=== PATIENT | female | born 1960 | race Caucasian/White ===

== ENCOUNTER → 2021-06-12 10:53 | Outpatient (BNVA) | payer MEDICARE, SELFPAY | PROVIDERS: PCP Family Medicine Adult Medicine; Visit Provider Family Medicine Adult Medicine | DX: R63.4 Abnormal weight loss (principal); E66.01 Morbid (severe) obesity due to excess calories; Z68.41 Body mass index [BMI] 40.0-44.9, adult; E03.9 Hypothyroidism, unspecified; N18.30 Chronic kidney disease, stage 3 unspecified; I10 Essential (primary) hypertension; I50.9 Heart failure, unspecified; J44.9 Chronic obstructive pulmonary disease, unspecified; I48.91 Unspecified atrial fibrillation; E78.5 Hyperlipidemia, unspecified; F32.9 Major depressive disorder, single episode, unspecified; M15.9 Polyosteoarthritis, unspecified; M79.7 Fibromyalgia | CPT/HCPCS: 80053; 83036; 84443; 85025 ==

== ENCOUNTER → 2022-06-24 14:24 | Outpatient (BNVA) | payer MEDICARE, MEDICAID, SELFPAY | PROVIDERS: PCP Nurse Practitioner Family; Visit Provider Internal Medicine Cardiovascular Disease | DX: I13.0 Hypertensive heart and chronic kidney disease with heart failure and stage 1 through stage 4 chronic kidney disease, or unspecified chronic kidney disease (principal); N18.30 Chronic kidney disease, stage 3 unspecified; I50.30 Unspecified diastolic (congestive) heart failure; Z87.891 Personal history of nicotine dependence; I48.91 Unspecified atrial fibrillation; Z79.01 Long term (current) use of anticoagulants; R01.1 Cardiac murmur, unspecified; E78.5 Hyperlipidemia, unspecified; J44.9 Chronic obstructive pulmonary disease, unspecified; R00.1 Bradycardia, unspecified; R94.31 Abnormal electrocardiogram [ECG] [EKG] | CPT/HCPCS: 36415; 80048; 80076; 83880; 93005; 99204 ==

== ENCOUNTER 2022-07-09 12:08 | Outpatient (CLI) | payer MEDICARE, MEDICAID, SELFPAY ==
[2022-07-09 13:59] LABS: Anion Gap 16.4 (5-19); Blood Urea Nitrogen 33 mg/dL (8-23); Calcium 8.7 mg/dL (8.5-10.5); Carbon Dioxide 29 mmol/L (22-29); Chloride 98 mmol/L (98-107); Glomerular Filtration Rate 22.5 mL/min (90-130); Glucose 74 mg/dL (65-115); NT Pro B Type Natriuretic Pept 1061 pg/mL (0-125); Osmolality Calculated 292 mOsm/kg (285-295); Potassium 5.4 mmol/L (3.5-5.1); Sodium 138 mmol/L (136-145)
== END 2022-07-09 12:09 | disposition home or self-care (01) ==
LOC: LAB 12:12
PROVIDERS: PCP Nurse Practitioner Family; Visit Provider Internal Medicine Cardiovascular Disease
DX: I48.91 Unspecified atrial fibrillation (principal); I50.30 Unspecified diastolic (congestive) heart failure; I50.9 Heart failure, unspecified; R01.1 Cardiac murmur, unspecified; N18.30 Chronic kidney disease, stage 3 unspecified
CPT/HCPCS: 80048; 83880

== ENCOUNTER 2022-07-27 10:40 | Outpatient (CLI) | payer MEDICARE, MEDICAID, SELFPAY ==
--- NOTE | 2022-07-27 10:50 | CT_ITS ---
WS: [id number] LDCT LUNG CANCER SCREENING HISTORY: HX OF TOBACCO USE TECHNIQUE: Axial imaging performed from the apices to 1 cm below the costophrenic angles. Coronal and sagittal reformats are submitted with axial MIP series. All CT scans at [facility] use at least one of these dose optimization techniques: automated exposure control; mA and/or kV adjustment per patient size (includes targeted exams where dose is matched to clinical indication); or iterativ e reconstruction. DLP: 73.31 mGy.cm DIvol: Mean CTDIvol: 1.60 (mGy) COMPARISON: None available. Diagnostic quality: Satisfactory Lung Nodules: No lesions are identified. Lungs: Linear areas of bibasilar atelectasis and RIGHT lower lobe bronchiectasis. There are small lenore ateral pleural effusions and compressive atelectasis. Heart: Heart is moderately enlarged. Atrial and ventricular enlargement. No effusion. Other findings: Mild atherosclerotic changes of aorta. No dilatation. CT/CT lung screening [id number] IMPRESSION: LUNG-RADS: 1S-Negative with Significant Findings FOLLOW UP: 12 Month: Continue annual screening with LDCT OTHER FINDINGS (S MODIFIER): Small bilateral pleural effusions and bibasilar at electasis. There is also cardiomegaly. No prior studies are available to evalua te for chronicity of these findings. Cardiology consultation may be helpful as the heart is also enlarged.
[2022-07-27 12:27] LABS: Anion Gap 16.1 (5-19); Blood Urea Nitrogen 34 mg/dL (8-23); Calcium 9.2 mg/dL (8.5-10.5); Carbon Dioxide 29 mmol/L (22-29); Chloride 102 mmol/L (98-107); Glomerular Filtration Rate 26.6 mL/min (90-130); Glucose 95 mg/dL (65-115); NT Pro B Type Natriuretic Pept 988 pg/mL (0-125); Osmolality Calculated 301 mOsm/kg (285-295); Potassium 5.1 mmol/L (3.5-5.1); Sodium 142 mmol/L (136-145)
== END 2022-07-27 10:41 | disposition home or self-care (01) ==
PROVIDERS: Internal Medicine Cardiovascular Disease; PCP Nurse Practitioner Family; Visit Provider Nurse Practitioner Family
DX: I48.91 Unspecified atrial fibrillation (principal); I50.30 Unspecified diastolic (congestive) heart failure; N18.30 Chronic kidney disease, stage 3 unspecified; Z12.2 Encounter for screening for malignant neoplasm of respiratory organs; Z87.891 Personal history of nicotine dependence
CPT/HCPCS: 36415; 71271; 80048; 83880

== ENCOUNTER 2022-09-21 06:08 | Outpatient (CLI) | payer MEDICARE, MEDICAID, SELFPAY ==
--- NOTE | 2022-09-21 06:15 | USCV_ITS ---
Lupe Monreal Age: 62 Gender: F : 1960 Exam Date: 09/21/2022 06:22 Ordering Phys: Francis Dhillon MD ([email or web address]) Technologist: [place] [facility] [place]: short of breath BP: 172 / 80 HR: 56 Rhythm: Sinus Technical Quality: Adequate MEASUREMENTS (Male / Female) Normal Values 2D ECHO LV Diastolic Diameter PLAX 4.3 cm 4.2 - 5.9 / 3.9 - 5.3 cm LV Systolic Diameter PLAX 2.8 cm IVS Diastolic Thickness 1.1 cm 0.6 - 1.0 / 0.6 - 0.9 cm IVS Systolic Thickness 1.5 cm LVPW Diastolic Thickness 1.1 cm 0.6 - 1.0 / 0.6 - 0.9 cm LVPW Systolic Thickness 1.4 cm LVOT Diameter 2.1 cm LV Ejection Fraction 2D Teich 64.3 % LV Ejection Fraction MOD 2C 68.9 % LV Ejection Fraction 2C AL 70.0 % LA Diameter 4.2 cm LA Width 5.4 cm M-MODE LV Diastolic Diameter MM 5.3 cm 4.2 - 5.9 / 3.9 - 5.3 cm LV Systolic Diameter MM 3.6 cm LV Ejection Fraction MM Teich 59.2 % IVS Diastolic Thickness MM 1.3 cm 0.6 - 1.0 / 0.6 - 0.9 cm IVS Systolic Thickness MM 1.9 cm LVPW Diastolic Thickness MM 1.4 cm 0.6 - 1.0 / 0.6 - 0.9 cm LVPW Systolic Thickness MM 1.8 cm RV Diastolic Diameter MM 2.0 cm Aortic Annulus Diameter 2.9 cm LA Ao Ratio MM 1.4 MV E Point Septal Separation 1.2 cm DOPPLER AV Peak Velocity 204.0 cm/s LVOT Peak Velocity 117.0 cm/s AV Area Cont Eq vti 2.2 cm squared AV Area Cont Eq pk 1.9 cm squared MV Area PHT 5.0 cm squared Mitral E to A Ratio 0.9 MV E' Velocity 53.5 cm/s Mitral E to MV E' Ratio 9.7 Mitral E to LV E' Lateral Ratio 9.0 Mitral E to LV E' Septal Ratio 10.6 TR Peak Velocity 287.0 cm/s TR Peak Gradient 32.9 mmHg TV Peak E Velocity 105.0 cm/s Right Atrial Pressure 3.0 mmHg Pulmonary Artery Systolic Pressu 35.9 mmHg RV Acceleration Time 0.2 s FINDINGS Left Ventricle Normal left ventricular size and systolic function, EF 71 %. Mild left ventricular hypertrophy. No regional wall motion abnormalities. Right Ventricle The right ventricle is normal in size and function. TAPSE of 2.81 Right Atrium The right atrium is normal in size. Left Atrium Mildly increased left atrial size. Mitral Valve Thickened mitral valve. Moderate mitral annular calcification. Aortic Valve Thickened aortic valve. Tricuspid Valve trace tricuspid valve regurgitation. Estimated pulmonary artery peak systolic pressure 36 mmHg Pulmonic Valve No gross abnormalities noted Pericardium Normal pericardium without effusion. Aorta Normal ascending aorta dimension. IVC Normal inferior vena cava. CONCLUSIONS Normal left ventricular size and systolic function, EF 71 %. Mild left ventricular hypertrophy. No regional wall motion abnormalities. Normal RV size ejection fraction Thickened mitral valve. Moderate mitral annular calcification. Trace tricuspid valve regurgitation. Estimated pulmonary artery peak systolic pressure 36 mmHg There is no pericardial effusion. There are no intracardiac masses. No similar previous studies are available for comparison Dr Francis Dhillon MD [facility] (Electronically Signed) Final Date: 21 September 2022 20:32 S
== END 2022-09-21 06:09 | disposition home or self-care (01) ==
LOC: RAD 06:08
PROVIDERS: PCP Nurse Practitioner Family; Visit Provider Internal Medicine Cardiovascular Disease
DX: R06.09 Other forms of dyspnea (principal); R01.1 Cardiac murmur, unspecified; I05.9 Rheumatic mitral valve disease, unspecified
CPT/HCPCS: 93306

== ENCOUNTER 2022-09-21 06:08 | Outpatient (CLI) | payer MEDICARE, MEDICAID, SELFPAY ==
--- NOTE | 2022-09-21 07:12 | ECG_ITS ---
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 Interpretive Statements NAME OF STUDY: LEXISCAN SESTAMIBI STRESS TEST INDICATION: CHF, PROCEDURE: At the baseline, the EKG revealed sinus bradycardia with a borderline first-degree AV block. Some nonspecific T wave changes. The baseline heart was 55 bpm with a blood pressue of 166/88 mm of Hg Lexiscan was infused over a period of 20 seconds. A total of 0.4 milligrams of Lexiscan was infused. The stress phase was continued for a total of 5 minutes. Heart rate at the end of the stress phase was 57 bpm with a blood pressure 135/80 mm of Hg. The EKG at the peak infusion revealed no significant changes. Sestamibi was injected 20 seconds after the Lexiscan infusion. Heart rate at the end of the recovery phase was 57 bpm with a blood pressure of 136/79 mm of Hg. CONCLUSION: 1. No significant EKG changes with the LexiScan infusion 2. No LexiScan induced chest pain or cardiac arrhythmia 3. Normal blood pressure and heart rate response 4. Sestamibi/sestamibi perfusion scan pending; see separate report. Electronically Signed On 09-24-2022 8:59:11 DIRECTOR MEDICAID by Francis Dhillon M.D. [email or web address]
--- NOTE | 2022-09-21 07:12 | NMCV_ITS ---
NM christiano perf SPECT r/s* [id number] Lupe Monreal Age: 62 Gender: F : 1960 Exam Date: 09/21/2022 08:36 Ordering Phys: Francis Dhillon MD ([email or web address]) Technologist: SELINA Lorenzo Exam Location: [facility] Indications: DIASTOLIC CONGESTIVE HEART DISEASE STRESS TEST Please see separate stress test report in [facility] for full findings IMAGE PROTOCOL Rest/Stress 1 Lexiscan Day Radiopharmaceutical Dose (mCi) Administration Site Administered by Rest: Tc-99m 10.5 IV SELINA Drake Sestamibi Stress:Tc-99m 32.6 IV SELINA Drake Sestamibi Rest: 21-Sep-2022 60 Discovery 630 Stress: 21-Sep-2022 30 Discovery 630 0.4mg Lexiscan. Supine position only as patient was unable to lay prone. SPECT RESULTS Technical Quality: Excellent Raw Data Analysis: Normal Image Corrections: No attenuation or motion correction applied Summed Stress Score: 25 Summed Rest Score: 24 Summed Difference Score: 2 PERFUSION FINDINGS Moderate area of moderate to severely decreased tracer uptake in the basal and mid anterolateral, mid and apical anterior, apical lateral, apical septal, apical inferior and LV apex. A small area of reversibility was noted in the basal anterolateral region. FUNCTIONAL RESULTS (calculated via Gated SPECT) Stress Image LV EF (%): 61 Stress EDV (mL):142 TID: 1 Stress ESV (mL):56 FUNCTIONAL FINDINGS: Segmental wall motion analysis revealed diffuse hypokinesis LV apex IMPRESSIONS 1. Myocardial perfusion imaging revealing moderate area of moderate to severely decreased persistent tracer uptake in the anterior, anterolateral and LV apical regions with a small area of reversibility at the basal anterolateral region, suggestive of myocardial scarring in the distribution of the left anterior descending artery and circumflex artery with a small area of citlalli- infarction ischemia in the circumflex territory. 2. Normal ejection fraction 61%. 3. LV wall motion analysis revealing moderate hypokinesia of the LV apex. 4. Mildly dilated LV cavity. No similar previous studies are available for comparison Dr Francis Dhillon MD FAC (Electronically Signed) Final Date: 21 September 2022 19:47 S
[2022-09-21 07:15] VITALS: BMI 42.7
[2022-09-21] MEDS: regadenoson 0.4 Mg/5 ml Syringe IVP (09:13)
[2022-09-21 09:38] VITALS: BP 137/78; PULSE 57
== END 2022-09-21 06:09 | disposition home or self-care (01) ==
LOC: CDL 06:09
PROVIDERS: PCP Nurse Practitioner Family; Visit Provider Internal Medicine Cardiovascular Disease
DX: I50.9 Heart failure, unspecified (principal)
CPT/HCPCS: 78452; 93017; A9500; J2785

== ENCOUNTER → 2023-04-01 11:26 | Outpatient (BNVA) | payer MEDICARE, MEDICAID, SELFPAY | PROVIDERS: PCP Nurse Practitioner Family; Visit Provider Nurse Practitioner Family | DX: I48.91 Unspecified atrial fibrillation (principal); Z79.01 Long term (current) use of anticoagulants; I13.0 Hypertensive heart and chronic kidney disease with heart failure and stage 1 through stage 4 chronic kidney disease, or unspecified chronic kidney disease; N18.30 Chronic kidney disease, stage 3 unspecified; Z87.891 Personal history of nicotine dependence; I50.30 Unspecified diastolic (congestive) heart failure | CPT/HCPCS: 99214 ==

== ENCOUNTER 2023-04-01 12:17 | Outpatient (CLI) | payer MEDICARE, MEDICAID, SELFPAY ==
--- NOTE | 2023-04-01 13:53 | XR_ITS ---
WS: [id number] Lumbar spine, 7 views including both obliques and flexion, extension and neutral lateral views, 2022 Clinical Data: LOW BACK PAIN WITH RADICULOPATHY Comparison: None. Findings: No compression fractures are seen. There is degenerative disc narrowing at L4-L5 with osteophytes at L4 and L5. The transverse processes and SI joints are normal. On the oblique films there is no spondy lolysis. Flexion and extension there is no limitation of motion or change in subluxation. There is facet joint arthritis from L3-L4 to L5-S1 bilaterally. There is a large amount of fecal material in the colon. T here is a gallstone in the right upper quadrant. 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 XR/XR lumbar spine 6V w f/e [id number] Impression: 1. Degenerative disc narrowing at L4-L5 with osteophytes at L4 and L5. 2. Negative for spondylolysis on oblique films. 3. Negative for limitation of motion or change in subluxation on flexion or ext ension. 4. Facet joint arthritis from L3-L4 L5-S1.
== END 2023-04-01 12:18 | disposition home or self-care (01) ==
LOC: RAD 12:21
PROVIDERS: PCP Nurse Practitioner Family; Visit Provider Nurse Practitioner Family
DX: M51.16 Intervertebral disc disorders with radiculopathy, lumbar region (principal); M48.061 Spinal stenosis, lumbar region without neurogenic claudication; M25.78 Osteophyte, vertebrae; M47.26 Other spondylosis with radiculopathy, lumbar region
CPT/HCPCS: 72114

== ENCOUNTER 2023-08-10 12:41 | Outpatient (CLI) | payer MEDICARE, MEDICAID, SELFPAY ==
[2023-08-10 13:36] LABS: Basophils % 0.5 %; Eosinophils # 0.2 10^3/uL (0.0-0.8); Eosinophils % 2.8 %; Lymphocytes # 1.3 10^3/uL (0.8-4.8); Lymphocytes % 20.2 %; Mean Corpuscular HGB Conc 30.5 g/dL (30-55); Mean Corpuscular Hemoglobin 27.1 pg (27-33); Mean Platelet Volume 9.9 fL (7.4-10.4); Monocytes # 0.6 10^3/uL (0.2-0.9); Monocytes % 8.9 %; Neutrophils # 4.15 10^3/uL (1.8-7.7); Neutrophils % 67.1 %; Nucleated Red Blood Cells % 0 %; Platelet Count 275 10^3/cmm (157-399); Red Blood Count 4.83 10^6/uL (3.85-5.65); Red Cell Distribution Width 13.6 % (12.1-15.1); White Blood Count 6.18 10^3/uL (3.29-11.43)
[2023-08-10 13:59] LABS: Calcium 9.2 mg/dL (8.5-10.5)
[2023-08-10 14:00] LABS: Alanine Aminotransferase 14 U/L (0-33); Albumin Level 4.2 g/dL (3.5-5.2); Alkaline Phosphatase 118 U/L (35-105); Anion Gap 14.4 (5-19); Aspartate Amino Transferase 24 U/L (0-32); Blood Urea Nitrogen 31 mg/dL (8-23); Calcium 8.9 mg/dL (8.5-10.5); Carbon Dioxide 29 mmol/L (22-29); Chloride 102 mmol/L (98-107); Globulin 2.9 g/dL (1.3-4.6); Glomerular Filtration Rate 28.2 mL/min (90-130); Glucose 85 mg/dL (65-115); Iron 79 ug/dL (37-145); Magnesium 2.1 mg/dL (1.7-2.3); Osmolality Calculated 298 mOsm/kg (285-295); Percent Saturation 23.3 % (20-50); Phosphorus 2.6 mg/dL (2.5-4.5); Potassium 4.4 mmol/L (3.5-5.1); Sodium 141 mmol/L (136-145); Total Bilirubin 0.5 mg/dL (0.15-1.2); Total Iron Binding Capacity 339 mcg/dl; Total Protein 7.1 g/dL (6.6-8.7); Unsaturated Iron Binding 260 ug/dL (112-347); Uric Acid 10.6 mg/dL (2.4-5.7)
[2023-08-10 14:07] LABS: Parathyroid Hormone 215.4 pg/mL (15-65)
[2023-08-10 14:16] LABS: 25 Hydroxy Vitamin D 38 ng/mL (30-100)
[2023-08-10 14:45] LABS: Add Urine Culture? No; Bacteria Urine TRACE /hpf; Bilirubin Urine Neg (Negative); Blood Urine Neg (Negative); Glucose Urine UA Norm (Normal); Ketones Urine Negative (Negative); Leukocyte Esterase Urine Negative (Negative); Nitrate Urine Negative (Negative); Protein Urine Neg (Negative); RBC Urine 0-4 /hpf (0-2); Urine Appearance Clear (CLEAR); Urine Color Yellow (Yellow); Urobilinogen Urine Norm (Negative); WBC Urine 0-4 /hpf (0-5); pH Urine 6 (5-7)
[2023-08-10 14:47] LABS: Urine Creatinine 33 mg/dL (28-217); Urine Protein Random 17 mg/dL
[2023-08-10 14:48] LABS: UPRO/UCREAT Ratio 0.52 mg/mg CR
== END 2023-08-10 12:42 | disposition home or self-care (01) ==
PROVIDERS: PCP Nurse Practitioner Family; Visit Provider Internal Medicine Nephrology
DX: N18.30 Chronic kidney disease, stage 3 unspecified (principal)
CPT/HCPCS: 36415; 80053; 81001; 82306; 82310; 82570; 83540; 83550; 83735; 83970; 84100; 84156; 84550; 85025

== ENCOUNTER 2023-08-15 10:16 | Outpatient (CLI) | payer MEDICARE, MEDICAID, SELFPAY ==
[2023-08-15 10:55] LABS: Total Volume Urine 2100 ml; Total Volume, Urine 2100 mL
[2023-08-15 11:10] LABS: Sodium, Urine Result 53 mmol/L
[2023-08-15 11:46] LABS: Phosphorus 24 HR Urine 86.5 g/24 HR (0.4-1.3); Phosphorus Urine 41.2 mg/dL
[2023-08-15 11:47] LABS: Collection Time Urine 24
[2023-08-16 16:30] LABS: CREATININE, 24 HOUR URINE 1.03 g/24 h (0.50-2.15); PROTEIN, TOTAL, 24 HR UR 336 mg/24 h (<150); Protein/Creatinine Ratio 0.327 (<0.150); Protein/Creatinine Ratio 327 mg/g creat (<150)
[2023-08-17 15:13] LABS: ALBUMIN 51 %; ALPHA-1-GLOBULINS 5 %; ALPHA-2-GLOBULINS 12 %; BETA GLOBULINS 15 %; GAMMA GLOBULINS 17 %
== END 2023-08-15 10:17 | disposition home or self-care (01) ==
PROVIDERS: PCP Nurse Practitioner Family
DX: N18.30 Chronic kidney disease, stage 3 unspecified (principal)
CPT/HCPCS: 82570; 84105; 84166; 84300; 86335

== ENCOUNTER → 2024-01-03 12:23 | Outpatient (BNVA) | payer MEDICARE, MEDICAID, SELFPAY | PROVIDERS: PCP Nurse Practitioner Family; Visit Provider Internal Medicine Cardiovascular Disease | DX: R06.02 Shortness of breath (principal); I10 Essential (primary) hypertension | CPT/HCPCS: 36415; 80048; 83880; 99214 ==

== ENCOUNTER 2024-02-01 13:18 | Outpatient (CLI) | payer MEDICARE, MEDICAID, SELFPAY ==
--- NOTE | 2024-02-01 13:27 | MM_ITS ---
WS: [id number] Bilateral screening 3D tomosynthesis digital mammogram, 02/01/2024 Clinical Data: SCREENING Comparison: None. Findings: The breast parenchymal pattern shows fibroglandular tissue. No spiculated masses or clustered calcifi cations are seen. There are no secondary signs of carcinoma. There are lymph nodes in both axilla. Impression: 1. Negative bilateral mammogram with no prior exam for review. 2. Recommend annual screening mammograms. MM/[place] [id number] BIRADS: 1-Negative FOLLOW UP: 1 Year Follow-up The CAD content checker was used.
--- NOTE | 2024-02-01 13:30 | CT_ITS ---
WS: [id number] LDCT LUNG CANCER SCREENING TECHNIQUE: Noncontrast CT of the chest with coronal and sagittal reformatted images. CLINICAL INFORMATION: HX OF TOBACCO USE COMPARISON: 07/27/2022 DLP: 173.61 mGy.cm DIvol: Mean CTDIvol: 4.70 (mGy) All CT scans at [facility] use at least one of these dose optimization techniques: automat ed exposure control; mA and/or kV adjustment per patient size (includes targeted exams where dose is matched to clinical indication); or iterative reconstruction. FINDINGS: New slightly spiculated lesions in the LEFT lung apex extending to the pleura. 2 lesions in this location the largest lesion measuring 1.5 x 1.3 cm. Recommend further evaluation with PET/CT. I rregular adjacent smaller lesion measuring 8 mm. Small bilateral pleural effusions with chronic pleural thickening similar to previous. Subsegmental a telectasis in the lower lobes. Tiny nodule in the lingula. Aortic calcification. Coronary calcification. Cardiomegaly. No mediastinal or hilar lymphadenopathy. No axillary lymphadenopathy. Adrenal glands are normal. Splenic artery calcification. Small esophageal hiatal hernia. Mild thoraci c curve. IMPRESSION suspicious slightly spiculated lesions in the LEFT lung apex the largest measuring 1.5 x 1 .3 cm suspicious for neoplasm. Recommend further evaluation with PET/CT.: CT/CT lung screening [id number] LUNG-RADS: 4B-Suspicious FOLLOW UP: PET/CT recommended
--- NOTE | 2024-02-01 14:06 | XRR_ITS ---
PROCEDURE INFORMATION: Exam: XR Left Knee Exam date and time: 02/01/2024 2:59 PM Age: 63 years old Clinical indication: Injury or trauma; Fall; Blunt trauma; Knee; Left; Injury date: 2 weeks ago; Additional info: L knee pain TECHNIQUE: Imaging protocol: Radiologic exam of the left knee. Views: 1 or 2 views. COMPARISON: No relevant prior studies available. FINDINGS: Bones/joints: No fracture or dislocation. No acute osseous, joint, or soft tissue abnormality. Soft tissues: Normal. XR/XR knee LT 1-2V [id number] IMPRESSION: No acute findings.
== END 2024-02-01 13:19 | disposition home or self-care (01) ==
LOC: RAD 13:19
PROVIDERS: PCP Nurse Practitioner Family; Visit Provider Nurse Practitioner Family
DX: Z12.31 Encounter for screening mammogram for malignant neoplasm of breast (principal); Z12.2 Encounter for screening for malignant neoplasm of respiratory organs; Z87.891 Personal history of nicotine dependence; R91.8 Other nonspecific abnormal finding of lung field; J90 Pleural effusion, not elsewhere classified; J98.11 Atelectasis; M25.562 Pain in left knee
CPT/HCPCS: 71271; 73560; 77063; 77067

== ENCOUNTER 2024-02-01 13:21 | Outpatient (CLI) | payer MEDICARE, MEDICAID, SELFPAY ==
[2024-02-01 14:28] LABS: Anion Gap 16.4 (5-19); Blood Urea Nitrogen 26 mg/dL (8-23); Calcium 8.9 mg/dL (8.5-10.5); Carbon Dioxide 29 mmol/L (22-29); Chloride 105 mmol/L (98-107); Glomerular Filtration Rate 30.2 mL/min (90-130); Glucose 111 mg/dL (65-115); NT Pro B Type Natriuretic Pept 3923 pg/mL (0-125); Osmolality Calculated 307 mOsm/kg (285-295); Potassium 4.4 mmol/L (3.5-5.1); Sodium 146 mmol/L (136-145)
== END 2024-02-01 13:22 | disposition home or self-care (01) ==
LOC: LAB 13:22
PROVIDERS: PCP Nurse Practitioner Family; Visit Provider Internal Medicine Cardiovascular Disease
DX: I50.32 Chronic diastolic (congestive) heart failure (principal)
CPT/HCPCS: 36415; 80048; 83880

== ENCOUNTER 2024-04-24 11:28 | Outpatient (CLI) | payer MEDICARE, MEDICAID, SELFPAY ==
--- NOTE | 2024-04-24 11:36 | PETR_ITS ---
PROCEDURE INFORMATION: Exam: PET/CT Skull Base to Mid-thigh Exam date and time: 04/24/2024 11:52 AM Age: 64 years old Clinical indication: Abnormal findings; Lung lesion; Additional info: Abnormal imaging LABS AND CLINICAL REPORTS: Glucose: 107 mg/dl Treatment strategy for malignancy (PET staging): Initial Staging (PI) TECHNIQUE: Imaging protocol: Following at least four-hour fasting and following the injection of radiopharmaceutical, low dose CT images were obtained. Then, PET images were obtained. Attenuation corrected images were constructed using the CT scan. Fused images of PET and CT were reviewed. The standardized uptake values (SUV) reported below are maximum values within a region of interest, expressed in gm/ml. Exam includes orbital meatal line to mid-thigh. Radiopharmaceutical: 12.9 mCi F-18 FDG (Fluorodeoxyglucose), IV. Time of imaging post radiopharmaceutical administration: 1 hour Injection site: Right hand COMPARISON: CT chest lung cancer screening 02/01/2024 and 07/27/2022 FINDINGS: Brain: Visualized brain has normal physiologic uptake. Pharynx: No abnormal uptake. Larynx: No abnormal uptake. Lungs, pleura and trachea: No abnormal uptake. Minimal right pleural effusion and possible pleural thickening. Mild partially calcified left pleural thickening. 0.9 cm left upper lobe nodule on axial image 60 is not FDG avid (1.7 SUV) decreased from 1.3 cm on 02/01/2024. Additional about 0.8 cm left upper lobe nodule noted on 02/01/2024 has resolved in the interval. Heart: Normal physiologic uptake. Cardiomegaly. Coronary artery calcification is present. There is no pericardial effusion. Mediastinal space: No abnormal uptake. There is a small hiatal hernia. Liver: No abnormal uptake. Gallbladder and bile ducts: No abnormal uptake. A couple of calcified gallstones in the gallbladder with the largest stone measuring 3 cm. No biliary dilatation. Pancreas: No abnormal uptake. Spleen: No abnormal uptake. No splenomegaly. Adrenal glands: No abnormal uptake. No nodules. Kidneys and ureters: Normal physiologic uptake. No hydronephrosis Stomach and bowel: No abnormal uptake. Vasculature: No abnormal uptake. Lymph nodes: No abnormal uptake. No lymphadenopathy in the head, neck, chest, abdomen, pelvis, and extremities. Skeleton: No abnormal uptake in the visualized axial and appendicular skeleton. Soft tissues: Diffusely increased muscular uptake in the shoulders is benign. PET/PET skulltothigh INITIAL [id number] IMPRESSION: No abnormal radiotracer uptake concerning for malignancy. Irregular shaped branching nodular opacity in the apex of the left upper lobe present on 02/01/2024 has decreased in size/partially resolved with no abnormal uptake compatible with benign inflammatory focus.
== END 2024-04-24 11:29 | disposition home or self-care (01) ==
LOC: RAD 11:28
PROVIDERS: PCP Nurse Practitioner Family; Visit Provider Nurse Practitioner Family
DX: J98.4 Other disorders of lung (principal); I51.7 Cardiomegaly; I25.84 Coronary atherosclerosis due to calcified coronary lesion; K80.20 Calculus of gallbladder without cholecystitis without obstruction
CPT/HCPCS: 78815; A9552

== ENCOUNTER 2024-05-14 12:14 | Oncology outpatient (recurring) (ONCR) | payer MEDICARE, MEDICAID, SELFPAY | END 2024-06-13 23:59 | disposition home or self-care (01) | PROVIDERS: PCP Nurse Practitioner Family; Visit Provider Internal Medicine Medical Oncology | DX: Z53.9 Procedure and treatment not carried out, unspecified reason (principal); R91.1 Solitary pulmonary nodule | CPT/HCPCS: 99204 ==

== ENCOUNTER 2025-10-29 23:25 | Inpatient (IN) | payer MEDICARE, MEDICAID, SELFPAY ==
[2025-10-29 23:10] VITALS: BP 202/93; PULSE 97; RESP 22; TEMP 36.9; O2SAT 84; BMI 48.0
[2025-10-29 23:18] VITALS: BP 168/91; PULSE 93; O2SAT 93
--- OUTSIDE RECORDS SUMMARY | 2025-10-29 23:33 | XMS_ITS | Encounter Summary ---
Author Organization [facility] Address [address] [place] [address] Care Team Providers Care Crew Caller Name Role Phone Ina Altamirano MD Primary Care Provider Reason for Visit * Reason Comments Provider Call Encounter Details Date Type Department Care Team (Late st Contact Info) Description 04/02/2025 Telephone [facility] [place] [address] [place] [address] Nichol Waller, [address] [place] [address] Provider Call Social History Tobacco Use Types Packs/Day Years Used Date Smoking Tobacco: Former Cigarettes 0 Q uit: 06/2020 Comments No Sex and Gender Information Value Date Recorded Sex Assigned at Not on file Legal Sex Female 9:50 AM CDT Gender Identity Not on file Sexual Orientation Not on file documented as of this encounter Miscellaneous Notes * Telephone Encounter - Roberto Randolph - 04/02/2025 2:23 PM CDT Copied from [facility] #[id number]. Topic: Yhclrahk-Yj-[id number] Call >> April 02, 2025 2:20 PM Roberto Mejia wrote: Caller is requesting to speak with Clinical Care Team. Caller Name: Patti Lara Callback Number: [phone] Clinician Type: Other healthcare professional not listed above Call Notes: Patti is trying to reach the patient and would like to see if the office can contact the patient and have them call her back please. Is this addressing an immediate patient care need? No documented in this encounter Plan of Treatment Not on file documented as of this encounter Visit Diagnoses Not on filedocumented in this encounter Care Teams Crew Caller Relationship Specialty Start Date End Date Ina Altamirano [place] [id number] [address] [address] PCP - General Family Practice 04/27/17 documented as of this encounter
--- OUTSIDE RECORDS SUMMARY | 2025-10-29 23:33 | XMS_ITS | Clinical Summary ---
Author Organization [facility] Address [address] [place] [address] Care Team Providers Care Buckle Frame Shaper Name Role Phone Ina Altamirano MD Primary Care Provider Medications acetaminophen (TYLENOL) 500 mg tablet Take 500 mg by mouth. Active atorvastatin (LIPITOR) 80 mg tablet Take 80 mg by mouth daily. 3 Active Cholecalciferol , Vitamin D3, 50 mcg (2,000 unit) Capsule Take 2,000 Units by mouth daily. Active fluticasone-ume clidinium-vilan terol (TRELEGY ELLIPTA) 200-62.5-25 mcg Disk with Device .COMPLEX 2 Active hydroCHLOROthia zide 12.5 mg tablet Take 25 mg by mouth daily. Active levothyroxine 200 mcg tablet Take 200 mcg by mouth. Active metoprolol tartrate (LOPRESSOR) 50 mg tablet Take 50 mg by mouth daily. Active omeprazole magnesium (PriLOSEC) 20 mg Tablet, Delayed Release (E.C.) Take 1 Tablet by mouth daily. Active rivaroxaban (XARELTO) 20 mg Tablet Take 20 mg by mouth daily. Active torsemide 40 mg Tablet Take 20 mg by mouth. 2 Active albuterol sulfate HFA 90 mcg/actuation aerosol inhaler Take 2 Puffs by inhalation every 6 hours as needed for Shortness of Breath. Active Active Problems No known active problems Encounters Date Type Department Care Team Description 10/01/2025 External Device Data [facility] ABSTRACTION Provider, Abstract 09/04/2025 External Device Data [facility] ABSTRACTION Provider, Abstract 09/03/2025 External Device Data [facility] ABSTRACTION Provider, Abstract 07/30/2025 External Device Data [facility] ABSTRACTION Provider, Abstract from Last 3 Months Social History Tobacco Use Types Packs/Day Years Used Date Smoking Tobacco: Former Cigarettes 0 Q uit: 06/2020 Tobacco Cessation:Counseling Given: Not Answered Comments No Sex and Gender Information Value Date Recorded Sex Assigned at Not on file Legal Sex Female 9:50 AM CDT Gender Identity Not on file Sexual Orientation Not on file Last Filed Vital Signs Vital Sign Reading Time Taken Comments Blood Pressure 120/80 07/18/2024 11:17 AM CDT Pulse 65 07/18/2024 11:17 AM CDT Temperature - - Respiratory Rate - - Oxygen Saturation 92% 07/18/2024 11: 17 AM CDT Inhaled Oxygen Concentration - - Weight 132.2 kg (291 lb 6.4 oz) 024 11:17 AM CDT Height 162.6 cm (5' 4 ) 07/18/2024 11:1 7 AM CDT Body Mass Index 50.02 07/18/2024 11:17 AM CDT Plan of Treatment Health Maintenance Due Date Last Done Comments DTAP/TDAP/TD VACCINES (1 - Tdap) 1977 BREAST CANCER SCREENING 1998 COLORECTAL SCREENING 2003 Colorectal Cancer Screening 2003 FIT-DNA Q 3 years 2003 FIT/FOBT Q 1 year 2003 Flex Sig/CT Colonography Q 5 years 2003 RSV VACCINE (60+ or ) (1 - Risk 50-74 years 1-dose series) 2008 ZOSTER VACCINE (1 of 2) 2008 OSTEOPOROSIS SCREENING 2023 05/11/2017 INFLUENZA VACCINE (#1) 2025 0, 08/02/2019, 10/15/2017, Additional history exists PNEUMOCOCCAL VACCINE 50+ YEA RS (3 of 3 - PCV20 or PCV21) 02/09/2026 02/09/2021, 04/19/2018 Insurance MEDICAID [place] Care Teams Buckle Frame Shaper Relationship Specialty Start Date End Date Ina Altamirano [place] [id number] [address] [address] PCP - General Family Practice 04/27/17
--- NOTE | 2025-10-29 23:39 | XRR_ITS ---
PROCEDURE INFORMATION: Exam: XR Chest Exam date and time: 10/29/2025 11:54 PM Age: 65 years old Clinical indication: Shortness of breath; Additional info: SOB, HX chf TECHNIQUE: Imaging protocol: Radiologic exam of the chest. Views: 1 view. COMPARISON: CT lung screening [id number] 02/01/2024 1:57 PM FINDINGS: Lungs: Consolidation in the left upper lung, concerning for pneumonia. Pleural spaces: Small bilateral pleural effusions. Mild pulmonary vascular congestion. Correlate for CHF. Heart/Mediastinum: Cardiomegaly. Bones/joints: Unremarkable. XR/XR chest 1V portable [id number] IMPRESSION: Consolidation in the left upper lung, concerning for pneumonia. Small bilateral pleural effusions. Mild pulmonary vascular congestion. Correlate for CHF.
--- NOTE | 2025-10-29 23:40 | ECG_ITS ---
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 Measurements Intervals [place] Rate: 84 P: 0 AK: 0 QRS: 3 QRSD: 106 T: 150 QT: 339 QTc: 402 Interpretive Statements ATRIAL FIBRILLATION NONSPECIFIC T-WAVE ABNORMALITY No previous ECG available for comparison Electronically Signed On 10-30-2025 21:39:47 CAR REPOSSESSOR by Francis Dhillon M.D. [email or web address]
[2025-10-29 23:48] LABS: Hematocrit 37.0 % (36-47); Hemoglobin 10.60 g/dL (11.27-16.99); Mean Corpuscular HGB Conc 28.6 g/dL (30-55); Mean Corpuscular Hemoglobin 23.5 pg (27-33); Mean Corpuscular Volume 82.0 fl (85-98); Nucleated Red Blood Cells % 0 %; Platelet Count 383 10^3/cmm (157-399); Red Blood Count 4.51 10^6/uL (3.85-5.65); White Blood Count 9.61 10^3/uL (3.29-11.43)
[2025-10-29] MEDS: bumetanide 0.25 mg/mL SDV 4 mL 1 MG IVP (23:51)
[2025-10-29 23:53] VITALS: BP 162/83; PULSE 93; O2SAT 93
[2025-10-30] VITALS (13 sets, daily range): BP systolic 115–153; BP diastolic 65–94; PULSE 64–95; RESP 15–20; TEMP 36.5–36.9; O2SAT 93–97; BMI 48.6
[2025-10-30 00:04] LABS: Troponin(5th) Baseline 57 ng/L (0-10)
[2025-10-30 00:05] LABS: Lactic Sepsis W/Reflex 1.7 mmol/L (0.5-2.2)
--- NOTE | 2025-10-30 00:07 | ED_ITS ---
HPI - SOB/Dyspnea 2 General: Chief Complaint: Fall Stated Complaint: fall, toe lac History of Present Illness: HPI Narrative: Patient is a 65-year-old female with a past medical history of CHF, COPD, A-fib, hypothyroidism, hypertension, HLD who presents to the ED initially for a cut to her right toe, she states she was bending down to get something off the floor when she hit her right toe on the edge of a table and had a mild amount of bleeding, was easily controlled but called EMS for further evaluation. On their arrival, she was saturating in the mid 80s on room air with heart rates in the high 100s. She denies any recent fevers, has recently been on 5 days of antibiotics for cellulitis to her left hand and states it is improving. She states she has been compliant on her torsemide, has been drinking a lot of water though admittedly. she states she has probably gained about 20 pounds in the last week. She denies any chest pain, syncopal episodes. Related Data Home Medications ?Medication ?Instructions ?Recorded ?Confirmed acetaminophen 500 mg capsule 500 mg PO Q6H PRN 1 05/14/24 biotin 10,000 mcg chewable tablet mcg PO DAILY 4 05/14/24 (Hair, Skin and Nails (biotin)) famotidine 10 mg tablet 10 mg PO .nighttime PRN 12/0705/14/24 Previous Rx's ?Medication ?Instructions ?Recorded albuterol sulfate 90 mcg/actuation 2 puff inhalation Q 6H PRN 06/12/21 aerosol inhaler shortness of breath or wheez ing #8.5 grams atorvastatin 80 mg tablet 80 mg PO .qhs #30 tabs 06/12 cholecalciferol (vitamin D3) 25 25 mcg PO DAILY #100 c aps 06/12/21 mcg (1,000 unit) capsule levothyroxine 175 mcg tablet 175 mcg PO DAILY 30 days #30 tabs 02/04/22 bupropion HCl 150 mg tablet,12 hr See Rx Instructions .Route 05/25/22 sustained-release .COMPLEX #30 tabs gabapentin 300 mg capsule See Rx Instructions .Route 0 06/08/22 .COMPLEX #60 caps amiodarone 200 mg tablet See Rx Instructions .Route 1 .COMPLEX #30 tabs metoprolol succinate 50 mg See Rx Instructions .Route 08/15/23 tablet,extended release 24 hr .COMPLEX #30 tabs rivaroxaban 20 mg tablet (Xarelto) 20 mg PO DAILY #90 tabs 08/15/23 mycophenolate mofetil 500 mg tablet See Rx Instruction s .Route 08/22/23 .COMPLEX #60 tabs potassium chloride 10 mEq 10 meq PO DAILY #30 caps capsule,extended release fluticasone fur. 200 mcg-umeclid See Rx Instructions . Route 02/16/24 62.5 mcg-vilant 25 mcg .COMPLEX #60 ea inhalat.powder (Trelegy Ellipta) torsemide 20 mg tablet See Rx Instructions .Route 0 02/27/24 .COMPLEX #135 tabs Allergies Allergy/AdvReac Type Severity Reaction Status Date / Time No Known Allergies Allergy Verified 05/14/24 12:39 Review of Systems 2 General: Reports: 10 or more systems reviewed and unremarkable except in HPI and below Resp: Reports: dyspnea and non-productive cough PFSH ED 2 PFSH: Medical History (Updated 10/30/25 @ 02:44 by Rajeev Perry MD) Depression She is taking Celexa 40 mg daily and will continue that for mental health. She'll follow up with us every 3 months and sooner if needed. We will call her the lab results when they're available. Hyperlipidemia Atrial fibrillation with controlled ventricular response Weight loss of more than 10% body weight Osteoarthritis, multiple sites Fibromyalgia affecting multiple sites Morbid obesity with BMI of 40.0-44.9, adult Hypothyroidism CKD (chronic kidney disease) stage 3, GFR 30-59 ml/min COPD (chronic obstructive pulmonary disease) CHF (congestive heart failure) HTN (hypertension) Surgical History (Updated 05/14/24 @ 13:39 by Fabian Mojica MD) History of carpal tunnel surgery History of tonsillectomy and adenoidectomy Hx of section Hx of ultrasound guided needle biopsy of lung Family History Family/Other Stroke Father Stroke Brother Graves disease Stroke Denies family history of Diabetes CAD (coronary artery disease) Clotting disorder Dementia Chronic kidney disease (CKD) Suicide Anesthesia complication Bleeding disorder Lung disease Cancer Social History (Updated 10/30/25 @ 02:41 by Rajeev Perry MD) Smoking and tobacco/nicotine status: former use of tobacco/nicotine (quit 2021) Quit status (tobacco/nicotine): has quit using Year quit tobacco: 2021 Former quit date comment: Smoked from age [age] Alcohol intake: never Substance/Drug Use: never Additional social history: She wants full code but no prolong life support as discussed with Rajeev Perry MD on 10/30/2025 patient indicates her next of kin is Malathi Aldridge Number of children: 3 Current occupational status: disabled 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 Saturations in the low 90s on 2 L nasal cannula, audible mild wheezing, crackles heard in bilateral bases, mildly increased work of breathing, but able to speak in full sentences without getting short of breath. Abdomen protuberant but soft, nontender, bowel sounds intact, no CVA tenderness. 3+ pitting edema to bilateral lower extremities, pale, no erythema, bruising, full range of motion and no tenderness. GCS 15, alert and oriented x 4, spontaneously and symmetrically moving all 4 extremities. Right great hallux with superficial laceration with good hemostasis but 2 cm to the lateral side of her first toe. Course 2 Vital Signs: Vital signs: Vital Signs Temperature 98.4 F 10/29/25 23:10 Pulse Rate 95 10/30/25 01:36 Respiratory Rate 20 H 10/30/25 00:17 Blood Pressure 131/94 10/30/25 01:36 Pulse Oximetry 97 10/30/25 01:36 Oxygen Delivery Me thod Nasal Cannula 10/30/25 00:47 Oxygen Flow Rate 2 10/30/25 00:47 MDM - SOB/Dyspnea Medical Decision Making -ddx: CHF for COPD exacerbation, pneumonia, respiratory failure, ACS, dysrhythmia, soft tissue injury - Patient with 20 pound weight gain, audibly wheezing, desaturating on room air, stabilized on nasal cannula, will treat with DuoNeb, aggressive diuresis and evaluate with cardiac and infectious labs and reassess, anticipate admission. - Patient with stabilization of her respiratory status, started to urinate after diuresis, chest x-ray Salz small bilateral effusions and some pulmonary vascular congestion. It also called for left upper lobe infiltrate, she has not had fevers, congestion or seemingly infectious causes of her shortness of breath so we will not treat this as a pneumonia at this time. Remainder of laboratory studies without acute concern and so she was admitted to the hospital for continued management of her CHF exacerbation and continued diuresis for ultimate stabilization. Lab Data 10/29/25 23:35 10/29/25 23:35 Labs/Radiology: Radiology Impressions Chest X-Ray 10/29/25 23:39 IMPRESSION: Consolidation in the left upper lung, concerning for pneumonia. Small bilateral pleural effusions. Mild pulmonary vascular congestion. Correlate for CHF. Laboratory Results WBC 9.61 10^3/uL (3.29-11.43) 10/29/25 23:35 RBC 4.51 10^6/uL (3.85-5.65) 10/29/25 23:35 Hgb 10.60 g/dL (11.27-16.99) L 10/29/25 23:35 Hct 37.0 % (36-47) 10/29/25 23:35 MCV 82.0 fl (85-98) L 10/29/25 23:35 MCH 23.5 pg (27-33) L 10/29/25 23:35 MCHC 28.6 g/dL (30-55) L 10/29/25 23:35 RDW 17.9 % (12.1-15.1) H 10/29/25 23:35 Plt Count 383 10^3/cmm (157-399) 10/29/25 23:35 MPV 10.3 fL (7.4-10.4) 10/29/25 23:35 Neut % (Auto) 79.9 % 10/29/25 23:35 Lymph % (Auto) 8.2 % 10/29/25 23:35 [place] % (Auto) 10.8 % 10/29/25 23:35 Eos % (Auto) 0.3 % 10/29/25 23:35 Baso % (Auto) 0.4 % 10/29/25 23:35 Neut # (Auto) 7.67 10^3/uL (1.8-7.7) 10/29/25 23:35 Lymph # (Auto) 0.8 10^3/uL (0.8-4.8) 10/29/25 23:35 [place] # (Auto) 1.0 10^3/uL (0.2-0.9) H 10/29/25 23:35 Eos # (Auto) 0.0 10^3/uL (0.0-0.8) 10/29/25 23:35 Baso # (Auto) 0.0 10^3/uL (0.0-0.1) 10/29/25 23:35 Nucleated RBC % (auto) 0 % 10/29/25 23:35 Nucleated RBCs # 0.0 /100WBC 10/29/25 23:35 Specimen Type Venous 10/29/25 00:03 Reynaldo Test N/a 10/29/25 00:03 VBG pH 7.42 (7.32-7.42) 10/29/25 00:03 VBG pCO2 37.6 mmHg (41-51) L 10/29/25 00:03 VBG pO2 48.5 mmHg (25-40) H 10/29/25 00:03 VBG HCO3 24.5 mmol/L (24-28) 10/29/25 00:03 VBG Base Excess 0.2 mmol/L (-3.0-3.0) 10/29/25 00:03 VBG Hematocrit 34.0 % (37-47) L 10/29/25 00:03 Rubber Goods Inspector Tester ID [email or web address] 10/29/25 00:03 Sodium 139 mmol/L (136-145) 10/29/25 23:35 Potassium 3.6 mmol/L (3.5-5.1) 10/29/25 23:35 Chloride 99 mmol/L (98-107) 10/29/25 23:35 Carbon Dioxide 22 mmol/L (22-29) 10/29/25 23:35 Anion Gap 21.6 (5-19) H 10/29/25 23:35 BUN 29 mg/dL (8-23) H 10/29/25 23:35 Creatinine 1.5 mg/dL (0.5-0.9) H 10/29/25 23:35 GFR Calculation 34.6 mL/min (90-130) L 10/29/25 23:35 Glucose 112 mg/dL (65-115) 10/29/25 23:35 Calculated Osmolality 295 mOsm/kg (285-295) 10/29/25 23:35 Lactic Acid 1.7 mmol/L (0.5-2.2) 10/29/25 23:35 Calcium 8.8 mg/dL (8.5-10.5) 10/29/25 23:35 Phosphorus 2.9 mg/dL (2.5-4.5) 10/29/25 23:35 Magnesium 1.9 mg/dL (1.7-2.3) 10/29/25 23:35 Total Bilirubin 0.7 mg/dL (0.15-1.2) 10/29/25 23:35 AST 26 U/L (0-32) 10/29/25 23:35 ALT 11 U/L (0-33) 10/29/25 23:35 Alkaline Phosphatase 162 U/L (35-105) H 10/29/25 23:35 Troponin T Baseline 57 ng/L (0-10) H 10/29/25 23:35 Troponin T 60 Minute 57.70 ng/L (0-10) H 10/30/25 00:35 Delta Troponin T 0.70 ABS# (0-10) 10/30/25 00:35 C-React Prot High Sens 23.860 mg/dL (0.0-0.3) H 10/29/25 23:35 NT-Pro-B Natriuret Pep 5323 pg/mL (0-125) H 10/29/25 23:35 Total Protein 6.6 g/dL (6.6-8.7) 10/29/25 23:35 Albumin 3.7 g/dL (3.5-5.2) 10/29/25 23:35 Globulin 2.9 g/dL (1.3-4.6) 10/29/25 23:35 Procalcitonin 0.24 ng/mL (0-0.5) 10/29/25 23:35 TSH 0.60 uIU/mL (0.27-4.20) 10/29/25 23:35 Urine Color Yellow (Yellow) 10/30/25 02:02 Urine Appearance Cloudy (CLEAR) A 10/30/25 02:02 Urine pH 5.0 (5-7) 10/30/25 02:02 Ur Specific Chana 1.010 (1.005-1.030) 10/30/25 02:02 Urine Protein 1+ (Negative) A 10/30/25 02:02 Urine Glucose (UA) Negative (Normal) 10/30/25 02:02 Urine Ketones Negative (Negative) 10/30/25 02:02 Urine Blood Trace (Negative) A 10/30/25 02:02 Urine Nitrate Negative (Negative) 10/30/25 02:02 Urine Bilirubin Negative (Negative) 10/30/25 02:02 Urine Urobilinogen 1.0 mg/dL (Negative) 10/30/25 02:02 Ur Leukocyte Esterase 2+ (Negative) A 10/30/25 02:02 Urine RBC 0-2 /hpf (0-2) 10/30/25 02:02 Urine WBC 21-50 /hpf (0-5) H 10/30/25 02:02 Ur Squamous Epith Cells 0-5 /hpf (0-5) 10/30/25 02:02 Amorphous Sediment Not Reportable 10/30/25 02:02 Urine Bacteria 4+ /hpf (NONE) H 10/30/25 02:02 Hyaline Casts 4.52 /lpf 10/30/25 02:02 Influenza A (PCR) Negative (Negative) 10/30/25 00:03 Influenza Type B (PCR) Negative (Negative) 10/30/25 00:03 RSV (PCR) Negative (Negative) 10/30/25 00:03 SARS-CoV-2 (PCR) Negative (Negative) 10/30/25 00:03 All radiology interpretation(s) finalized by discharge Discharge Plan Discharge Admit Provider: Rajeev Perry Condition: Stable Coding Level of Care Code ED Slitting And Shipping Supervisor for Mohit Chapman
[2025-10-30 00:08] LABS: Base Excess VBG 0.2 mmol/L (-3.0-3.0); Blood Gas Sample Type Venous; HCO3 VBG 24.5 mmol/L (24-28); PCO2 VBG 37.6 mmHg (41-51); PO2 VBG 48.5 mmHg (25-40); Venous Blood Gas Hematocrit 34.0 % (37-47); pH VBG 7.42 (7.32-7.42)
[2025-10-30 00:26] LABS: NT Pro B Type Natriuretic Pept 5323 pg/mL (0-125); Procalcitonin 0.24 ng/mL (0-0.5); Thyroid Stimulating Hormone 0.60 uIU/mL (0.27-4.20)
[2025-10-30 00:37] LABS: Alanine Aminotransferase 11 U/L (0-33); Albumin Level 3.7 g/dL (3.5-5.2); Alkaline Phosphatase 162 U/L (35-105); Aspartate Amino Transferase 26 U/L (0-32); Blood Urea Nitrogen 29 mg/dL (8-23); Calcium 8.8 mg/dL (8.5-10.5); Carbon Dioxide 22 mmol/L (22-29); Chloride 99 mmol/L (98-107); Creatinine Clr Calc Pharmacy 48.0442; Globulin 2.9 g/dL (1.3-4.6); Glucose 112 mg/dL (65-115); Magnesium 1.9 mg/dL (1.7-2.3); Osmolality Calculated 295 mOsm/kg (285-295); Sodium 139 mmol/L (136-145); Total Protein 6.6 g/dL (6.6-8.7)
[2025-10-30 00:40] LABS: Anion Gap 21.6 (5-19); Potassium 3.6 mmol/L (3.5-5.1)
[2025-10-30 00:44] LABS: Respiratory Syncytial Virus Ce NEGATIVE (Negative); SARS-CoV-2 PCR NEGATIVE (Negative)
[2025-10-30 02:17] LABS: Glucose Urine UA Negative (Normal); Nitrate Urine Negative (Negative); Specific Gravity, Urine 1.010 (1.005-1.030)
[2025-10-30 02:22] LABS: Add Urine Microscopic? YES
--- NOTE | 2025-10-30 02:32 | PM.HP ---
Providers/Chief Complaint Admitting Physician: Rajeev Perry MD Primary Care Provider: SETH Leon Chief Complaint: fall, toe lac History of Present Illness Lupe Monreal is a 65 year old female lives alone in [place] senior housing. She has 3 daughters 1 of whom Malathi Aldridge is her next of kin also lives in [place]. Patient tells me that she has had 40 pound weight gain in the last 2 to 3 years but perhaps 20 pounds this week. She has been increasingly short of breath with orthopnea cough wheezing. She was on her walker chair in the kitchen tried to get up without a Keen grabbing onto something and fell down. She called 911 because she cannot get up on her own and decided to come to the hospital due to leg swelling shortness of breath and bilateral toe injuries. She was seen by ER physician Dr. Fuller and found to have oxygen saturation 84% with chest x-ray showing cardiomegaly and pulmonary vascular congestion. Radiologist read possible left upper lung infiltrate but patient denies fevers chills night sweats. Patient admits to hospitalization for a week in [place] around 2023 congestive heart failure. She states that she was treated medically and did not undergo stenting because they were concerned about her weight making it unsafe to proceed with the procedure. Review of Systems Narrative: General No fevers chills night sweats Cardiovascular positive for CHF she has had history of A-fib or VT fib at that time shocked and irregular rhythm no stent in 2019. She denies chest pain with this episode. She has had orthopnea and dyspnea on exertion Respiratory positive for cough wheezing GI no nausea vomiting Extremities she has had bilateral lower extremity swelling. Medications/Allergies Home Medications ?Medication ?Instructions ?Recorded ?Confirmed ?Last Taken ?Type acetaminophen 500 mg capsule 500 mg PO Q6H PRN 06/12/21 05/14/24 Unknown History albuterol sulfate 90 mcg/actuation 2 puff inhalation Q6H PRN 06/12/21 05/14/24 Unknown Rx aerosol inhaler shortness of breath or wheezing #8.5 grams atorvastatin 80 mg tablet 80 mg PO .qhs #30 tabs 06/12/21 05/14/24 Unknown Rx cholecalciferol (vitamin D3) 25 25 mcg PO DAILY #100 caps 06/12/21 05/14/24 Unknown Rx mcg (1,000 unit) capsule levothyroxine 175 mcg tablet 175 mcg PO DAILY 30 days #30 tabs 02/04/22 05/14/24 Unknown Rx bupropion HCl 150 mg tablet,12 hr See Rx Instructions .Route 05/25/22 05/14/24 Unknown Rx sustained-release .COMPLEX #30 tabs gabapentin 300 mg capsule See Rx Instructions .Route 06/08/22 05/14/24 Unknown Rx .COMPLEX #60 caps amiodarone 200 mg tablet See Rx Instructions .Route 08/15/23 05/14/24 Unknown Rx .COMPLEX #30 tabs metoprolol succinate 50 mg See Rx Instructions .Route 08/15/23 05/14/24 Unknown Rx tablet,extended release 24 hr .COMPLEX #30 tabs rivaroxaban 20 mg tablet (Xarelto) 20 mg PO DAILY #90 tabs 08/15/23 05/14/24 Unknown Rx mycophenolate mofetil 500 mg tablet See Rx Instructions .Route 08/22/23 05/14/24 Unknown Rx .COMPLEX #60 tabs potassium chloride 10 mEq 10 meq PO DAILY #30 caps 02/03/24 05/14/24 Unknown Rx capsule,extended release fluticasone fur. 200 mcg-umeclid See Rx Instructions .Route 02/16/24 05/14/24 Unknown Rx 62.5 mcg-vilant 25 mcg .COMPLEX #60 ea inhalat.powder (Trelegy Ellipta) torsemide 20 mg tablet See Rx Instructions .Route 02/27/24 05/14/24 Unknown Rx .COMPLEX #135 tabs biotin 10,000 mcg chewable tablet mcg PO DAILY 05/14/24 05/14/24 Unknown History (Hair, Skin and Nails (biotin)) famotidine 10 mg tablet 10 mg PO .nighttime PRN 05/14/24 05/14/24 Unknown History Allergies Allergy/AdvReac Type Severity Reaction Status Date / Time No Known Allergies Allergy Verified 05/14/24 12:39 PFSH Acute PFSH: Medical History (Updated 10/30/25 @ 02:44 by Rajeev Perry MD) Depression She is taking Celexa 40 mg daily and will continue that for mental health. She'll follow up with us every 3 months and sooner if needed. We will call her the lab results when they're available. Hyperlipidemia Atrial fibrillation with controlled ventricular response Weight loss of more than 10% body weight Osteoarthritis, multiple sites Fibromyalgia affecting multiple sites Morbid obesity with BMI of 40.0-44.9, adult Hypothyroidism CKD (chronic kidney disease) stage 3, GFR 30-59 ml/min COPD (chronic obstructive pulmonary disease) CHF (congestive heart failure) HTN (hypertension) Surgical History (Updated 05/14/24 @ 13:39 by Fabian Mojica MD) History of carpal tunnel surgery History of tonsillectomy and adenoidectomy Hx of section Hx of ultrasound guided needle biopsy of lung Family History Family/Other Stroke Father Stroke Brother Graves disease Stroke Denies family history of Diabetes CAD (coronary artery disease) Clotting disorder Dementia Chronic kidney disease (CKD) Suicide Anesthesia complication Bleeding disorder Lung disease Cancer Social History (Updated 10/30/25 @ 02:41 by Rajeev Perry MD) Smoking and tobacco/nicotine status: former use of tobacco/nicotine (quit 2021) Quit status (tobacco/nicotine): has quit using Year quit tobacco: 2021 Former quit date comment: Smoked from age [age] Alcohol intake: never Substance/Drug Use: never Additional social history: She wants full code but no prolong life support as discussed with Rajeev Perry MD on 10/30/2025 patient indicates her next of kin is Malathi Aldridge Number of children: 3 Current occupational status: disabled 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, 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 Vitals/I&O/Wt Last Vital Signs Temp 98.4 F 10/29/25 23:10 Pulse 95 10/30/25 01:36 Resp 20 H 10/30/25 00:17 BP 131/94 10/30/25 01:36 Pulse Ox 97 10/30/25 01:36 O2 Del Method Nasal Cannula 10/30/25 00:47 O2 Flow Rate 2 10/30/25 00:47 Weight last 48 hrs Weight 127.006 kg Physical Exam Narrative: General Well-developed well-nourished morbidly obese female in no acute cardiopulmonary distress Neck no JVD Oropharynx Mallampati 1-2 CV regular rate and rhythm with a 3/6 systolic ejection murmur best heard at the right upper sternal border this radiates to the right neck Lungs crackles heard in the lower lung hogan bilaterally air movement is good no wheezes Abdomen positive bowel tones soft obese nontender Calves 3+ bilateral pretibial edema dorsal pedal pulses 2+ Data 10/29/25 23:35 10/29/25 23:35 A&P Assessment and plan 1. Acute on chronic congestive heart failure: Patient admitted to hospital with acute on chronic diastolic congestive heart failure with A-fib cannot exclude systolic heart failure she has not had recent echo since 2021 and her EF was 71%. EKG today shows A-fib 2. Atrial fibrillation with controlled ventricular response: A-fib with rate controlled. Initial troponin 57 was flat at 60 minutes 3. CKD (chronic kidney disease) stage 3, GFR 30-59 ml/min: Creatinine running 1.5 GFR 30 follow-up with diuresis will hold off on spironolactone for now 4. Morbid obesity with BMI of 40.0-44.9, adult: Patient's BMI at 48 with volume overload currently. TSH 0.6. Will check A1c. I discussed with patient diabetic weight loss diet and she is agreeable to that. She understands it with her morbid obesity she will be unable to live independently if she does not recover strength and independence. Will also start PT and OT PDMP PDMP Reviewed: Not Reviewed Attestations Medical Necessity Statement*: Patient is admitted to hospital for acute heart failure diuresis and will require greater than 2 midnights Coding Level of Care Code 30452 Diagnoses Acute on chronic congestive heart failure I50.9 Atrial fibrillation with controlled ventricular response I48.91 CKD (chronic kidney disease) stage 3, GFR 30-59 ml/min N18.30 Morbid obesity with BMI of 40.0-44.9, adult E66.01; Z68.41 Time Spent (min) 60
[2025-10-30 04:20] LABS: Estmated Average Glucose 117; Hemoglobin A1C 5.7 % (4.0-6.0)
[2025-10-30] MEDS: metoprolol succinate ER (24 HR) 50 mg Tablet PO (04:49)
[2025-10-30] MEDS: bumetanide 0.25 mg/mL SDV 4 mL 1 MG IVP ×2 (07:39→16:16)
--- NOTE | 2025-10-30 14:07 | USCV_ITS ---
Lupe Monreal Age: 65 Gender: F : 1960 Exam Date: 10/30/2025 15:21 Ordering Phys: Bacilio Wei MD Technologist: Exam Location: [facility] – [place] Indication: chf BP: 134 / 74 HR: 82 Rhythm: Sinus Technical Quality: Adequate MEASUREMENTS (Male / Female) Normal Values 2D ECHO LV Diastolic Diameter PLAX 5.1 cm 4.2 - 5.9 / 3.9 - 5.3 cm IVS Diastolic Thickness 1.5 cm 0.6 - 1.0 / 0.6 - 0.9 cm IVS Systolic Thickness 1.8 cm LVPW Diastolic Thickness 1.3 cm 0.6 - 1.0 / 0.6 - 0.9 cm LVPW Systolic Thickness 1.9 cm LVOT Diameter 2.0 cm LV Ejection Fraction 2D Teich 62.7 % LV Ejection Fraction MOD 4C 68.3 % LV Ejection Fraction MOD 2C 67.6 % LV Ejection Fraction 2C AL 67.9 % LA Diameter 5.9 cm RA Systolic Volume 4C AL 101.5 ml RA Systolic Volume 4C MOD 97.3 ml Aorta at Sinotubular Diameter 2.7 cm M-MODE LA Ao Ratio MM 1.7 AV Cusp Separation MM 0.8 cm DOPPLER AV Peak Velocity 213.0 cm/s LVOT Peak Velocity 91.0 cm/s AV Area Cont Eq vti 1.5 cm squared AV Area Cont Eq pk 1.3 cm squared MV Area PHT 3.7 cm squared Mitral E to A Ratio 3.1 TR Peak Velocity 164.0 cm/s TR Peak Gradient 10.8 mmHg TV Peak E Velocity 76.0 cm/s PV Peak Velocity 107.0 cm/s FINDINGS Left Ventricle Normal left ventricular size, systolic function and wall thickness, with no regional wall motion abnormalities. Left ventricular ejection fraction is estimated at 60 %. Grade II/IV diastolic dysfunction, moderately elevated filling pressures. Right Ventricle Normal right ventricular size and systolic function. Right Atrium Normal right atrial size. Left Atrium Moderately increased left atrial size. IA Septum Normal appearance of the interatrial septum. Mitral Valve Mildly thickened mitral valve. No mitral valve stenosis. Moderate mitral valve regurgitation. Aortic Valve Moderate aortic valve calcification. Mild aortic valve stenosis, mean gradient 8.3 mmHg, LALI 1.5 cm squared. Trace aortic valve regurgitation. Tricuspid Valve Normal tricuspid valve structure. No tricuspid valve stenosis or regurgitation. Normal pulmonary pressure. Pulmonic Valve Mild pulmonary valve regurgitation. Pericardium No pericardial effusion. Aorta Normal diameter of the aortic root and ascending thoracic aorta. IVC Normal IVC diameter. CONCLUSIONS Normal left ventricular size, systolic function and wall thickness, with no regional wall motion abnormalities. Left ventricular ejection fraction is estimated at 60 %. Grade II/IV diastolic dysfunction, moderately elevated filling pressures. Moderately increased left atrial size. Moderate aortic valve calcification. Mild aortic valve stenosis, mean gradient 8.3 mmHg, LALI 1.5 cm squared. Trace aortic valve regurgitation. Mildly thickened mitral valve. No mitral valve stenosis. Moderate mitral valve regurgitation. There is no pericardial effusion. Right atrial pressure is around 5 mm of mercury. Cristo Rose MD (Electronically Signed) Final Date: 30 October 2025 19:19 S
--- NOTE | 2025-10-30 21:37 | P.MISC_ITS ---
Miscellaneous Note Purpose of Documentation: Postadmission patient follow-up and plan of care Assessment: Acute hypoxemic respiratory failure possible acute congestive heart failure? Left hand cellulitis Note: - Patient having left hand cellulitis fr om the last 3 to 4 days and was on antibiotics however did not improvement still having some redness To start the patient on doxycycline twice daily already - Continue management for fluid overload leading to respiratory distress underlying heart failure, echo has been done and showed normal ejection fraction - D dimers, if positive then consider CT angio chest the patient is having shortness of breath?
[2025-10-31] VITALS (8 sets, daily range): BP systolic 111–134; BP diastolic 66–84; PULSE 68–79; RESP 16–18; TEMP 36.6–37; O2SAT 90–97; BMI 50.5
[2025-10-31] MEDS: metoprolol succinate ER (24 HR) 50 mg Tablet PO (04:15)
[2025-10-31] MEDS: bumetanide 0.25 mg/mL SDV 4 mL 1 MG IVP (04:16)
[2025-10-31 05:23] LABS: Anion Gap 21.4 (5-19); Blood Urea Nitrogen 38 mg/dL (8-23); Calcium 8.8 mg/dL (8.5-10.5); Carbon Dioxide 22 mmol/L (22-29); Chloride 103 mmol/L (98-107); Glucose 112 mg/dL (65-115); Osmolality Calculated 304 mOsm/kg (285-295); Potassium 4.4 mmol/L (3.5-5.1); Sodium 142 mmol/L (136-145)
--- NOTE | 2025-10-31 09:35 | PC.CHAP ---
Pastoral Care Encounter/Spiritual Assessment Type of Contact [] Declined stitcher hand visit [] Patient/Family/Request visit [] Outpatient visit [] Follow-up visit [] Physician referral [] Code/Alert [x] Routine visit [] Staff referral [] Actively dying [] Patient sleeping [] Family support [] [] Out of room [] Palliative care [] [] Receiving care in room [] Pre-surgical visit [] Trauma [] Long length of stay [] ICU visit [] Other: Relational/Emotional Strength [x] Patient feels connected with others/family/visitors/staff [] Distress [] Loneliness/isolation [] Abandonment Spirituality of Patient [x] Person of Sujatha [] Attends Alevism of their Sujatha [x] Believes in Prayer [] Reads Bible or Uatsdin materials [] There are Spiritual issues to be addressed Grocery Manager Interventions [x] Prayer [x] Active listening [] Non-anxious presence [x] Spiritual/emotional support [] Crisis/trauma care [] Spiritual counseling [] Bereavement support [] Provided bereavement packet [] Provided Bible/devotional materials [] Provided toy/stuffed animal, coloring book to patient or family member [] Provided Communion [] Anointing/Cabot [] Salvation [x] Completed spiritual assessment [] Other: Impact on Illness or Injury [] Angry [] Fearful [] Anxious [] Often cries [] Exhaustion [] Unable to work [] Unable to attend rastafarian [] Unable to walk/stand [] Unable to read [] Unable to drive [] Unable to eat/drink [] Unable to sleep [] Unable to be with family [] Patient intubated [] Other: Summary Time spent with patient 5 min
--- NOTE | 2025-10-31 11:57 | CTR_ITS ---
PROCEDURE INFORMATION: Exam: CTA Chest With Contrast Exam date and time: 10/31/2025 2:23 PM Age: 65 years old Clinical indication: History--shortness of breath high d dimer, R/O pe, high risk consent take n from the patient since her renal function is compromised; Additional info: Shortness of breath high d dimers, to rule out pe, high risk consent taken from the patient since her renal TECHNIQUE: Imaging protocol: Computed tomographic angiography of the chest with contrast. Exam focused on the arteries. 3D rendering (Not supervised by radiologist): MIP and/or 3D reconstructed images were created by the technologist. Radiation optimization: All CT scans at this facility use at least one of these dose optimization techniques: automated exposure control; mA and/or kV adjustment per patient size (includes targeted exams where dose is matched to clinical indication); or iterative reconstruction. Contrast material: OMNI 350; Contrast volume: 100 ml; Contrast route: INTRAVENOUS (IV); COMPARISON: PT PET skull to thigh INIT [id number] 04/24/2024 11:52 AM RADIATION DOSE METRICS: Total DLP (mGy-cm): 583.97 FINDINGS: Pulmonary arteries: No PE. No evidence of cardiac strain. Aorta: Unremarkable. No aortic aneurysm. No aortic dissection. Thyroid: Thyroid gland is absent versus severely atrophic. Lungs: Low lung volumes with bronchovascular crowding. Scattered patchy isolated, confluences, as well as geographic ground-glass opacities in the bilateral lungs, most prominently in the left mid lung/lingula and right lower lobe. Mild diffuse interlobular and intra lobular septal thickening. Pleural spaces: Small right and trace left pleural effusions with mild overlying passive atelectasis. Heart: Cardiomegaly. No pericardial fluid. Moderate coronary vessel atherosclerosis. Mild mitral annular calcification. Lymph nodes: Unremarkable. No enlarged lymph nodes. Liver: Liver has a subtle lobular contour suggestive of underlying cirrhosis or clinically significant fibrosis. No focal lesion as partially imaged. According to clinical discretion, outpatient MRI can be considered to screen for occult lesions. Gallbladder and biliary ducts: Cholelithiasis. Bones/joints: Unremarkable. No acute fracture. Soft tissues: Unremarkable. CT/CT angio chest PE protcl [id number] IMPRESSION: 1. No PE. No evidence of cardiac strain. 2. Lung findings suggestive of pulmonary edema. Possible CHF. Infectious (including atypical) versus inflammatory etiologies not excluded. 3. Cardiomegaly. 4. Small right and trace left pleural effusions. 5. Liver has a subtle lobular contour suggestive of underlying cirrhosis or clinically significant fibrosis. No focal lesion as partially imaged. According to clinical discretion, outpatient MRI can be considered to screen for occult lesions.
[2025-10-31] MEDS: iohexol 350 mg/mL 500 mL Btl (per mL) IV (14:27)
--- NOTE | 2025-10-31 14:41 | PM.CONSULT ---
Providers/Reason For Consult Consulting Physician/Specialty*: [facility]/Nephrology Reason for Consult*: ROSANNE Attending Physician: Bacilio Wei MD Primary Care Provider: SETH Leon History of Present Illness History of Present Illness Lupe Monreal is a 65 year old female Is a 65-year-old female with past medical history significant for CHF, diastolic, COPD, CKD stage III, ICD hypothyroidism who was admitted on progressively worsening shortness breath along orthopnea and weight gain of 40 lbs n 2 weeks . Chest ray showed cardiomegaly pulm edema Left upper lung filtrate. Patient reported she has prior CKD w. hen she was in [place] and underwent kidney biopsy( results not known). 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 Creatinine on presentation was 1.5 that has worsened to 2.1 today. Patient is being diuresed with IV Bumex. Has Graves with reasonable urine. Due to shortness of air and hypoxia CT chest with IV contrast was done and result pending. Review of Systems Narrative: negative Medications/Allergies Home Medications ?Medication ?Instructions ?Recorded ?Confirmed ?Last Taken ?Type acetaminophen 500 mg capsule 500 mg PO Q6H PRN Pain 06/12/21 10/30/25 Unknown History albuterol sulfate 90 mcg/actuation 2 puff inhalation Q6H PRN 06/12/21 10/30/25 Unknown Rx aerosol inhaler shortness of breath or wheezing #8.5 grams atorvastatin 80 mg tablet 80 mg PO .qhs #30 tabs 06/12/21 10/30/25 10/29/25 Rx cholecalciferol (vitamin D3) 25 25 mcg PO DAILY #100 caps 06/12/21 10/30/25 10/29/25 Rx mcg (1,000 unit) capsule levothyroxine 175 mcg tablet 175 mcg PO DAILY 30 days #30 tabs 02/04/22 10/30/25 10/29/25 Rx gabapentin 300 mg capsule See Rx Instructions .Route 06/08/22 10/30/25 10/29/25 Rx .COMPLEX #60 caps amiodarone 200 mg tablet See Rx Instructions .Route 08/15/23 10/30/25 10/29/25 Rx .COMPLEX #30 tabs metoprolol succinate 50 mg See Rx Instructions .Route 08/15/23 10/30/25 Unknown Rx tablet,extended release 24 hr .COMPLEX #30 tabs rivaroxaban 20 mg tablet (Xarelto) 20 mg PO DAILY #90 tabs 08/15/23 10/30/25 10/29/25 Rx mycophenolate mofetil 500 mg tablet See Rx Instructions .Route 08/22/23 10/30/25 10/29/25 Rx .COMPLEX #60 tabs potassium chloride 10 mEq 10 meq PO DAILY #30 caps 02/03/24 10/30/25 Unknown Rx capsule,extended release torsemide 20 mg tablet See Rx Instructions .Route 02/27/24 10/30/25 10/29/25 Rx .COMPLEX #135 tabs budesonide 160 mcg-glycopyr 9 2 inh inhalation BID 10/30/25 10/30/25 10/29/25 History mcg-formot 4.8 mcg/actuation HFA inhaler (Breztri Aerosphere) bupropion HCl 300 mg 24 hr tablet, 300 mg PO DAILY 10/30/25 10/30/25 10/29/25 History extended release Allergies Allergy/AdvReac Type Severity Reaction Status Date / Time No Known Allergies Allergy Verified 05/14/24 12:39 Current Medications Generic Name Dose Route Start Last Admin Trade Name Freq PRN Reason Stop Dose Admin Acetaminophen 650 mg 10/30/25 02:48 10/31/25 04:16 Acetaminophen 325 Mg Tablet PO 650 mg Q6H PRN Administration Mild/Mod Pain Or Temp >/= 101 Amiodarone HCl 200 mg 10/30/25 05:00 10/31/25 04:15 Amiodarone 200 Mg Tablet PO 200 mg DAILY LUIS Administration Atorvastatin Calcium 80 mg 10/30/25 21:00 10/30/25 21:00 Atorvastatin 40 Mg Tablet PO 80 mg BEDTIME LUIS Administration Bumetanide 1 mg 10/30/25 08:00 10/31/25 04:16 Bumetanide 0.25 Mg/Ml Sdv 4 Ml IVP 1 mg BID LUIS Administration Bupropion HCl 150 mg 10/30/25 05:00 10/31/25 04:16 Bupropion Sr (12 Hr) 150 Mg Tablet PO 150 mg BID LUIS Administration Docusate Sodium 100 mg 10/30/25 05:00 10/31/25 04:15 Docusate Sodium 100 Mg Capsule PO 100 mg BID LUIS Administration Doxycycline Monohydrate 100 mg 10/30/25 21:40 10/31/25 07:45 Doxycycline 100 Mg Tablet PO 100 mg BIDWM LUIS Administration Protocol Famotidine 20 mg 10/30/25 21:00 10/30/25 21:00 Famotidine 20 Mg Tablet PO 20 mg BEDTIME LUIS Administration Gabapentin 300 mg 10/30/25 05:00 10/31/25 04:15 Gabapentin 300 Mg Capsule PO 300 mg BID LUIS Administration Levothyroxine Sodium 175 mcg 10/30/25 05:00 10/31/25 04:15 Levothyroxine 175 Mcg Tablet PO 175 mcg DAILY LUIS Administration Metolazone 5 mg 10/31/25 05:00 10/31/25 04:16 Metolazone 5 Mg Tablet PO 5 mg On Hold: 10/31/25 11:57 DAILY LUIS Administration Metoprolol Succinate 50 mg 10/30/25 05:00 10/31/25 04:15 Metoprolol Succinate Er (24 Hr) 50 Mg Tablet PO 50 mg DAILY LUIS Administration Potassium Chloride 20 meq 10/30/25 03:00 10/31/25 04:16 Potassium Chloride Er 20 Meq Tablet PO 20 meq BID LUIS Administration Rivaroxaban 20 mg 10/30/25 05:00 10/31/25 04:15 Rivaroxaban 10 Mg Tablet PO 20 mg DAILY LUIS Administration Vitamin D 1,000 unit 10/30/25 05:00 10/31/25 04:15 Cholecalciferol (Vitamin D3) 1,000 Unit Tablet PO 1,000 unit DAILY LUIS Administration PFSH Acute PFSH: Medical History (Updated 10/31/25 @ 16:21 by Margarita Wooten NP) Depression She is taking Celexa 40 mg daily and will continue that for mental health. She'll follow up with us every 3 months and sooner if needed. We will call her the lab results when they're available. Hyperlipidemia Atrial fibrillation with controlled ventricular response Weight loss of more than 10% body weight Osteoarthritis, multiple sites Fibromyalgia affecting multiple sites Morbid obesity with BMI of 40.0-44.9, adult Hypothyroidism CKD (chronic kidney disease) stage 3, GFR 30-59 ml/min COPD (chronic obstructive pulmonary disease) CHF (congestive heart failure) HTN (hypertension) Surgical History (Updated 05/14/24 @ 13:39 by Fabian Mojica MD) History of carpal tunnel surgery History of tonsillectomy and adenoidectomy Hx of section Hx of ultrasound guided needle biopsy of lung Family History Family/Other Stroke Father Stroke Brother Graves disease Stroke Denies family history of Diabetes CAD (coronary artery disease) Clotting disorder Dementia Chronic kidney disease (CKD) Suicide Anesthesia complication Bleeding disorder Lung disease Cancer Social History (Updated 10/30/25 @ 02:41 by Rajeev Perry MD) Smoking and tobacco/nicotine status: former use of tobacco/nicotine (quit 2021) Quit status (tobacco/nicotine): has quit using Year quit tobacco: 2021 Former quit date comment: Smoked from age [age] Alcohol intake: never Substance/Drug Use: never Additional social history: She wants full code but no prolong life support as discussed with Rajeev Perry MD on 10/30/2025 patient indicates her next of kin is Malathi Aldridge Number of children: 3 Current occupational status: disabled 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, 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 Vitals/I&O/Wt Last Vital Signs Temp 98.0 F 10/31/25 10:51 Pulse 68 10/31/25 10:51 Resp 18 10/31/25 10:51 BP 129/80 10/31/25 10:51 Pulse Ox 90 10/31/25 10:51 O2 Del Method Nasal Cannula 10/31/25 10:51 O2 Flow Rate 2 10/31/25 10:51 10/30/25 10/31/25 10/31/25 22:59 06:59 14:59 Intake Total 480 / 960 1460 / 1460 Output Total 825 / 825 1025 / 1850 Balance -345 / 135 -1025 / -890 1460 / 1460 Weight last 48 hrs Weight 133.492 kg Weight 128.82 kg Weight 128.82 kg Weight 128.684 kg Weight 127.006 kg Physical Exam Narrative: Patient is alert, awake , on 1 L O2 by nasal cannula.No distress PEERLA No JVD S1-2 regular rate and rhythm Lungs with decreased BS lenore abdomen soft non tender extremities 2+ LE edema No skin rash Urinary Catheter Management: Graves: Cath Placed During This Visit: yes Reason for Continuing Indwelling Catheter: Accurate Measurement of Urinary Output in Critically Ill Patients Urinary Catheter Date of Insertion: 10/30/25 Urinary Catheter Time of Insertion: 02:49 Data 12/16/25 23:35 10/31/25 04:17 Micro: Microbiology 10/30/25 02:02 Urine Culture - Preliminary Urine,Clean Catch Gram Negative Rods A&P Assessment and plan 1. Acute kidney injury superimposed on CKD: 1. Acute on CKD 3 : Baseline Cr mid 1 range and now has ROSANNE with Cr on 2.1 likely multifactorial - ATN from acute infection , and cardiorenal on presentation , worsened after aggressive diuresis. Pt volume overloaded but holding diuretics temporarily . - check renal US , Urine electrolytes , UA with 1+ protein and no microscopic hematuria - unlikely GN Gentle IVF - 100 cc /hr for 6 hrs as pt recieved IV contrast -will resume scheduled diuretics in 1-2 days , can give PRN IV lasix as nee - No acute indication for HD 2. Acute on chronic resp failure , elevated D dimer , CTA done - pending results 3. Diastolic CHF --> diuretics on hold , continue Na and fluid restriction 4.Anemia pt evaluated using audiovisual cart. Time spent 45 min PDMP PDMP Reviewed: Not Reviewed Consult Attestations Medical Necessity Statement: per estefanía Coding Level of Care Code Acute Code for Chg Fwd Diagnoses Acute kidney injury superimposed on CKD N17.9; N18.9
--- NOTE | 2025-10-31 14:58 | PM.PN ---
Subjective Subjective: Patient was seen in the morning, still requiring oxygen supplementation through nasal cannulaOn 2 L. Not on home oxygen Still having features of mild fluid overload with pitting edema of both legs bilaterally up to mid shins D-dimer is high CTA requested Considering patient situation of cute on chronic diastolic congestive heart failure and also ROSANNE patient need optimization of diuresis and very sensitive to overdiuresis versus under diuresis therefore consulted cardiology and nephrology for further optimization of care Vitals/I&O/Wt Last Vital Signs Temp 98.0 F 10/31/25 10:51 Pulse 68 10/31/25 10:51 Resp 18 10/31/25 10:51 BP 129/80 10/31/25 10:51 Pulse Ox 90 10/31/25 10:51 O2 Del Method Nasal Cannula 10/31/25 10:51 O2 Flow Rate 2 10/31/25 10:51 10/30/25 10/31/25 10/31/25 22:59 06:59 14:59 Intake Total 480 / 960 1460 / 1460 Output Total 825 / 825 1025 / 1850 Balance -345 / 135 -1025 / -890 1460 / 1460 Weight last 48 hrs Weight 133.492 kg Weight 128.82 kg Weight 128.82 kg Weight 128.684 kg Weight 127.006 kg Physical Exam Narrative: General: Alert and oriented, lying comfortably without any distress, on 2 L oxygen through nasal cannula unable to complete full sentences HEENT: Normocephalic, atraumatic, grossly unremarkable exam Cardio: normal rate rhythm, normal S1-S2 without any murmurs, rubs, or gallops and JVD normal Respiratory: Bilateral equal air entry with bibasilar crepitus without any wheezes GI: Abdomen soft, nontender, nondistended, normoactive bowel sounds present all 4 quadrants, Neuro: intact cranial nerves motor and sensory and cerebellar/coordination function without any focal neurological deficit Behavior: Appropriate and cooperative Extremities: Adequate palpable pulses, bilateral lower leg extremity pitting edema Urinary Catheter Management: Graves: Cath Placed During This Visit: yes Reason for Continuing Indwelling Catheter: Accurate Measurement of Urinary Output in Critically Ill Patients Urinary Catheter Date of Insertion: 10/30/25 Urinary Catheter Time of Insertion: 02:49 Data 10/29/25 23:35 10/31/25 04:17 Micro: Microbiology 10/30/25 02:02 Urine Culture - Preliminary Urine,Clean Catch Gram Negative Rods A&P Assessment and plan 1. Acute on chronic congestive heart failure: Patient admitted with shortness of breath, features of fluid overload secondary to high likelihood of congestive heart failure considering she has high proBNP D-dimer were high therefore did CTA and to follow the report to rule out any PE as a cause of her shortness of breath. Echo report showed ejection fraction of around 60% with grade 2/4 diastolic dysfunction. The patient has been diuresed with metolazone and bumetanide 1 mg IV twice daily however she is in negative balance and mild ROSANNE Hold diuresis at the moment Cardiology consult Monitor hemodynamics Maintain MAP above 65 Intake and output monitoring Telemetry 2. Atrial fibrillation with controlled ventricular response: A-fib with rate controlled. Initial troponin 57 was flat at 60 minutes Continue amiodarone 200 mg twice daily Cardiology consulted to follow further recommendation 3. Acute kidney injury superimposed on CKD: Patient having baseline CKD around stage III Creatinine mildly increased to 2.1 Likely prerenal since the patient was on diuresis and in negative balance Fluid bolus of 500 mg since the patient also received contrast to rule out any pulmonary embolism as a cause of her shortness of breath Nephrology on board 100 mL of normal saline for 6 hours As needed diuretic as needed for shortness of breath Intake and output monitoring Daily renal parameters monitoring and electrolyte monitoring with correction accordingly 4. Morbid obesity with BMI of 40.0-44.9, adult: Patient's BMI at 48 with volume overload currently. TSH 0.6. HbA1c 5.7%. OT PT therapy To follow-up with the primary care physician for further options of weight loss 5. Cellulitis of left hand: Patient showed left hand cellulitis and she was prescribed antibiotics 3 to 4 days open Still having redness and tenderness, Having adequate pulses and movement is preserved Doxycycline twice daily Continue to monitor 6. Hyperlipidemia: Continue home dose atorvastatin 7. Pulmonary nodule: To follow-up with the primary care/premium service representative as outpatient 8. COPD (chronic obstructive pulmonary disease): Schedule ipratropium and lev albuterol nebulization with budesonide 9. Hypothyroidism: Continue home dose levothyroxine PDMP PDMP Reviewed: Not Reviewed Attestations Medical Necessity Statement*: Patient will stay more than 2 midnights in the hospital for further management of her acute on chronic diastolic heart dysfunction, ROSANNE on CKD and left hand cellulitis and further mobility optimization requiring OT PT Time Spent in Patient Care: Greater than 35 minutes (>than 50% of time spent in counselling and/or direct pt care on unit). Other Attestations: Patient condition has been discussed at length with the patient/family, I have independently reviewed the chart labs imaging/diagnostics/EKG. the goals of care and code status with the patient/family/NOK/legal livestock sales representative, and documented accordingly. I have reconciled the medications after confirmation/comorbidities/current clinical condition. The management has been done according to the current clinical condition with respect to patient goals of care and based on recommendations/guidelines. The patient/family has been informed about the current condition and further plan of care. Agreed with the plan of care and understood without any language barrier. Every effort was made to ensure accuracy of manager study. Any obvious errors or omissions should be clarified with the author of the document. Coding Level of Care Code 48670 Diagnoses Acute on chronic congestive heart failure I50.9 Atrial fibrillation with controlled ventricular response I48.91 Acute kidney injury superimposed on CKD N17.9; N18.9 Morbid obesity with BMI of 40.0-44.9, adult E66.01; Z68.41 Cellulitis of left hand L03.114 Hyperlipidemia E78.5 Pulmonary nodule R91.1 COPD (chronic obstructive pulmonary disease) J44.9 Hypothyroidism E03.9
--- NOTE | 2025-10-31 16:08 | PM.CONSULT ---
Providers/Reason For Consult Consulting Physician/Specialty*: Dr. Chu Reason for Consult*: diastolic heart failure Requesting Physician: Dr. Wei Attending Physician: Bacilio Wei MD Primary Care Provider: SETH Leon History of Present Illness History of Present Illness Lupe Monreal is a 65 year old female hx of diastolic CHF, COPD, afib, hypertension, hyperlipidemia, who presented to the ED for what she states was increased leg swelling. She called EMS and was found to be saturating in the mid 80s room aire with heart rates in the high 100s and had reported 20 lb weight gain in 1 week with severe lower extremity swelling. She was placed on oxygen, treated with duoneb, admitted and started on diuretics. patient has CKD. Creatinine has increased from 1.5 to 2.1. Chest x-ray showed consolidation in left upper lung with small bilateral pleural effusions. Chest CTA showed no evidence of PE, possible pulmonary edema and CHF, cardiomegaly small right and trace left pleural effusions. Patient was getting metolazone 5 mg daily which is on hold at this time. She is getting metoprolol succinate 50 mg daily, anticoagulated with Xarelto 20, currently on Doxy for possible pneumonia, amiodarone 200 daily, Bumex was given this morning but currently on hold due to ROSANNE. Patient denies any severe shortness of breath at this time. Still has lower extremity edema. Denies any chest pain. Previous stress test in 2021 showed moderate areas of moderate to severely decreased persistent tracer uptake in anterior anterior lateral and left ventricular apical regions with small areas of reversibility suggesting myocardial scarring in the distribution of the LAD and circumflex with small areas of citlalli-infarct ischemia, echo performed yesterday showed EF of 60% grade 2 out of 4 diastolic dysfunction with moderately elevated filling pressures moderately increased left atrial size, moderate aortic calcification with mild aortic valve stenosis, moderate mitral valve regurg. Review of Systems Narrative: Consitutional: denies fever, chills, body aches Eyes: Denies changes in vision Card: Denies chest pain, palpitations, irregular heart rhythm, reports edema, denies syncope, shortness of breath, orthopnea Resp: reports shortness of breath on exertion GI: denies abdominal pain : denies blood in urine, denies dysuria Musc: Denies extremity pain, denies limited range of motion or recent injury Skin: Denies rash, lesions, or wounds, denies changes to skin color Neuro: Denies nubmness in extremities, h/a, s/s of stroke Medications/Allergies Home Medications ?Medication ?Instructions ?Recorded ?Confirmed ?Last Taken ?Type acetaminophen 500 mg capsule 500 mg PO Q6H PRN Pain 06/12/21 10/30/25 Unknown History albuterol sulfate 90 mcg/actuation 2 puff inhalation Q6H PRN 06/12/21 10/30/25 Unknown Rx aerosol inhaler shortness of breath or wheezing #8.5 grams atorvastatin 80 mg tablet 80 mg PO .qhs #30 tabs 06/12/21 10/30/25 10/29/25 Rx cholecalciferol (vitamin D3) 25 25 mcg PO DAILY #100 caps 06/12/21 10/30/25 10/29/25 Rx mcg (1,000 unit) capsule levothyroxine 175 mcg tablet 175 mcg PO DAILY 30 days #30 tabs 02/04/22 10/30/25 10/29/25 Rx gabapentin 300 mg capsule See Rx Instructions .Route 06/08/22 10/30/25 10/29/25 Rx .COMPLEX #60 caps amiodarone 200 mg tablet See Rx Instructions .Route 08/15/23 10/30/25 10/29/25 Rx .COMPLEX #30 tabs metoprolol succinate 50 mg See Rx Instructions .Route 08/15/23 10/30/25 Unknown Rx tablet,extended release 24 hr .COMPLEX #30 tabs rivaroxaban 20 mg tablet (Xarelto) 20 mg PO DAILY #90 tabs 08/15/23 10/30/25 10/29/25 Rx mycophenolate mofetil 500 mg tablet See Rx Instructions .Route 08/22/23 10/30/25 10/29/25 Rx .COMPLEX #60 tabs potassium chloride 10 mEq 10 meq PO DAILY #30 caps 02/03/24 10/30/25 Unknown Rx capsule,extended release torsemide 20 mg tablet See Rx Instructions .Route 02/27/24 10/30/25 10/29/25 Rx .COMPLEX #135 tabs budesonide 160 mcg-glycopyr 9 2 inh inhalation BID 10/30/25 10/30/25 10/29/25 History mcg-formot 4.8 mcg/actuation HFA inhaler (Breztri Aerosphere) bupropion HCl 300 mg 24 hr tablet, 300 mg PO DAILY 10/30/25 10/30/25 10/29/25 History extended release Allergies Allergy/AdvReac Type Severity Reaction Status Date / Time No Known Allergies Allergy Verified 05/14/24 12:39 Current Medications Generic Name Dose Route Start Last Admin Trade Name Freq PRN Reason Stop Dose Admin Acetaminophen 650 mg 10/30/25 02:48 10/31/25 04:16 Acetaminophen 325 Mg Tablet PO 650 mg Q6H PRN Administration Mild/Mod Pain Or Temp >/= 101 Amiodarone HCl 200 mg 10/30/25 05:00 10/31/25 04:15 Amiodarone 200 Mg Tablet PO 200 mg DAILY LUIS Administration Atorvastatin Calcium 80 mg 10/30/25 21:00 10/30/25 21:00 Atorvastatin 40 Mg Tablet PO 80 mg BEDTIME LUIS Administration Bumetanide 1 mg 10/30/25 08:00 10/31/25 04:16 Bumetanide 0.25 Mg/Ml Sdv 4 Ml IVP 1 mg On Hold: 10/31/25 15:57 BID LUIS Administration Bupropion HCl 150 mg 10/30/25 05:00 10/31/25 04:16 Bupropion Sr (12 Hr) 150 Mg Tablet PO 150 mg BID LUIS Administration Docusate Sodium 100 mg 10/30/25 05:00 10/31/25 04:15 Docusate Sodium 100 Mg Capsule PO 100 mg BID LUIS Administration Doxycycline Monohydrate 100 mg 10/30/25 21:40 10/31/25 07:45 Doxycycline 100 Mg Tablet PO 100 mg BIDWM LUIS Administration Protocol Famotidine 20 mg 10/30/25 21:00 10/30/25 21:00 Famotidine 20 Mg Tablet PO 20 mg BEDTIME LUIS Administration Gabapentin 300 mg 10/30/25 05:00 10/31/25 04:15 Gabapentin 300 Mg Capsule PO 300 mg BID LUIS Administration Sodium Chloride 1,000 mls @ 100 mls/hr 10/31/25 15:00 10/31/25 15:27 Sodium Chloride 0.9% IV 10/31/25 20:59 100 mls/hr .Q10H LUIS Administration Levothyroxine Sodium 175 mcg 10/30/25 05:00 10/31/25 04:15 Levothyroxine 175 Mcg Tablet PO 175 mcg DAILY LUIS Administration Metolazone 5 mg 10/31/25 05:00 10/31/25 04:16 Metolazone 5 Mg Tablet PO 5 mg On Hold: 10/31/25 11:57 DAILY LUIS Administration Metoprolol Succinate 50 mg 10/30/25 05:00 10/31/25 04:15 Metoprolol Succinate Er (24 Hr) 50 Mg Tablet PO 50 mg DAILY LUIS Administration Potassium Chloride 20 meq 10/30/25 03:00 10/31/25 04:16 Potassium Chloride Er 20 Meq Tablet PO 20 meq BID LUIS Administration Rivaroxaban 20 mg 10/30/25 05:00 10/31/25 04:15 Rivaroxaban 10 Mg Tablet PO 20 mg DAILY LUIS Administration Vitamin D 1,000 unit 10/30/25 05:00 10/31/25 04:15 Cholecalciferol (Vitamin D3) 1,000 Unit Tablet PO 1,000 unit DAILY LUIS Administration PFSH Acute PFSH: Medical History (Updated 10/31/25 @ 16:21 by Margarita Wooten NP) Depression She is taking Celexa 40 mg daily and will continue that for mental health. She'll follow up with us every 3 months and sooner if needed. We will call her the lab results when they're available. Hyperlipidemia Atrial fibrillation with controlled ventricular response Weight loss of more than 10% body weight Osteoarthritis, multiple sites Fibromyalgia affecting multiple sites Morbid obesity with BMI of 40.0-44.9, adult Hypothyroidism CKD (chronic kidney disease) stage 3, GFR 30-59 ml/min COPD (chronic obstructive pulmonary disease) CHF (congestive heart failure) HTN (hypertension) Surgical History (Updated 05/14/24 @ 13:39 by Fabian Mojica MD) History of carpal tunnel surgery History of tonsillectomy and adenoidectomy Hx of section Hx of ultrasound guided needle biopsy of lung Family History Family/Other Stroke Father Stroke Brother Graves disease Stroke Denies family history of Diabetes CAD (coronary artery disease) Clotting disorder Dementia Chronic kidney disease (CKD) Suicide Anesthesia complication Bleeding disorder Lung disease Cancer Social History (Updated 10/30/25 @ 02:41 by Rajeev Perry MD) Smoking and tobacco/nicotine status: former use of tobacco/nicotine (quit 2021) Quit status (tobacco/nicotine): has quit using Year quit tobacco: 2021 Former quit date comment: Smoked from age [age] Alcohol intake: never Substance/Drug Use: never Additional social history: She wants full code but no prolong life support as discussed with Rajeev Perry MD on 10/30/2025 patient indicates her next of kin is Malathi Aldridge Number of children: 3 Current occupational status: disabled 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, 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 Vitals/I&O/Wt Last Vital Signs Temp 98.3 F 10/31/25 15:30 Pulse 72 10/31/25 15:30 Resp 18 10/31/25 15:30 BP 128/84 10/31/25 15:30 Pulse Ox 90 10/31/25 15:30 O2 Del Method Nasal Cannula 10/31/25 15:30 O2 Flow Rate 1 10/31/25 15:30 10/31/25 10/31/25 10/31/25 06:59 14:59 22:59 Intake Total 1460 / 1460 Output Total 1025 / 1850 Balance -1025 / -890 1460 / 1460 Weight last 48 hrs Weight 294 lb 4.8 oz Weight 284 lb Weight 284 lb Weight 283 lb 11.2 oz Weight 280 lb Physical Exam Narrative: General: No apparent distress, healthy appearing, well nourished Muskuloskeletal: Full ROM Respiratory: Normal respiratory effort, clear to auscultation bilaterally throughout all lung hogan, no use of accessory muscles Cardio: No JVD, irregularly irregular rate and rhythm, S1 S2 normal, no murmurs, peripheral pulses 2+ radial palpated bilaterally GI: Normal to inspection, nondistended Extremities: Full ROM, normal, normal capillary refill, no cyanosis, 2+ pitting edema bilateral lower extremities Neuro: Alert and oriented x4 Psych: Affect normal Skin: No rashes or lesions noted, no wounds Urinary Catheter Management: Graves: Cath Placed During This Visit: yes Reason for Continuing Indwelling Catheter: Accurate Measurement of Urinary Output in Critically Ill Patients Urinary Catheter Date of Insertion: 10/30/25 Urinary Catheter Time of Insertion: 02:49 Data 10/29/25 23:35 10/31/25 04:17 Micro: Microbiology 10/30/25 02:02 Urine Culture - Preliminary Urine,Clean Catch Gram Negative Rods A&P Assessment and plan 1. CHF (congestive heart failure): 2. Atrial fibrillation with controlled ventricular response: 3. Acute on chronic diastolic congestive heart failure: 4. Primary hypertension: Plan: Patient has evidence of diastolic heart failure. She has diuresed some -230 and -890 over 24 hours, but still edemetous. Bumex and Metalazone on hold due to increased BUN and creatinine to 2.1 from 1.5. Would agree with holding diuretics for now. Repeat probnp. Patient got one dose of Metolazone and bumex 1 mg today. Will reassess in the AM with labs. Lungs are clear, but still has edema. Requiring 1 L O2 nasal cannula. No acute distress. Strict fluid restriction 1.5 L/day, low sodium diet, daily weights. Continue amio 200 daily. Continue Xarelto for stroke prophylaxis. Continue home dose metoprolol. Thank you, Dr. Wei, for allowing us to care for this very pleasant 65 year old female. PDMP PDMP Reviewed: Not Reviewed Consult Attestations Medical Necessity Statement: Deferred to primary Coding Level of Care Code Acute Code for [facility] Fwd Diagnoses CHF (congestive heart failure) I50.9 Atrial fibrillation with controlled ventricular response I48.91 Acute on chronic diastolic congestive heart failure I50.33 Heart failure type: diastolic Primary hypertension I10 Hypertension type: primary hypertension
[2025-10-31 18:05] LABS: NT Pro B Type Natriuretic Pept 7065 pg/mL (0-125)
[2025-10-31] MEDS: ondansetron 2 mg/ML SDV 2 mL 4 MG IVP (19:01)
--- NOTE | 2025-10-31 23:05 | PC.NURSE ---
Addendum entered by Dahiana Sebastian LPN 10/31/25 23:16: note reference below occurred at 2130 Original Note: pt ambulated to and from bathroom. once near bed pt sat on walker waiting for bed to be straightened, had difficulty standing back up from sitting position, nurse with patient called for assist, this nurse came into room and assisted pt with help of the other nurse to standing position, pt unable to take a step and started leaning on this nurse, the other nurse positioned self behind patient and pt lowered to floor. pt stated I was trying no move but my body just wouldn't . pt assisted off the floor using dana lift and 2 other staff assisted. no injuru sustained and pt denied pain at the time.
[2025-11-01] VITALS (14 sets, daily range): BP systolic 108–165; BP diastolic 61–94; PULSE 68–88; RESP 14–22; TEMP 36.4–37.6; O2SAT 86–97; BMI 51.3
[2025-11-01] MEDS: metoprolol succinate ER (24 HR) 50 mg Tablet PO (04:32)
[2025-11-01 04:53] LABS: Hematocrit 31.5 % (36-47); Hemoglobin 8.90 g/dL (11.27-16.99); Mean Corpuscular HGB Conc 28.3 g/dL (30-55); Mean Corpuscular Hemoglobin 23.6 pg (27-33); Mean Corpuscular Volume 83.6 fl (85-98); Nucleated Red Blood Cells % 0 %; Platelet Count 247 10^3/cmm (157-399); Red Blood Count 3.77 10^6/uL (3.85-5.65); White Blood Count 8.37 10^3/uL (3.29-11.43)
[2025-11-01 05:17] LABS: Alanine Aminotransferase 14 U/L (0-33); Albumin Level 2.8 g/dL (3.5-5.2); Alkaline Phosphatase 135 U/L (35-105); Aspartate Amino Transferase 29 U/L (0-32); Blood Urea Nitrogen 41 mg/dL (8-23); Calcium 8.6 mg/dL (8.5-10.5); Carbon Dioxide 21 mmol/L (22-29); Chloride 101 mmol/L (98-107); Globulin 3.3 g/dL (1.3-4.6); Glucose 106 mg/dL (65-115); Osmolality Calculated 295 mOsm/kg (285-295); Sodium 137 mmol/L (136-145); Total Protein 6.1 g/dL (6.6-8.7)
[2025-11-01 05:21] LABS: Anion Gap 19.0 (5-19); Potassium 4.0 mmol/L (3.5-5.1)
--- NOTE | 2025-11-01 10:17 | P.PN_ITS ---
Subjective 2 Subjective: no new c/o Medications: Reviewed: Yes Vitals/I&O/Wt Last Vital Signs Temp 97.6 F 11/01/25 07:53 Pulse 74 11/01/25 08:43 Resp 16 11/01/25 08:00 BP 134/74 11/01/25 07:53 Pulse Ox 94 11/01/25 08:00 O2 Del Method Nasal Cannula 11/01/25 08:00 O2 Flow Rate 2 11/01/25 08:00 10/31/25 11/01/25 11/01/25 22:59 06:59 14:59 Intake Total 480 / 1940 1360 / 3300 120 / 120 Output Total 750 / 750 150 / 900 Balance -270 / 1190 1210 / 2400 120 / 120 Weight last 48 hrs Weight 135.76 kg Weight 133.492 kg Physical Exam 2 Narrative: Patient is alert, awake , on 1 L O2 by nasal cannula.No distress PEERLA No JVD S1-2 regular rate and rhythm Lungs with decreased BS lenore abdomen soft non tender extremities 2+ LE edema No skin rash Urinary Catheter Management: Graves: Cath Placed During This Visit: yes Reason for Continuing Indwelling Catheter: Accurate Measurement of Urinary Output in Critically Ill Patients Urinary Catheter Date of Insertion: 10/30/25 Urinary Catheter Time of Insertion: 02:49 Data 11/01/25 04:22 11/01/25 04:22 Micro: Microbiology 10/30/25 02:02 Urine Culture - Preliminary Urine,Clean Catch Gram Negative Rods A&P Assessment and plan 1. Acute kidney injury superimposed on CKD: 1. Acute on CKD 3 : Baseline Cr mid 1 range and now has ROSANNE with Cr on 2.1 likely multifactorial - ATN from acute infection , and cardiorenal on presentation , worsened after aggressive diuresis. Pt volume overloaded but holding diuretics temporarily . - check renal US , Urine electrolytes , UA with 1+ protein and no microscopic hematuria - unlikely GN -s/p Gentle IVF - 100 cc /hr for 6 hrs as pt recieved IV contrast - CTA - no PE , pulm edema noted -start IV lasix and IV albumin - No acute indication for HD , Cr stable 2. Acute on chronic resp failure , elevated D dimer , CTA done - pending results 3. Diastolic CHF --> diuretics on hold , continue Na and fluid restriction 4.Anemia pt evaluated using audiovisual cart. Time spent 45 min PDMP PDMP Reviewed: Not Reviewed Attestations 2 Medical Necessity Statement*: per estefanía Coding Level of Care Code Acute Code for [facility] Fwd Diagnoses Acute kidney injury superimposed on CKD N17.9; N18.9
--- NOTE | 2025-11-01 12:22 | US_ITS ---
WS: [id number] Bilateral renal ultrasound, 11/01/2025 Clinical Data: jose Comparison: None. Findings: The right kidney measures 8.6 cm x 4.7 cm x 4.6 cm and the left kidney is 9.1 cm x 4.5 cm x 4.9 cm. There is a 2.8 x 3.2 x 3.6 cm left renal cyst. No masses or hydronephrosis is seen. The renal cortical margins are normal. No renal calculi are seen. US/US renal BI* [id number] Impression: Negative bilateral renal ultrasound.
--- NOTE | 2025-11-01 13:15 | P.PN_ITS ---
<Statement entered by Kwabena Chu M.D - 11/07/25 10:56> Patient was cared for in conjunction with an advanced practice practitioner.? I reviewed the chart and all pertinent data including imaging, telemetry, and laboratory results.? I discussed the patient in detail with the advanced practice practitioner.? Please see? their documentation for progress note, testing results and agreed upon plan of care for the patient. Subjective 2 Subjective: Patient was seen today with Dr. Chu. Still requiring low O2 but no acute distress. Creatinine remained the same at 2.1. Nephrology is seeing patient. Still edemetous. CTA chest was done yesterday that showed pulmonary edema with possible CHF and cardiomegaly. H&H dropped to 8.9. No known source of bleeding. Vitals/I&O/Wt Last Vital Signs Temp 98.6 F 11/01/25 11:20 Pulse 88 11/01/25 11:21 Resp 16 11/01/25 11:21 BP 123/61 11/01/25 11:20 Pulse Ox 86 L 11/01/25 12:03 O2 Del Method Nasal Cannula 11/01/25 11:21 O2 Flow Rate 2 11/01/25 11:21 10/31/25 11/01/25 11/01/25 22:59 06:59 14:59 Intake Total 480 / 1940 1360 / 3300 120 / 120 Output Total 750 / 750 150 / 900 Balance -270 / 1190 1210 / 2400 120 / 120 Weight last 48 hrs Weight 299 lb 4.8 oz Weight 294 lb 4.8 oz Physical Exam 2 Narrative: General: No apparent distress, healthy appearing, well nourished Muskuloskeletal: Full ROM Respiratory: Normal respiratory effort, clear to auscultation bilaterally throughout all lung hogan, no use of accessory muscles Cardio: No JVD, irregularly irregular rate and rhythm, S1 S2 normal, no murmurs, peripheral pulses 2+ radial palpated bilaterally GI: Normal to inspection, nondistended Extremities: Full ROM, normal, normal capillary refill, no cyanosis, 2+ pitting edema bilateral lower extremities Neuro: Alert and oriented x4 Psych: Affect normal Skin: No rashes or lesions noted, no wounds Urinary Catheter Management: Graves: Cath Placed During This Visit: yes Reason for Continuing Indwelling Catheter: Accurate Measurement of Urinary Output in Critically Ill Patients Urinary Catheter Date of Insertion: 10/30/25 Urinary Catheter Time of Insertion: 02:49 Data 11/01/25 04:22 11/01/25 04:22 Micro: Microbiology 10/30/25 02:02 Urine Culture - Preliminary Urine,Clean Catch Gram Negative Rods A&P Assessment and plan 1. CHF (congestive heart failure): 2. Atrial fibrillation with controlled ventricular response: 3. Acute on chronic diastolic congestive heart failure: 4. Primary hypertension: Plan: Patient has evidence of diastolic heart failure. Needs diuresis. Agree with nephrology on lasix 40 q8 IV. Continue Xarelto for stroke prophylaxix. Repeat labs in the AM. May be from hemodilution from fluids. No obvious bleeding at this time. Continue amio 200 mg daily. Continue metoprolol 50 daily. Continue to monitor I&O. Fluid restriction. Sodium restriction. PDMP PDMP Reviewed: Not Reviewed Attestations 2 Medical Necessity Statement*: Deferred to primary Coding Level of Care Code Acute Code for [facility] Diagnoses CHF (congestive heart failure) I50.9 Atrial fibrillation with controlled ventricular response I48.91 Acute on chronic diastolic congestive heart failure I50.33 Heart failure type: diastolic Primary hypertension I10 Hypertension type: primary hypertension
[2025-11-01] MEDS: albumin 25 G/100 ML BAG 60 G IV ×2 (13:38→19:44)
[2025-11-01 14:40] LABS: Urine Random Sodium 11 mmol/L
[2025-11-01] MEDS: FUROsemide 10 mg/mL SDV 4mL 40 MG IVP ×2 (15:51→21:25)
--- NOTE | 2025-11-01 17:24 | P.PN_ITS ---
Subjective 2 Subjective: Patient seen in the morning, still requiring oxygen of 1 to 2 L through nasal cannula Mild wheezing however able to speak in full sentences CT with contrast did not show any pulmonary embolism however showed features of pulmonary edema Creatinine around 2.1, cardiology and nephrology on board Patient is overall improving however the recovery is a little bit slow Vitals/I&O/Wt Last Vital Signs Temp 98.5 F 11/01/25 16:00 Pulse 71 11/01/25 16:00 Resp 18 11/01/25 16:00 BP 165/67 11/01/25 16:00 Pulse Ox 93 11/01/25 16:00 O2 Del Method Nasal Cannula 11/01/25 16:00 O2 Flow Rate 2 11/01/25 15:34 11/01/25 11/01/25 11/01/25 06:59 14:59 22:59 Intake Total 1360 / 3300 360 / 360 100 / 460 Output Total 150 / 900 Balance 1210 / 2400 360 / 360 100 / 460 Weight last 48 hrs Weight 135.76 kg Weight 133.492 kg Physical Exam 2 Narrative: General: Alert and oriented, lying comfortably without any distress, on 2 L oxygen through nasal cannula unable to complete full sentences HEENT: Normocephalic, atraumatic, grossly unremarkable exam Cardio: normal rate rhythm, normal S1-S2 without any murmurs, rubs, or gallops and JVD normal Respiratory: Bilateral equal air entry with mild diffuse wheezes but no crackles or crepitations heard, exam limited due to morbid obesity GI: Abdomen soft, nontender, nondistended, normoactive bowel sounds present all 4 quadrants, Neuro: intact cranial nerves motor and sensory and cerebellar/coordination function without any focal neurological deficit Behavior: Appropriate and cooperative Extremities: Adequate palpable pulses, bilateral lower leg extremity pitting edema Urinary Catheter Management: Graves: Cath Placed During This Visit: yes Reason for Continuing Indwelling Catheter: Accurate Measurement of Urinary Output in Critically Ill Patients Urinary Catheter Date of Insertion: 10/30/25 Urinary Catheter Time of Insertion: 02:49 Data 11/01/25 04:22 11/01/25 04:22 Micro: Microbiology 10/30/25 02:02 Urine Culture - Final Urine,Clean Catch Klebsiella pneumoniae A&P Assessment and plan 1. Acute on chronic diastolic congestive heart failure: Patient admitted with shortness of breath, features of fluid overload secondary to high likelihood of congestive heart failure considering she has high proBNP D-dimer high and CTA negative for PE, showed signs of pulmonary edema Echo report showed ejection fraction of around 60% with grade 2/4 diastolic dysfunction. Patient was kept on diuresis with metolazone and bumetanide however had ROSANNE, nephrology consulted, give fluid bolus but creatinine remained stable around 2.1 Started on albumin and Lasix as per nephro recommendation and to follow-up Cardiology consulted and to follow the plan of care Monitor hemodynamics Maintain MAP above 65 Intake and output monitoring Telemetry 2. Atrial fibrillation with controlled ventricular response: A-fib with rate controlled. Initial troponin 57 was flat at 60 minutes Continue amiodarone 200 mg twice daily Cardiology on board and follow the recommendation Telemetry monitoring 3. Acute kidney injury superimposed on CKD: Patient having baseline CKD around stage III Creatinine mildly increased to 2.1 and remained stable around 2.1 after fluid bolus Started on albumin and Lasix as per nephro plan of care. Intake and output monitoring Daily renal parameters monitoring and electrolyte monitoring with correction accordingly 4. Morbid obesity with BMI of 40.0-44.9, adult: Patient's BMI at 48 with volume overload currently. TSH 0.6. HbA1c 5.7%. OT PT therapy To follow-up with the primary care physician for further options of weight loss 5. Cellulitis of left hand: Patient showed left hand cellulitis, and is much better today. she was prescribed antibiotics 3 to 4 days open Still having redness and tenderness, Having adequate pulses and movement is preserved Doxycycline twice daily Continue to monitor 6. Mixed hyperlipidemia: Continue home dose atorvastatin 7. Pulmonary nodule: To follow-up with the primary care/relief charge nurse as outpatient 8. Chronic obstructive pulmonary disease, unspecified COPD type: Schedule ipratropium and lev albuterol nebulization with budesonide 9. Hypothyroidism, unspecified type: Continue home dose levothyroxine 10. Anemia, unspecified type: Sent for anemia workup Possible dilution since there is no obvious source of bleeding Monitor CBC Monitor hemodynamics Active type and screen to maintain PDMP PDMP Reviewed: Not Reviewed Attestations 2 Medical Necessity Statement*: Patient is a stay over the weekend for the management of her acute on chronic diastolic heart dysfunction ROSANNE on CKD and further GDMT Time Spent in Patient Care: 16 - 35 minutes (>than 50% of time sp ent in counselling and/or direct pt care on unit) . Other Attestations: Patient condition has been discussed at length with the patient/family, I have independently reviewed the chart labs imaging/diagnostics/EKG. the goals of care and code status with the patient/family/NOK/legal billing representative, and documented accordingly. I have reconciled the medications after confirmation/comorbidities/current clinical condition. The management has been done according to the current clinical condition with respect to patient goals of care and based on recommendations/guidelines. The patient/family has been informed about the current condition and further plan of care. Agreed with the plan of care and understood without any language barrier. Every effort was made to ensure accuracy of hatch supervisor. Any obvious errors or omissions should be clarified with the author of the document. Coding Level of Care Code 68642 Diagnoses Acute on chronic diastolic congestive heart failure I50.33 Heart failure type: diastolic Atrial fibrillation with controlled ventricular response I48.91 Acute kidney injury superimposed on CKD N17.9; N18.9 Morbid obesity with BMI of 40.0-44.9, adult E66.01; Z68.41 Cellulitis of left hand L03.114 Mixed hyperlipidemia E78.2 Hyperlipidemia type: mixed hyperlipidemia Pulmonary nodule R91.1 Chronic obstructive pulmonary disease, unspecified COPD type J44.9 COPD type: unspecified COPD Hypothyroidism, unspecified type E03.9 Hypothyroidism type: unspecified Anemia, unspecified type D64.9 Anemia type: unspecified type
[2025-11-01 21:15] LABS: Ferritin 132 ng/mL (15-150); Iron 22 ug/dL (37-145); Total Iron Binding Capacity 313 mcg/dl; Unsaturated Iron Binding 291 ug/dL (112-347)
[2025-11-01 21:31] LABS: Vitamin B12 413 pg/mL (232-1245)
[2025-11-02] VITALS (19 sets, daily range): BP systolic 99–152; BP diastolic 56–101; PULSE 63–78; RESP 14–24; TEMP 36.3–36.8; O2SAT 88–98
[2025-11-02] MEDS: albumin 25 G/100 ML BAG 60 G IV ×3 (03:51→20:24)
[2025-11-02 05:01] LABS: Hematocrit 33.1 % (36-47); Hemoglobin 9.30 g/dL (11.27-16.99); Mean Corpuscular HGB Conc 28.1 g/dL (30-55); Mean Corpuscular Hemoglobin 23.7 pg (27-33); Mean Corpuscular Volume 84.2 fl (85-98); Nucleated Red Blood Cells % 0 %; Platelet Count 341 10^3/cmm (157-399); Red Blood Count 3.93 10^6/uL (3.85-5.65); White Blood Count 9.07 10^3/uL (3.29-11.43)
[2025-11-02 05:29] LABS: Alanine Aminotransferase 207 U/L (0-33); Albumin Level 3.7 g/dL (3.5-5.2); Alkaline Phosphatase 181 U/L (35-105); Anion Gap 21.6 (5-19); Aspartate Amino Transferase 467 U/L (0-32); Blood Urea Nitrogen 50 mg/dL (8-23); Calcium 9.0 mg/dL (8.5-10.5); Carbon Dioxide 20 mmol/L (22-29); Chloride 97 mmol/L (98-107); Globulin 3.1 g/dL (1.3-4.6); Glucose 109 mg/dL (65-115); Osmolality Calculated 292 mOsm/kg (285-295); Potassium 4.6 mmol/L (3.5-5.1); Sodium 134 mmol/L (136-145); Total Protein 6.8 g/dL (6.6-8.7)
[2025-11-02] MEDS: FUROsemide 10 mg/mL SDV 4mL 40 MG IVP ×2 (05:33→13:17)
[2025-11-02] MEDS: metoprolol succinate ER (24 HR) 50 mg Tablet PO (05:33)
--- NOTE | 2025-11-02 13:02 | P.PN_ITS ---
Subjective 2 Subjective: events noted Medications: Reviewed: Yes Vitals/I&O/Wt Last Vital Signs Temp 98.2 F 11/04/25 08:00 Pulse 72 11/04/25 10:30 Resp 27 H 11/04/25 10:30 BP 125/65 11/04/25 11:00 Pulse Ox 97 11/04/25 10:30 O2 Del Method BiPAP 11/04/25 10:30 O2 Flow Rate 3 11/04/25 09:05 FiO2 36 11/04/25 10:30 Weight last 48 hrs Weight 132.449 kg Weight 139.3 kg Physical Exam 2 Narrative: Patient is alert, awake , on 4 L O2 by nasal cannula.No distress PEERLA No JVD S1-2 regular rate and rhythm Lungs with decreased BS lenore abdomen soft non tender extremities 2+ LE edema No skin rash Urinary Catheter Management: Graves: Cath Placed During This Visit: yes Reason for Continuing Indwelling Catheter: Accurate Measurement of Urinary Output in Critically Ill Patients Urinary Catheter Date of Insertion: 10/30/25 Urinary Catheter Time of Insertion: 02:49 Data 11/04/25 03:34 11/04/25 03:34 Micro: Microbiology 11/03/25 19:23 Blood Culture - Preliminary Blood NEGATIVE TO DATE 11/03/25 19:21 Blood Culture - Preliminary Blood NEGATIVE TO DATE A&P Assessment and plan 1. Acute kidney injury superimposed on CKD: 1. Acute on CKD 3 : Baseline Cr mid 1 range and now has ROSANNE with Cr upto 4.1 --> likely multifactorial - ATN from acute infection , and cardiorenal on presentation , worsened after aggressive diuresis. Pt volume overloaded but holding diuretics temporarily . , UA with 1+ protein and no microscopic hematuria - unlikely GN -s/p Gentle IVF - 100 cc /hr for 6 hrs post IV contrast - CTA - no PE , pulm edema noted -lasix on hold - Cr worsening now due to recent IV contrast , oliguric 2. Acute on chronic resp failure , elevated D dimer , CTA done 3. Diastolic CHF --> continue Na and fluid restriction 4.Anemia 5. Hyperkalemia , med mx and plan for HD pt evaluated using audiovisual cart. Time spent 45 min PDMP PDMP Reviewed: Not Reviewed Attestations 2 Medical Necessity Statement*: per [facility] Coding Level of Care Code Acute Code for Chg Fwd Diagnoses Acute kidney injury superimposed on CKD N17.9; N18.9
--- NOTE | 2025-11-02 17:25 | P.PN_ITS ---
Subjective 2 Subjective: Patient was seen in the morning, alert and oriented however having mild wheeze and shortness of breath Patient on 2 to 3 L nasal cannula and saturating above 92 to 94% Patient never been diagnosed as a case of sleep apnea or have been on BiPAP Considering patient obesity and wheezing on and off to start on BiPAP Patient renal functions are worsening, multifactorial, underlying acute on chronic diastolic congestive heart failure on the top of possible contrast exposure which was done to rule out PE due to worsening of shortness of breath with high risk consent from the patient. Nephrology and cardiology consulted Medications: Reviewed: Yes Vitals/I&O/Wt Last Vital Signs Temp 97.6 F 11/02/25 16:00 Pulse 65 11/02/25 16:00 Resp 19 H 11/02/25 16:00 BP 112/63 11/02/25 16:00 Pulse Ox 94 11/02/25 16:00 O2 Del Method Nasal Cannula 11/02/25 16:00 O2 Flow Rate 2 11/02/25 15:07 FiO2 36 11/02/25 10:51 11/02/25 11/02/25 11/02/25 06:59 14:59 22:59 Intake Total 100 / 1140 240 / 240 100 / 340 Output Total 300 / 300 Balance -200 / 840 240 / 240 100 / 340 Weight last 48 hrs Weight 136.616 kg Weight 135.76 kg Physical Exam 2 Narrative: General: Alert and oriented, lying comfortably without any distress, on 2 L oxygen through nasal cannula unable to complete full sentences having mild wheezing HEENT: Normocephalic, atraumatic, grossly unremarkable exam Cardio: normal rate rhythm, normal S1-S2 without any murmurs, rubs, or gallops and JVD normal Respiratory: Bilateral equal air entry with mild diffuse wheezes but no crackles or crepitations heard, exam limited due to morbid obesity GI: Abdomen soft, nontender, nondistended, normoactive bowel sounds present all 4 quadrants, Neuro: intact cranial nerves motor and sensory and cerebellar/coordination function without any focal neurological deficit Behavior: Appropriate and cooperative Extremities: Adequate palpable pulses, bilateral lower leg extremity pitting edema Urinary Catheter Management: Graves: Cath Placed During This Visit: yes Reason for Continuing Indwelling Catheter: Other Urinary Catheter Date of Insertion: 10/30/25 Urinary Catheter Time of Insertion: 02:49 Data 11/02/25 04:05 11/02/25 04:05 Micro: Microbiology 10/30/25 02:02 Urine Culture - Final Urine,Clean Catch Klebsiella pneumoniae A&P Assessment and plan 1. Acute on chronic diastolic congestive heart failure: - Patient admitted with shortness of breath, features of fluid overload secondary to high likelihood of congestive heart failure considering she has high proBNP -D-dimer high and CTA negative for PE, showed signs of pulmonary edema -Echo report showed ejection fraction of around 60% with grade 2/4 diastolic dysfunction. -Considering patient requiring diuresis but also having worsening ROSANNE, consulted cardiology for further plan of care and optimize her condition for congestive heart failure. Maintain MAP above 65 Intake and output monitoring Telemetry 2. Acute kidney injury superimposed on CKD: - Patient having baseline CKD around stage III with creatinine around1.5-1.7 -Having ROSANNE on CKD with creatinine currently around 3. Multifactorial reason including congestive nephropathy, contrast exposure secondary to CTA to rule out PE under high risk consult, decreased perfusion due to acute on chronic congestive heart? -Patient received Lasix and albumin yesterday and currently was on Lasix 40 mg IV every 8 hourly, hold Lasix at the moment. -As per nephro just to observe her renal functions without Lasix or fluid bolus at the moment. -Nephrology on board and to follow the recommendation -Intake and output monitoring - Daily renal parameters monitoring and electrolyte monitoring with correction accordingly 3. Transaminitis: Patient having worsening of liver enzymes possible high likelihood of congestive liver Ultrasound liver Hold atorvastatin and doxycycline Reduce frequency of Tylenol Avoid any hepatotoxic medications Continue to monitor liver enzymes 4. Atrial fibrillation with controlled ventricular response: A-fib with rate controlled. Initial troponin 57 was flat at 60 minutes Continue amiodarone 200 mg twice daily Cardiology on board and follow the recommendation Telemetry monitoring 5. Morbid obesity with BMI of 40.0-44.9, adult: Patient's BMI at 48 with volume overload currently. TSH 0.6. HbA1c 5.7%. OT PT therapy To follow-up with the primary care physician for further options of weight loss 6. Cellulitis of left hand: Patient showed left hand cellulitis, and is much better today. Hello hello sorry to bother you you know the lady that we discussed. Hold antibiotics at the moment since the patient cellulitis is resolved Continue to monitor 7. Mixed hyperlipidemia: Continue home dose atorvastatin 8. Pulmonary nodule: To follow-up with the primary care/associate justice as outpatient 9. Chronic obstructive pulmonary disease, unspecified COPD type: Schedule ipratropium and lev albuterol nebulization with budesonide Overnight pulse ox and to see if the patient qualify for home BiPAP Patient qualify for home oxygen of around 2 L. 10. Hypothyroidism, unspecified type: Continue home dose levothyroxine 11. Anemia, unspecified type: Anemia workup showed mixed picture anemia going more towards iron deficiency with anemia of chronic disease, normal folate and vitamin B12 level Later to start iron tablets once the patient is more stable Monitor CBC Monitor hemodynamics Active type and screen to maintain PDMP PDMP Reviewed: Not Reviewed Attestations 2 Medical Necessity Statement*: Patient will stay over 2 midnights for management of her acute on chronic congestive heart failure and worsening kidney parameters requiring further monitoring, worsening liver functions requiring further management and intervention according Time Spent in Patient Care: Greater than 35 minutes (>than 50% of time spent in counselling and/or direct pt care on unit) . Critical Care Time: The high probability of a clinically significant, sudden or life threatening deterioration, as referenced in this documentation, required my full and direct attention, intervention and personal management. The critical care time shown is in addition to time spent performing any reported separately billable procedures and includes the following: [x] Data and vital sign review and interpretation [x ] Patient assessment, examination and intervention [x] Medication orders and management [x] Patient/Family updates as able [x] Care Coordination and Documentation. Critical Care Time (min): 35 Other Attestations: Patient condition has been discussed at length with the patient/family, I have independently reviewed the chart labs imaging/diagnostics/EKG. the goals of care and code status with the patient/family/NOK/legal retail wireless sales representative, and documented accordingly. I have reconciled the medications after confirmation/comorbidities/current clinical condition. The management has been done according to the current clinical condition with respect to patient goals of care and based on recommendations/guidelines. The patient/family has been informed about the current condition and further plan of care. Agreed with the plan of care and understood without any language barrier. Every effort was made to ensure accuracy of hand driller. Any obvious errors or omissions should be clarified with the author of the document. Coding Level of Care Code Critical Care >/= 30 minutes Diagnoses Acute on chronic diastolic congestive heart failure I50.33 Heart failure type: diastolic Acute kidney injury superimposed on CKD N17.9; N18.9 Transaminitis R74.01 Atrial fibrillation with controlled ventricular response I48.91 Morbid obesity with BMI of 40.0-44.9, adult E66.01; Z68.41 Cellulitis of left hand L03.114 Mixed hyperlipidemia E78.2 Hyperlipidemia type: mixed hyperlipidemia Pulmonary nodule R91.1 Chronic obstructive pulmonary disease, unspecified COPD type J44.9 COPD type: unspecified COPD Hypothyroidism, unspecified type E03.9 Hypothyroidism type: unspecified Anemia, unspecified type D64.9 Anemia type: unspecified type
--- NOTE | 2025-11-02 17:31 | USR_ITS ---
PROCEDURE INFORMATION: Exam: US Abdomen, Limited; Right Upper Quadrant Exam date and time: 11/02/2025 6:10 PM Age: 65 years old Clinical indication: Abnormal findings; Abnormal lab test; Abnormal function test of other organs/systems; Additional info: Worsening liver function TECHNIQUE: Imaging protocol: Real time ultrasound of the abdomen with image documentation. Limited exam focused on the right upper quadrant. COMPARISON: US renal BI* [id number] 11/01/2025 3:02 PM FINDINGS: Liver: Liver demonstrate normal echogenicity and is enlarged measuring 20 cm longitudinally. Gallbladder: The gallbladder is contracted and contains gallstones no tenderness localized to the gallbladder. Gallbladder wall thickness difficult to evaluate due to extensive gas. Biliary ducts: Common bile duct measured at 7 mm borderline for patient age correlation with alkaline phosphatase level bodies recommended Pancreas: Pancreas obscured by bowel gas. Right kidney: The right kidney measures 9.6 x 5.4 x 5.3 cm for total volume of 143 cc, renal cortex thickness measure up to 1 cm. Portal venous: There is normal hepatopedal flow in the main portal vein US/US liver [id number] IMPRESSION: Findings are cholelithiasis and borderline measurements of the common bile duct correlate with alkaline phosphatase levels values as above. Hepatomegaly with longitudinal diameter of the liver estimated at 20 cm.
--- NOTE | 2025-11-02 18:30 | PC.NURSE ---
Report called to NADEGE LAWRENCE, patient transferred to ICU via bed by NADEGE Preciado Charge and SHASHA Sanders.
--- NOTE | 2025-11-02 18:47 | PC.NURSE ---
recieved from 2nd floor alert , o2 in use at this time placed on monitor shows afib rate 60 edema 2 to 3 pulse also left hadn edema cellulitis , davies csd
[2025-11-03] VITALS (46 sets, daily range): BP systolic 100–136; BP diastolic 55–85; PULSE 63–82; RESP 14–28; TEMP 36.6–36.7; O2SAT 76–100
[2025-11-03 04:27] LABS: Hematocrit 31.0 % (36-47); Hemoglobin 8.90 g/dL (11.27-16.99); Mean Corpuscular HGB Conc 28.7 g/dL (30-55); Mean Corpuscular Hemoglobin 23.9 pg (27-33); Mean Corpuscular Volume 83.1 fl (85-98); Nucleated Red Blood Cells % 0 %; Platelet Count 274 10^3/cmm (157-399); Red Blood Count 3.73 10^6/uL (3.85-5.65); White Blood Count 10.97 10^3/uL (3.29-11.43)
[2025-11-03] MEDS: albumin 25 G/100 ML BAG 60 G IV ×3 (04:28→21:18)
[2025-11-03] MEDS: metoprolol succinate ER (24 HR) 50 mg Tablet PO (04:29)
[2025-11-03 05:42] LABS: Alanine Aminotransferase 344 U/L (0-33); Albumin Level 4.0 g/dL (3.5-5.2); Alkaline Phosphatase 281 U/L (35-105); Anion Gap 25.5 (5-19); Aspartate Amino Transferase 666 U/L (0-32); Blood Urea Nitrogen 63 mg/dL (8-23); Calcium 9.2 mg/dL (8.5-10.5); Carbon Dioxide 19 mmol/L (22-29); Chloride 97 mmol/L (98-107); Globulin 2.8 g/dL (1.3-4.6); Glucose 87 mg/dL (65-115); Osmolality Calculated 299 mOsm/kg (285-295); Potassium 5.5 mmol/L (3.5-5.1); Sodium 136 mmol/L (136-145); Total Protein 6.8 g/dL (6.6-8.7)
[2025-11-03] MEDS: citric acid-sodium citrate 30 mL UDC 60 ML PO (08:40)
[2025-11-03] MEDS: guaiFENesin-dextromethorphan UDC 10 mL 5 ML PO (10:24)
--- NOTE | 2025-11-03 10:47 | PC.NURSE ---
up in bed for am breakfast , monitor vital signs at this time . davies intact remains on fluid restriction
[2025-11-03 15:03] LABS: Alanine Aminotransferase 367 U/L (0-33); Albumin Level 4.0 g/dL (3.5-5.2); Alkaline Phosphatase 319 U/L (35-105); Anion Gap 23.5 (5-19); Aspartate Amino Transferase 696 U/L (0-32); Blood Urea Nitrogen 69 mg/dL (8-23); Calcium 9.1 mg/dL (8.5-10.5); Carbon Dioxide 19 mmol/L (22-29); Chloride 97 mmol/L (98-107); Globulin 2.6 g/dL (1.3-4.6); Glucose 97 mg/dL (65-115); Osmolality Calculated 298 mOsm/kg (285-295); Potassium 5.5 mmol/L (3.5-5.1); Sodium 134 mmol/L (136-145); Total Protein 6.6 g/dL (6.6-8.7)
--- NOTE | 2025-11-03 15:18 | PC.NURSE ---
daughter called , jl to inform pt preparing to transfer to the [facility] . she related she will notify rest of family
--- NOTE | 2025-11-03 17:18 | P.PN_ITS ---
Subjective 2 Subjective: on 4 L NC UOP dropped Medications: Reviewed: Yes Vitals/I&O/Wt Last Vital Signs Temp 98.1 F 11/03/25 04:00 Pulse 68 11/03/25 17:01 Resp 20 H 11/03/25 17:01 BP 106/64 11/03/25 13:00 Pulse Ox 95 11/03/25 17:01 O2 Del Method Nasal Cannula 11/03/25 17:01 O2 Flow Rate 3 11/03/25 17:01 FiO2 36 11/02/25 10:51 11/03/25 11/03/25 11/03/25 06:59 14:59 22:59 Intake Total 100 / 780 300 / 300 250 / 550 Output Total 200 / 200 50 / 50 Balance -100 / 580 300 / 300 200 / 500 Weight last 48 hrs Weight 135.942 kg Weight 136.616 kg Physical Exam 2 Narrative: Patient is alert, awake , on 4 L O2 by nasal cannula.No distress PEERLA No JVD S1-2 regular rate and rhythm Lungs with decreased BS lenore abdomen soft non tender extremities 2+ LE edema No skin rash Urinary Catheter Management: Graves: Cath Placed During This Visit: yes Reason for Continuing Indwelling Catheter: Other Urinary Catheter Date of Insertion: 10/30/25 Urinary Catheter Time of Insertion: 02:49 Data 11/03/25 03:40 11/03/25 14:30 A&P Assessment and plan 1. Acute kidney injury superimposed on CKD: 1. Acute on CKD 3 : Baseline Cr mid 1 range and now has ROSANNE with Cr upto 4.1 --> likely multifactorial - ATN from acute infection , and cardiorenal on presentation , worsened after aggressive diuresis. Pt volume overloaded but holding diuretics temporarily . , UA with 1+ protein and no microscopic hematuria - unlikely GN -s/p Gentle IVF - 100 cc /hr for 6 hrs post IV contrast - CTA - no PE , pulm edema noted -lasix on hold - Cr worsening now due to recent IV contrast , oliguric and also developed shock liver and has pulm edema , requested temporary HD catheter placement due to persistent hyperkalemia , plan for HD tonight once line placed 2. Acute on chronic resp failure , elevated D dimer , CTA done 3. Diastolic CHF --> continue Na and fluid restriction 4.Anemia 5. Hyperkalemia , med mx and plan for HD pt evaluated using audiovisual cart. Time spent 45 min PDMP PDMP Reviewed: Not Reviewed Attestations 2 Medical Necessity Statement*: per [facility] Coding Level of Care Code Acute Code for Chg Fwd Diagnoses Acute kidney injury superimposed on CKD N17.9; N18.9
--- NOTE | 2025-11-03 17:49 | PC.NURSE ---
preparing for dialysis cath placement pt informed frequent loose bms noted on bedpan and noted red irritated skin groin area cleansed several times this shift , foul order in area, nystatin powder used
[2025-11-03 18:37] LABS: Hepatitis B Surface Antigen Non-Reactive (Nonreactive)
--- NOTE | 2025-11-03 19:03 | PM.TDS ---
Transfer Summary Providers Date of Admission: 10/30/25 02:16 Date of Discharge/Transfer: 11/03/25 Attending Provider at Admission: Rajeev Perry MD Attending Provider at Transfer: Bacilio Wei MD Primary Care Provider: SETH Leon Transfer Plans: Anticipated date of transfer: 11/03/25. Diagnoses at Discharge Discharge Diagnosis 1. Acute kidney injury superimposed on CKD: Reason for Visit Reason for Visit fall, toe lac Brief History: As per the admitting physician and retrospective notes reviewed: Lupe Monreal is a 65 year old female lives alone in [facility]. She has 3 daughters 1 of whom Malathi Aldridge is her next of kin also lives in [place]. Patient tells me that she has had 40 pound weight gain in the last 2 to 3 years but perhaps 20 pounds this week. She has been increasingly short of breath with orthopnea cough wheezing. She was on her walker chair in the kitchen tried to get up without a Keen grabbing onto something and fell down. She called 911 because she cannot get up on her own and decided to come to the hospital due to leg swelling shortness of breath and bilateral toe injuries. She was seen by ER physician Dr. Fuller and found to have oxygen saturation 84% with chest x-ray showing cardiomegaly and pulmonary vascular congestion. Radiologist read possible left upper lung infiltrate but patient denies fevers chills night sweats. Patient admits to hospitalization for a week in [place] around 2023 congestive heart failure. She states that she was treated medically and did not undergo stenting because they were concerned about her weight making it unsafe to proceed with the procedure. Hospital Course Hospital Course During patient hospital stay, she was admitted as a case of acute on chronic diastolic heart failure with congestive features. Atrial fibrillation with RVR and her rate was controlled with continuation of her home medications. Troponins were not significantly or concerningly raised. EKG was reviewed. And cardiology was consulted as well. Repeat echo was done which showed ejection fraction of around 60% with grade 2/4 diastolic dysfunction. The patient was kept on diuresis. She also had ROSANNE on top of CKD. During her hospital stay her shortness of breath was not improving with diuresis, nebulizations as well. And she was also found to have left hand cellulitis. And started on doxycycline for the cellulitis. Since the patient did not improve in terms of her oxygenation and getting short of breath. High risk concern for CTPA was taken from the patient considering patient had ROSANNE and can worsen with the contrast leading to contrast nephropathy acute kidney injury and renal failure as well. All the risk and benefits were informed in order to rule out PE to the patient. And the patient agreed to proceed since she is she was getting short of breath and would like to know what is going on with her lungs. CTPA ruled out PE however she was having congestive features. The patient later on during her hospital stay did not improve with all the medical manage and standard/guideline based management. Her kidney function has deteriorated which was multifactorial in the light of congestive nephropathy and also secondary to contrast exposure. Nephrology was also consulted and she received Lasix with albumin which did not improve her condition. Even holding Lasix for some time did not improve her ROSANNE. Fluid bolus also did not improve her ROSANNE. She kept on having increased oxygen demand and was shifted to ICU. She was also started on BiPAP. There was no previous history of diagnosed sleep apnea however her overnight pulse ox examination shows she is eligible for BiPAP and also home O2 eval shows she requires 2 to 3 L nasal cannula oxygen. Her labs further worsened showing severe class III ROSANNE, oliguria, hepatomegaly which is likely congestive hepatomegaly. Urgent blood culture and urine culture also sent for any possibility of infectious cause for further deterioration however there was no febrile episodes or increased leukocytosis. Based on the patient complex multiorgan failure and nonresponsive to standard medical therapy higher level of intensive care along with need of subspecialty psych inpatient nephrology cardiology and possible GI considering she has acutely increased liver function was required therefore transfer to [facility] was initiated after discussing with the patient. She was accepted by Dr. Mcintosh.. The patient agreed with the plan of care. She appreciate the medical team management. Meanwhile upon waiting on the bed assignment, it was decided to insert hemodialysis catheter and surgery consulted as in case if the patient required hemodialysis due to delay of bed assignment, it can be initiated to optimize her care. All the management with risk and benefits has been counseled to the patient without any language barrier. Medications were reconciled after confirmation and according to patient comorbidities and appropriate follow-ups and referrals were provided at the time of discharge. Patient condition has been discussed at length with the patient/family, I have independently reviewed the chart labs imaging/diagnostics/EKG. the goals of care and code status with the patient/family/NOK/legal promotional representative, and documented accordingly. The management has been done according to the current clinical condition with respect to patient goals of care and based on recommendations/guidelines. The patient/family has been informed about the current condition and further plan of care. Agreed with the plan of care and understood without any language barrier. Every effort was made to ensure accuracy of flat sheet maker. Any obvious errors or omissions should be clarified with the author of the document. Physical Exam Narrative: General: Alert and oriented, lying with mild discomfort due to respiratory distress requiring 4 to 5 L oxygen through nasal cannula last saturating 88 to 90%, able to speak in full sentences HEENT: Normocephalic, atraumatic, grossly unremarkable exam Cardio: Sinus tachycardia, normal S1-S2 without any murmurs, rubs, or gallops and JVD normal Respiratory: Bilateral mild diffuse wheeze and crackles heard from mid zone to lower zone however due to morbid obesity the exam is limited GI: Abdomen soft, nontender, nondistended, normoactive bowel sounds present all 4 quadrants, Neuro: intact cranial nerves motor and sensory and cerebellar/coordination function without any focal neurological deficit Behavior: Appropriate and cooperative Extremities: Adequate palpable pulses, bilateral lower leg extremity pitting edema worse than yesterday, left hand cellulitis massively improved and range of motion is intact Urinary Catheter Management: Graves: Cath Placed During This Visit: yes Reason for Continuing Indwelling Catheter: Other Urinary Catheter Date of Insertion: 10/30/25 Urinary Catheter Time of Insertion: 02:49 TS Data Studies Completed and Pending Pending at discharge Category Date Time Status CBC Auto Diff [Complete Blood Count w/Auto] AM LABS Lab 11/04/25 04:00 Ordered CMP [Comprehensive Metabolic Panel] AM LABS Lab 11/04/25 04:00 Ordered VBG [Venous Blood Gas] Stat Lab 10/29/25 00:03 Results Completed Studies During Hospitalization Category Date Time Status CTA chest [CT angio chest PE protcl [id number]] Stat Cat Scan 10/31/25 11:57 Completed CXRP [XR chest 1V portable [id number]] Stat Exams 10/29/25 23:39 Completed CV. echo complete* [id number] Urgent Ultrasound 10/30/25 14:07 Completed US liver [id number] Stat Ultrasound 11/02/25 17:31 Completed US renal BI* [id number] Routine Ultrasound 11/01/25 12:22 Completed Laboratory Last Values WBC 10.97 10^3/uL (3.29-11.43) 11/03/25 03:40 RBC 3.73 10^6/uL (3.85-5.65) L 11/03/25 03:40 Hgb 8.90 g/dL (11.27-16.99) L 11/03/25 03:40 Hct 31.0 % (36-47) L 11/03/25 03:40 MCV 83.1 fl (85-98) L 11/03/25 03:40 MCH 23.9 pg (27-33) L 11/03/25 03:40 MCHC 28.7 g/dL (30-55) L 11/03/25 03:40 RDW 17.6 % (12.1-15.1) H 11/03/25 03:40 Plt Count 274 10^3/cmm (157-399) 11/03/25 03:40 MPV 11.7 fL (7.4-10.4) H 11/03/25 03:40 Neut % (Auto) 80.8 % 11/03/25 03:40 Lymph % (Auto) 8.7 % 11/03/25 03:40 Davie % (Auto) 8.7 % 11/03/25 03:40 Eos % (Auto) 0.7 % 11/03/25 03:40 Baso % (Auto) 0.3 % 11/03/25 03:40 Neut # (Auto) 8.87 10^3/uL (1.8-7.7) H 11/03/25 03:40 Lymph # (Auto) 1.0 10^3/uL (0.8-4.8) 11/03/25 03:40 Davie # (Auto) 1.0 10^3/uL (0.2-0.9) H 11/03/25 03:40 Eos # (Auto) 0.1 10^3/uL (0.0-0.8) 11/03/25 03:40 Baso # (Auto) 0.0 10^3/uL (0.0-0.1) 11/03/25 03:40 Nucleated RBC % (auto) 0 % 11/03/25 03:40 Nucleated RBCs # 0.0 /100WBC 11/03/25 03:40 D-Dimer 0.82 ug/mLFEU (0-0.59) H 10/30/25 21:57 Specimen Type Venous 10/29/25 00:03 Reynaldo Test N/a 10/29/25 00:03 VBG pH 7.42 (7.32-7.42) 10/29/25 00:03 VBG pCO2 37.6 mmHg (41-51) L 10/29/25 00:03 VBG pO2 48.5 mmHg (25-40) H 10/29/25 00:03 VBG HCO3 24.5 mmol/L (24-28) 10/29/25 00:03 VBG Base Excess 0.2 mmol/L (-3.0-3.0) 10/29/25 00:03 VBG Hematocrit 34.0 % (37-47) L 10/29/25 00:03 O2 Delivery Device Not Reportable 10/29/25 00:03 Mission Assessment Specialist ID [email or web address] 10/29/25 00:03 Sodium 134 mmol/L (136-145) L 11/03/25 14:30 Potassium 5.5 mmol/L (3.5-5.1) H 11/03/25 14:30 Chloride 97 mmol/L (98-107) L 11/03/25 14:30 Carbon Dioxide 19 mmol/L (22-29) L 11/03/25 14:30 Anion Gap 23.5 (5-19) H 11/03/25 14:30 BUN 69 mg/dL (8-23) H 11/03/25 14:30 Creatinine 4.4 mg/dL (0.5-0.9) H 11/03/25 14:30 GFR Calculation 10.0 mL/min (90-130) L 11/03/25 14:30 Glucose 97 mg/dL (65-115) 11/03/25 14:30 Estimat Average Glucose 117 10/29/25 23:35 Hemoglobin A1c 5.7 % (4.0-6.0) 10/29/25 23:35 Calculated Osmolality 298 mOsm/kg (285-295) H 11/03/25 14:30 Lactic Acid 1.7 mmol/L (0.5-2.2) 10/29/25 23:35 Calcium 9.1 mg/dL (8.5-10.5) 11/03/25 14:30 Phosphorus 2.9 mg/dL (2.5-4.5) 10/29/25 23:35 Magnesium 1.9 mg/dL (1.7-2.3) 10/29/25 23:35 Iron 22 ug/dL (37-145) L 11/01/25 18:34 TIBC 313 mcg/dl 11/01/25 18:34 % Saturation 7.0 % (20-50) L 11/01/25 18:34 Unsat Iron Binding 291 ug/dL (112-347) 11/01/25 18:34 Ferritin 132 ng/mL (15-150) 11/01/25 18:34 Total Bilirubin 1.3 mg/dL (0.15-1.2) H 11/03/25 14:30 AST 696 U/L (0-32) H 11/03/25 14:30 ALT 367 U/L (0-33) H 11/03/25 14:30 Alkaline Phosphatase 319 U/L (35-105) H 11/03/25 14:30 Troponin T Baseline 57 ng/L (0-10) H 10/29/25 23:35 Troponin T 60 Minute 57.70 ng/L (0-10) H 10/30/25 00:35 Delta Troponin T 0.70 ABS# (0-10) 10/30/25 00:35 C-React Prot High Sens 23.860 mg/dL (0.0-0.3) H 10/29/25 23:35 NT-Pro-B Natriuret Pep 7065 pg/mL (0-125) H 10/31/25 04:17 Total Protein 6.6 g/dL (6.6-8.7) 11/03/25 14:30 Albumin 4.0 g/dL (3.5-5.2) 11/03/25 14:30 Globulin 2.6 g/dL (1.3-4.6) 11/03/25 14:30 Vitamin B12 413 pg/mL (232-1245) 11/01/25 18:34 Folate 6.8 ng/mL (4.8-37.3) 11/01/25 18:34 Procalcitonin 0.24 ng/mL (0-0.5) 10/29/25 23:35 TSH 0.60 uIU/mL (0.27-4.20) 10/29/25 23:35 Urine Color Yellow (Yellow) 10/30/25 02:02 Urine Appearance Cloudy (CLEAR) A 10/30/25 02:02 Urine pH 5.0 (5-7) 10/30/25 02:02 Ur Specific Bethany 1.010 (1.005-1.030) 10/30/25 02:02 Urine Protein 1+ (Negative) A 10/30/25 02:02 Urine Glucose (UA) Negative (Normal) 10/30/25 02:02 Urine Ketones Negative (Negative) 10/30/25 02:02 Urine Blood Trace (Negative) A 10/30/25 02:02 Urine Nitrate Negative (Negative) 10/30/25 02:02 Urine Bilirubin Negative (Negative) 10/30/25 02:02 Urine Urobilinogen 1.0 mg/dL (Negative) 10/30/25 02:02 Ur Leukocyte Esterase 2+ (Negative) A 10/30/25 02:02 Urine RBC 0-2 /hpf (0-2) 10/30/25 02:02 Urine WBC 21-50 /hpf (0-5) H 10/30/25 02:02 Ur Squamous Epith Cells 0-5 /hpf (0-5) 10/30/25 02:02 Amorphous Sediment Not Reportable 10/30/25 02:02 Urine Bacteria 4+ /hpf (NONE) H 10/30/25 02:02 Hyaline Casts 4.52 /lpf 10/30/25 02:02 Ur Random Sodium 11 mmol/L 11/01/25 13:50 Hep Bs Antigen Non-reactive (Nonreactive) 11/03/25 03:40 Hep Bs Antibody < 3.5 (11.5-1000) L 11/03/25 03:40 Hep B Core Total Ab Non-reactive (Nonreactive) 11/03/25 03:40 Influenza A (PCR) Negative (Negative) 10/30/25 00:03 Influenza Type B (PCR) Negative (Negative) 10/30/25 00:03 RSV (PCR) Negative (Negative) 10/30/25 00:03 SARS-CoV-2 (PCR) Negative (Negative) 10/30/25 00:03 Radiology Impressions Chest X-Ray 10/29/25 23:39 IMPRESSION: Consolidation in the left upper lung, concerning for pneumonia. Small bilateral pleural effusions. Mild pulmonary vascular congestion. Correlate for CHF. Chest CTA 10/31/25 11:57 IMPRESSION: 1. No PE. No evidence of cardiac strain. 2. Lung findings suggestive of pulmonary edema. Possible CHF. Infectious (including atypical) versus inflammatory etiologies not excluded. 3. Cardiomegaly. 4. Small right and trace left pleural effusions. 5. Liver has a subtle lobular contour suggestive of underlying cirrhosis or clinically significant fibrosis. No focal lesion as partially imaged. According to clinical discretion, outpatient MRI can be considered to screen for occult lesions. Renal Ultrasound 11/01/25 12:22 Impression: Negative bilateral renal ultrasound. Liver Ultrasound 11/02/25 17:31 IMPRESSION: Findings are cholelithiasis and borderline measurements of the common bile duct correlate with alkaline phosphatase levels values as above. Hepatomegaly with longitudinal diameter of the liver estimated at 20 cm. Recent Clincial Data Last Vital Signs Temp 98 F 11/03/25 18:00 Pulse 70 11/03/25 18:00 Resp 22 H 11/03/25 18:00 BP 121/61 11/03/25 18:00 Pulse Ox 86 L 11/03/25 18:00 O2 Del Method Nasal Cannula 11/03/25 17:21 O2 Flow Rate 3 11/03/25 17:21 FiO2 36 11/02/25 10:51 Vital Signs Temp Pulse Resp BP Pulse Ox O2 Del Method O2 Flow Rate 11/03/25 18:00 98 F 70 22 H 121/61 86 L 11/03/25 17:21 69 20 H 96 Nasal Cannula 3 11/03/25 17:01 68 20 H 95 Nasal Cannula 3 11/03/25 17:00 63 94 11/03/25 16:46 73 18 93 Nasal Cannula 3 11/03/25 16:00 63 89 L 11/03/25 15:05 71 18 95 Nasal Cannula 3 11/03/25 15:00 80 93 11/03/25 14:00 64 86 L 11/03/25 14:00 80 11/03/25 13:00 70 17 106/64 94 11/03/25 12:00 72 19 H 106/64 86 L 11/03/25 11:07 70 16 94 Nasal Cannula 3 11/03/25 11:00 67 21 H 122/79 93 12/21/25 10:21 71 20 H 92 Nasal Cannula 2 11/03/25 10:00 82 25 H 110/58 89 L 11/03/25 09:58 69 20 H 91 Nasal Cannula 2 11/03/25 09:24 67 20 H 90 Nasal Cannula 2 11/03/25 09:00 65 23 H 91 11/03/25 08:46 71 22 H 92 Nasal Cannula 11/03/25 08:00 65 14 113/62 85 L Intake & Output/Weight 11/01/25 11/02/25 11/03/25 11/04/25 06:59 06:59 06:59 06:59 Intake Total 3300 / 3300 1140 / 1140 780 / 780 550 / 550 Output Total 900 / 900 300 / 300 200 / 200 50 / 50 Balance 2400 / 2400 840 / 840 580 / 580 500 / 500 Weight 135.76 kg 136.616 kg 135.942 kg Vitals Last Vital Signs Temp 98 F 11/03/25 18:00 Pulse 70 11/03/25 18:00 Resp 22 H 11/03/25 18:00 BP 121/61 11/03/25 18:00 Pulse Ox 86 L 11/03/25 18:00 O2 Del Method Nasal Cannula 11/03/25 17:21 O2 Flow Rate 3 11/03/25 17:21 FiO2 36 11/02/25 10:51 TS Medications Medications Acetaminophen (Acetaminophen 325 Mg Tablet) 650 mg PO Q8H PRN PRN Reason: Mild/Mod Pain Or Temp >/= 101 Last Admin: 11/03/25 10:24 Dose: 650 mg Amiodarone HCl (Amiodarone 200 Mg Tablet) 200 mg PO DAILY LUIS Last Admin: 11/03/25 04:29 Dose: 200 mg Budesonide (Budesonide 0.5 Mg/2 Ml Neb) 0.5 mg INHALATION BID.RESPIRATORY LUIS Last Admin: 11/03/25 08:44 Dose: 0.5 mg Bupropion HCl (Bupropion Sr (12 Hr) 150 Mg Tablet) 150 mg PO BID LUIS Last Admin: 11/03/25 17:02 Dose: 150 mg Docusate Sodium (Docusate Sodium 100 Mg Capsule) 100 mg PO BID LUIS Last Admin: 11/03/25 17:02 Dose: Not Given Famotidine (Famotidine 20 Mg Tablet) 20 mg PO BEDTIME LUIS Last Admin: 11/02/25 20:23 Dose: 20 mg Gabapentin (Gabapentin 300 Mg Capsule) 300 mg PO BID LUIS Last Admin: 11/03/25 17:02 Dose: 300 mg Guaifenesin/Dextromethorphan (Guaifenesin-Dextromethorphan Udc 10 Ml) 5 ml PO Q4H PRN PRN Reason: COUGH Last Admin: 11/03/25 10:24 Dose: 5 ml Albumin Human (Albumin) 25 g in 100 mls @ 60 mls/hr IV Q8H LUIS Last Infusion: 11/03/25 15:20 Dose: Infused Sodium Chloride (Sodium Chloride 0.9%) 1,000 mls @ 0 mls/hr IV .Q0M PRN PRN Reason: hypotension or symptomatic Albumin Human (Albumin) 12.5 gm in 50 mls @ 60 mls/hr IV PRN PRN PRN Reason: Hypotension and/or symptomatic Ipratropium Brooks (Ipratropium 0.5 Mg/2.5 Ml Neb) 0.5 mg INHALATION Q4H.RESPIRATORY LUIS Last Admin: 11/03/25 15:05 Dose: 0.5 mg Levalbuterol HCl (Levalbuterol 1.25 Mg/3 Ml Neb) 1.25 mg INHALATION Q4H.RESPIRATORY LUIS Last Admin: 11/03/25 15:05 Dose: 1.25 mg Levothyroxine Sodium (Levothyroxine 175 Mcg Tablet) 175 mcg PO DAILY LUIS Last Admin: 11/03/25 04:29 Dose: 175 mcg Magnesium Hydroxide (Magnesium Hydroxide 30 Ml Udc) 30 ml PO DAILY PRN; Protocol PRN Reason: Constipation (see protocol) Last Admin: 11/02/25 08:53 Dose: 30 ml Metoprolol Succinate (Metoprolol Succinate Er (24 Hr) 50 Mg Tablet) 50 mg PO DAILY LUIS Last Admin: 11/03/25 04:29 Dose: 50 mg Nystatin (Nystatin Powder 15 Gm Btl) 1 applic TOPICAL BID LUIS Last Admin: 11/03/25 17:03 Dose: 1 applic Ondansetron HCl (Ondansetron 2 Mg/Ml Sdv 2 Ml) 4 mg IVP Q4H PRN PRN Reason: vomiting, or N/V if npo Oxycodone HCl (Oxycodone 5 Mg Ir Tab/Cap) 5 mg PO Q6H PRN PRN Reason: MODERATE PAIN Potassium Chloride (Potassium Chloride Er 20 Meq Tablet) 20 meq PO BID [facility] Last Admin: 11/03/25 17:03 Dose: Not Given Rivaroxaban (Rivaroxaban 10 Mg Tablet) 20 mg PO DAILY [facility] Last Admin: 11/03/25 04:28 Dose: 20 mg Vitamin D (Cholecalciferol (Vitamin D3) 1,000 Unit Tablet) 1,000 unit PO DAILY [facility] Last Admin: 11/03/25 04:28 Dose: 1,000 unit Discontinued Medications Acetaminophen (Acetaminophen 325 Mg Tablet) 650 mg PO Q6H PRN PRN Reason: Mild/Mod Pain Or Temp >/= 101 Last Admin: 10/31/25 20:34 Dose: 650 mg Albuterol Sulfate (Albuterol 2.5 Mg/3 Ml Neb) 5 mg INHALATION Q20M [facility] Stop: 11/03/25 09:41 Last Admin: 11/03/25 10:20 Dose: 5 mg Albuterol Sulfate (Albuterol 2.5 Mg/0.5 Ml Neb) 5 mg INHALATION Q20M [facility] Stop: 11/03/25 17:26 Last Admin: 11/03/25 17:20 Dose: 5 mg Albuterol/Ipratropium (Ipratropium-Albuterol 3 Ml Neb) 3 ml INHALATION ONCE ONE Stop: 10/29/25 23:40 Last Admin: 10/30/25 00:17 Dose: 3 ml Albuterol/Ipratropium (Ipratropium-Albuterol 3 Ml Neb) 3 ml INHALATION Q6H PRN PRN Reason: SHORTNESS OF BREATH Apixaban (Apixaban 5 Mg Tablet) 5 mg PO BID@0900,2100 [facility] Atorvastatin Calcium (Atorvastatin 40 Mg Tablet) 80 mg PO BEDTIME [facility] Last Admin: 11/01/25 21:28 Dose: 80 mg Bumetanide (Bumetanide 0.25 Mg/Ml Sdv 4 Ml) 1 mg IVP ONCE ONE Stop: 10/29/25 23:40 Last Admin: 10/29/25 23:51 Dose: 1 mg Bumetanide (Bumetanide 0.25 Mg/Ml Sdv 4 Ml) 1 mg IVP BID [facility] Last Admin: 10/31/25 04:16 Dose: 1 mg Citric Acid/Sodium Citrate (Citric Acid-Sodium Citrate 30 Ml Udc) 60 ml PO ONCE ONE Stop: 11/03/25 08:25 Last Admin: 11/03/25 08:40 Dose: 60 ml Doxycycline Monohydrate (Doxycycline 100 Mg Tablet) 100 mg PO BIDWM LUIS; Protocol Last Admin: 11/02/25 08:50 Dose: 100 mg Furosemide (Furosemide 10 Mg/Ml Sdv 4ml) 40 mg IVP Q12H PRN PRN Reason: shortness of breath Furosemide (Furosemide 10 Mg/Ml Sdv 4ml) 40 mg IVP Q8H LUIS Last Admin: 11/02/25 13:17 Dose: 40 mg Heparin Sodium (Porcine) (Heparin, Porcine 1,000 Unit/Ml Inj 10 Ml) 10,000 unit INTRACATH ONCE ONE Stop: 11/03/25 17:29 Lactated Ringer's (Lactated Ringers) 500 mls @ 999 mls/hr IV .Q31M ONE Stop: 10/31/25 12:27 Last Infusion: 10/31/25 13:18 Dose: Infused Sodium Chloride (Sodium Chloride 0.9%) 1,000 mls @ 100 mls/hr IV .Q10H LUIS Stop: 10/31/25 20:59 Last Infusion: 11/01/25 01:37 Dose: Infused Iohexol (Iohexol 350 Mg/Ml 500 Ml Btl (Per Ml)) 0 ml IV ONCE ONE Stop: 10/31/25 14:27 Last Admin: 10/31/25 14:27 Dose: 100 ml Ipratropium Brooks (Ipratropium 0.5 Mg/2.5 Ml Neb) 0.5 mg INHALATION Q4H.RESPIRATORY LUIS Last Admin: 10/31/25 17:53 Dose: Not Given Ipratropium Brooks (Ipratropium 0.5 Mg/2.5 Ml Neb) 0.5 mg INHALATION Q4H.RESPIRATORY LUIS Last Admin: 11/01/25 00:48 Dose: Not Given Levalbuterol HCl (Levalbuterol 1.25 Mg/3 Ml Neb) 1.25 mg INHALATION Q6H.RESP LUIS Last Admin: 11/01/25 08:40 Dose: 1.25 mg Metolazone (Metolazone 5 Mg Tablet) 10 mg PO ONCE ONE Stop: 10/29/25 23:40 Last Admin: 10/29/25 23:49 Dose: 10 mg Metolazone (Metolazone 5 Mg Tablet) 5 mg PO DAILY LUIS Last Admin: 10/31/25 04:16 Dose: 5 mg Ondansetron HCl (Ondansetron 2 Mg/Ml Sdv 2 Ml) 4 mg IVP Q8H PRN PRN Reason: vomiting, or N/V if npo Last Admin: 10/31/25 19:01 Dose: 4 mg Sodium Polystyrene Sulfonate (Sodium Polystyrene Sulfonate 15 Gm/60 Ml Btl) 30 gm PO ONCE ONE Stop: 11/03/25 09:00 Last Admin: 11/03/25 10:16 Dose: 30 gm Sodium Polystyrene Sulfonate (Sodium Polystyrene Sulfonate 15 Gm/60 Ml Btl) 15 gm PO ONCE ONE Stop: 11/03/25 16:32 Last Admin: 11/03/25 17:02 Dose: 15 gm Allergies No Known Allergies Allergy (Verified 05/14/24 12:39) Home Medications acetaminophen 500 mg capsule 500 mg PO Q6H PRN Pain 06/12/21 [History Confirmed 10/30/25] albuterol sulfate 90 mcg/actuation aerosol inhaler 2 puff inhalation Q6H PRN shortness of breath or wheezing #8.5 grams 06/12/21 [Rx Confirmed 10/30/25] atorvastatin 80 mg tablet 80 mg PO .qhs #30 tabs 06/12/21 [Rx Confirmed 10/30/25] cholecalciferol (vitamin D3) 25 mcg (1,000 unit) capsule 25 mcg PO DAILY #100 caps 06/12/21 [Rx Confirmed 10/30/25] levothyroxine 175 mcg tablet 175 mcg PO DAILY 30 days #30 tabs 02/04/22 [Rx Confirmed 10/30/25] gabapentin 300 mg capsule See Rx Instructions .Route .COMPLEX #60 caps 06/08/22 [Rx Confirmed 10/30/25] amiodarone 200 mg tablet See Rx Instructions .Route .COMPLEX #30 tabs 08/15/23 [Rx Confirmed 10/30/25] metoprolol succinate 50 mg tablet,extended release 24 hr See Rx Instructions .Route .COMPLEX #30 tabs 08/15/23 [Rx Confirmed 10/30/25] rivaroxaban 20 mg tablet (Xarelto) 20 mg PO DAILY #90 tabs 08/15/23 [Rx Confirmed 10/30/25] mycophenolate mofetil 500 mg tablet See Rx Instructions .Route .COMPLEX #60 tabs 08/22/23 [Rx Confirmed 10/30/25] potassium chloride 10 mEq capsule,extended release 10 meq PO DAILY #30 caps 02/03/24 [Rx Confirmed 10/30/25] torsemide 20 mg tablet See Rx Instructions .Route .COMPLEX #135 tabs 02/27/24 [Rx Confirmed 10/30/25] budesonide 160 mcg-glycopyr 9 mcg-formot 4.8 mcg/actuation HFA inhaler (Breztri Aerosphere) 2 inh inhalation BID 10/30/25 [History Confirmed 10/30/25] bupropion HCl 300 mg 24 hr tablet, extended release 300 mg PO DAILY 10/30/25 [History Confirmed 10/30/25] Discharge Plan Discharge Patient Disposition: Xfer Other Condition: Stable Prescriptions: No Action acetaminophen 500 mg capsule 500 mg PO Q6H PRN (Reason: Pain) atorvastatin 80 mg tablet 80 mg PO .qhs Qty: 30 5RF cholecalciferol (vitamin D3) 25 mcg (1,000 unit) capsule 25 mcg PO DAILY Qty: 100 3RF albuterol sulfate 90 mcg/actuation HFA aerosol inhaler 2 puff inhalation Q6H PRN (Reason: shortness of breath or wheezing) Qty: 8.5 5RF levothyroxine 175 mcg tablet 175 mcg PO DAILY 30 Days Qty: 30 0RF gabapentin 300 mg capsule See Rx Instructions .ROUTE .COMPLEX Qty: 60 2RF Dose Instruction: TAKE ONE CAPSULE BY MOUTH TWICE DAILY FOR CHRONIC PAIN Rx Instructions: TAKE ONE CAPSULE BY MOUTH TWICE DAILY FOR CHRONIC PAIN Xarelto 20 mg tablet 20 mg PO DAILY Qty: 90 2RF metoprolol succinate 50 mg tablet extended release 24 hr See Rx Instructions .ROUTE .COMPLEX Qty: 30 5RF Dose Instruction: TAKE ONE TABLET BY MOUTH DAILY FOR BLOOD PRESSURE Rx Instructions: TAKE ONE TABLET BY MOUTH DAILY FOR BLOOD PRESSURE amiodarone 200 mg tablet See Rx Instructions .ROUTE .COMPLEX Qty: 30 5RF Dose Instruction: TAKE ONE TABLET BY MOUTH DAILY FOR HEART FAILURE Rx Instructions: TAKE ONE TABLET BY MOUTH DAILY FOR HEART FAILURE mycophenolate mofetil 500 mg tablet See Rx Instructions .ROUTE .COMPLEX Qty: 60 5RF Dose Instruction: TAKE ONE TABLET BY MOUTH TWICE DAILY Rx Instructions: TAKE ONE TABLET BY MOUTH TWICE DAILY potassium chloride 10 mEq capsule, extended release 10 meq PO DAILY Qty: 30 6RF torsemide 20 mg tablet See Rx Instructions .ROUTE .COMPLEX Qty: 135 1RF Dose Instruction: TAKE ONE TABLET BY MOUTH MON, WED, FRI & TAKE 2 TABLETS BY MOUTH ON TUES, THURS, SAT, AND SUN. Patient Comments: patient states 2 pills daily Rx Instructions: Take 2 tablets by mouth once daily. bupropion HCl 300 mg tablet extended release 24 hr 300 mg PO DAILY Breztri Aerosphere 160-9-4.8 mcg/actuation HFA aerosol inhaler 2 inh INHALATION BID Other Ambulatory Orders: DME: Oxygen (Order) Location: None Selected Ordered By: Bacilio Wei Referrals: Leena Chen FNP [Primary Care Provider, Nurse Practitioner] Patient Instructions: Opioid Safety, Patient Portal & Vidal Instructions Transfer Attestations Time Spent in Transfer Care: critical care time Critical Care Time (min): 45 Specific Discharge Activities: educating patient, educating and/or supporting family/caregiver, discussing with pcp/other providers, discussing with rn field case manager/social workers/dc planners, documenting/other paperwork and evaluating patient/reviewing data Status at Transfer: Cognitive status at transfer: cognitively intact; Behavioral status at transfer: cooperative; Functional status at transfer: other assisted ambulation; Overall status at transfer: patient is not back to baseline Quality Metrics Clinical Quality Measures [ No reported AMI, CVA or VTE this stay] Coding Level of Care Code Critical Care >/= 30 minutes Diagnoses Acute kidney injury superimposed on CKD N17.9; N18.9
--- NOTE | 2025-11-03 19:15 | PM.CONSULT ---
Providers/Reason For Consult Consulting Physician/Specialty*: Dr. Negrete general surgery Reason for Consult*: Temporary dialysis catheter insertion Attending Physician: Bacilio Wei MD Primary Care Provider: SETH Leon History of Present Illness History of Present Illness Lupe Monreal is a 65 year old female who is in multiorgan failure and surgery was consulted for placement of temporary dialysis catheter. Patient's POA is her daughter. Short neck. She is in respiratory distress. Obese. Short neck. Macerated skin on bilateral groins. Medications/Allergies Home Medications ?Medication ?Instructions ?Recorded ?Confirmed ?Last Taken ?Type acetaminophen 500 mg capsule 500 mg PO Q6H PRN Pain 06/12/21 10/30/25 Unknown History albuterol sulfate 90 mcg/actuation 2 puff inhalation Q6H PRN 06/12/21 10/30/25 Unknown Rx aerosol inhaler shortness of breath or wheezing #8.5 grams atorvastatin 80 mg tablet 80 mg PO .qhs #30 tabs 06/12/21 10/30/25 10/29/25 Rx cholecalciferol (vitamin D3) 25 25 mcg PO DAILY #100 caps 06/12/21 10/30/25 10/29/25 Rx mcg (1,000 unit) capsule levothyroxine 175 mcg tablet 175 mcg PO DAILY 30 days #30 tabs 02/04/22 10/30/25 10/29/25 Rx gabapentin 300 mg capsule See Rx Instructions .Route 06/08/22 10/30/25 10/29/25 Rx .COMPLEX #60 caps amiodarone 200 mg tablet See Rx Instructions .Route 08/15/23 10/30/25 10/29/25 Rx .COMPLEX #30 tabs metoprolol succinate 50 mg See Rx Instructions .Route 08/15/23 10/30/25 Unknown Rx tablet,extended release 24 hr .COMPLEX #30 tabs rivaroxaban 20 mg tablet (Xarelto) 20 mg PO DAILY #90 tabs 08/15/23 10/30/25 10/29/25 Rx mycophenolate mofetil 500 mg tablet See Rx Instructions .Route 08/22/23 10/30/25 10/29/25 Rx .COMPLEX #60 tabs potassium chloride 10 mEq 10 meq PO DAILY #30 caps 02/03/24 10/30/25 Unknown Rx capsule,extended release torsemide 20 mg tablet See Rx Instructions .Route 02/27/24 10/30/25 10/29/25 Rx .COMPLEX #135 tabs budesonide 160 mcg-glycopyr 9 2 inh inhalation BID 10/30/25 10/30/25 10/29/25 History mcg-formot 4.8 mcg/actuation HFA inhaler (Breztri Aerosphere) bupropion HCl 300 mg 24 hr tablet, 300 mg PO DAILY 10/30/25 10/30/25 10/29/25 History extended release Allergies Allergy/AdvReac Type Severity Reaction Status Date / Time No Known Allergies Allergy Verified 05/14/24 12:39 Current Medications Generic Name Dose Route Start Last Admin Trade Name Freq PRN Reason Stop Dose Admin Acetaminophen 650 mg 11/02/25 17:32 11/03/25 10:24 Acetaminophen 325 Mg Tablet PO 650 mg Q8H PRN Administration Mild/Mod Pain Or Temp >/= 101 Amiodarone HCl 200 mg 10/30/25 05:00 11/03/25 04:29 Amiodarone 200 Mg Tablet PO 200 mg DAILY LUIS Administration Budesonide 0.5 mg 10/31/25 20:00 11/03/25 08:44 Budesonide 0.5 Mg/2 Ml Neb INHALATION 0.5 mg BID.RESPIRATORY LUIS Administration Bupropion HCl 150 mg 10/30/25 05:00 11/03/25 17:02 Bupropion Sr (12 Hr) 150 Mg Tablet PO 150 mg BID LUIS Administration Docusate Sodium 100 mg 10/30/25 05:00 11/03/25 17:02 Docusate Sodium 100 Mg Capsule PO Not Given BID LUIS Famotidine 20 mg 10/30/25 21:00 11/02/25 20:23 Famotidine 20 Mg Tablet PO 20 mg BEDTIME LUIS Administration Gabapentin 300 mg 10/30/25 05:00 11/03/25 17:02 Gabapentin 300 Mg Capsule PO 300 mg BID LUIS Administration Guaifenesin/Dextromethorphan 5 ml 11/03/25 10:17 11/03/25 10:24 Guaifenesin-Dextromethorphan Udc 10 Ml PO 5 ml Q4H PRN Administration COUGH Albumin Human 25 g in 100 mls @ 60 mls/hr 11/01/25 12:15 11/03/25 15:20 Albumin IV Infused Q8H LUIS Infusion Ipratropium [place] 0.5 mg 11/01/25 04:00 11/03/25 15:05 Ipratropium 0.5 Mg/2.5 Ml Neb INHALATION 0.5 mg Q4H.RESPIRATORY LUIS Administration Levalbuterol HCl 1.25 mg 11/01/25 12:00 11/03/25 15:05 Levalbuterol 1.25 Mg/3 Ml Neb INHALATION 1.25 mg Q4H.RESPIRATORY LUIS Administration Levothyroxine Sodium 175 mcg 10/30/25 05:00 11/03/25 04:29 Levothyroxine 175 Mcg Tablet PO 175 mcg DAILY LUIS Administration Magnesium Hydroxide 30 ml 10/30/25 02:48 11/02/25 08:53 Magnesium Hydroxide 30 Ml Udc PO 30 ml DAILY PRN Administration Constipation (see protocol) Protocol Metoprolol Succinate 50 mg 10/30/25 05:00 11/03/25 04:29 Metoprolol Succinate Er (24 Hr) 50 Mg Tablet PO 50 mg DAILY LUIS Administration Nystatin 1 applic 11/01/25 17:00 11/03/25 17:03 Nystatin Powder 15 Gm Btl TOPICAL 1 applic BID LUIS Administration Potassium Chloride 20 meq 10/30/25 03:00 11/03/25 17:03 Potassium Chloride Er 20 Meq Tablet PO Not Given BID LUIS Rivaroxaban 20 mg 10/30/25 05:00 11/03/25 04:28 Rivaroxaban 10 Mg Tablet PO 20 mg DAILY LUIS Administration Vitamin D 1,000 unit 10/30/25 05:00 11/03/25 04:28 Cholecalciferol (Vitamin D3) 1,000 Unit Tablet PO 1,000 unit DAILY LUIS Administration PFSH Acute PFSH: Medical History (Updated 11/03/25 @ 19:17 by Lazaro Negrete MD) Depression She is taking Celexa 40 mg daily and will continue that for mental health. She'll follow up with us every 3 months and sooner if needed. We will call her the lab results when they're available. Hyperlipidemia Atrial fibrillation with controlled ventricular response Weight loss of more than 10% body weight Osteoarthritis, multiple sites Fibromyalgia affecting multiple sites Morbid obesity with BMI of 40.0-44.9, adult Hypothyroidism, unspecified type CKD (chronic kidney disease) stage 3, GFR 30-59 ml/min Chronic obstructive pulmonary disease, unspecified COPD type CHF (congestive heart failure) HTN (hypertension) Surgical History (Updated 05/14/24 @ 13:39 by Fabian Mojica MD) History of carpal tunnel surgery History of tonsillectomy and adenoidectomy Hx of section Hx of ultrasound guided needle biopsy of lung Family History Family/Other Stroke Father Stroke Brother Graves disease Stroke Denies family history of Diabetes CAD (coronary artery disease) Clotting disorder Dementia Chronic kidney disease (CKD) Suicide Anesthesia complication Bleeding disorder Lung disease Cancer Social History (Updated 10/30/25 @ 02:41 by Rajeev Perry MD) Smoking and tobacco/nicotine status: former use of tobacco/nicotine (quit 2021) Quit status (tobacco/nicotine): has quit using Year quit tobacco: 2021 Former quit date comment: Smoked from age [age] Alcohol intake: never Substance/Drug Use: never Additional social history: She wants full code but no prolong life support as discussed with Rajeev Perry MD on 10/30/2025 patient indicates her next of kin is Malathi Aldridge Number of children: 3 Current occupational status: disabled 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, 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 Abdomen: Abdomen soft nontender nondistended Bilateral groins with skin macerated. Urinary Catheter Management: Graves: Cath Placed During This Visit: yes Reason for Continuing Indwelling Catheter: Other Urinary Catheter Date of Insertion: 10/30/25 Urinary Catheter Time of Insertion: 02:49 Data 11/03/25 03:40 11/03/25 14:30 A&P Assessment and plan 1. Renal failure: Plan: 65-year-old female with multiple comorbidities and multiorgan failure whom surgery was consulted for temporary dialysis catheter placement. Obtain consent for patient's POA who is the daughter. I had an extensive discussion with the patient's POA and answered all questions. I have discussed non operative/non procedural options and the patient's POA still decides to proceed. Discussed risks and benefits of temporary dialysis catheter insertion and patients POA decides to proceed. Patient understands the risks include bleeding, infection, massive bleeding and , arterial injury and stroke, catheter malfunction and the patient's POA still decides to proceed. PDMP PDMP Reviewed: Not Reviewed Coding Level of Care Code 05419 Diagnoses Renal failure N19
--- NOTE | 2025-11-03 19:17 | XRR_ITS ---
PROCEDURE INFORMATION: Exam: XR Chest Exam date and time: 11/03/2025 7:23 PM Age: 65 years old Clinical indication: Other vascular access device placement or adjustment; Central line, non-tunnelled; Additional info: RT trialysis cath placement TECHNIQUE: Imaging protocol: Radiologic exam of the chest. 1 image(s) are submitted. Views: 1 view. COMPARISON: CT angio chest PE protcl [id number] 10/31/2025 2:23 PM FINDINGS: Lungs: See Pleural spaces finding. Pleural spaces: Right internal jugular central venous catheter with tip in the cavoatrial junction without pneumothorax. Cardiomegaly with pulmonary venous congestion, probably similar or slightly progressed since prior study. Moderate bilateral pleural effusion, unchanged. Heart/Mediastinum: See Pleural spaces finding. Bones/joints: Unremarkable. XR/XR chest 1V portable [id number] IMPRESSION: Right internal jugular central venous catheter with tip in the cavoatrial junction without pneumothorax. Cardiomegaly with pulmonary venous congestion, probably similar or slightly progressed since prior study. Moderate bilateral pleural effusion, unchanged.
--- NOTE | 2025-11-03 19:19 | PM.ACPR ---
Procedure/Consent Time out: Time Out Performed: Yes Consent: Consent for Procedure: Consent obtained from other (indicate), Risks & Benefits reviewed and Agrees to proceed with procedure Additional Consent Information: Consent obtained from patient's daughter. Nurse witnessed consent. Procedure Narrative: Discussed risks and benefits and consent was obtained to performed a temporary dialysis catheter. The right neck was prepped and draped in the usual sterile fashion. Ultrasound was used to identify the right internal jugular vein (able to compress vein, carotid artery identified next to it). Local infiltration done using 5 cc of 1% lidocaine. A finder needle was used to access the right internal jugular vein under ultrasound guidance. Able to draw venous blood. I then threaded a wire through the finder needle. I removed the needle and confirmed adequate placement of the wire in the right jugular vein using ultrasound. Using an 11 blade a stab incision was done next to the wire to accommodate for the dilators. I serially dilated the tract using 2 dilators. I was then able to place the 16 cm dual-lumen temporary dialysis catheter using the Seldinger technique. I was able to draw blood and flushed easily through both lumens. Catheter was secured in place with sutures. A sterile dressing was applied. Catheter is ready for immediate use once adequate positioning confirmed with x-ray. Acute Procedures Epistaxis Control: Time out performed: Yes
--- NOTE | 2025-11-03 19:25 | PC.NURSE ---
doctor here dialysis cath placed right IJ
[2025-11-03] MEDS: oxyCODONE 5 mg IR Tab/Cap PO (22:50)
[2025-11-04] VITALS (27 sets, daily range): BP systolic 103–137; BP diastolic 62–93; PULSE 66–87; RESP 16–31; TEMP 36.8–37.3; O2SAT 90–100
[2025-11-04] MEDS: LORazepam 2 mg/mL INJ 1 mL 1 MG IVP (02:24)
[2025-11-04] MEDS: albumin 25 G/100 ML BAG 60 G IV (03:39)
[2025-11-04 04:00] LABS: Hematocrit 31.8 % (36-47); Hemoglobin 8.60 g/dL (11.27-16.99); Mean Corpuscular HGB Conc 27.0 g/dL (30-55); Mean Corpuscular Hemoglobin 23.7 pg (27-33); Mean Corpuscular Volume 87.6 fl (85-98); Nucleated Red Blood Cells % 0.2 %; Platelet Count 236 10^3/cmm (157-399); Red Blood Count 3.63 10^6/uL (3.85-5.65); White Blood Count 11.18 10^3/uL (3.29-11.43)
[2025-11-04 04:22] LABS: Alanine Aminotransferase 335 U/L (0-33); Albumin Level 4.0 g/dL (3.5-5.2); Alkaline Phosphatase 322 U/L (35-105); Anion Gap 20.3 (5-19); Aspartate Amino Transferase 507 U/L (0-32); Blood Urea Nitrogen 38 mg/dL (8-23); Calcium 9.2 mg/dL (8.5-10.5); Carbon Dioxide 23 mmol/L (22-29); Chloride 99 mmol/L (98-107); Globulin 2.7 g/dL (1.3-4.6); Glucose 108 mg/dL (65-115); Osmolality Calculated 296 mOsm/kg (285-295); Potassium 4.3 mmol/L (3.5-5.1); Sodium 138 mmol/L (136-145); Total Protein 6.7 g/dL (6.6-8.7)
[2025-11-04 05:54] LABS: ABG PCO2 43.7 mmHg (35-45); ABG PH Result 7.37 (7.35-7.45); Alveolar-Arterial Oxygen Gradi 12.4 mmHg (5-10); Arterial Blood Gas Hematocrit 26.4 % (37-47); Blood Gas Allen Test Pos; Blood Gas Sample Site Radial, right; Blood Gas Sample Type Arterial; Carboxyhemoglobin 0.9 %THgb (0.4-20.1); Glucose Level-ABG 125.0 mg/dL (70-115); HCO3 ABG 25.0 mmol/L (22-26); Ionized Calcium Level - ABG 1.2 mmol/L (1.1-1.4); Methemoglobin 1.3 % (0.4-1.5); Oxygen Saturation ABG 97.7; PO2 ABG 108.0 mmHg (80.0-100.0); PO2 FiO2 Ratio Arterial Blood 300; Potassium Level - ABG 4.2 mmol/L (3.5-5.0); Sodium Level - ABG 141.0 mmol/L (131-143)
[2025-11-04] MEDS: metoprolol succinate ER (24 HR) 50 mg Tablet PO (06:03)
--- NOTE | 2025-11-04 08:46 | P.PN_ITS ---
Vitals/I&O/Wt Last Vital Signs Temp 98.2 F 11/04/25 08:00 Pulse 81 11/04/25 08:00 Resp 22 H 11/04/25 08:00 BP 120/70 11/04/25 08:00 Pulse Ox 95 11/04/25 08:00 O2 Del Method Nasal Cannula 11/04/25 08:00 O2 Flow Rate 3 11/04/25 08:00 FiO2 36 11/04/25 04:07 11/03/25 11/04/25 11/04/25 22:59 06:59 14:59 Intake Total 490 / 790 940 / 1730 0 / 0 Output Total 50 / 50 2577 / 2627 5 / 5 Balance 440 / 740 -1637 / -897 -5 / -5 Weight last 48 hrs Weight 292 lb Weight 307 lb 1.663 oz Weight 299 lb 11.2 oz Physical Exam 2 Urinary Catheter Management: Graves: Cath Placed During This Visit: yes Reason for Continuing Indwelling Catheter: Accurate Measurement of Urinary Output in Critically Ill Patients Urinary Catheter Date of Insertion: 10/30/25 Urinary Catheter Time of Insertion: 02:49 Data 11/04/25 03:34 11/04/25 03:34 Micro: Microbiology 11/03/25 19:23 Blood Culture - Preliminary Blood SPECIMEN COLLECTED 11/03/25 19:21 Blood Culture - Preliminary Blood SPECIMEN COLLECTED A&P PDMP PDMP Reviewed: Not Reviewed Coding Level of Care Code Acute Code for Chg Fwd
--- NOTE | 2025-11-04 10:07 | PC.SOCIAL ---
IMM Update pg 2 of IMM not updated as patient is transfering. Copy left @ bedside and copy dated, initialed and placed in chart.
--- NOTE | 2025-11-04 11:10 | PC.NURSE ---
Patient transferred via ground ambulance to [facility] icu [id number]. alert to self and only. On bipap 36 % peep 8 rate 16. staturation 98 % vitals stable. iv access in right wrist patent, and dialysis catheter right neck. Graves to gravity drainage. A fib on monitor rate 77. report given to Karan LIGHT at [facility], Daughter Sandie updated on transfer as patient left er.
--- NOTE | 2025-11-07 12:22 | PM.PN ---
Subjective Subjective: Transfer/progress note Patient transfer initiated yesterday and discussed with Dr. Onesimo Valdes for transfer to ICU level of care since the patient had hemodialysis and also further worsening and multiorgan failure. Patient and the family discussed the plan of care and agree with that Medications: Reviewed: Yes Vitals/I&O/Wt Last Vital Signs Temp 98.2 F 11/04/25 08:00 Pulse 72 11/04/25 10:30 Resp 27 H 11/04/25 10:30 BP 125/65 11/04/25 11:00 Pulse Ox 97 11/04/25 10:30 O2 Del Method BiPAP 11/04/25 10:30 O2 Flow Rate 3 11/04/25 09:05 FiO2 36 11/04/25 10:30 Physical Exam Narrative: General: Alert and oriented, lying with mild discomfort due to respiratory distress requiring 4 to 5 L oxygen through nasal cannula last saturating 88 to 90%, able to speak in full sentences HEENT: Normocephalic, atraumatic, grossly unremarkable exam Cardio: Sinus tachycardia, normal S1-S2 without any murmurs, rubs, or gallops and JVD normal Respiratory: Bilateral mild diffuse wheeze and crackles heard from mid zone to lower zone however due to morbid obesity the exam is limited GI: Abdomen soft, nontender, nondistended, normoactive bowel sounds present all 4 quadrants, Neuro: intact cranial nerves motor and sensory and cerebellar/coordination function without any focal neurological deficit Behavior: Appropriate and cooperative Extremities: Adequate palpable pulses, bilateral lower leg extremity pitting edema worse than yesterday, left hand cellulitis massively improved and range of motion is intact Urinary Catheter Management: Graves: Cath Placed During This Visit: yes Reason for Continuing Indwelling Catheter: Accurate Measurement of Urinary Output in Critically Ill Patients Urinary Catheter Date of Insertion: 10/30/25 Urinary Catheter Time of Insertion: 02:49 Data 11/04/25 03:34 11/04/25 03:34 Micro: Microbiology 11/03/25 21:08 Urine Culture - Final Urine Catheterized Klebsiella pneumoniae A&P Assessment and plan 1. Acute kidney injury superimposed on CKD: 2. Renal failure: 3. Transaminitis: 4. Acute on chronic diastolic congestive heart failure: 5. Leg edema: 6. Hyperlipidemia: 7. Atrial fibrillation with controlled ventricular response: 8. Hypothyroidism, unspecified type: 9. Chronic obstructive pulmonary disease, unspecified COPD type: 10. HTN (hypertension): Plan: Patient managed as a case of acute on chronic diastolic congestive heart failure with cautious diuresis considering patient has superimposed acute kidney injury on the top of CKD which was multifactorial. There was an element of congestive nephropathy, congestive heart failure and also contrast exposure to rule out PE since the patient was hypoxemic and not improving. High risk consent was taken for the contrast studies to rule out PE. PE was ruled out. Based on multifactorial injuries to kidney, patient required hemodialysis after inserting hemodialysis catheter. Cardiology and nephrology was taken on board Patient has transaminitis in the light of likely congestive hepatomegaly Patient atrial fibrillation was controlled and continued on amiodarone She received antibiotics for possible cellulitis of left hand and it improved. Based on patient multiorgan failure and requiring intensive monitoring, transfer center called at [facility] and the patient was accepted for transfer under intensive care unit with other subspecialties such as inpatient nephrology, cardiology, ignition mechanic to further manage accordingly Patient was transferred today PDMP PDMP Reviewed: Not Reviewed Attestations Medical Necessity Statement*: Patient transferred to higher level of care to [facility] under intensive care unit requiring as mentioned above inpatient subspecialties management and care Time Spent in Patient Care: 16 - 35 minutes (>than 50% of time spent in counselling and/or direct pt care on unit). Critical Care Time: The high probability of a clinically significant, sudden or life threatening deterioration, as referenced in this documentation, required my full and direct attention, intervention and personal management. The critical care time shown is in addition to time spent performing any reported separately billable procedures and includes the following: [x] Data and vital sign review and interpretation [x] Patient assessment, examination and intervention [x] Medication orders and management [x] Patient/Family updates as able [x] Care Coordination and Documentation. Critical Care Time (min): 35 Other Attestations: Patient was provided with medications that were were reconciled after confirmation and according to patient comorbidities and appropriate follow-ups and referrals were provided at the time of discharge/transfer patient understanding/establishing the stability of the current condition was considered during discharge/transfer with all the risk and benefits thoroughly explained. Patient condition has been discussed at length with the patient/family, I have independently reviewed the chart labs imaging/diagnostics/EKG. the goals of care and code status with the patient/family/NOK/legal uniforms sales representative, and documented accordingly. The management has been done according to the current clinical condition with respect to patient goals of care and based on recommendations/guidelines. The patient/family has been informed about the current condition and further plan of care. Agreed with the plan of care and understood without any language barrier. Every effort was made to ensure accuracy of library circulation assistant. Any obvious errors or omissions should be clarified with the author of the document. Coding Level of Care Code Critical Care >/= 30 minutes Diagnoses Acute kidney injury superimposed on CKD N17.9; N18.9 Renal failure N19 Transaminitis R74.01 Acute on chronic diastolic congestive heart failure I50.33 Heart failure type: diastolic Leg edema R60.0 Hyperlipidemia E78.5 Atrial fibrillation with controlled ventricular response I48.91 Hypothyroidism, unspecified type E03.9 Hypothyroidism type: unspecified Chronic obstructive pulmonary disease, unspecified COPD type J44.9 COPD type: unspecified COPD HTN (hypertension) I10
== END 2025-11-04 11:00 | disposition short-term general hospital (02) | DRG 291 ==
LOC: ER 10-30 01:55 → MEDSURG 10-30 02:17 → ICU 11-02 18:43
PROVIDERS: Hospitalist; Nurse Practitioner Family; Admitting Provider Internal Medicine; Emergency Provider Student in an Organized Health Care Education/Training Program; PCP Nurse Practitioner Family; Visit Provider Student in an Organized Health Care Education/Training Program
DX: I13.0 Hypertensive heart and chronic kidney disease with heart failure and stage 1 through stage 4 chronic kidney disease, or unspecified chronic kidney disease (principal); I50.33 Acute on chronic diastolic (congestive) heart failure; N17.0 Acute kidney failure with tubular necrosis; J96.21 Acute and chronic respiratory failure with hypoxia; K72.00 Acute and subacute hepatic failure without coma; Z68.41 Body mass index [BMI] 40.0-44.9, adult; L03.114 Cellulitis of left upper limb; J81.1 Chronic pulmonary edema; R91.1 Solitary pulmonary nodule; E78.2 Mixed hyperlipidemia; D63.1 Anemia in chronic kidney disease; J44.9 Chronic obstructive pulmonary disease, unspecified; N18.30 Chronic kidney disease, stage 3 unspecified; I48.91 Unspecified atrial fibrillation; F32.A Depression, unspecified; E03.9 Hypothyroidism, unspecified; M79.7 Fibromyalgia; E66.01 Morbid (severe) obesity due to excess calories; E87.5 Hyperkalemia; R74.01 Elevation of levels of liver transaminase levels; S91.111A Laceration without foreign body of right great toe without damage to nail, initial encounter; Z79.899 Other long term (current) drug therapy; Z79.890 Hormone replacement therapy; Z79.01 Long term (current) use of anticoagulants; W45.8XXA Other foreign body or object entering through skin, initial encounter; Z87.891 Personal history of nicotine dependence
CPT/HCPCS: 36415; 36600; 51702; 71045; 71275; 76705; 76770; 80048; 80051; 80053; 81001; 82330; 82607; 82728; 82746; 82803; 82805; 83036; 83540; 83550; 83605; 83735; 83880; 84100; 84145; 84300; 84443; 84484; 85025; 85378; 86141; 86705; 86706; 87040; 87077; 87086; 87186; 87340; 87637; 90935; 93005; 93306; 94640; 94660; 94664; 94760; 94762; 96374; 97110; 97116; 97162; 97165; 99285; J1938; J2060; J2405; J3490; J7030; J7120; J7611; J7613; J7614; J7626; J7644; J9999; P9046; Q3014

== ENCOUNTER 2025-11-13 13:14 | Emergency (ER) | payer MEDICARE, MEDICAID, SELFPAY ==
--- OUTSIDE RECORDS SUMMARY | 2025-11-04 13:01 | XMS_ITS | Encounter Summary ---
Author Organization [facility] Address [address] [place] [address] Care Team Providers Care Brush Filler Hand Name Role Phone Ina Altamirano MD Primary Care Provider Reason for Visit * Auth/Cert (Routine) Specialty Diagnoses / Procedures Referred By Contac t Referred To Contact Critical Care Medicine Diagnoses ROSANNE Diastolic HF Transaminitis Leon Echols MD [address] [place] [phone] Phone: tel: fax: [facility] 6A Medical Intensive Care [address] [place] [phone] Phone: tel: fax: Referral ID Status Reason Start Date Expiration Date Visits Re quested Visits Authorized [id number] 1 1 Encounter Details Date Type Department Care Team (Latest Contact Info) Description 11/04/2025 1:01 PM TESTER OPERATOR - 11/13/2025 11:11 AM TESTER OPERATOR Hospital Encounter [facility] 4C Medical [address] [place] [phone] Leon Echols MD [address] [place] [phone] Magdi Carroll MD [address] [place] [phone] John Carmen MD [address] [place] [address] Gregg Silva MD [address] [place] [phone] Acute kidney injury superimposed on stage 4 chronic kidney disease (CMS/HCC) Discharge Disposition: Halfway Fac(SNF) with Medicare Certification in Anticipation of Skilled Care Social History Tobacco Use Types Packs/Day Years Used Date Smoking Tobacco: Former Cigarettes 0 Q uit: 06/2020 Food Insecurity Answer Date Recorded Do you find you are eating l ess than you should because you can t pay for food? No 11/06/2025 Transportation Needs Answer Date Record ed Have you gone without health care because you didn t have a way to get there? Or worry about transportation for future doctor visits, fish bait picker medication, etc.? No 2024 Housing Stability Answer Date Recorded Do you worry you won t have a steady place to sleep or struggle to pay rent or mortgage? No 11/06/2025 Utility Needs Answer Date Recorded Do you have difficulty payin g for utility costs (electric, water or gas bills)? No 11/06/2025 Medication Needs Answer Date Recorded Have you skipped taking medi cation due to cost or worry you can t afford new medications? No 11/06/2025 Feeling Safe Answer Date Recorded Are you in a relationship wi th someone who hurts you emotionally and/or physically? No 11/06/2025 Food Insecurity Answer Date Recorded Patient needs follow up regardin 11/06/2025 Transportation Needs Answer Date Record ed Patient needs follow up regardin 11/06/2025 Utility Needs Answer Date Recorded Patient needs follow up regardin 11/06/2025 Comments No Sex and Gender Information Value Date Recorded Sex Assigned at Not on file Legal Sex Female 9:50 AM CDT Gender Identity Not on file Sexual Orientation Not on file documented as of this encounter Last Filed Vital Signs Vital Sign Reading Time Taken Comments Blood Pressure 140/93 11/13/2025 7:20 AM TESTER OPERATOR Pulse 78 11/13/2025 7:20 AM TESTER OPERATOR Temperature 36.4 C (97.6 F) 11/13/2025 7:20 AM TESTER OPERATOR Respiratory Rate 16 11/13/2025 7:20 AM TESTER OPERATOR Oxygen Saturation 95% 11/13/2025 7:20 AM TESTER OPERATOR Inhaled Oxygen Concentration - - Weight 124.6 kg (274 lb 9.6 oz) 025 10:43 AM TESTER OPERATOR Height 162.6 cm (5' 4 ) 11/06/2025 10:5 0 PM TESTER OPERATOR Body Mass Index 47.13 11/06/2025 10:50 PM TESTER OPERATOR documented in this encounter Functional Status * Sedation Vitals Question Answer Date of Assessment Author RASS -3 11/08/2025 4:05 PM TESTER OPERATOR Paty Dixon RN * C-SSRS Daily Assessment (Since Last Asked) Question Answer Date of Assessment Author 1. Have you wished you were or wished you could go to sleep and not wake up? No 11/09/2025 9:05 AM Anais Rivera RN 2. Have you actually had any thoughts of killing yourself? No 11/09/2025 9:05 AM Anais Rivera RN 6. Have you ever done anythi ng, started to do anything, or prepared to do anything to end your life? No 11/09/2025 9:05 AM Anais Rivera RN * Post Sedation Outcome Question Answer Date of Assessment Author Sedation Outcome No untoward effects noted 11/08/2025 4:02 PM Paty Mcmanus RN Post Assessment Completed? Yes 11/08/2025 4:02 PM Paty Mcmanus RN * Stanford-Suicide Severity Rating Scale (Past Month) Question Answer Date of Assessment Author Is this encounter related to suicidal behavior/attempt? No 11/06/2025 10:00 PM TESTER OPERATOR Se Pelaez RN * Sedation Assessment Question Answer Date of Assessment Author Sedation Vacation Contraindication present 11/05/2025 7:00 AM TESTER OPERATOR Clarissa Trevino, NADEGE * Level of Consciousness Answer Date of Assessment Author alert 11/12/2025 8:01 AM TESTER OPERATOR Dorothy Hernandez RN * Saucier Coma Scale Question Answer Date of Assessment Author GCS (Total) 15 11/13/2025 7:50 AM Fabian Penn RN Best Eye Response 4 11/13/2025 7:50 AM Fabian Parada RN Best Verbal Response 5 11/13/2025 7:50 AM Fabian Randall RN Best Motor Response 6 11/13/2025 7:50 AM Fabian Howe RN * Pupils Question Answer Date of Assessment Author Shape: Right round 11/05/2025 7:00 AM Clarissa Meza RN Shape: Left round 11/05/2025 7:00 AM Clarissa Meza RN Reaction: Right equal 11/05/2025 7:00 AM TESTER OPERATOR Clarissa Valencia RN Reaction: Left equal 11/05/2025 7:00 AM TESTER OPERATOR Clarissa Pérez RN Size: Left 3 mm 11/13/2025 7:50 AM Fabian Penn RN Size: Right 3 mm 11/13/2025 7:50 AM Fabian Penn RN Pupil: PERRLA yes 11/13/2025 7:50 AM TESTER OPERATOR Fabian Grant RN Accommodation: Left normal response 11/09/2025 4:50 PM Anais Rivera RN Accommodation: Right normal response 11/09/2025 4:50 P M Anais Rivera RN * Chest Pain Assessment Question Answer Date of Assessment Author Location generalized 11/12/2025 7:42 AM Monique Elise RN Pain Rating: Number 0-10 (rest) 10 11/12/2025 7:42 AM Monique Chiang RN * Oxygen Question Answer Date of Assessment Author Oxygen Flow Rate (L/min) 3 11/12/2025 8:01 AM TESTER OPERATOR Radha Hernandez RN * John Risk Assessment Question Answer Date of Assessment Author Sensory Perception (response to environment) 4 11/13/2025 7:50 AM Fabian Parada RN Moisture (degree skin expose d to moisture) 4 11/13/2025 7:50 AM Fabian Parada RN Activity (ability to walk) 2 11/13/2025 7:5 0 AM Fabian Parada RN Mobility (amount/control of body movement) 3 11/13/2025 7:50 AM Fabian Parada RN Nutrition (quality of food intake) 3 11/13/2025 7:50 AM Fabian Parada RN Friction and Shear 3 11/13/2025 7:50 AM Fabian Parada RN John Score 19 11/13/2025 7:50 AM TESTER OPERATOR Fabian Blanco RN * Respiratory - Peds Question Answer Date of Assessment Author Excursion/Accessory Muscles/Retractions symmetric expansion;no use of accessory muscles;no retractions 11/05/2025 8:38 PM TESTER OPERATOR Castro Carey RCP * Swallowing Answer Date of Assessment Author swallows foods and liquids w /o difficulty 11/06/2025 10:51 PM TESTER OPERATOR Se Pelaez RN * Modified Rodo Score Question Answer Date of Assessment Author Activity 2 11/08/2025 3:59 PM Paty Perera RN Respiration 2 11/08/2025 3:59 PM Paty Perera RN Circulation 2 11/08/2025 3:59 PM Paty Perera RN Consciousness 1 11/08/2025 3:59 PM Paty Cantu RN O2 Saturation 2 11/08/2025 3:59 PM Paty Cantu RN Dressing 2 11/08/2025 3:59 PM Paty Perera RN Pain 2 11/08/2025 3:59 PM Paty Perera RN Ambulation 2 11/08/2025 3:59 PM Paty Perera RN Fasting/Feeding 2 11/08/2025 3:59 PM Paty French RN Urine Output 2 11/08/2025 3:59 PM Paty Perera RN Score 19 11/08/2025 3:59 PM Paty Perera RN * HEENT Assessments Question Answer Date of Assessment Author Ear (WDL) WDL 11/13/2025 7:50 AM Fabian Penn RN Eye (WDL) WDL 11/13/2025 7:50 AM Fabian Penn RN Head/Face (WDL) WDL 11/10/2025 5:23 AM TESTER OPERATOR Brittany Titus LPN Mouth (WDL) WDL 11/13/2025 7:50 AM Fabian Penn RN Oral Mucosa Symptoms dry 11/09/2025 4:51 AM C Brittany Chaney LPN Neck (WDL) WDL 11/10/2025 5:23 AM TESTER OPERATOR Brittany Bella LPN Nose (WDL) WDL 11/10/2025 5:23 AM TESTER OPERATOR Brittany Bella LPN Teeth (WDL) WDL except 11/10/2025 5:23 AM TESTER OPERATOR Brittany Bella LPN Symptoms tooth/teeth missing 11/09/2025 4:50 PM Anais Burroughs RN * Dorsalis Pedis Pulse Question Answer Date of Assessment Author Dorsalis Pedis Pulse Left 1+ (weak) 11/13/2025 7:50 AM Fabian Parada RN Dorsalis Pedis Pulse Right 1+ (weak) 11/13/2025 7:5 0 AM Fabian Parada, RN * Radial Pulse Question Answer Date of Assessment Author Radial Pulse Left palpation 11/06/2025 2:41 AM Se Rivas RN Radial Pulse Right palpation 11/06/2025 2:41 AM Se Rivas, RN * Adult Pediatric Diet/Tolerance Question Answer Date of Assessment Author Intake (%) 100% 11/13/2025 7:30 AM Trupti Maher Food/Meal Breakfast 11/13/2025 7:30 AM Turpti Maher * Pain Assessment Question Answer Date of Assessment Author Pain Management Interventions positioning 11/12/2025 7:42 AM TESTER OPERATOR Monique Franklin, NADEGE Response to Interventions verbalized relief 10/15 12:13 AM TESTER OPERATOR Brittany Fields LPN Pain Assessment No/denies pain 11/13/2025 7:50 AM Fabian Parada RN * Pain Assessment/FLACC Question Answer Date of Assessment Author Pain Rating: FLACC (rest) - Face 0 11/08/2025 4:05 PM Paty Mcmanus RN Pain Rating: FLACC (rest) - Legs 0 11/08/2025 4:05 PM Paty Mcmanus RN Pain Rating: FLACC (rest) - Activity 0 11/08/2025 4:05 PM Paty Mcmanus RN Pain Rating: FLACC (rest) - Cry 0 4:05 PM Paty Mcmanus RN Pain Rating: FLACC (rest) - Consolability 0 11/08/2025 4:05 PM Paty Mcmanus RN Score: FLACC (rest) 0 11/08/2025 4:05 PM Paty Austin RN * Safety Interventions Question Answer Date of Assessment Author Aspiration Precautions awake/alert befor e oral intake 11/13/2025 7:50 AM Fabian Parada RN Safety Precautions Aspiration Precautions 2024 7:50 AM Fabian Parada RN * General Information Question Answer Date of Assessment Author PT Recommended DME No new DME recommended 11/10/2025 9:04 AM TESTER OPERATOR Farida Ron Physical Therapist OT Recommended DME To be determined 11/11/2025 1 2:04 PM TESTER OPERATOR Wesly Porter Occupational Therapist Additional Recommended Adaptive Equipment No new additional adaptive equipment necessary 11/11/2025 12:04 PM Wesly Mccormack Occupational Therapist * Diabetes Risk Score (Usual Care) Answer Date of Assessment Author 26.47 11/13/2025 12:01 AM TESTER OPERATOR QBatch, User * Diabetes Risk Score (DPP Lifestyle Modification) Answer Date of Assessment Author 11.12 11/13/2025 12:01 AM TESTER OPERATOR QBatch, User * Diabetes Risk Score (Metformin) Answer Date of Assessment Author 19.8 11/13/2025 12:01 AM TESTER OPERATOR QBatch User * SIRS Score Answer Date of Assessment Author 0 11/13/2025 11:01 AM TESTER OPERATOR QBatch, User * Mobility Assessment Question Answer Date of Assessment Author Weight-Bearing Status no weight-bearing restrictions 11/13/2025 7:50 AM TESTER OPERATOR Fabian Catalan RN Motivation/Cooperation Assessment Moderate 11/13/2025 7:50 AM TESTER OPERATOR Fabian Catalan, RN * Stool Output Question Answer Date of Assessment Author Last Bowel Movement (mm/dd/yyyy) 75249 11/09/2025 9:42 AM TESTER OPERATOR Jose, Adrianne Lynne, ELECTRICAL MAINTENANCE MAN Stool Color brown 11/09/2025 9:42 AM TESTER OPERATOR Treec e, Adrianne Lynne, ELECTRICAL MAINTENANCE MAN Stool Consistency - Reference [place] Stool Chart liquid - (type 7) 11/09/2025 9:42 AM TESTER OPERATOR Jose, Adrianne Lynne, ELECTRICAL MAINTENANCE MAN Stool Amount Small amount stool 11/09/2025 9:42 AM TESTER OPERATOR Jose, Adrianne Lynne, ELECTRICAL MAINTENANCE MAN * Void Output Question Answer Date of Assessment Author Urine Color dark teo 11/12/2025 1:25 PM TESTER OPERATOR Trupti Olsen Urine Characteristics clear 11/11/2025 9:00 PM TESTER OPERATOR Rafaela Wilkerson, Nurse Vp & General Counsel Incontinence Containment Product Urine collection device 11/11/2025 9:00 PM TESTER OPERATOR Rafaela Wilkerson, Nurse Vp & General Counsel Unmeasured Void Large amount urine 11/12/2025 1: 25 PM TESTER OPERATOR Trupti Olsen * Respiratory Assessment Question Answer Date of Assessment Author Respiratory Effort Mild 11/05/2025 8:38 PM TESTER OPERATOR Castro Carey RCP * Breath Sounds Question Answer Date of Assessment Author Throughout All [place] diminished 11/13/2025 7:50 AM TESTER OPERATOR Fabian Catalan RN R General clear;diminished 11/11/2025 10:43 AM TESTER OPERATOR Sarah Owusu RN L General clear;diminished 11/11/2025 10:43 AM TESTER OPERATOR Sarah Owusu RN * Respiratory Question Answer Date of Assessment Author Respiratory (WDL) WDL 11/12/2025 8:01 AM TESTER OPERATOR Radha Hernandez RN * Activity & Exercise Question Answer Date of Assessment Author Assistive Devices Used Gait belt 12:04 PM TESTER OPERATOR Wesly Porter, Occupational Therapist Positioning turned;right side 11/13/2025 8:0 0 AM TESTER OPERATOR Olga Ferguson RN Present Activity dangled at bedside;up to chair 11/13/2025 10:55 AM TESTER OPERATOR Fabian Catalan, RN Physical Assist/Nonphysical Assist assistance;supervi donald;w/ 1 person assist 11/12/2025 8:01 AM TESTER OPERATOR Radha Hernandez, RN * Hygiene & Comfort Question Answer Date of Assessment Author Specialty Bed/Overlay Other (comments) 11/07/2025 9:00 PM TESTER OPERATOR Brittany Fields LPN Comfort BP;DS;L 11/12/2025 12:00 PM TESTER OPERATOR Trupti Olsen Skin Interventions Promote mobility/activity;Turni ng/repositioning encouraged in bed/chair 11/12/2025 9:00 PM TESTER OPERATOR Jose Antonio Boston RN * Antiembolism Devices Question Answer Date of Assessment Author Sequential Compression Devic e (SCDs) Refused 11/12/2025 7:00 PM Jose Antonio Coppola RN Foot Compression Device Refused 11/09/2025 7:00 A M Anias Rivera RN * Transportation Report Question Answer Date of Assessment Author Transportation Mode Stretcher 11/12/2025 1:16 PM CS Monique Jang, NADEGE Equipment Accompanying Patient O2 11/12/2025 1:16 PM Monique Chiang RN * Ecchymosis Question Answer Date of Assessment Author Location scattered 11/12/2025 7:42 AM Monique Elise RN Color Purple;Red 11/06/2025 4:32 PM TESTER OPERATOR Laxmi Rosas RN Size varies 11/11/2025 3:09 PM TESTER OPERATOR Afshan Farah LPN * Safety Checks Question Answer Date of Assessment Author Armband, In Place/Activated Identification;Allergy 11/13/2025 7:50 AM Fabian Parada, NADEGE Safety Checks Safety check completed 7:50 AM Fabian Parada, NADEGE Fall Risk Score on Admission (read only) 5 11/06/2025 10:51 PM TESTER OPERATOR Se Pelaez, RN Nurse's Review of Fall Risk qShift Agree w/fall risk 11/13/2025 7:50 AM Fabian Parada RN High Fall Risk Interventions High Fall Risk interventions completed 11/11/2025 3:09 PM Afshan Traore LPN Add'l Individualized High Fall Risk Interventions Use of gait belt during mobilzation 11/11/2025 3:09 PM Afshan Traore LPN * Safety Interventions Question Answer Date of Assessment Author Activity Assist Needed Screening Assistance;Supervision ;1 person + 1 person to manage equipment 11/13/2025 7:50 AM Fabian Parada RN Assistive Devices Screening Walker;Gait belt 11/13/2025 7:50 AM Fabian Parada RN * Cardiovascular Question Answer Date of Assessment Author Rhythm apical pulse irregular 11/06/2025 2:41 AM Se Rivas RN Heart Sounds distant 11/05/2025 3:40 PM Laxmi Sams RN Cardiac (WDL) WDL 11/13/2025 7:50 AM Fabian Ty RN * Peripheral Neurovascular Question Answer Date of Assessment Author Peripheral Neurovascular (WDL) WDL except 11/13/2025 7:50 AM Fabian Parada RN Additional Assessments No 11/09/2025 4:50 PM Anais Rivera RN * Respiratory Question Answer Date of Assessment Author Rhythm/Pattern dyspnea on exertion 11/13/2025 7:50 AM Fabian Parada RN Respiratory (WD) WDL except 11/13/2025 7:50 AM Fabian Parada RN * Adult Nutrition/Endocrine Question Answer Date of Assessment Author Diet/Feeding Tolerance good;eating normally 11/13/2025 7:50 AM Fabian Parada RN * Gastrointestinal Question Answer Date of Assessment Author Abdominal Appearance obese 11/12/2025 7:47 PM Jose Antonio Coppola RN Bowel Sounds: All Quadrants hyperactive 10/15 4:50 PM Anais Rivera RN Signs/Symptoms fecal incontinence 11/12/2025 7: 47 PM Jose Antonio Coppola RN Gastrointestinal (WDL) WDL 7:50 AM Fabian Parada RN * Genitourinary Question Answer Date of Assessment Author Voiding Characteristics patient on dialysis 11/13/2025 7:50 AM Fabian Parada RN Genitourinary (WDL) WDL except 11/13/2025 7:50 AM Fabian Howe RN Additional Assessments No 11/09/2025 4:50 PM Anais Rivera RN * Musculoskeletal Question Answer Date of Assessment Author Musculoskeletal (WDL) WDL except 11/13/2025 7:50 AM Fabian Parada RN Generalized Muscle Weakness Mild 11/13/2025 7: 50 AM Fabian Parada RN * Skin Question Answer Date of Assessment Author Color/Characteristics erythema 11/13/2025 7:50 AM Fabian Parada RN Temperature warm 11/13/2025 7:50 AM Fabian Penn RN Hygiene Care other (see comments) 11/12/2025 7:47 PM Jose Antonio Bedolla RN Integrity ecchymosis 11/13/2025 7:50 AM Fabian Penn RN Skin (WD) WDL except 11/13/2025 7:50 AM Fabian Penn RN * Coping/Spiritual/Cultural Question Answer Date of Assessment Author Assessments Performed No 11/09/2025 4:50 PM Anais Rivera RN * Cognitive/Perceptual/Neuro Question Answer Date of Assessment Author Motor Response: Left purposeful/movement localizing 11/13/2025 7:50 AM Fabian Parada RN Motor Response: Right purposeful/movemen t localizing 11/13/2025 7:50 AM Fabian Parada RN Vision Impairment: Left Eye blinks to visual threat 11/13/2025 7:50 AM Fabian Parada RN Vision Impairment: Right Eye blinks to visual threat 11/08/2025 10:00 AM Fabian Parada RN Orientation oriented to;person;place;time; situation 11/13/2025 7:50 AM Fabian Parada RN Cognitive/Perceptual/Neur o ([facility]) WDL 11/13/2025 7:50 AM Fabian Parada, NADEGE Additional Assessments No 7:50 AM Fabian Parada, NADEGE Speech Clear 11/13/2025 7:50 AM Fabian Parada, NADEGE Level of Consciousness Alert, keenly responsive 11/13/2025 7:50 AM Fabian Parada, NADEGE * Cardiovascular Question Answer Date of Assessment Author Additional Assessments No 11/05/2025 11:00 A M Clarissa Tong RN * Respiratory Question Answer Date of Assessment Author Additional Assessments No 11/05/2025 11:00 A M Clarissa Tong RN * Gastrointestinal Question Answer Date of Assessment Author Additional Assessments No 11/05/2025 11:00 A M Clarissa Tong RN * Musculoskeletal Question Answer Date of Assessment Author Additional Assessments No 11/05/2025 11:00 A M Clarissa Tong RN * Skin Question Answer Date of Assessment Author Additional Assessments No 11/05/2025 11:00 A M Clarissa Tong RN * Adult Nutrition/Endocrine Question Answer Date of Assessment Author Additional Assessments Performed No 11/05/2025 7:00 AM Clarissa Tong, NADEGE * PT Plan of Care Question Answer Date of Assessment Author Therapy Eval Date [address] 11/10/2025 9:04 AM TESTER OPERATOR Farida Ron, Physical Therapist Therapy Plan of Care 5 11/12/2025 9:00 AM Ángel Dotson, Electrical Integrator Ran Rodriguez 11/12/2025 9:00 AM TESTER OPERATOR Ángel Arevalo, Electrical Integrator Grace Conner 11/10/2025 9:04 AM TESTER OPERATOR Farida Strickland, Physical Therapist * BEAN PICKER MACHINE OPERATOR Plan of Care Question Answer Date of Assessment Author Therapy Comments Greg; baseline 11/07/2025 9 :13 AM TESTER OPERATOR Rory Medrano, CYNTHIA * Blood Specimen Collection Method Question Answer Date of Assessment Author *POC Capillary Blood Collection(s) 1 11/05/2025 3:00 AM TESTER OPERATOR Stefani Venegas, NADEGE * Suicide Risk and Interventions Answer Date of Assessment Author No Risk 11/09/2025 9:05 AM Lisa Rivera RN * Mobility and Safe Patient Handling Question Answer Date of Assessment Author Mobility Level Level 4 - Standing Mobility 11/13/2025 7:50 AM Fabian Parada RN * Suspected Infection Answer Date of Assessment Author 0 11/13/2025 11:01 AM TESTER OPERATOR QBatch, User * Organ Dysfunction Score Answer Date of Assessment Author 0 11/13/2025 11:01 AM TESTER OPERATOR QBatch, User * Sepsis Score Answer Date of Assessment Author 0 11/13/2025 11:01 AM TESTER OPERATOR QBatch, User * Severe Sepsis Score Answer Date of Assessment Author 0 11/13/2025 11:01 AM TESTER OPERATOR QBatch, User * Septic Shock Score Answer Date of Assessment Author 0 11/13/2025 11:01 AM TESTER OPERATOR QBatch, User * Sepsis Review Score Answer Date of Assessment Author 0 11/13/2025 11:01 AM TESTER OPERATOR QBatch, User * Septic Shock Criteria Answer Date of Assessment Author 0 11/13/2025 11:01 AM TESTER OPERATOR QBatch, User * Severe Pneumonia Score Answer Date of Assessment Author 1 11/13/2025 11:00 AM TESTER OPERATOR QBatch, User * Malnutrition Screening Tool (MST) Question Answer Date of Assessment Author Have you recently lost weigh t without trying? 0 11/06/2025 10:00 PM Arnoldo Rivas RN Have you been eating poorly because of a decreased appetite? 0 11/06/2025 10:00 PM Arnoldo Rivas RN * Weight Loss Score Answer Date of Assessment Author 0 11/06/2025 10:00 PM Se Mathew RN * Malnutrition Score Answer Date of Assessment Author 0 11/06/2025 10:00 PM Se Mathew RN * Functional Screen: SHELL TRIM TOOL SETTER Question Answer Date of Assessment Author Ambulation independent 11/06/2025 10:51 PM eS Rivas RN Transferring independent 11/06/2025 10:51 PM Se Rivas RN Toileting independent 11/06/2025 10:51 PM Se Rivas, NADEGE Bathing independent 11/06/2025 10:51 PM Se Rivas RN Dressing independent 11/06/2025 10:51 PM TESTER OPERATOR Se Pelaez RN Eating independent 11/06/2025 10:51 PM TESTER OPERATOR Se Pelaez, NADEGE Communication understands/communic ates w/o difficulty 11/06/2025 10:51 PM TESTER OPERATOR Se Pelaez, RN * Risk Management / Prevention - Hypoglycemia Question Answer Date of Assessment Author MCM Glucose Score (auto calculated) 0 11/13 11:01 AM TESTER OPERATOR QBatch, User * PT Clinical Impression Question Answer Date of Assessment Author Deficits Present That Require PT Evaluation Yes 11/10/2025 9:04 AM TESTER OPERATOR Farida Ron Physical Therapist * OT Clinical Impression Question Answer Date of Assessment Author Deficits Present That Require OT Evalution Yes 11/11/2025 12:04 PM TESTER OPERATOR Beckie Porter, Occupational Therapist * BEAN PICKER MACHINE OPERATOR Clinical Impression Question Answer Date of Assessment Author Deficits Present That Requir e BEAN PICKER MACHINE OPERATOR Evaluation Yes 11/07/2025 9:13 AM TESTER OPERATOR Rory Medrano, BEAN PICKER MACHINE OPERATOR * Nursing Mobility Assessment (RN/NDT INSPECTOR Only) Question Answer Date of Assessment Author Is patient ambulating independently (Level 6)? No 11/13/2025 7:50 AM TESTER OPERATOR Jan Catalan RN * AUDIT-C Score Answer Date of Assessment Author 0 11/06/2025 10:49 PM TESTER OPERATOR Se Fish, NADEGE * Patient Rounding Question Answer Date of Assessment Author Rounding Tasks Caregivers introduce d self;Caregiver names placed on white board;Plan of care discussed with patient;Plan of care discussed with parent/caregiver;Plan of care discussed with patient/parent/caregiver; Bedside report completed 11/13/2025 7:50 AM TESTER OPERATOR Fabian Catalan RN * Two Person Skin Check Question Answer Date of Assessment Author Is Redness Present? Yes, non-blanchable or open wound: consult wound care 11/04/2025 1:15 PM TESTER OPERATOR Wilian Short RN Redness Location gluteal;left;right;h i p 11/04/2025 1:15 PM Wilian Gay, RN Finishing Inspector 1 NADEGE Cedeno 11/04/2025 1:15 PM Wilian Tirado, RN Finishing Inspector 2 PREMA Ojeda 11/04/2025 1:15 PM TESTER OPERATOR Wilian Leon, RN * Anastasiia Ma Fall Risk on Admission Question Answer Date of Assessment Author Last Known Fall 0 11/06/2025 10:51 PM TESTER OPERATOR Se Figueroa, NADEGE Mobility 1 11/06/2025 10:51 PM TESTER OPERATOR Se Pelaez RN Medications 0 11/06/2025 10:51 PM TESTER OPERATOR Se Pelaez RN Mental Status/LOC/Awareness 0 11/06/2025 10 :51 PM TESTER OPERATOR Se Pelaez RN Toileting Needs 1 11/06/2025 10:51 PM TESTER OPERATOR Se Figueroa RN Volume/Electrolyte Status 0 11/06/2025 10:5 1 PM TESTER OPERATOR Se Pelaez RN Communication/Sensory 0 11/06/2025 10:51 PM TESTER OPERATOR Se Pelaez RN Behavior 0 11/06/2025 10:51 PM TESTER OPERATOR Se Pelaez RN * Patient's Fall Risk on Admission (read only) Answer Date of Assessment Author Low 11/06/2025 10:51 PM TESTER OPERATOR Se Fish RN * Current Predicted Fall Risk Designation (read only) Answer Date of Assessment Author High 11/13/2025 7:50 AM TESTER OPERATOR Backmemo falcon, Cognitive Computing * Nursing Delirium Screening Checklist (NuDESC) Question Answer Date of Assessment Author Disorientation 0 11/13/2025 7:50 AM TESTER OPERATOR Fabian Chaney, NADEGE Inappropriate Behavior 0 11/13/2025 7:50 AM TESTER OPERATOR Fabian Catalan RN Inappropriate Communication 0 11/13/2025 7: 50 AM TESTER OPERATOR Fabian Catalan RN Illusions/Hallucinations 0 11/13/2025 7:50 AM TESTER OPERATOR Fabian Catalan, RN Psychomotor Retardation 0 11/13/2025 7:50 A M TESTER OPERATOR Fabian Catalan, NADEGE Nursing Delirium Symptom Checklist Total Score 0 11/13/2025 7:50 AM TESTER OPERATOR Carter Catalan RN Delirium Present No 11/13/2025 7:50 AM TESTER OPERATOR Fabian Crystal, NADEGE * Adult Acuity Scoring Question Answer Date of Assessment Author mSOFA Score (auto calculated) 4 11/13/2025 11:01 AM TESTER OPERATOR QBatch, User Current Predicted Fall Risk (auto calculated) 91.1 11/13/2025 7:50 AM TESTER OPERATOR Background, Cogni tive Computing Sofa Score(auto calculated) 4 11/13/2025 11 :01 AM TESTER OPERATOR QBatch, User CDPA score (Auto calculated) 9 11/13/2025 1 2:01 AM TESTER OPERATOR QBatch, User Readmission Risk Score 5 11/13/2025 11:11 A M TESTER OPERATOR Olga Ferguson RN [id number] Score (Used for patients with atrial fibrillation) 4 11/13/2025 11:11 AM TESTER OPERATOR Olga Ferguson RN HAS-BLED Score (Used for patients with atrial fibrillation) 3 11/13/2025 11:11 AM TESTER OPERATOR Olga Ferguson RN Modified Charlson Age Comorbidity Index 6 11/11/2025 6:01 AM TESTER OPERATOR QBatch, User * Score Answer Date of Assessment Author 9 11/08/2025 3:59 PM TESTER OPERATOR Paty Monroe RN * Level of Consciousness Answer Date of Assessment Author alert 11/12/2025 8:01 AM TESTER OPERATOR Dorothy Hernandez RN * Mellissa Coma Scale Question Answer Date of Assessment Author GCS (Total) 15 11/13/2025 7:50 AM Fabian Penn RN Best Eye Response 4 11/13/2025 7:50 AM Fabian Parada RN Best Verbal Response 5 11/13/2025 7:50 AM Fabian Randall RN Best Motor Response 6 11/13/2025 7:50 AM Fabian Howe RN * John Risk Assessment Question Answer Date of Assessment Author Activity (ability to walk) 2 11/13/2025 7:5 0 AM Fabian Parada RN Mobility (amount/control of body movement) 3 11/13/2025 7:50 AM Fabian Parada RN * Swallowing Answer Date of Assessment Author swallows foods and liquids w /o difficulty 11/06/2025 10:51 PM Se Rivas RN * Modified Rodo Score Question Answer Date of Assessment Author Activity 2 11/08/2025 3:59 PM TESTER OPERATOR Paty Dixon RN Respiration 2 11/08/2025 3:59 PM Paty Perera, RN Circulation 2 11/08/2025 3:59 PM Paty Perera RN Consciousness 1 11/08/2025 3:59 PM Paty Cantu RN O2 Saturation 2 11/08/2025 3:59 PM Paty Cantu, NADEGE Dressing 2 11/08/2025 3:59 PM Paty Perera RN Pain 2 11/08/2025 3:59 PM Paty Perera RN Ambulation 2 11/08/2025 3:59 PM Paty Perera RN Fasting/Feeding 2 11/08/2025 3:59 PM Paty French RN Urine Output 2 11/08/2025 3:59 PM Paty Peerra RN Score 19 11/08/2025 3:59 PM Paty Perera RN * Adult Pediatric Diet/Tolerance Question Answer Date of Assessment Author Intake (%) 100% 11/13/2025 7:30 AM Trupti Maher Food/Meal Breakfast 11/13/2025 7:30 AM Trupti Maher * Pain Assessment/FLACC Question Answer Date of Assessment Author Pain Rating: FLACC (rest) - Face 0 11/08/2025 4:05 PM Paty Mcmanus RN Pain Rating: FLACC (rest) - Legs 0 11/08/2025 4:05 PM Paty Mcmanus RN Pain Rating: FLACC (rest) - Activity 0 11/08/2025 4:05 PM Paty Mcmanus RN Pain Rating: FLACC (rest) - Cry 0 4:05 PM Paty Mcmanus RN Pain Rating: FLACC (rest) - Consolability 0 11/08/2025 4:05 PM Paty Mcmanus RN * Safety Interventions Question Answer Date of Assessment Author Aspiration Precautions awake/alert befor e oral intake 11/13/2025 7:50 AM Fabian Parada RN Safety Precautions Aspiration Precautions 2024 7:50 AM Fabian Parada, NADEGE * General Information Question Answer Date of Assessment Author PT Recommended DME No new DME recommended 11/10/2025 9:04 AM Farida Bkaer, Physical Therapist OT Recommended DME To be determined 11/11/2025 1 2:04 PM Wesly Mccormack Occupational Loretta Additional Recommended Adaptive Equipment No new additional adaptive equipment necessary 11/11/2025 12:04 PM Wesly Mccormack Occupational Therapist * Mobility Assessment Question Answer Date of Assessment Author Weight-Bearing Status no weight-bearing restrictions 11/13/2025 7:50 AM Fabian Parada RN Motivation/Cooperation Assessment Moderate 11/13/2025 7:50 AM Fabian Parada RN * Activity & Exercise Question Answer Date of Assessment Author Assistive Devices Used Gait belt 12:04 PM Wesly Mccormack Occupational Therapist Positioning turned;right side 11/13/2025 8:0 0 AM Olga Simms RN Present Activity dangled at bedside;up to chair 11/13/2025 10:55 AM Fabian Parada RN Physical Assist/Nonphysical Assist assistance;supervi donald;w/ 1 person assist 11/12/2025 8:01 AM TESTER OPERATOR Radha Hernandez RN * Hygiene & Comfort Question Answer Date of Assessment Author Specialty Bed/Overlay Other (comments) 11/07/2025 9:00 PM TESTER OPERATOR Brittany Fields LPN Comfort BP;DS;L 11/12/2025 12:00 PM TESTER OPERATOR Trupti Olsen Skin Interventions Promote mobility/activity;Turni ng/repositioning encouraged in bed/chair 11/12/2025 9:00 PM TESTER OPERATOR Jose Antonio Boston, NADEGE * Antiembolism Devices Question Answer Date of Assessment Author Sequential Compression Devic e (SCDs) Refused 11/12/2025 7:00 PM TESTER OPERATOR Jose Antonio Boston RN Foot Compression Device Refused 11/09/2025 7:00 A Anais Mcdonald CST, NADEGE * Transportation Report Question Answer Date of Assessment Author Transportation Mode Stretcher 11/12/2025 1:16 PM Monique Cornelius, RN Equipment Accompanying Patient O2 11/12/2025 1:16 PM Monique Chiang, NADEGE * Safety Checks Question Answer Date of Assessment Author Armband, In Place/Activated Identification;Allergy 11/13/2025 7:50 AM Fabian Parada RN Safety Checks Safety check completed 7:50 AM Fabian Parada RN Fall Risk Score on Admission (read only) 5 11/06/2025 10:51 PM Se Rivas RN Nurse's Review of Fall Risk qShift Agree w/fall risk 11/13/2025 7:50 AM Fabian Parada RN High Fall Risk Interventions High Fall Risk interventions completed 11/11/2025 3:09 PM Afshan Traore LPN Add'l Individualized High Fall Risk Interventions Use of gait belt during mobilzation 11/11/2025 3:09 PM Afshan Traore LPN * Safety Interventions Question Answer Date of Assessment Author Activity Assist Needed Screening Assistance;Supervision ;1 person + 1 person to manage equipment 11/13/2025 7:50 AM Fabian Parada RN Assistive Devices Screening Walker;Gait belt 11/13/2025 7:50 AM Fabian Parada RN * Adult Nutrition/Endocrine Question Answer Date of Assessment Author Diet/Feeding Tolerance good;eating normally 11/13/2025 7:50 AM Fabian Parada RN * Musculoskeletal Question Answer Date of Assessment Author Musculoskeletal (WDL) WDL except 11/13/2025 7:50 AM Fabian Parada RN Generalized Muscle Weakness Mild 11/13/2025 7: 50 AM Fabian Parada RN * Skin Question Answer Date of Assessment Author Hygiene Care other (see comments) 11/12/2025 7:47 PM Jose Antonio Bedolla, NADEGE * Cognitive/Perceptual/Neuro Question Answer Date of Assessment Author Motor Response: Left purposeful/movement localizing 11/13/2025 7:50 AM Fabian Parada RN Motor Response: Right purposeful/movemen t localizing 11/13/2025 7:50 AM Fabian Parada RN Vision Impairment: Left Eye blinks to visual threat 11/13/2025 7:50 AM Fabian Parada RN Vision Impairment: Right Eye blinks to visual threat 11/08/2025 10:00 AM Fabian Parada RN Orientation oriented to;person;place;time; situation 11/13/2025 7:50 AM Fabian Parada RN Cognitive/Perceptual/Neur o (WDL) WDL 11/13/2025 7:50 AM Fabian Parada RN Additional Assessments No 7:50 AM Fabian Parada RN Speech Clear 11/13/2025 7:50 AM Fabian Parada RN Level of Consciousness Alert, keenly responsive 11/13/2025 7:50 AM Fabian Parada RN * Musculoskeletal Question Answer Date of Assessment Author Additional Assessments No 11/05/2025 11:00 A M TESTER OPERATOR Clarissa Trevino, NADEGE * PT Plan of Care Question Answer Date of Assessment Author [place] [id number] 11/10/2025 9:04 AM TESTER OPERATOR Farida Ron, Physical Therapist Therapy Plan of Care 5 11/12/2025 9:00 AM Ángel Dotson, Electrical Integrator Ran Rodriguez 11/12/2025 9:00 AM Ángel Ramirez, Electrical Integrator Sun X 11/10/2025 9:04 AM TESTER OPERATOR Farida Strickland, Physical Therapist * Blood Specimen Collection Method Question Answer Date of Assessment Author *POC Capillary Blood Collection(s) 1 11/05/2025 3:00 AM TESTER OPERATOR Stefani Venegas RN * Mobility and Safe Patient Handling Question Answer Date of Assessment Author Mobility Level Level 4 - Standing Mobility 11/13/2025 7:50 AM Fabian Parada RN * Functional Screen: SHELL TRIM TOOL SETTER Question Answer Date of Assessment Author Ambulation independent 11/06/2025 10:51 PM Se Rivas RN Transferring independent 11/06/2025 10:51 PM Se Rivas RN Toileting independent 11/06/2025 10:51 PM Se Rivas RN Bathing independent 11/06/2025 10:51 PM Se Rivas RN Dressing independent 11/06/2025 10:51 PM Se Rivas RN Eating independent 11/06/2025 10:51 PM Se Rivas RN Communication understands/communic ates w/o difficulty 11/06/2025 10:51 PM TESTER OPERATOR Se Pelaez, RN * PT Clinical Impression Question Answer Date of Assessment Author Deficits Present That Require PT Evaluation Yes 11/10/2025 9:04 AM TESTER OPERATOR Farida Ron Physical Therapist * OT Clinical Impression Question Answer Date of Assessment Author Deficits Present That Require OT Evalution Yes 11/11/2025 12:04 PM TESTER OPERATOR Beckie Porter Occupational Therapist * Nursing Mobility Assessment (RN/NDT INSPECTOR Only) Question Answer Date of Assessment Author Is patient ambulating independently (Level 6)? No 11/13/2025 7:50 AM Blessing Parada RN * Patient Rounding Question Answer Date of Assessment Author Rounding Tasks Caregivers introduce d self;Caregiver names placed on white board;Plan of care discussed with patient;Plan of care discussed with parent/caregiver;Plan of care discussed with patient/parent/caregiver; Bedside report completed 11/13/2025 7:50 AM Fabian Parada RN * Anastasiia Ma Fall Risk on Admission Question Answer Date of Assessment Author Last Known Fall 0 11/06/2025 10:51 PM TESTER OPERATOR Se Figueroa RN Mobility 1 11/06/2025 10:51 PM Se Rivas RN Medications 0 11/06/2025 10:51 PM Se Rivas RN Mental Status/LOC/Awareness 0 11/06/2025 10 :51 PM Se Rivas RN Toileting Needs 1 11/06/2025 10:51 PM Se Oakes RN Volume/Electrolyte Status 0 11/06/2025 10:5 1 PM Se Rivas RN Communication/Sensory 0 11/06/2025 10:51 PM Se Rivas RN Behavior 0 11/06/2025 10:51 PM Se Rivas, NADEGE * Patient's Fall Risk on Admission (read only) Answer Date of Assessment Author Low 11/06/2025 10:51 PM Se Mathew RN * Current Predicted Fall Risk Designation (read only) Answer Date of Assessment Author High 11/13/2025 7:50 AM TESTER OPERATOR Backgrestela d, Cognitive Computing * Adult Acuity Scoring Question Answer Date of Assessment Author Current Predicted Fall Risk (auto calculated) 91.1 11/13/2025 7:50 AM TESTER OPERATOR Background, Cogni tive Computing documented as of this encounter Mental Status * Sedation Vitals Question Answer Entry Date Author RASS -3 11/08/2025 4:05 PM TESTER OPERATOR Paty Dixon RN * C-SSRS Daily Assessment (Since Last Asked) Question Answer Entry Date Author 1. Have you wished you were or wished you could go to sleep and not wake up? No 11/09/2025 9:05 AM Anais Rivera RN 2. Have you actually had any thoughts of killing yourself? No 11/09/2025 9:05 AM Anais Rivera RN 6. Have you ever done anythi ng, started to do anything, or prepared to do anything to end your life? No 11/09/2025 9:05 AM Anais Rivera RN * Stanford-Suicide Severity Rating Scale (Past Month) Question Answer Entry Date Author Is this encounter related to suicidal behavior/attempt? No 11/06/2025 10:00 PM Se Rivas RN * Level of Consciousness Answer Entry Date Author alert 11/12/2025 8:01 AM TESTER OPERATOR Dorothy Hernandez RN * Mellissa Coma Scale Question Answer Entry Date Author GCS (Total) 15 11/13/2025 7:50 AM Fabian Penn RN Best Eye Response 4 11/13/2025 7:50 AM Fabian Parada RN Best Verbal Response 5 11/13/2025 7:50 AM Fabian Randall RN Best Motor Response 6 11/13/2025 7:50 AM Fabian Motley RN * Pupils Question Answer Entry Date Author Shape: Right round 11/05/2025 7:00 AM Clarissa Meza RN Shape: Left round 11/05/2025 7:00 AM Clarissa Meza RN Reaction: Right equal 11/05/2025 7:00 AM TESTER OPERATOR Clarissa Valencia RN Reaction: Left equal 11/05/2025 7:00 AM TESTER OPERATOR Clarissa Pérez RN Size: Left 3 mm 11/13/2025 7:50 AM Fabian Penn RN Size: Right 3 mm 11/13/2025 7:50 AM Fabian Penn RN Pupil: PERRLA yes 11/13/2025 7:50 AM Fabian Ty RN Accommodation: Left normal response 11/09/2025 4:50 PM Anais Rivera RN Accommodation: Right normal response 11/09/2025 4:50 P M Anais Rivera RN * Pain Assessment/FLACC Question Answer Entry Date Author Pain Rating: FLACC (rest) - Face 0 11/08/2025 4:05 PM Paty Mcmanus RN Pain Rating: FLACC (rest) - Legs 0 11/08/2025 4:05 PM Paty Mcmanus RN Pain Rating: FLACC (rest) - Activity 0 11/08/2025 4:05 PM Paty Mcmanus RN Pain Rating: FLACC (rest) - Cry 0 4:05 PM Paty Mcmanus RN Pain Rating: FLACC (rest) - Consolability 0 11/08/2025 4:05 PM Paty Mcmanus RN * Mobility Assessment Question Answer Entry Date Author Weight-Bearing Status no weight-bearing restrictions 11/13/2025 7:50 AM Fabian Parada RN Motivation/Cooperation Assessment Moderate 11/13/2025 7:50 AM Fabian Parada RN * Safety Checks Question Answer Entry Date Author Armband, In Place/Activated Identification;Allerg y 11/13/2025 7:50 AM Fabian Parada RN * Cognitive/Perceptual/Neuro Question Answer Entry Date Author Motor Response: Left purposeful/movement localizing 11/13/2025 7:50 AM Fabian Parada RN Motor Response: Right purposeful/movemen t localizing 11/13/2025 7:50 AM Fabian Parada RN Vision Impairment: Left Eye blinks to visual threat 11/13/2025 7:50 AM Fabian Parada RN Vision Impairment: Right Eye blinks to visual threat 11/08/2025 10:00 AM Fabian Parada RN Orientation oriented to;person;place;time;si tuation 11/13/2025 7:50 AM Fabian Parada RN Cognitive/Perceptual/Neuro (WDL) WDL 11/13/2025 7:50 AM Fabian Parada RN Additional Assessments No 7:50 AM Fabian Parada RN Speech Clear 11/13/2025 7:50 AM Fabian Parada RN Level of Consciousness Alert, keenly responsive 11/13/2025 7:50 AM Fabian Parada RN * Cognitive/Perceptual/Neuro Care Plan Question Answer Entry Date Author Cognitive/Perceptual/Neuro Care Plan Problems Sleep pattern disturbance/Fatigue 11/13/2025 7:50 AM Fabian Parada RN Cognitive/Perceptual/Neuro Interventions Care clustered 11/13/2025 7:50 AM Fabian Parada RN * bCAM: Altered Level of Consciousness? Answer Entry Date Author Positive 11/08/2025 4:05 PM Paty Mcmanus RN * Total Answer Entry Date Author 0 11/09/2025 9:05 AM Lisa Rivera RN * Suicide Risk and Interventions Answer Entry Date Author No Risk 11/09/2025 9:05 AM Lisa Rivera, NADEGE * Confusion Assessment Method-ICU (CAM-ICU) Question Answer Entry Date Author Feature 1: Acute Onset or Fluctuating Course Negative 11/05/2025 7:00 AM TESTER OPERATOR Clarissa Trevino, NADEGE * Feature 3: Altered Level of Consciousness Answer Entry Date Author Positive 11/08/2025 4:05 PM TESTER OPERATOR Paty Monroe RN * Overall CAM-ICU Answer Entry Date Author Negative 11/05/2025 7:00 AM TESTER OPERATOR Clarissa Trevino, NADEGE * BRIDGETT Response Question Answer Entry Date Author BRIDGETT Response Activated No 11/11/2025 11:15 AM TESTER OPERATOR Afshan Montenegro LPN * Nursing Delirium Screening Checklist (NuDESC) Question Answer Entry Date Author Disorientation 0 11/13/2025 7:50 AM Fabian Ty RN Inappropriate Behavior 0 11/13/2025 7:50 AM Fabian Parada RN Inappropriate Communication 0 11/13/2025 7: 50 AM Fabian Parada RN Illusions/Hallucinations 0 11/13/2025 7:50 AM Fabian Parada RN Psychomotor Retardation 0 11/13/2025 7:50 A M Fabian Parada RN Nursing Delirium Symptom Checklist Total Score 0 11/13/2025 7:50 AM Fabian Parada RN Delirium Present No 11/13/2025 7:50 AM Fabian Gonzales RN * C-SSRS Daily Assessment (Since Last Asked) Question Answer Entry Date Author 2. Have you actually had thoughts about killing yourself? No 11/13/2025 7:50 AM Fabian Parada RN 6. Have you done anything, started to do anything, or prepared to do anything to end your life? No 11/13/2025 7:50 AM Fabian Parada RN * Suicide Risk and Interventions Answer Entry Date Author No Risk 11/13/2025 7:50 AM Fabian Parada RN * Violence Assessment Tool Risk Indicators Question Answer Entry Date Author Violence Assessment Tool Total Score 0 11/13/2025 7:50 AM Fabian Parada RN Assessment Type Reassessment 11/13/2025 7:50 AM Fabian Cox RN History of Violence 0 11/13/2025 7:50 AM Fabian Howe RN Confused 0 11/13/2025 7:50 AM TESTER OPERATOR Fabian Blanco RN Irritable 0 11/13/2025 7:50 AM TESTER OPERATOR Fabian Blanco, RN Boisterous 0 11/13/2025 7:50 AM TESTER OPERATOR Fabian Blanco RN Verbal Threats 0 11/13/2025 7:50 AM TESTER OPERATOR Fabian Chaney RN Physical Threats 0 11/13/2025 7:50 AM TESTER OPERATOR Fabian Crystal RN Attacking Objects 0 11/13/2025 7:50 AM TESTER OPERATOR Fabian Catalan, RN Agitated/Impulsive 0 11/13/2025 7:50 AM TESTER OPERATOR Fabian Catalan, RN Paranoid/Suspicious 0 11/13/2025 7:50 AM CS Fabian Motley RN Substance Intoxication/Withdrawal 0 11/13/2025 7:50 AM TESTER OPERATOR Nichole Catalan RN Socially Inappropriate/Disruptive Behavior 0 11/13/2025 7:50 AM TESTER OPERATOR Fabian Catalan RN Body Language 0 11/13/2025 7:50 AM TESTER OPERATOR Fabian Grant, NADEGE * Violence Risk Question Answer Entry Date Author Are you concerned about the patient's violence risk? No 11/11/2025 11:15 AM TESTER OPERATOR Danica Montenegro LPN * Nursing Report Question Answer Entry Date Author Mental Status Altered 11/08/2025 4:17 PM TESTER OPERATOR Paty Carmona, RN * Violence Assessment Tool Total Score Answer Entry Date Author 0 11/13/2025 7:50 AM TESTER OPERATOR Fabian Catalan, RN documented in this encounter Discharge Summaries * John Carmen MD - 11/08/2025 2:57 PM CST Images from the original note were not included. [facility]- Discharge Summary uLpe Galo 65 y.o. female 1960 CSN: [id number] Date of Admission: 11/04/2025 Date of Discharge: 11/12/2025 LOS: 8 days Discharging Physician: John Carmen MD PCP: Ina Altamirano MD Code Status at Discharge: NO CPR (In Event of Cardiopulmonary Arrest) Dispo: Home Labs and studies from this hospitalization needing follow up: Pending Labs Order Current Status PROTEIN ELECTROPHORESIS W/REFLEX,SERUM Preliminary result Above blood cultures in 11/05/2025 are final no growth on 11/10 Abnormal Imaging: Exam: CT HEAD WO CONTRAST Date/Time of Exam: 11/06/2025 4:28 PM Reason For Exam: Neuro deficit, acute, stroke suspected, Slurred speech, elevated INR. Technique: Contiguous axial images were obtained through the head without IV contrast. Findings: Mild generalized atrophy is present. Diffuse hypodensity is seen in the periventricular white matter, consistent with changes of chronic small vessel disease. There is no evidence of any intracranial hemorrhage or abnormal extra axial fluid collections. There is no midline shift or mass effect and the basilar cisterns are patent. No fractures are seen at the levels that were scanned. IMPRESSION: Mild generalized parenchymal atrophy and chronic small vessel disease are present. Exam Ended: 11/06/25 16:28 TESTER OPERATOR Last Resulted: 11/06/25 16:47 TESTER OPERATOR Venous ultrasound Noninvasive venous study performed on: [] Right [x] Left A. [] There are no echo images consistent with acute venous obstruction throughout the venous system scanned. B. [x] Imaging is consistent with an obstruction in the [x] Superfical venous [] Deep venous sytem [] Right [x] Left [] Jugular [] Jugular [] Subclavian [] Subclavian [] Upper Arm [] Upper Arm [] Forearm [x] Forearm (cephalic v) arterial ultrasound NONINVASIVE ARTERIAL STUDY OF THE: [] Legs [x] Arm (L) A.[]Pressure index [x]Duplex measurements are consistent with no arterial obstruction on the [] Right [x] Left Follow up with PCP: Follow-up: You must follow up with Ina Altamirano MD in 3-5 days Follow up with Consultants: With nephrology and wound care as per their directives Plan hemodialysis as per neph TIW Discharge Condition: stable Primary Discharge Diagnosis: Acute kidney injury superimposed on stage 4 chronic kidney disease (CMS/HCC) Other Active medical issues also addressed during this admission: Active Hospital Problems Diagnosis Slurred speech Longstanding persistent atrial fibrillation (CMS/HCC) Acute respiratory failure with hypoxia (CMS/HCC) Transaminitis Volume overload Supratherapeutic INR Acute on chronic diastolic (congestive) heart failure (CMS/HCC) Acute kidney injury superimposed on stage 4 chronic kidney disease (CMS/HCC) Paroxysmal atrial fibrillation (CMS/HCC) Chronic anticoagulation Hypothyroidism Resolved Hospital Problems No resolved problems to display. HOSPITAL COURSE: Lupe Galo is a 65-year-old female with a history of chronic kidney disease, congestive heart failure, atrial fibrillation, and hypothyroidism who was admitted on 11/04/2025 for acute hypoxic respiratory failure, renal failure, and heart failure exacerbation following transfer from an outside hospital. She initially presented with significant weight gain, dyspnea, orthopnea, and hypoxia unresponsive to diuresis, prompting initiation of hemodialysis for volume overload. The principal problemduring this admission was acute kidney injury superimposed on stage 4 chronic kidney disease, confirmed by elevated creatinine, reduced GFR, and persistent volume overload despite diuretic therapy. Nephrology was consulted and serial laboratory assessments demonstrated worsening renal function, with creatinine peaking at 4.4 mg/dL and GFR as low as 13 mL/min/1.73m??. She underwent intermittent hemodialysis and sustained low- efficiency dialysis (SLED), with net fluid removal of up to 4L, resulting in gradual improvement in respiratory status and volume overload. A tunneled dialysis catheter was planned once her supratherapeutic INR improved, as she was initially managed with a temporary dialysis line placed at the outside facility. Her acute on chronic diastolic heart failure was managed with volume removal via dialysis, and guideline-directed medical therapy was held to avoid hypotension during ultrafiltration. Echocardiography revealed preserved ejection fraction (LVEF 60%), grade 2 diastolic dysfunction, moderate left atrial enlargement, and valvular abnormalities including moderate mitral regurgitation and mild aortic stenosis. 11/06 Patient is currently hemodynamically stable. Is on 5LNC. Underwent HD this morning. For dialysis access she has right IJ catheter. She reports a persistent slurring of speech that has been there for several days, MRI of brain was requested by critical care service, this is pending at this time. Will request CT brain and request BEAN PICKER MACHINE OPERATOR evaluation INR at 2.5, continue holding AC. Plan for tunneled catheter once INR is acceptable 11/07 Assigned/assumed care of this 65-year-old female with known CKD 4 A-fib hypertension CAR-T-PE hypothyroid bilateral pleural effusions admitted 11/04 with acute hypoxic respiratory failure and secondary to volume overload secondary to diastolic CHF exacerbation. -Patient initially required ICU BiPAP and is now down to 5 L -She has undergone hemodialysis with ultrafiltration on 11/06 with plan on placement of hemodialysis catheter tomorrow if her INR is sufficiently decreased is down to 1.9 and dropping daily. - Plan is for more ultrafiltration tomorrow. -Per nephrology hold on GDMT as I do not want to drop the blood pressure if she needs further ultrafiltration tomorrow await echocardiogram thought to have diastolic heart failure -regarding her anemia SPEP iron levels are pending will plan to dose iron tomorrow per nephrology 11/08 arterial studies are negative and venous studies are positive for left upper extremity cephalic vein superficial vein thrombosis will elevate and may use warm compresses. Plan was to proceed with tunneled dialysis catheter per IR today with Dr. Carmichael then to proceed to dialysis this afternoon blood cultures are negative at 48 hours INR is 1.7 CT of the head without changes compared with recent CT head. Patient complains of burning pain in the right posterior calf and lateral calf but arterial and venous studies are negative. Initiated on Lyrica 25 mg p.o. twice daily and will escalate until symptoms resolved/improved Addendum patient has been unable to tolerate MRI of the brain she is given Ativan 1 mg but may yet be unable to undertake MRI. 11/09 pt received her RIJ tunnelled HD cath courtesy Dr Carmichael IR on 11/08 and successfully utilized for UF of 2.3L. She is medically stable for discharge with planned HD on Saturday 11/10. Janet with [facility] reported [place] with no openings, family remarked they have second facility in mind, urged tonotify case management [facility] 11/10 patient is clinically ready for discharge and on 11/09 DA 124 is completed ,placement at SNF and insurance authorization are both pending. Resumed anticoagulation Eliquis for A-fib last eveningand hemoglobin actually increasing with no evidence of bleeding, continue same. Currently saturating 95-98% on 3 L O2 per nasal cannula. Net -6 L 11/11 pt seen in HD, up in chair, tolerating well, Plan d/c today PCP COMMUNICATION : Ina Altamirano MD via [employer] communication MEDICATION CHANGES (significant): Initiated Eliquis 5 mg p.o. twice daily, lidocaine patch, Protonix 40 mg a day Changed Lopressor to 12.5 mg twice a day and decrease levothyroxine to 175 mcg daily Hold HCTZ= hydrochlorothiazide and torsemide Stop omeprazole MEDICATION RECONCILIATION: Current and discharge medications reviewed and reconciled: Yes Consultants: IP CONSULT TO WOUND/SKIN CARE TEAM IP CONSULT TO NEPHROLOGY IP CONSULT TO CARDIAC REHAB IP CONSULT TO INTERVENTIONAL RADIOLOGY IP CONSULT TO IV TEAM Procedures performed: 11/12 1150 Note By: Radha Hernandez RN 11/11 1308 Note By: Vahid Pelletier PCT 11/11 1059 Note By: Sarah Owusu RN DISCHARGE MEDICATIONS: Medication List PAUSE taking these medications hydroCHLOROthiazide 12.5 mg tablet Wait to take this until your doctor or other care provider tells you to start again. Take 25 mg by mouth daily. Refills: 0 torsemide 40 mg Tablet Wait to take this until your doctor or other care provider tells you to start again. Take 20 mg by mouth. Refills: 0 START taking these medications apixaban 5 mg tablet Commonly known as: ELIQUIS Take 1 Tablet (5 mg) by mouth 2 times daily. Signed by: Dr. Roberto Carmen Refills: 0 Lidocaine 4 % Adhesive Patch, Medicated Apply to site of pain in the a.m. and remove nightly or after 12 hours Signed by: Dr. Roberto Carmen Refills: 0 * miconazole 2 % Cream Commonly known as: JYOTI,MICOTIN,REMEDY AF Apply to affected area 2 times daily. Signed by: Dr. Roberto Carmen Refills: 0 * miconazole nitrate 2 % Powder Commonly known as: REMEDY-AF,ZEASORB-AF Apply to affected area 2 times daily. Signed by: Dr. Roberto Carmen Refills: 0 pantoprazole 40 mg Tablet, Delayed Release (E.C.) Commonly known as: PROTONIX Take 1 Tablet (40 mg) by mouth daily before breakfast. Signed by: Dr. Roberto Carmen Refills: 0 Replaces: omeprazole magnesium 20 mg Tablet, Delayed Release (E.C.) * !!Potential duplicate medications found. Review medication list carefully. CHANGE how you take these medications gabapentin 100 mg capsule Commonly known as: NEURONTIN What changed: medication strength how much to take Take 1 Capsule (100 mg) by mouth 3 times daily. Signed by: Dr. Roberto Carmen Refills: 0 levothyroxine 175 mcg tablet Commonly known as: SYNTHROID What changed: medication strength how much to take when to take this Take 1 Tablet (175 mcg) by mouth daily in the morning. Signed by: Dr. Roberto Carmen Refills: 0 metoprolol tartrate 25 mg tablet Commonly known as: LOPRESSOR What changed: medication strength how much to take when to take this Take 0.5 Tablets (12.5 mg) by mouth 2 times daily. Signed by: Dr. Roberto Carmen Refills: 0 CONTINUE taking these medications acetaminophen 500 mg tablet Commonly known as: TYLENOL Take 500 mg by mouth. Refills: 0 albuterol sulfate 90 mcg/Actuation inhaler Take 2 Puffs by inhalation every 6 hours as needed for Shortness of Breath. Refills: 0 atorvastatin 80 mg tablet Commonly known as: LIPITOR Take 80 mg by mouth daily. Refills: 0 Cholecalciferol (Vitamin D3) 50 mcg (2,000 unit) Capsule Take 2,000 Units by mouth daily. Refills: 0 eixjzgnnipy-bwvuzyxrimpv-fazdabpudr 200-62.5-25 mcg Disk with Device Commonly known as: TRELEGY ELLIPTA .COMPLEX Refills: 0 STOP taking these medications omeprazole magnesium 20 mg Tablet, Delayed Release (E.C.) Commonly known as: PriLOSEC Replaced by: pantoprazole 40 mg Tablet, Delayed Release (E.C.) Where to Get Your Medications Information about where to get these medications is not yet available Ask your nurse or doctor about these medications apixaban 5 mg tablet gabapentin 100 mg capsule levothyroxine 175 mcg tablet Lidocaine 4 % Adhesive Patch, Medicated metoprolol tartrate 25 mg tablet miconazole 2 % Cream miconazole nitrate 2 % Powder pantoprazole 40 mg Tablet, Delayed Release (E.C.) No future appointments. Activity level: up as tolerated Diet: DIET RENAL Wound Care: Current Wound Orders (720h ago, onward) Start Ordered 11/05/25 1800 WOUND CARE TWO TIMES DAILY Comments: Abdomen- clean area, apply antifungal powder BID and PRN Coccyx- clean area, apply JYOTI BID and PRN Question: Body Area? Answer: Other (Comment) 11/05/25 1236 DISCHARGE EXAM: BP (!) 135/92 (BP Location: Left arm, Patient Position (BP): Sitting) Comment (BP Location): lower area Pulse 72 Temp 97.7 ??F (36.5 ??C) (Oral) Resp 20 Ht 5' 4 (1.626 m) Wt 124.6 kg (274 lb 9.6 oz) SpO2 99% BMI 47.13 kg/m?? Last documented weight: Weight: 124.6 kg (274 lb 9.6 oz) (11/11/25 1043) Reexamined at bedside 11/12 unchanged GENERAL APPEARANCE: alert, oriented, affect appropriate,following commands HEENT: PERRL, conjunctiva/ lids clear, neck supple, right tunnelled cath RIJ with overlying ecchymosis and ext down below insertion site and will travel distally over the ensuing days. No hematoma NEURO:CN2-12 wnl, PERRL moving all extremities spontaneously and symmetrically, CARDIOVASCULAR: regular rate and rhythm, S1, S2 normal, no murmur, click, rub or gallop, LUNGS: Minimally diminished bibasilarly but clear to auscultation bilaterally anteriorly and posteriorly.No wheezing noted. No increased work of breathing noted at rest CHEST WALL EXAM: no crepitance,nontender BACK: symmetric excursion, ABDOMEN: benign, normoactive bowel sounds, no organomegaly or masses, no rebound , no guarding, Non distended, soft, nontender to mod diffuse palpation EXTREMITIES: extremities without edema, no cyanosis, warm and well perfused,No calf or thigh erythema,tenderness or edema, SKIN: intact, no jaundice, IV sites clean, dry Home Healthcare Is this patient being discharged with Home Health? No Total time spent on discharge services today including examining and educating the patient and available family members, writing prescriptions and reviewing the discharge medication list, documentingthis discharge summary and coordinating outpatient care and follow up required >30 minutes. ER OPERATOR documented in this encounter Discharge Instructions * Discharge Instructions* Ai Haas, [facility] - 11/06/2025 10:44 AM TESTER OPERATOR Thank you for participating in your heart failure education. It's really important to know how to take care of your heart! If you have any questions or need help, please ask us anytime. Heart Failure means that your heart does not pump enough blood to meet your body???s needs. Sometimes fluid can back up into your lungs causing shortness of breath. Or fluid can back up into other parts of your body--you may notice swelling in your legs, feet or in your stomach area. As you retain fluid, your weight will go up. You may feel tired and not feel like eating. Most people tend to havethe same symptoms each time their heart failure worsens. Important steps you can take to be healthy Follow a low salt diet by using a salt substitute to season your food, choosing low or no salt foods and not adding additional salt to your meals. Monitor fluid intake. Restrict fluids if ordered by your provider. Take your medications as instructed Try to stay active. Rest when tired. If you are a SMOKER or use TOBACCO products, you are advised to QUIT! Heart failure zones give you an easy way to see changes in your heart failure symptoms. They also tell you when you need to get help. Check every day to see which zone you are in: HEART FAILURE ZONE MANAGEMENT EVERYDAY: Weigh yourself in the morning after going to the bathroom but before eating or drinking. Record your weight on your CHF Daily Record Sheet (in your Living With Heart Failure booklet) and compare it to the prior day???s weight. Take your medicine as prescribed. Check your feet, ankles, legs, and abdomen for swelling. Assess your breathing (was it difficult to lay flat or are you more short of breath). Eat low salt food. Balance activity and rest periods. What Heart Failure Zone are you today? GREEN, YELLOW, or RED? GREEN ZONE: All CLEAR when: Your weight is stable. You have no trouble breathing. You can do your normal activity. You have no changes in your symptoms. YELLOW ZONE: CAUTION! Call your health care provider today: Your Primary Care Team is available 06/06. Please Contact: Ina Altamirano MD {No department listed for PCP} Your weight goes up 2 pounds in one day or 4-ht-3-pound gradual weight gain over a week. You have more swelling in your feet, ankles, legs, or abdomen. Increased shortness of breath. You have a dry cough that does not go away. You use 2 or more pillows or a recliner to breathe better at night and this is new for you. You feel more tired or have less energy than usual. You have SIDE EFFECTS from your medicines. RED ZONE: MEDICAL ALERT EMERGENCY! CALL RIGHT AWAY when: You have unrelieved shortness of breath at rest or struggling to breathe. You have unrelieved chest pain. You have unrelieved wheezing or chest tightness at rest. You are having confusion or cannot think clearly. CALL 911 for severe shortness of breath or chest pain that will not go away. ER OPERATOR * Attachments The following attachments cannot be sent through Care Everywhere. * Apixaban (Mauritanian) * Pantoprazole (Mauritanian) documented in this encounter Medications at Time of Discharge apixaban (ELIQUIS) 5 mg tablet Take 1 Tablet (5 mg) by mouth 2 times daily. 11/12/2025 gabapentin (NEURONTIN) 100 mg capsule Take 1 Capsule (100 mg) by mouth 3 times daily. 11/12/2025 levothyroxine 175 mcg tablet Take 1 Tablet (175 mcg) by mouth daily in the morning. 11/12/2025 Lidocaine 4 % Adhesive Patch, Medicated Apply to site of pain in the a.m. and remove nightly or after 12 hours 11/12/2025 metoprolol tartrate (LOPRESSOR) 25 mg tablet Take 0.5 Tablets (12.5 mg) by mouth 2 times daily. 11/12/2025 miconazole (JYOTI,MICOTIN,RE MEDY AF) 2 % Cream Apply to affected area 2 times daily. 11/12/2025 miconazole nitrate (REMEDY-AF,ZEASO RB-AF) 2 % Powder Apply to affected area 2 times daily. 11/12/2025 pantoprazole (PROTONIX) 40 mg Tablet, Delayed Release (E.C.) Take 1 Tablet (40 mg) by mouth daily before breakfast. 11/12/2025 acetaminophen (TYLENOL) 500 mg tablet Take 500 mg by mouth. atorvastatin (LIPITOR) 80 mg tablet Take 80 mg by mouth daily. 08/15/2023 Cholecalciferol, Vitamin D3, 50 mcg (2,000 unit) Capsule Take 2,000 Units by mouth daily. fluticasone-umec lidinium-vilante rol (TRELEGY ELLIPTA) 200-62.5-25 mcg Disk with Device .COMPLEX 06/08/2022 hydroCHLOROthiaz caty 12.5 mg tablet Take 25 mg by mouth daily. torsemide 40 mg Tablet Take 20 mg by mouth. 06/25/2022 albuterol sulfate HFA 90 mcg/actuation aerosol inhaler Take 2 Puffs by inhalation every 6 hours as needed for Shortness of Breath. documented as of this encounter Progress Notes * Lewis Rdz MD - 11/13/2025 10:57 AM CST Nephrology Progress Note Attending Physician: Gregg Silva MD Reason for consultation: Chronic kidney disease stage 4, volume overload. Patient is a 65 y.o. female with a past medical history significant for advancing CKD 4, CHF, HTN, and afib Patient presented to OSH with increased shortness of breath. + wt. Gain. CHF exacerbation. Creatinine of 4 on arrival there. She had HD x 1 for acute hypoxia and fluid overload. She is now inICU here. + dyspnea, + edema, + hypoxia. Per OSH did not respond well to diuretics. Subjective- tolerating HD in bed. No increase in dyspnea. No past medical history on file. No past surgical history on file. Medications Prior to Admission Medication Sig Dispense Refill Last Dose/Taking gabapentin (NEURONTIN) 300 mg capsule Take 1 Capsule by mouth 3 times daily. Taking acetaminophen (TYLENOL) 500 mg tablet Take 500 mg by mouth. atorvastatin (LIPITOR) 80 mg tablet Take 80 mg by mouth daily. Cholecalciferol, Vitamin D3, 50 mcg (2,000 unit) Capsule Take 2,000 Units by mouth daily. qqhnmvmnabb-bdexudnhowtr-uxqbcdzgmv (TRELEGY ELLIPTA) 200-62.5-25 mcg Disk with Device .COMPLEX [Paused] hydroCHLOROthiazide 12.5 mg tablet Take 25 mg by mouth daily. levothyroxine 200 mcg tablet Take 200 mcg by mouth. metoprolol tartrate (LOPRESSOR) 50 mg tablet Take 50 mg by mouth daily. omeprazole magnesium (PriLOSEC) 20 mg Tablet, Delayed Release (E.C.) Take 1 Tablet by mouth daily. [Paused] torsemide 40 mg Tablet Take 20 mg by mouth. albuterol sulfate HFA 90 mcg/actuation aerosol inhaler Take 2 Puffs by inhalation every 6 hours as needed for Shortness of Breath. [DISCONTINUED] rivaroxaban (XARELTO) 20 mg Tablet Take 20 mg by mouth daily. No Known Allergies Social History Tobacco Use Smoking status: Former Current packs/day: 0.00 Types: Cigarettes Quit date: 06/2020 Years since quittin.4 Smokeless tobacco: Not on file Substance Use Topics Alcohol use: Not on file No family history on file. Review of Systems History obtained from the patient tired post Line placement General ROS: no fever Respiratory ROS: + dyspnea Cardiovascular ROS: + orthopnea, + edema Gastrointestinal ROS: no nausea or vomiting Objective: BP (!) 140/93 (BP Location: Left arm, Patient Position (BP): Supine) Pulse 78 Temp 97.6 ??F (36.4 ??C) (Temporal) Resp 16 Ht 5' 4 (1.626 m) Wt 124.6 kg (274 lb 9.6 oz) SpO2 95% BMI 47.13 kg/m?? General appearance: alert, + respiratory distress, obese Head: purple lips Lungs: coarse bilateral Heart: normal rate, regular rhythm, normal S1, S2, no murmurs, rubs, clicks or gallops Abdomen:obese Extremities:2+ edema Skin: + pallor Neurologic: Grossly normal Data Review: Results for orders placed or performed during the hospital encounter of 11/04/25 (from the past 24 hours) COMPREHENSIVE METABOLIC PANEL Result Value Ref Range SODIUM 136 136 - 145 mmol/L POTASSIUM 3.6 3.5 - 5.1 mmol/L CHLORIDE 98 98 - 107 mmol/L CO2 29 22 - 29 mmol/L CALCIUM 8.6 (L) 8.8 - 10.2 mg/dL BUN 22 8 - 23 mg/dL CREATININE 1.59 (H) 0.51 - 0.95 mg/dL GLUCOSE 100 (H) 74 - 99 mg/dL TOTAL PROTEIN 6.1 (L) 6.4 - 8.3 g/dL ALBUMIN 3.1 (L) 3.5 - 5.2 g/dL BILIRUBIN TOTAL 0.9 0.0 - 1.0 mg/dL ALKALINE PHOSPHATASE 170 (H) 35 - 104 U/L AST 31 10 - 35 U/L ALT 22 <=35 U/L GFR 35 (L) >=60 mL/min/1.73 sq meter ANION GAP 9 9 - 20 mmol/L CBC WITH DIFFERENTIAL Result Value Ref Range WBC 8.5 4.8 - 10.8 K/uL RBC 3.46 (L) 4.20 - 5.40 M/uL HEMOGLOBIN 8.4 (L) 12.0 - 16.0 g/dL HEMATOCRIT 29.7 (L) 36.0 - 46.0 % MCV 85.8 84.0 - 103.0 fL MCH 24.3 (L) 27.0 - 34.0 pg MCHC 28.3 (L) 30.0 - 35.0 g/dL PLATELETS 247 140 - 440 K/uL MPV 10.6 8.9 - 12.8 fL RDW 19.1 (H) 11.0 - 14.5 % RDW-STDEV 58.7 (H) 37.0 - 54.0 fL NEUTROPHILS 70 42 - 75 % LYMPHOCYTES 11 (L) 24 - 44 % MONOCYTES 15 (H) 2 - 10 % EOSINOPHILS 3 0 - 7 % BASOPHILS 0 0 - 1 % IMMATURE GRANULOCYTES 2 0 - 2 % NEUTROPHIL ABSOLUTE 5.91 2.00 - 8.00 K/uL LYMPHOCYTE ABSOLUTE 0.92 (L) 1.20 - 4.00 K/uL MONOCYTE ABSOLUTE 1.23 (H) 0.10 - 0.60 K/uL EOSINOPHIL ABSOLUTE 0.21 0.00 - 0.70 K/uL BASOPHILS ABSOLUTE 0.03 0.00 - 0.20 K/uL IMMATURE GRANULOCYTES ABSOLUTE 0.16 (H) 0.00 - 0.10 K/uL SMEAR REVIEWED: NN - No Action Needed PHOSPHORUS Result Value Ref Range PHOSPHORUS 2.8 2.5 - 4.5 mg/dL Assessment/Plan ROSANNE on CKD 4- with high likelihood to be ESRD. Creatinine did hold around 1.59 without HD. Planned to do HD TTS in [place]. Can monitor fluid and recovery there. HD started 11/04 and getting HD today UF 2-3L. Tunneled HD cath 11/08. Hypoxia- better with UF. Came in with significant volume overloaded. Wean o2 needs. 3. CHF- UF as noted above. Symptoms and fluid status improved. 4. HTN- BP came down with UF. Diastolic HF. 5. Anemia- iron def. Dosed IV iron. Dosed CHARISSA . SPEP pending. ER OPERATOR * Austyn Mantilla RN - 11/12/2025 12:48 PM CST Discharge paperwork faxed to [facility] ER OPERATOR * Shannon Dumont - 11/12/2025 9:48 AM CST 11/12/25 0900 Discharge Plan Plan [facility]charge To [facility] Care Facility Name Critical access hospital Post-Acute Ins Auth Information Level of Care SNF Submission Type Availity Insurance Type Medicare A[employer] Date Auth Requested 11/12/25 Time Auth Requested 0939 Date of Initiation 11/12/25 Time of Initiation 0947 Escalation N Date of Initial Detemination 11/12/25 Time of Initial Detemination 0947 Initial determination Approved Pending Insurance Auth#/Ref# [id number] Ins Auth Approval # [id number] Avoidable Days N Comments/Barriers Approved, 11/12/25-11/18/25 ER OPERATOR * John Carmen MD - 11/11/2025 7:37 PM CST Images from the original note were not included. Your life is our life's work [facility] Hospitalist/[facility] Medicine Progress Note LOS: 7 days [facility] Patient name: Lupe Galo Date of : 1960 HOSPITAL COURSE SUMMARY: Lupe Galo is a 65-year-old female with a history of chronic kidney disease, congestive heart failure, atrial fibrillation, and hypothyroidism who was admitted on 11/04/2025 for acute hypoxic respiratory failure, renal failure, and heart failure exacerbation following transfer from an outside hospital. She initially presented with significant weight gain, dyspnea, orthopnea, and hypoxia unresponsive to diuresis, prompting initiation of hemodialysis for volume overload. The principal problemduring this admission was acute kidney injury superimposed on stage 4 chronic kidney disease, confirmed by elevated creatinine, reduced GFR, and persistent volume overload despite diuretic therapy. Nephrology was consulted and serial laboratory assessments demonstrated worsening renal function, with creatinine peaking at 4.4 mg/dL and GFR as low as 13 mL/min/1.73m??. She underwent intermittent hemodialysis and sustained low- efficiency dialysis (SLED), with net fluid removal of up to 4L, resulting in gradual improvement in respiratory status and volume overload. A tunneled dialysis catheter was planned once her supratherapeutic INR improved, as she was initially managed with a temporary dialysis line placed at the outside facility. Her acute on chronic diastolic heart failure was managed with volume removal via dialysis, and guideline-directed medical therapy was held to avoid hypotension during ultrafiltration. Echocardiography revealed preserved ejection fraction (LVEF 60%), grade 2 diastolic dysfunction, moderate left atrial enlargement, and valvular abnormalities including moderate mitral regurgitation and mild aortic stenosis. 11/06 Patient is currently hemodynamically stable. Is on 5LNC. Underwent HD this morning. For dialysis access she has right IJ catheter. She reports a persistent slurring of speech that has been there for several days, MRI of brain was requested by critical care service, this is pending at this time. Will request CT brain and request BEAN PICKER MACHINE OPERATOR evaluation INR at 2.5, continue holding AC. Plan for tunneled catheter once INR is acceptable 11/07 Assigned/assumed care of this 65-year-old female with known CKD 4 A-fib hypertension CAR-T-PE hypothyroid bilateral pleural effusions admitted 11/04 with acute hypoxic respiratory failure and secondary to volume overload secondary to diastolic CHF exacerbation. -Patient initially required ICU BiPAP and is now down to 5 L -She has undergone hemodialysis with ultrafiltration on 11/06 with plan on placement of hemodialysis catheter tomorrow if her INR is sufficiently decreased is down to 1.9 and dropping daily. - Plan is for more ultrafiltration tomorrow. -Per nephrology hold on GDMT as I do not want to drop the blood pressure if she needs further ultrafiltration tomorrow await echocardiogram thought to have diastolic heart failure -regarding her anemia SPEP iron levels are pending will plan to dose iron tomorrow per nephrology 11/08 arterial studies are negative and venous studies are positive for left upper extremity cephalic vein superficial vein thrombosis will elevate and may use warm compresses. Plan was to proceed with tunneled dialysis catheter per IR today with Dr. Carmichael then to proceed to dialysis this afternoon blood cultures are negative at 48 hours INR is 1.7 CT of the head without changes compared with recent CT head. Patient complains of burning pain in the right posterior calf and lateral calf but arterial and venous studies are negative. Initiated on Lyrica 25 mg p.o. twice daily and will escalate until symptoms resolved/improved 11/09 pt received her RIJ tunnelled HD cath courtesy Dr Jany MAYO on 11/08 and successfully utilized for UF of 2.3L. She is medically stable for discharge with planned HD on Saturday 11/10. Janet with [facility] with no openings, family remarked they have second facility in mind, urged tonotify case management [facility] 11/10 patient is clinically ready for discharge and on 11/09 DA 124 is completed ,placement at [facility] and insurance authorization are both pending. Resumed anticoagulation Eliquis for A-fib last eveningand hemoglobin actually increasing with no evidence of bleeding, continue same. Currently saturating 95-98% on 3 L O2 per nasal cannula. Net -6 L 11/11 Today now instructed pt must have had HD sitting up in chair--after she was in dialysis. She could easily have done so today had we known that was requirement. Now ill have to undertake with next HD unknown when that will occur, likely MWF schedule so not until 11/13 pending placement [facility] or [place], pt seen in HD with daughter at bedside,reportedly schedule TTS while at facility [facility] SNF at [place] accepted there [facility] (?dialysis?) waiting on HD run sheets and chair HD completing. PT OT today for insur auth Pt must have 3 HD runs and dialyze sitting up in chair before acceptance and d/c to [facility] Pt feels well, tolerating HD well.. Consultants: IP CONSULT TO WOUND/SKIN CARE TEAM IP CONSULT TO NEPHROLOGY IP CONSULT TO CARDIAC REHAB IP CONSULT TO INTERVENTIONAL RADIOLOGY IP CONSULT TO IV TEAM SUBJECTIVE: denied new concerns ROS remains negative except as above 11/11 OBJECTIVE: Temp (24hrs), Av.1 ??F (36.7 ??C), Min:97.6 ??F (36.4 ??C), Max:98.9 ??F (37.2 ??C) BP 114/58 (BP Location: Left arm, Patient Position (BP): Supine) Pulse 76 Temp 98.9 ??F (37.2 ??C) (Temporal) Resp 20 Ht 5' 4 (1.626 m) Wt 124.6 kg (274 lb 9.6 oz) SpO2 98% BMI 47.13 kg/m?? Intake/Output Summary (Last 24 hours) at 11/11/20251936 Last data filed at 11/11/2025 1754 Gross per 24 hour Intake 500 ml Output 3502 ml Net -3002 ml Last documented weight: Weight: 124.6 kg (274 lb 9.6 oz) (11/11/25 1043) EXAM: re Examined at bedside in HD 11/11 unchanged GENERAL APPEARANCE: alert, oriented, affect appropriate,following commands HEENT: PERRL, conjunctiva/ lids clear, neck supple, right tunnelled cath RIJ with overlying ecchymosis and ext down below insertion site and will travel distally over the ensuing days. No hematoma NEURO:CN2-12 wnl, PERRL moving all extremities spontaneously and symmetrically, CARDIOVASCULAR: regular rate and rhythm, S1, S2 normal, no murmur, click, rub or gallop, LUNGS: Minimally diminished bibasilarly but clear to auscultation bilaterally anteriorly and posteriorly.No wheezing noted. No increased work of breathing noted at rest CHEST WALL EXAM: no crepitance,nontender BACK: symmetric excursion, ABDOMEN: benign, normoactive bowel sounds, no organomegaly or masses, no rebound , no guarding, Non distended, soft, nontender to mod diffuse palpation EXTREMITIES: extremities without edema, no cyanosis, warm and well perfused,No calf or thigh erythema,tenderness or edema, SKIN: intact, no jaundice, IV sites clean, dry LABORATORY: Recent Labs 11/09/25 0523 11/10/25 0605 11/11/25 0437 WBC 10.0 9.6 8.0 HGB 8.1* 8.7* 8.3* HCT 28.3* 30.7* 29.4* PLT 180 228 222 Recent Labs 11/09/25 0523 11/10/25 0605 11/11/25 0437 NA 136 138 137 K 3.5 3.9 3.7 CL 98 98 97* CO2 27 27 26 CA 8.6* 8.8 8.7* BUN 26* 38* 43* CREAT 2.21* 2.79* 2.55* GLUCOSE 93 100* 123* Recent Labs 11/09/25 0523 11/10/25 0605 11/11/25 0437 TOTALPROTEIN 5.9* 6.6 6.2* ALBUMIN 3.2* 3.5 3.2* BILITOTAL 1.0 0.9 0.8 ALKPHOS 207* 217* 206* AST 41* 48* 40* ALT 66* 47* 29 No results for input(s): INR , PT in the last 72 hours. Invalid input(s): PTT No results for input(s): BASETROP , 2HRTROP , DELTA , 6HRTROP in the last 72 hours. Diagnostic testing reviewed. Medications were reviewed by me. Current Facility-Administered Medications: [COMPLETED] iron sucrose (VENOFER) 100 mg iron/5 mL injection 200 mg, 200 mg, IV, ONE time only, Lewis Rdz MD, 200 mg at 11/11/25 1532 gabapentin (NEURONTIN) capsule 100 mg, 100 mg, Oral, TID, John Carmen MD, 100 mg at 11/11/25 1819 apixaban (ELIQUIS) tablet 5 mg, 5 mg, Oral, BID, John Carmen MD, 5 mg at 11/11/25 1159 albuterol sulfate 90 mcg/Actuation inhaler 2 Puff, 2 Puff, Inhalation, resp, every 6 hours PRN, John Carmen MD atorvastatin (LIPITOR) tablet 80 mg, 80 mg, Oral, daily, John Carmen MD, 80 mg at 11/11/25 1532 cholecalciferol (VITAMIN D3) tablet 2,000 Units, 2,000 Units, Oral, daily, John Carmen MD, 2,000 Units at 11/11/25 1159 Lidocaine 4 % topical patch 1 Patch, 1 Patch, Topical, daily, John Carmen MD, 1 Patch at 11/11/25 1159 dextrose 5% - sodium chloride 0.45% infusion, , IV, intra-proc continuous, Remy Carmichael MD, Stopped at 11/08/25 1602 sodium chloride 0.9 % bolus solution 1,000 mL, 1,000 mL, See Admin Instructions, see admin instructions, Ruby Suero FNP, Stopped at 11/11/25 0851 acetaminophen (TYLENOL) tablet 500 mg, 500 mg, Oral, every 6 hours PRN, Leon Echols MD, 500 mg at 11/11/25 1159 levothyroxine (SYNTHROID) tablet 175 mcg, 175 mcg, Oral, daily EARLY, Leon Echols MD, 175 mcg at 11/11/25 0613 pantoprazole (PROTONIX) tablet 40 mg, 40 mg, Oral, daily BEFORE breakfast, Leon Echols MD, 40 mg at 11/11/25 1159 ondansetron (ZOFRAN) 4 mg/2 mL injection 4 mg, 4 mg, IV, every 6 hours PRN, Leon Echols MD, 4 mg at 11/11/25 1417 fluticasone furoate-vilanteroL (BREO ELLIPTA) 100-25 mcg/dose inhaler 1 Puff, 1 Puff, Inhalation, resp, daily, 1 Puff at 11/11/25 1200 AND umeclidinium (INCRUSE ELLIPTA) 62.5 mcg/actuation inhaler 1 Puff, 1 Puff, Inhalation, resp, daily, Leon Echols MD, 1 Puff at 11/11/25 1200 miconazole (JYOTI,MICOTIN,REMEDY AF) 2 % topical cream, , Topical, BID, Leon Echols MD, Given at 11/11/25 1210 miconazole nitrate (REMEDY-AF,ZEASORB-AF) 2 % topical powder, , Topical, BID, Leon Echols MD, Given at 11/11/25 1210 metoprolol tartrate (LOPRESSOR) tablet 12.5 mg, 12.5 mg, Oral, BID, Leon Echols MD, 12.5 mg at 11/11/25 1159 naloxone (NARCAN) 0.4 mg/mL injection 0.1-0.4 mg, 0.1-0.4 mg, IV, see admin instructions, Adeola Kaur, [facility] Primary discharge diagnosis: Acute kidney injury superimposed on stage 4 chronic kidney disease (CMS/HCC) Other active medical issues also addressed during this admission: Active Hospital Problems Diagnosis Slurred speech Longstanding persistent atrial fibrillation (CMS/HCC) Acute respiratory failure with hypoxia (CMS/HCC) Transaminitis Volume overload Supratherapeutic INR Acute on chronic diastolic (congestive) heart failure (CMS/HCC) Acute kidney injury superimposed on stage 4 chronic kidney disease (CMS/HCC) Paroxysmal atrial fibrillation (CMS/HCC) Chronic anticoagulation Hypothyroidism Resolved Hospital Problems No resolved problems to display. ASSESSMENT AND PLAN: Acute on Chronic Diastolic (Congestive) Heart Failure related to volume overload related to renal dysfunction TTE 10/30/2025: Echo at outside hospital with LVEF 60% with G2DD with moderately elevated filling pressures with moderately increased left atrial size, moderate aortic calcification with mild aortic valve stenosis, moderate mitral valve regurg. S/P SLED. On HD now for volume management Nephrology following for HD and volume management 11/07 2 L UF, plan further UF 11/08 11/08 plan tunneled hemodialysis catheter per IR GDMT: Not currently a candidate for ACEI/ARNi, SGTL-2 inhibitor, MRA. Continue metoprolol tartaratewith a plan to switch to XL 11/08 tunnelled RIJ HD cath placed per IR, further UF, 11/09 medically stable for discharge to snf with HD transportation 11/11 NOW informed pt must have 3 HD runs and dialyze while sitting up in chair which could have been done today had we been informed, Pt medically stable siince 11/09 and now await 2-3 days further thus now will extend stay 5 extra days Acute Hypoxic Respiratory Failure : secondary to CHF and fluid overload. -Currently on 3L NC. Saturating 98 % wean as tolerated -Plan as above Acute Kidney Injury on Chronic Kidney Disease Stage 4 Dialysis dependent currently As per nephrology , high likelihood to be ESRD Nephrology following, appreciate recommendations Access site- right IJ catheter. Tunneled dialysis catheter line placed with IR 11/08 - blood cultures are negative at 4 days fiinalled. Slurred Speech, now subtle, appears resolved 11/10 Reports this is a new finding however this has been there for several days. MRI brain is pending BEAN PICKER MACHINE OPERATOR evaluation requested - 11/07 patient thinks her speech has gotten back to normal and her daughter at bedside does not feel this is correct that pt still does have slightly slurred speech - Per BEAN PICKER MACHINE OPERATOR 11/07:Pt with a 24/30 on the MoCA cognitive-linguistic/memory screening tool indicating mild cognitive-linguistic/memory impairment. Pt stated results reflected baseline level. Encouraged to discuss with PCP should deficits remain and impact daily function. Pt educated regarding the results and recommendations of MoCA. Patient would benefit from further speech therapy to address the above deficits in order to improvefunctional independence and quality of life. Atrial Fibrillation and Chronic Anticoagulation Holding xarelto due to supratherapeutic INR. Now down to 1.9,-> 1.7 - 11/09, initiated anticoagulation changed from xarelto to eliquis 5 mg po bid as tunneled hemodialysis catheter [id number] Carmichael, Metoprolol for rate control running 60s-70s Supratherapeutic INR INR was markedly elevated at 5.6 on arrival and is showing improvement-> 1.9-> 1.7 currently Hold AC in this setting Monitor with daily INR, consider resuming heparin trying to get dialysis catheter placed today 11/08 11/09 started eliquis for afib anticoag, d/c xarelto as less tolerated with HD Transaminitis , improving daily She had significant transaminitis on admission (AST 696, ALT 367, ALP 319), likely secondary to congestive hepatopathy in the setting of volume overload. Hepatitis panel neg. US abdomen at OSH with cholelithiasis and no acute findings. Clinically with no RUQ pain or tenderness Improving, monitor with CMP CHRONIC ACTIVE PROBLEMS Anemia She was noted to have anemia of chronic disease, with hemoglobin ranging from 8.9 to 7.8 g/dL. W Monitor with CBC Hypothyroidism Levothyroxine GLYCEMIC CONTROL reviewed Lab Results Component Value Date/Time GLUCOSE 123 (H) 11/11/2025 04:37 AM DVT prophylaxis: SCDs; not on chemoppx due to supratherapeutic INR Diet: DIET RENAL Code status: NO CPR (In Event of Cardiopulmonary Arrest) Anticipated Disposition Location: [facility] Timeframe: [facility] 11/09 Criteria:pt is currently medically stable for discharge 11/09 Outpatient follow up: nephrolgoy Patient's understanding of illness: fair MDM complexity: [] Mild [x] Moderate [] High coordination of care and procedure with IR Care included, Preparing to see the patient, Obtaining and/or reviewing separately obtained history, Performing a medically appropriate examination and/or evaluation, Counseling and educating the patient/family/caregiver, Ordering medications, tests or procedures, Documenting clinical information in the medical record, Referring and communication with other health transitions rn care coordinator (not separately reported), and Independently interpreting results and communicating results to the patient/family/caregiver (not separately reported). POCV John Carmen MD 11/11/2025, 7:37 PM ER OPERATOR * Wesly Porter, Occupational Therapist - 11/11/2025 12:04 PM TESTER OPERATOR [facility] Acute Occupational Therapy Evaluation 11/11/2025 Room: [address] [place] [address] Name: Lupe Galo Age: 65 y.o. Patient Class: Inpatient Date of : 1960 Insurance: Payor: [employer] MEDICARE ADVANTAGE / Plan: [employer] DSNP MCR / Product Type: HMO / Prior to OT session thorough chart review completed, including prior OT notes as applicable. Consent to evaluate provided by patient and nurse Date of admission: 11/04/2025 0800- patient gone for dialysis 11:20- patient just got back from dialysis and requested therapist to come back in 30 minutes. SUBJECTIVE Occupational Profile Information provided by: patient Prior Level of Function ADLs: independent IADLs: independent Patient does not drive, patient's neighbor will drive her to appointments Functional mobility: Pt states she was modified independent with mobility SHELL TRIM TOOL SETTER using a 4WW or QC at all times. Pt notes it just depended on how my balance was for which AD she chose to use. Falls: 4 in the last 6 months Home Information Employment/daily routine: Patient enjoys watching tv and doing sherin art Self-care assist available at home: Patient lives alone but states one of her daughters might be able to stay with her for a couple of days if needed. She also has a HH aide that comes 2x per week tohelp with come cleaning Home environment: Apartment; ground-floor unit No steps to enter Tub/shower Durable medical equipment already in home: Walkers: 4WW Canes: quad cane Shower chair Grab bars Additional Information Patient/family statement/goal(s): To get back home Comments: Patient is agreeable to therapy. Pain: Refer to flowsheet for documentation of pain and interventions. OBJECTIVE Cognition Level of alertness: alert Orientation: x4 WNL Command following: good Safety awareness: good Memory: WFL conversationally Vision: wears glasses at baseline Additional testing/comments: patient anxious with any mobility and being rushed, does well with positive encouragement UE Function Right-hand dominant UE Assessment Right Left ROM Active: WFL Active: WFL Strength WFL; 4/5 WFL; 4/5 Muscle Tone Normal Normal Coordination Decreased serial opposition Decreased serial opposition Sensation Normal Normal Edema None noted None noted Additional testing/comments: patient has pain in bilateral hands when touched from all of the IVs Occupational Performance Activities of Daily Living Feeding: supervision for ADL task set up for setup Grooming: NT; anticipate minimal assistance seated in chair Upper extremity dressing: NT; anticipate minimal assistance Lower extremity dressing: maximal assistance to don socks while in bed Toileting: NT; anticipate maximal assistance on BSC Toilet transfer: NT; anticipate moderate assistance x2 providers stand pivot from EOB to BSC All tasks not tested with anticipated assist levels are based on observed tasks and movement patterns. Functional Mobility All mobility completed with gait belt and non-skid socks Bed mobility: moderate assistance supine > sit EOB for leg and trunk management with HOB raised Sit to stand: moderate assistance x2 providers from EOB with bed height slightly raised Functional ambulation: NT; anticipate moderate assistance Chair transfer: moderate assistance x2 providers this is likely due to patient being anxious with mobility and will likely increase skill level quickly as she gets used to mobility again Sitting balance: supervision requiring watchful oversight for safety for static tasks Standing balance: moderate assistance for static tasks Patient required verbal, visual, and tactile cues for initiation of task, command following, properbreathing techniques, and problem solving. [facility] Daily Activity How much help from another person does the patient currently need? Score 1. Putting on and taking off regular lower body clothing? 2 - A lot (max to mod assist) 2. Bathing (including washing, rinsing, drying)? 2 - A lot (max to mod assist) 3. Toileting, which includes using toilet, bedpan or urinal? 2 - A lot (max to mod assist) 4. Putting on and taking off regular upper body clothing? 3 - A little (supervision to min assist) 5. Taking care of personal grooming such as brushing teeth? 3 - A little (supervision to min assist) 6. Eating meals? 3 - A little (supervision to min assist) Total score 15/24 0-19 indicates likely facility discharge 19-24 indicates likely community discharge *Scores determined based on patient report, observation or professional expertise* Vitals Current O2 requirement: 3 L/min via nasal cannula Vital signs stable throughout. Precautions Patient precautions: fall and oxygen Patient bracing: none Weight bearing: no restrictions ASSESSMENT & PLAN Evaluation Details Lupe Galo is a 65 y.o. female referred for OT following admission for acute on chronic respiratory failure with hypoxia. Additional pertinent diagnoses and past medical history related to this hospital stay are present in physician H&P and physician daily notes. OT evaluation: Low complexity Assessment Patient is currently functioning below her prior level of function. Patient presents with acute functional deficits including: Functional balance Decreased functional strength Decreased endurance Anxiety to move These deficits impact patient ability to complete: Functional mobility Bathing Toileting Dressing Personal hygiene/grooming Patient would benefit from continued skilled OT services in order to increase occupational performance through modification and remediation approaches such as ADL training, balance training, endurance training, strength training, functional transfer training, home safety education, patient education, energy conservation training, and equipment training Plan During acute hospitalization, recommend medium frequency treatment (3-5 times/week). Current plan of care to continue until goals met or patient discharges from facility Anticipate ongoing OT treatment sessions with specific focus on ADLs, functional mobility, equipment training Recommendations Based on OT assessment of patient's ability to complete self care tasks, AM-PAC Daily Activity Score, and available home support, anticipated discharge disposition, once medically ready: intermediate facility (11/11/25 120). Rationale: Patient needs daily (weekday) skilled OT services. Anticipate tolerance is limited for intensive or adapted intensive rehab program. * The final discharge location is determined through physician, case management, and patient/caregiver input along with insurance authorization of skilled services when appropriate. Plan of care and discharge recommendations shared with patient, daycare manager, and PT OT recommended DME and AE upon discharge: To be determined (11/11/251203) No new additional adaptive equipment necessary (11/11/25 120) Education provided to patient and family regarding OT recommendations and plan of care Education response: verbalized understanding Nursing Staff Mobility Recommendations Recommended daily activity during admission: toileting on BSC, up to chair for meals, and assist x 2 Disposition At start of session, patient found lying in bed At end of session, patient left seated in chair, call light in reach, patient instructed not to getup without staff assistance, and staff notified of patient location/events of session Further treatment notes and therapeutic goals can be found in Care Plan Notes. If the patient discharges from facility before another therapy visit, this shall serve as therapy discharge summary. Thank you for this referral, Wesly Porter Occupational Therapist ER OPERATOR * Lewis Rdz MD - 11/11/2025 8:16 AM CST Nephrology Progress Note Attending Physician: John Carmen MD Reason for consultation: Chronic kidney disease stage 4, volume overload. Patient is a 65 y.o. female with a past medical history significant for advancing CKD 4, CHF, HTN, and afib Patient presented to OSH with increased shortness of breath. + wt. Gain. CHF exacerbation. Creatinine of 4 on arrival there. She had HD x 1 for acute hypoxia and fluid overload. She is now inICU here. + dyspnea, + edema, + hypoxia. Per OSH did not respond well to diuretics. Subjective- tolerating HD in bed. No increase in dyspnea. No past medical history on file. No past surgical history on file. Medications Prior to Admission Medication Sig Dispense Refill Last Dose/Taking acetaminophen (TYLENOL) 500 mg tablet Take 500 mg by mouth. atorvastatin (LIPITOR) 80 mg tablet Take 80 mg by mouth daily. Cholecalciferol, Vitamin D3, 50 mcg (2,000 unit) Capsule Take 2,000 Units by mouth daily. cjthyegyepf-lbnrmqgthrgd-sernbzknwo (TRELEGY ELLIPTA) 200-62.5-25 mcg Disk with Device .COMPLEX [Paused] hydroCHLOROthiazide 12.5 mg tablet Take 25 mg by mouth daily. levothyroxine 200 mcg tablet Take 200 mcg by mouth. metoprolol tartrate (LOPRESSOR) 50 mg tablet Take 50 mg by mouth daily. omeprazole magnesium (PriLOSEC) 20 mg Tablet, Delayed Release (E.C.) Take 1 Tablet by mouth daily. [Paused] torsemide 40 mg Tablet Take 20 mg by mouth. albuterol sulfate HFA 90 mcg/actuation aerosol inhaler Take 2 Puffs by inhalation every 6 hours as needed for Shortness of Breath. [DISCONTINUED] rivaroxaban (XARELTO) 20 mg Tablet Take 20 mg by mouth daily. No Known Allergies Social History Tobacco Use Smoking status: Former Current packs/day: 0.00 Types: Cigarettes Quit date: 06/2020 Years since quittin.4 Smokeless tobacco: Not on file Substance Use Topics Alcohol use: Not on file No family history on file. Review of Systems History obtained from the patient tired post Line placement General ROS: no fever Respiratory ROS: + dyspnea Cardiovascular ROS: + orthopnea, + edema Gastrointestinal ROS: no nausea or vomiting Objective: BP (!) 140/76 Pulse 64 Temp 97.8 ??F (36.6 ??C) Resp 22 Ht 5' 4 (1.626 m) Wt 124.6 kg (274 lb 9.6 oz) SpO2 96% BMI 47.13 kg/m?? General appearance: alert, + respiratory distress, obese Head: purple lips Lungs: coarse bilateral Heart: normal rate, regular rhythm, normal S1, S2, no murmurs, rubs, clicks or gallops Abdomen:obese Extremities:2+ edema Skin: + pallor Neurologic: Grossly normal Data Review: Results for orders placed or performed during the hospital encounter of 11/04/25 (from the past 24 hours) COMPREHENSIVE METABOLIC PANEL Result Value Ref Range SODIUM 137 136 - 145 mmol/L POTASSIUM 3.7 3.5 - 5.1 mmol/L CHLORIDE 97 (L) 98 - 107 mmol/L CO2 26 22 - 29 mmol/L CALCIUM 8.7 (L) 8.8 - 10.2 mg/dL BUN 43 (H) 8 - 23 mg/dL CREATININE 2.55 (H) 0.51 - 0.95 mg/dL GLUCOSE 123 (H) 74 - 99 mg/dL TOTAL PROTEIN 6.2 (L) 6.4 - 8.3 g/dL ALBUMIN 3.2 (L) 3.5 - 5.2 g/dL BILIRUBIN TOTAL 0.8 0.0 - 1.0 mg/dL ALKALINE PHOSPHATASE 206 (H) 35 - 104 U/L AST 40 (H) 10 - 35 U/L ALT 29 <=35 U/L GFR 20 (L) >=60 mL/min/1.73 sq meter ANION GAP 14 9 - 20 mmol/L CBC WITH DIFFERENTIAL Result Value Ref Range WBC 8.0 4.8 - 10.8 K/uL RBC 3.50 (L) 4.20 - 5.40 M/uL HEMOGLOBIN 8.3 (L) 12.0 - 16.0 g/dL HEMATOCRIT 29.4 (L) 36.0 - 46.0 % MCV 84.0 84.0 - 103.0 fL MCH 23.7 (L) 27.0 - 34.0 pg MCHC 28.2 (L) 30.0 - 35.0 g/dL PLATELETS 222 140 - 440 K/uL MPV 10.8 8.9 - 12.8 fL RDW 19.0 (H) 11.0 - 14.5 % RDW-STDEV 55.2 (H) 37.0 - 54.0 fL NEUTROPHILS 71 42 - 75 % LYMPHOCYTES 11 (L) 24 - 44 % MONOCYTES 13 (H) 2 - 10 % EOSINOPHILS 3 0 - 7 % BASOPHILS 0 0 - 1 % IMMATURE GRANULOCYTES 2 0 - 2 % NEUTROPHIL ABSOLUTE 5.67 2.00 - 8.00 K/uL LYMPHOCYTE ABSOLUTE 0.91 (L) 1.20 - 4.00 K/uL MONOCYTE ABSOLUTE 1.02 (H) 0.10 - 0.60 K/uL EOSINOPHIL ABSOLUTE 0.21 0.00 - 0.70 K/uL BASOPHILS ABSOLUTE 0.02 0.00 - 0.20 K/uL IMMATURE GRANULOCYTES ABSOLUTE 0.13 (H) 0.00 - 0.10 K/uL SMEAR REVIEWED: NA - Not Applicable PHOSPHORUS Result Value Ref Range PHOSPHORUS 3.4 2.5 - 4.5 mg/dL Assessment/Plan ROSANNE on CKD 4- with high likelihood to be ESRD. HD started 11/04 and getting HD today UF 2-3L. Tunneled HD cath 11/08. MWF. Will need to work on placement either at [facility] or [place]. 2. Hypoxia- better with UF. Came in with significant volume overloaded. Wean o2 needs. 3. CHF- UF as noted above. Symptoms and fluid status improved. 4. HTN- BP came down with UF. Diastolic HF. 5. Anemia will get SPEP, iron def. Will dose IV Iron again. , Dosed CHARISSA ER OPERATOR * John Carmen MD - 11/10/2025 12:26 PM CST Images from the original note were not included. Your life is our life's work [facility] Hospitalist/[facility] Medicine Progress Note LOS: 6 days Room/Bed: 4206/01 Patient name: Lupe Galo Date of : 1960 HOSPITAL COURSE SUMMARY: Lupe Galo is a 65-year-old female with a history of chronic kidney disease, congestive heart failure, atrial fibrillation, and hypothyroidism who was admitted on 11/04/2025 for acute hypoxic respiratory failure, renal failure, and heart failure exacerbation following transfer from an outside hospital. She initially presented with significant weight gain, dyspnea, orthopnea, and hypoxia unresponsive to diuresis, prompting initiation of hemodialysis for volume overload. The principal problemduring this admission was acute kidney injury superimposed on stage 4 chronic kidney disease, confirmed by elevated creatinine, reduced GFR, and persistent volume overload despite diuretic therapy. Nephrology was consulted and serial laboratory assessments demonstrated worsening renal function, with creatinine peaking at 4.4 mg/dL and GFR as low as 13 mL/min/1.73m??. She underwent intermittent hemodialysis and sustained low- efficiency dialysis (SLED), with net fluid removal of up to 4L, resulting in gradual improvement in respiratory status and volume overload. A tunneled dialysis catheter was planned once her supratherapeutic INR improved, as she was initially managed with a temporary dialysis line placed at the outside facility. Her acute on chronic diastolic heart failure was managed with volume removal via dialysis, and guideline-directed medical therapy was held to avoid hypotension during ultrafiltration. Echocardiography revealed preserved ejection fraction (LVEF 60%), grade 2 diastolic dysfunction, moderate left atrial enlargement, and valvular abnormalities including moderate mitral regurgitation and mild aortic stenosis. 11/06 Patient is currently hemodynamically stable. Is on 5LNC. Underwent HD this morning. For dialysis access she has right IJ catheter. She reports a persistent slurring of speech that has been there for several days, MRI of brain was requested by critical care service, this is pending at this time. Will request CT brain and request BEAN PICKER MACHINE OPERATOR evaluation INR at 2.5, continue holding AC. Plan for tunneled catheter once INR is acceptable 11/07 Assigned/assumed care of this 65-year-old female with known CKD 4 A-fib hypertension CAR-T-PE hypothyroid bilateral pleural effusions admitted 11/04 with acute hypoxic respiratory failure and secondary to volume overload secondary to diastolic CHF exacerbation. -Patient initially required ICU BiPAP and is now down to 5 L -She has undergone hemodialysis with ultrafiltration on 11/06 with plan on placement of hemodialysis catheter tomorrow if her INR is sufficiently decreased is down to 1.9 and dropping daily. - Plan is for more ultrafiltration tomorrow. -Per nephrology hold on GDMT as I do not want to drop the blood pressure if she needs further ultrafiltration tomorrow await echocardiogram thought to have diastolic heart failure -regarding her anemia SPEP iron levels are pending will plan to dose iron tomorrow per nephrology 11/08 arterial studies are negative and venous studies are positive for left upper extremity cephalic vein superficial vein thrombosis will elevate and may use warm compresses. Plan was to proceed with tunneled dialysis catheter per IR today with Dr. Carmichael then to proceed to dialysis this afternoon blood cultures are negative at 48 hours INR is 1.7 CT of the head without changes compared with recent CT head. Patient complains of burning pain in the right posterior calf and lateral calf but arterial and venous studies are negative. Initiated on Lyrica 25 mg p.o. twice daily and will escalate until symptoms resolved/improved 11/09 pt received her RIJ tunnelled HD cath courtesy Dr Carmichael IR on 11/08 and successfully utilized for UF of 2.3L. She is medically stable for discharge with planned HD on Saturday 11/10. Janet with [facility] reported [place] with no openings, family remarked they have second facility in mind, urged tonotify case management [facility] 11/10 patient is clinically ready for discharge and on 11/09 DA 124 is completed ,placement at SNF and insurance authorization are both pending. Resumed anticoagulation Eliquis for A-fib last eveningand hemoglobin actually increasing with no evidence of bleeding, continue same. Currently saturating 95-98% on 3 L O2 per nasal cannula. Net -6 L Consultants: IP CONSULT TO WOUND/SKIN CARE TEAM IP CONSULT TO NEPHROLOGY IP CONSULT TO CARDIAC REHAB IP CONSULT TO INTERVENTIONAL RADIOLOGY SUBJECTIVE: Again denied new concerns ROS remains negative except as above 11/09 OBJECTIVE: Temp (24hrs), Av.4 ??F (36.9 ??C), Min:97.6 ??F (36.4 ??C), Max:99.3 ??F (37.4 ??C) BP 118/65 (BP Location: Left arm, Patient Position (BP): Supine) Pulse 85 Temp 97.6 ??F (36.4 ??C) (Temporal) Resp 14 Ht 5' 4 (1.626 m) Wt 130.8 kg (288 lb 6.4 oz) SpO2 95% BMI 49.50 kg/m?? Intake/Output Summary (Last 24 hours) at 11/10/2025 1226 Last data filed at 11/10/2025 1157 Gross per 24 hour Intake 400 ml Output 2 ml Net 398 ml Last documented weight: Weight: 130.8 kg (288 lb 6.4 oz) (11/09/25 0500) EXAM: re Examined at bedside 11/10, unchanged GENERAL APPEARANCE: alert, oriented, affect appropriate,following commands HEENT: PERRL, conjunctiva/ lids clear, neck supple, right tunnelled cath RIJ with overlying ecchymosis and ext down below insertion site and will travel distally over the ensuing days. No hematoma NEURO:CN2-12 wnl, PERRL moving all extremities spontaneously and symmetrically, CARDIOVASCULAR: regular rate and rhythm, S1, S2 normal, no murmur, click, rub or gallop, LUNGS: Minimally diminished bibasilarly but clear to auscultation bilaterally anteriorly and posteriorly.No wheezing noted. No increased work of breathing noted at rest CHEST WALL EXAM: no crepitance,nontender BACK: symmetric excursion, ABDOMEN: benign, normoactive bowel sounds, no organomegaly or masses, no rebound , no guarding, Non distended, soft, nontender to mod diffuse palpation EXTREMITIES: extremities without edema, no cyanosis, warm and well perfused,No calf or thigh erythema,tenderness or edema, SKIN: intact, no jaundice, IV sites clean, dry LABORATORY: Recent Labs 11/08/25 0517 11/09/25 0523 11/10/25 0605 WBC 9.9 10.0 9.6 HGB 8.3* 8.1* 8.7* HCT 29.3* 28.3* 30.7* PLT 200 180 228 Recent Labs 11/08/25 0517 11/09/25 0523 11/10/25 0605 NA 135* 136 138 K 4.1 3.5 3.9 CL 97* 98 98 CO2 22 27 27 CA 9.1 8.6* 8.8 BUN 49* 26* 38* CREAT 4.19* 2.21* 2.79* GLUCOSE 111* 93 100* Recent Labs 11/08/25 0517 11/09/25 0523 11/10/25 0605 TOTALPROTEIN 6.4 5.9* 6.6 ALBUMIN 3.5 3.2* 3.5 BILITOTAL 1.0 1.0 0.9 ALKPHOS 267* 207* 217* AST 79* 41* 48* ALT 110* 66* 47* Recent Labs 11/08/25 05 INR 1.7* PT 21.1* No results for input(s): BASETROP , 2HRTROP , DELTA , 6HRTROP in the last 72 hours. Diagnostic testing reviewed. Medications were reviewed by me. Current Facility-Administered Medications: apixaban (ELIQUIS) tablet 5 mg, 5 mg, Oral, BID, John Carmen MD, 5 mg at 11/10/25 0851 albuterol sulfate 90 mcg/Actuation inhaler 2 Puff, 2 Puff, Inhalation, resp, every 6 hours PRN, John Carmen MD atorvastatin (LIPITOR) tablet 80 mg, 80 mg, Oral, daily, John Carmen MD, 80 mg at 11/10/25 0851 cholecalciferol (VITAMIN D3) tablet 2,000 Units, 2,000 Units, Oral, daily, John Carmen MD, 2,000 Units at 11/10/25 0851 Lidocaine 4 % topical patch 1 Patch, 1 Patch, Topical, daily, John Carmen MD, 1 Patch at 11/10/25 0851 dextrose 5% - sodium chloride 0.45% infusion, , IV, intra-proc continuous, Remy Carmichael MD, Stopped at 11/08/25 1602 sodium chloride 0.9 % bolus solution 1,000 mL, 1,000 mL, See Admin Instructions, see admin instructions, Ruby Suero FNP, Stopped at 11/08/25 1710 acetaminophen (TYLENOL) tablet 500 mg, 500 mg, Oral, every 6 hours PRN, Leon Echols MD, 500 mg at 11/10/25 0117 levothyroxine (SYNTHROID) tablet 175 mcg, 175 mcg, Oral, daily EARLY, Leon Echols MD, 175 mcg at 11/10/25 0554 pantoprazole (PROTONIX) tablet 40 mg, 40 mg, Oral, daily BEFORE breakfast, Leon Echols MD, 40 mg at 11/10/25 0852 ondansetron (ZOFRAN) 4 mg/2 mL injection 4 mg, 4 mg, IV, every 6 hours PRN, Leon Echols MD, 4 mg at 11/09/25 1027 fluticasone furoate-vilanteroL (BREO ELLIPTA) 100-25 mcg/dose inhaler 1 Puff, 1 Puff, Inhalation, resp, daily, 1 Puff at 11/10/25 0853 AND umeclidinium (INCRUSE ELLIPTA) 62.5 mcg/actuation inhaler 1 Puff, 1 Puff, Inhalation, resp, daily, Leon Echols MD, 1 Puff at 11/10/25 0852 miconazole (JYOTI,MICOTIN,REMEDY AF) 2 % topical cream, , Topical, BID, Leon Echols MD, Given at 11/10/25 0855 miconazole nitrate (REMEDY-AF,ZEASORB-AF) 2 % topical powder, , Topical, BID, Leon Echols MD, Given at 11/10/25 0855 metoprolol tartrate (LOPRESSOR) tablet 12.5 mg, 12.5 mg, Oral, BID, Leon Echols MD, 12.5 mg at 11/10/25 0852 naloxone (NARCAN) 0.4 mg/mL injection 0.1-0.4 mg, 0.1-0.4 mg, IV, see admin instructions, Adeola Kaur APRN- Primary discharge diagnosis: Acute kidney injury superimposed on stage 4 chronic kidney disease (CMS/HCC) Other active medical issues also addressed during this admission: Active Hospital Problems Diagnosis Slurred speech Longstanding persistent atrial fibrillation (CMS/HCC) Acute respiratory failure with hypoxia (CMS/HCC) Transaminitis Volume overload Supratherapeutic INR Acute on chronic diastolic (congestive) heart failure (CMS/HCC) Acute kidney injury superimposed on stage 4 chronic kidney disease (CMS/HCC) Paroxysmal atrial fibrillation (CMS/HCC) Chronic anticoagulation Hypothyroidism Resolved Hospital Problems No resolved problems to display. ASSESSMENT AND PLAN: Acute on Chronic Diastolic (Congestive) Heart Failure related to volume overload related to renal dysfunction TTE 10/30/2025: Echo at outside hospital with LVEF 60% with G2DD with moderately elevated filling pressures with moderately increased left atrial size, moderate aortic calcification with mild aortic valve stenosis, moderate mitral valve regurg. S/P SLED. On HD now for volume management Nephrology following for HD and volume management 11/07 2 L UF, plan further UF 11/08 11/08 plan tunneled hemodialysis catheter per IR GDMT: Not currently a candidate for ACEI/ARNi, SGTL-2 inhibitor, MRA. Continue metoprolol tartaratewith a plan to switch to XL 11/08 tunnelled RIJ HD cath placed per IR, further UF, 11/09 medically stable for discharge to snf with HD transportation Acute Hypoxic Respiratory Failure : secondary to CHF and fluid overload. -Currently on 3L NC. Saturating 95-98 % wean as tolerated -Plan as above Acute Kidney Injury on Chronic Kidney Disease Stage 4 Dialysis dependent currently As per nephrology , high likelihood to be ESRD Nephrology following, appreciate recommendations Access site- right IJ catheter. Tunneled dialysis catheter line placed with IR 11/08 as patient blood cultures are negative at 4 days fiinalled. Slurred Speech, now subtle, appears resolved 20 Reports this is a new finding however this has been there for several days. MRI brain is pending BEAN PICKER MACHINE OPERATOR evaluation requested - 11/07 patient thinks her speech has gotten back to normal and her daughter at bedside does not feel this is correct that pt still does have slightly slurred speech - Per BEAN PICKER MACHINE OPERATOR 11/07:Pt with a 24/30 on the MoCA cognitive-linguistic/memory screening tool indicating mild cognitive-linguistic/memory impairment. Pt stated results reflected baseline level. Encouraged to discuss with PCP should deficits remain and impact daily function. Pt educated regarding the results and recommendations of MoCA. Patient would benefit from further speech therapy to address the above deficits in order to improvefunctional independence and quality of life. Atrial Fibrillation and Chronic Anticoagulation Holding xarelto due to supratherapeutic INR. Now down to 1.9,-> 1.7 - 11/09, initiated anticoagulation changed from xarelto to eliquis 5 mg po bid as tunneled hemodialysis catheter [id number] Carmichael, Metoprolol for rate control Supratherapeutic INR INR was markedly elevated at 5.6 on arrival and is showing improvement-> 1.9-> 1.7 currently Hold AC in this setting Monitor with daily INR, consider resuming heparin trying to get dialysis catheter placed today 11/08 11/09 started eliquis for afib anticoag, d/c xarelto as less tolerated with HD Transaminitis , improving daily She had significant transaminitis on admission (AST 696, ALT 367, ALP 319), likely secondary to congestive hepatopathy in the setting of volume overload. Hepatitis panel neg. US abdomen at OSH with cholelithiasis and no acute findings. Clinically with no RUQ pain or tenderness Improving, monitor with CMP CHRONIC ACTIVE PROBLEMS Anemia She was noted to have anemia of chronic disease, with hemoglobin ranging from 8.9 to 7.8 g/dL. W Monitor with CBC Hypothyroidism Levothyroxine GLYCEMIC CONTROL reviewed Lab Results Component Value Date/Time GLUCOSE 100 (H) 11/10/2025 06:05 AM DVT prophylaxis: SCDs; not on chemoppx due to supratherapeutic INR Diet: DIET RENAL Code status: NO CPR (In Event of Cardiopulmonary Arrest) Anticipated Disposition Location: [facility] Timeframe: [facility] 11/09 Criteria:pt is currently medically stable for discharge 11/09 Outpatient follow up: nephrolgoy Patient's understanding of illness: fair MDM complexity: [] Mild [x] Moderate [] High coordination of care and procedure with IR Care included, Preparing to see the patient, Obtaining and/or reviewing separately obtained history, Performing a medically appropriate examination and/or evaluation, Counseling and educating the patient/family/caregiver, Ordering medications, tests or procedures, Documenting clinical information in the medical record, Referring and communication with other health transitions rn care coordinator (not separately reported), and Independently interpreting results and communicating results to the patient/family/caregiver (not separately reported). POCV John Carmen MD 11/10/2025, 12:26 PM ER OPERATOR * Farida Ron, Physical Therapist - 11/10/2025 9:[address] [facility]. Acute Physical Therapy Evaluation 11/10/2025 Room: [address] [place] [address] Name: Lupe Galo Age: 65 y.o. Date of : 1960 Insurance: Payor: [facility] MEDICARE ADVANTAGE / Plan: AET HMO DSNP MCR / Product Type: HMO / Patient Class: Inpatient Onset of illness/injury or date of surgery: 11/04/2025 Subjective Information/History Subjective Information Provided By: Patient Prior level of Function: Pt states she was modified independent with mobility SHELL TRIM TOOL SETTER using a 4WW or QCat all times. Pt notes it just depended on how my balance was for which AD she chose to use. Pt lives alone and enjoys doing sherin art. Patient reports a history of falls: reason for current admission in addition to 4 other falls within the last year due to various reasons. No injuries from her falls. Home Environment: Apartment Number of Outside Stairs: none, ground floor Available Adaptive Equipment: Cane: quad cane Walkers: 4 wheeled Shower Chair Grab Bars Assistance available: Lives alone but has family nearby (daughter, granddaughters and grandson) whocan assist intermittently. Pt notes she also has a HH aide who comes 2x/week for 7 hours to assist with cooking, cleaning, etc. Patient/Family Goals Statement: to get stronger Pain: Refer to Doc Flowsheet for documented pain levels. Consent To Treatment Given By: Patient and Nurse Safety Awareness Orientation: Person, Place, Date, and Situation Command Following: good Safety Awareness: Good Precautions Patient Precautions: Fall Risk and Oxygen Bracing/Orthotics: none Weight Bearing: No Restrictions Objective Information/Examination Muscle Tone: Normal Coordination: Normal Sensation: Abnormal: baseline peripheral neuropathy in B feet ROM: Right UE: defer to OT Left UE: defer to OT Right LE: Active: WFL Left LE: Active: WFL Strength: Right UE: defer to OT Left UE: defer to OT Right LE: Abnormal: 4-/5 grossly Left LE: Abnormal: 4-/5 grossly Functional Mobility: Scooting: maximal assistance to initiate scooting hips to EOB, progressing to minimal assistance. Maximal assistance x2 to reposition to HOB. Supine to sit: moderate assistance to bring trunk upright with HOB elevated. Sit to supine: moderate assistance to manage BLE up to bed. Sit to stand: not assessed due to pt declining with complaints of pain in B feet. Can suspect minimal to moderate assistance to stand from EOB up to 2WW considering BLE weakness and assistance required with bed mobility. Mobility cues provided: proper posture Balance: Sitting: Normal Standing: Not Tested Vitals Patient on 3 liters/min via nasal cannula Vital signs stable throughout session [facility]-P[facility] Basic Mobility How much help from another person does the patient currently need? Score 1. Turning from your back to your side while in a flat bed without using bedrails? 3 - A little (supervision to min assist) 2. Moving from lying on your back to sitting on the side of a flat bed without using bedrails? 2 - A lot (max to mod assist) 3. Moving to and from a bed to a chair (including a wheelchair)? 2 - A lot (max to mod assist) 4. Standing up from a chair using your arms (e.g., wheelchair, or bedside chair)? 2 - A lot (max tomod assist) 5. Walking in hospital room? 2 - A lot (max to mod assist) 6. Climbing 3-5 steps with a railing? 1 - Total assist or cannot do at all Total score 1224 0-16 - indicates likely facility discharge 17-24 indicates likely community discharge * scores determined based on patient report, observation or professional expertise Assessment/Plan Lupe Galo is a 65 y.o. female referred for physical therapy. Based on objective findingsabove, the patient presents with the following impairments: balance deficits, decreased activity tolerance, decreased range of motion, decreased strength, gait disturbance, medical complexity, pain, and risk for falls which impacts the patient's ability to mobilize safely. Patient is currently functioning below her prior level of function. Plan will include but is not limited to: Gait Training, Transfer Training, Patient/Family Education, Home & Safety Instruction, Balance Training, ROM, ADL Training, Functional Cognition Training,Neuromuscular Re-education, Car Transfers, Equipment Training, Orthotic Management , and Functional Strengthening. Specific focus for next treatment session: LE strengthening, progress to standing and transfers as tolerated. PT Evaluation: low complexity Recommendations During acute hospitalization, recommend medium frequency treatment (3-5 times per week). Current plan of care to continue until goals met or patient discharges from facility. Functional Prognosis: Based on prior level of function and deficits, anticipate good progress towards PT goals. Based on PT assessment of and/or progress with physical function, AM-PAC Basic Mobility score, potential for improvement, participation in therapeutic intervention, tolerance for activity, and safety, anticipated discharge disposition once medically ready: intermediate facility (11/10/25903). Pt needs daily (weekday) skilled PT services. Anticipate tolerance for an intensive program may be limited and extended recovery time needed. * The final discharge location is determined through physician, case management, and patient/caregiver input along with insurance authorization of skilled services when appropriate Plan of care and/or discharge recommendations shared with: Patient, Dispensing Optician Apprentice, and Nurse PT Recommended DME: No new DME recommended (11/10/25903). Daily activity recommendations: Up with 1 assist, Use BSC, and Up in chair for meals Recommendations for referral to another service: Care Management and Occupational Therapy Education/Training Provided Education provided: daily activity with nursing staff, discharge planning, functional mobility, plan of care, proper body mechanics, rehabilitation principles, and safety Learner, method of education, and response to learning listed in Education tab in Epic. Disposition At start of session, patient found lying in bed At end of session, patient left lying in bed, call light in reach, phone in reach, bed alarm in place, patient instructed to not get up without assistance from staff, and staff notified of patient's location Current Diagnoses/Past Medical History Pertinent diagnoses and past medical history related to this hospital stay are present in physicianH&P and physician daily notes. Prior to PT session a thorough chart review was completed including prior PT notes as applicable. Further treatment notes and therapeutic goals can be found in Care Plan Notes. If the patient discharges from the facility before another therapy visit, this shall serve as the therapy discharge summary. Thank you for this referral, Farida Ron, Physical Therapist ER OPERATOR * John Carmen MD - 11/09/2025 5:18 PM CST Images from the original note were not included. Your life is our life's work [facility] Hospitalist/[facility] Medicine Progress Note LOS: 5 days Room/Bed: 4206/01 Patient name: Lupe Galo Date of : 1960 HOSPITAL COURSE SUMMARY: Lupe Galo is a 65-year-old female with a history of chronic kidney disease, congestive heart failure, atrial fibrillation, and hypothyroidism who was admitted on 11/04/2025 for acute hypoxic respiratory failure, renal failure, and heart failure exacerbation following transfer from an outside hospital. She initially presented with significant weight gain, dyspnea, orthopnea, and hypoxia unresponsive to diuresis, prompting initiation of hemodialysis for volume overload. The principal problemduring this admission was acute kidney injury superimposed on stage 4 chronic kidney disease, confirmed by elevated creatinine, reduced GFR, and persistent volume overload despite diuretic therapy. Nephrology was consulted and serial laboratory assessments demonstrated worsening renal function, with creatinine peaking at 4.4 mg/dL and GFR as low as 13 mL/min/1.73m??. She underwent intermittent hemodialysis and sustained low- efficiency dialysis (SLED), with net fluid removal of up to 4L, resulting in gradual improvement in respiratory status and volume overload. A tunneled dialysis catheter was planned once her supratherapeutic INR improved, as she was initially managed with a temporary dialysis line placed at the outside facility. Her acute on chronic diastolic heart failure was managed with volume removal via dialysis, and guideline-directed medical therapy was held to avoid hypotension during ultrafiltration. Echocardiography revealed preserved ejection fraction (LVEF 60%), grade 2 diastolic dysfunction, moderate left atrial enlargement, and valvular abnormalities including moderate mitral regurgitation and mild aortic stenosis. 11/06 Patient is currently hemodynamically stable. Is on 5LNC. Underwent HD this morning. For dialysis access she has right IJ catheter. She reports a persistent slurring of speech that has been there for several days, MRI of brain was requested by critical care service, this is pending at this time. Will request CT brain and request BEAN PICKER MACHINE OPERATOR evaluation INR at 2.5, continue holding AC. Plan for tunneled catheter once INR is acceptable 11/07 Assigned/assumed care of this 65-year-old female with known CKD 4 A-fib hypertension CAR-T-PE hypothyroid bilateral pleural effusions admitted 11/04 with acute hypoxic respiratory failure and secondary to volume overload secondary to diastolic CHF exacerbation. -Patient initially required ICU BiPAP and is now down to 5 L -She has undergone hemodialysis with ultrafiltration on 11/06 with plan on placement of hemodialysis catheter tomorrow if her INR is sufficiently decreased is down to 1.9 and dropping daily. - Plan is for more ultrafiltration tomorrow. -Per nephrology hold on GDMT as I do not want to drop the blood pressure if she needs further ultrafiltration tomorrow await echocardiogram thought to have diastolic heart failure -regarding her anemia SPEP iron levels are pending will plan to dose iron tomorrow per nephrology 11/08 arterial studies are negative and venous studies are positive for left upper extremity cephalic vein superficial vein thrombosis will elevate and may use warm compresses. Plan was to proceed with tunneled dialysis catheter per IR today with Dr. Carmichael then to proceed to dialysis this afternoon blood cultures are negative at 48 hours INR is 1.7 CT of the head without changes compared with recent CT head. Patient complains of burning pain in the right posterior calf and lateral calf but arterial and venous studies are negative. Initiated on Lyrica 25 mg p.o. twice daily and will escalate until symptoms resolved/improved 11/09 pt received her RIJ tunnelled HD cath courtesy Dr Carmichael IR on 11/08 and successfully utilized for UF of 2.3L. She is medically stable for discharge with planned HD on Saturday 11/10. Janet with [facility] reported [place] with no openings, family remarked they have second facility in mind, urged tonotify case management [facility] Consultants: IP CONSULT TO WOUND/SKIN CARE TEAM IP CONSULT TO NEPHROLOGY IP CONSULT TO CARDIAC REHAB IP CONSULT TO INTERVENTIONAL RADIOLOGY SUBJECTIVE: 10/15 7 denied new concerns ROS remains negative except as above 11/09 OBJECTIVE: Temp (24hrs), Av.4 ??F (36.9 ??C), Min:97.7 ??F (36.5 ??C), Max:99.3 ??F (37.4 ??C) BP (!) 127/43 (BP Location: Left arm, Patient Position (BP): Supine) Comment: RN notifed Pulse 66 Temp 99.3 ??F (37.4 ??C) (Oral) Resp 20 Ht 5' 4 (1.626 m) Wt 130.8 kg (288 lb 6.4 oz) SpO2 92% BMI 49.50 kg/m?? Intake/Output Summary (Last 24 hours) at 11/09/2025 1718 Last data filed at 11/09/2025 0942 Gross per 24 hour Intake 588 ml Output 2351 ml Net -1763 ml Last documented weight: Weight: 130.8 kg (288 lb 6.4 oz) (11/09/25 0500) EXAM: REExamined at bedside 11/09, GENERAL APPEARANCE: alert, oriented, affect appropriate,following commands HEENT: PERRL, conjunctiva/ lids clear, neck supple, right tunnelled cath RIJ with overlying ecchymosis and ext down below insertion site and will travel distally over the ensuing days. No hematoma NEURO:CN2-12 wnl, PERRL moving all extremities spontaneously and symmetrically, CARDIOVASCULAR: regular rate and rhythm, S1, S2 normal, no murmur, click, rub or gallop, LUNGS: Minimally diminished bibasilarly but clear to auscultation bilaterally anteriorly and posteriorly.No wheezing noted. No increased work of breathing noted at rest CHEST WALL EXAM: no crepitance,nontender BACK: symmetric excursion, ABDOMEN: benign, normoactive bowel sounds, no organomegaly or masses, no rebound , no guarding, Non distended, soft, nontender to mod diffuse palpation EXTREMITIES: extremities without edema, no cyanosis, warm and well perfused,No calf or thigh erythema,tenderness or edema, SKIN: intact, no jaundice, IV sites clean, dry LABORATORY: Recent Labs 11/07/25 0551 11/08/25 0517 11/09/25 0523 WBC 8.7 9.9 10.0 HGB 8.3* 8.3* 8.1* HCT 29.8* 29.3* 28.3* PLT 192 200 180 Recent Labs 11/07/25 0551 11/08/25 0517 11/09/25 0523 NA 137 135* 136 K 3.6 4.1 3.5 CL 99 97* 98 CO2 CA 9.0 9.1 8.6* BUN 36* 49* 26* CREAT 3.47* 4.19* 2.21* GLUCOSE 119* 111* 93 Recent Labs 11/07/25 0551 11/08/25 0517 11/09/25 0523 TOTALPROTEIN 6.4 6.4 5.9* ALBUMIN 3.8 3.5 3.2* BILITOTAL 1.1* 1.0 1.0 ALKPHOS 259* 267* 207* AST 97* 79* 41* ALT 140* 110* 66* Recent Labs 11/07/25 0552 11/08/25 0517 INR 1.9* 1.7* PT 22.3* 21.1* No results for input(s): BASETROP , 2HRTROP , DELTA , 6HRTROP in the last 72 hours. Diagnostic testing reviewed. Medications were reviewed by me. Current Facility-Administered Medications: dextrose 5% - sodium chloride 0.45% infusion, , IV, intra-proc continuous, Remy Carmichael MD, Stopped at 11/08/25 1602 [COMPLETED] iron sucrose (VENOFER) 100 mg iron/5 mL injection 200 mg, 200 mg, IV, ONE time only, Lewis Rdz MD, 200 mg at 11/08/25 2201 [COMPLETED] LORazepam (ATIVAN) 2 mg/mL injection 0.5 mg, 0.5 mg, IV, ONE time only, John Carmen MD, 0.5 mg at 11/08/25 2344 sodium chloride 0.9 % bolus solution 1,000 mL, 1,000 mL, See Admin Instructions, see admin instructions, Ruby Suero, SETH, Stopped at 11/08/25 1710 acetaminophen (TYLENOL) tablet 500 mg, 500 mg, Oral, every 6 hours PRN, Leon Echols MD, 500 mg at 11/09/25 0419 levothyroxine (SYNTHROID) tablet 175 mcg, 175 mcg, Oral, daily EARLY, Leon Echols MD, 175 mcg at 11/09/25 0419 pantoprazole (PROTONIX) tablet 40 mg, 40 mg, Oral, daily BEFORE breakfast, Leon Echols MD, 40 mg at 11/09/25 0903 ondansetron (ZOFRAN) 4 mg/2 mL injection 4 mg, 4 mg, IV, every 6 hours PRN, Leon Echols MD, 4 mg at 11/09/25 1027 fluticasone furoate-vilanteroL (BREO ELLIPTA) 100-25 mcg/dose inhaler 1 Puff, 1 Puff, Inhalation, resp, daily, 1 Puff at 11/09/25 0903 AND umeclidinium (INCRUSE ELLIPTA) 62.5 mcg/actuation inhaler 1 Puff, 1 Puff, Inhalation, resp, daily, Leon Echols MD, 1 Puff at 11/09/25 09 miconazole (JYOTI,MICOTIN,REMEDY AF) 2 % topical cream, , Topical, BID, Leon Echols MD, Given at 11/09/25 09 miconazole nitrate (REMEDY-AF,ZEASORB-AF) 2 % topical powder, , Topical, BID, Leon Echols MD, Given at 11/09/25 09 metoprolol tartrate (LOPRESSOR) tablet 12.5 mg, 12.5 mg, Oral, BID, Leon Echols MD, 12.5 mg at 11/09/25 09 naloxone (NARCAN) 0.4 mg/mL injection 0.1-0.4 mg, 0.1-0.4 mg, IV, see admin instructions, Adeola Kaur, ELECTRICIAN ASSISTANT-BC Primary discharge diagnosis: Acute kidney injury superimposed on stage 4 chronic kidney disease (CMS/HCC) Other active medical issues also addressed during this admission: Active Hospital Problems Diagnosis Slurred speech Longstanding persistent atrial fibrillation (CMS/HCC) Acute respiratory failure with hypoxia (CMS/HCC) Transaminitis Volume overload Supratherapeutic INR Acute on chronic diastolic (congestive) heart failure (CMS/HCC) Acute kidney injury superimposed on stage 4 chronic kidney disease (CMS/HCC) Paroxysmal atrial fibrillation (CMS/HCC) Chronic anticoagulation Hypothyroidism Resolved Hospital Problems No resolved problems to display. ASSESSMENT AND PLAN: Acute on Chronic Diastolic (Congestive) Heart Failure related to volume overload related to renal dysfunction TTE 10/30/2025: Echo at outside hospital with LVEF 60% with G2DD with moderately elevated filling pressures with moderately increased left atrial size, moderate aortic calcification with mild aortic valve stenosis, moderate mitral valve regurg. S/P SLED. On HD now for volume management Nephrology following for HD and volume management 11/07 2 L UF, plan further UF 11/08 11/08 plan tunneled hemodialysis catheter per IR GDMT: Not currently a candidate for ACEI/ARNi, SGTL-2 inhibitor, MRA. Continue metoprolol tartaratewith a plan to switch to XL 11/08 tunnelled RIJ HD cath placed per IR, further UF, 11/09 medically stable for discharge to snf with HD transportation Acute Hypoxic Respiratory Failure : secondary to CHF and fluid overload. -Currently on 3L NC. Saturating 92-93% wean as tolerated -Plan as above Acute Kidney Injury on Chronic Kidney Disease Stage 4 Dialysis dependent currently As per nephrology , high likelihood to be ESRD Nephrology following, appreciate recommendations Access site- right IJ catheter. Tunneled dialysis catheter line placed with IR 11/08 as patient blood cultures are negative at 4 days fiinalled. Slurred Speech, now subtle Reports this is a new finding however this has been there for several days. MRI brain is pending BEAN PICKER MACHINE OPERATOR evaluation requested - 11/07 patient thinks her speech has gotten back to normal and her daughter at bedside does not feel this is correct that pt still does have slightly slurred speech - Per BEAN PICKER MACHINE OPERATOR 11/07:Pt with a 24/30 on the MoCA cognitive-linguistic/memory screening tool indicating mild cognitive-linguistic/memory impairment. Pt stated results reflected baseline level. Encouraged to discuss with PCP should deficits remain and impact daily function. Pt educated regarding the results and recommendations of MoCA. Patient would benefit from further speech therapy to address the above deficits in order to improvefunctional independence and quality of life. Atrial Fibrillation and Chronic Anticoagulation Holding xarelto due to supratherapeutic INR. Now down to 1.9,-> 1.7 -rchanged from xarelto to eliquis 5 mg po bid as tunneled hemodialysis catheter [id number] Carmichael, Metoprolol for rate control Supratherapeutic INR INR was markedly elevated at 5.6 on arrival and is showing improvement-> 1.9-> 1.7 currently Hold AC in this setting Monitor with daily INR, consider resuming heparin trying to get dialysis catheter placed today 11/08 11/09 started eliquis for afib anticoag, d/c xarelto as less tolerated with HD Transaminitis , improving daily She had significant transaminitis on admission (AST 696, ALT 367, ALP 319), likely secondary to congestive hepatopathy in the setting of volume overload. Hepatitis panel neg. US abdomen at OSH with cholelithiasis and no acute findings. Clinically with no RUQ pain or tenderness Improving, monitor with CMP CHRONIC ACTIVE PROBLEMS Anemia She was noted to have anemia of chronic disease, with hemoglobin ranging from 8.9 to 7.8 g/dL. W Monitor with CBC Hypothyroidism Levothyroxine GLYCEMIC CONTROL reviewed Lab Results Component Value Date/Time GLUCOSE 93 11/09/2025 05:23 AM DVT prophylaxis: SCDs; not on chemoppx due to supratherapeutic INR Diet: DIET RENAL Code status: NO CPR (In Event of Cardiopulmonary Arrest) Anticipated Disposition Location: [facility] Timeframe: [facility] 11/09 Criteria:pt is currently medically stable for discharge 11/09 Outpatient follow up: nephrolgoy Patient's understanding of illness: fair MDM complexity: [] Mild [x] Moderate [] High coordination of care and procedure with IR Care included, Preparing to see the patient, Obtaining and/or reviewing separately obtained history, Performing a medically appropriate examination and/or evaluation, Counseling and educating the patient/family/caregiver, Ordering medications, tests or procedures, Documenting clinical information in the medical record, Referring and communication with other health transitions rn care coordinator (not separately reported), and Independently interpreting results and communicating results to the patient/family/caregiver (not separately reported). POCV John Carmen MD 11/09/2025, 5:18 PM ER OPERATOR * Lewis Rdz MD - 11/08/2025 4:23 PM CST Nephrology Progress Note Attending Physician: John Carmen MD Reason for consultation: Chronic kidney disease stage 4, volume overload. Patient is a 65 y.o. female with a past medical history significant for advancing CKD 4, CHF, HTN, and afib Patient presented to OSH with increased shortness of breath. + wt. Gain. CHF exacerbation. Creatinine of 4 on arrival there. She had HD x 1 for acute hypoxia and fluid overload. She is now inICU here. + dyspnea, + edema, + hypoxia. Per OSH did not respond well to diuretics. Subjective- now has tunneled HD cath No past medical history on file. No past surgical history on file. Medications Prior to Admission Medication Sig Dispense Refill Last Dose/Taking acetaminophen (TYLENOL) 500 mg tablet Take 500 mg by mouth. atorvastatin (LIPITOR) 80 mg tablet Take 80 mg by mouth daily. Cholecalciferol, Vitamin D3, 50 mcg (2,000 unit) Capsule Take 2,000 Units by mouth daily. ygtooshhosg-kmqyhbzfihzb-gbovetxpde (TRELEGY ELLIPTA) 200-62.5-25 mcg Disk with Device .COMPLEX hydroCHLOROthiazide 12.5 mg tablet Take 25 mg by mouth daily. levothyroxine 200 mcg tablet Take 200 mcg by mouth. metoprolol tartrate (LOPRESSOR) 50 mg tablet Take 50 mg by mouth daily. omeprazole magnesium (PriLOSEC) 20 mg Tablet, Delayed Release (E.C.) Take 1 Tablet by mouth daily. rivaroxaban (XARELTO) 20 mg Tablet Take 20 mg by mouth daily. torsemide 40 mg Tablet Take 20 mg by mouth. albuterol sulfate HFA 90 mcg/actuation aerosol inhaler Take 2 Puffs by inhalation every 6 hours as needed for Shortness of Breath. No Known Allergies Social History Tobacco Use Smoking status: Former Current packs/day: 0.00 Types: Cigarettes Quit date: 06/2020 Years since quittin.4 Smokeless tobacco: Not on file Substance Use Topics Alcohol use: Not on file No family history on file. Review of Systems History obtained from the patient tired post Line placement General ROS: no fever Respiratory ROS: + dyspnea Cardiovascular ROS: + orthopnea, + edema Gastrointestinal ROS: no nausea or vomiting Objective: BP 135/75 (BP Location: Right arm) Pulse 65 Temp 97.3 ??F (36.3 ??C) (Oral) Resp 16 Ht 5' 4 (1.626 m) Wt 126.7 kg (279 lb 5.2 oz) SpO2 96% BMI 47.95 kg/m?? General appearance: alert, + respiratory distress, obese Head: purple lips Lungs: coarse bilateral Heart: normal rate, regular rhythm, normal S1, S2, no murmurs, rubs, clicks or gallops Abdomen:obese Extremities:2+ edema Skin: + pallor Neurologic: Grossly normal Data Review: Results for orders placed or performed during the hospital encounter of 11/04/25 (from the past 24 hours) PROTIME-INR Result Value Ref Range PROTIME 21.1 (H) 12.7 - 14.9 Seconds INR 1.7 (H) 0.8 - 1.2 COMPREHENSIVE METABOLIC PANEL Result Value Ref Range SODIUM 135 (L) 136 - 145 mmol/L POTASSIUM 4.1 3.5 - 5.1 mmol/L CHLORIDE 97 (L) 98 - 107 mmol/L CO2 22 22 - 29 mmol/L CALCIUM 9.1 8.8 - 10.2 mg/dL BUN 49 (H) 8 - 23 mg/dL CREATININE 4.19 (H) 0.51 - 0.95 mg/dL GLUCOSE 111 (H) 74 - 99 mg/dL TOTAL PROTEIN 6.4 6.4 - 8.3 g/dL ALBUMIN 3.5 3.5 - 5.2 g/dL BILIRUBIN TOTAL 1.0 0.0 - 1.0 mg/dL ALKALINE PHOSPHATASE 267 (H) 35 - 104 U/L AST 79 (H) 10 - 35 U/L ALT 110 (H) <=35 U/L GFR 11 (L) >=60 mL/min/1.73 sq meter ANION GAP 16 9 - 20 mmol/L CBC WITH DIFFERENTIAL Result Value Ref Range WBC 9.9 4.8 - 10.8 K/uL RBC 3.47 (L) 4.20 - 5.40 M/uL HEMOGLOBIN 8.3 (L) 12.0 - 16.0 g/dL HEMATOCRIT 29.3 (L) 36.0 - 46.0 % MCV 84.4 84.0 - 103.0 fL MCH 23.9 (L) 27.0 - 34.0 pg MCHC 28.3 (L) 30.0 - 35.0 g/dL PLATELETS 200 140 - 440 K/uL MPV 11.5 8.9 - 12.8 fL RDW 18.6 (H) 11.0 - 14.5 % RDW-STDEV 54.6 (H) 37.0 - 54.0 fL NEUTROPHILS 74 42 - 75 % LYMPHOCYTES 10 (L) 24 - 44 % MONOCYTES 13 (H) 2 - 10 % EOSINOPHILS 2 0 - 7 % BASOPHILS 0 0 - 1 % IMMATURE GRANULOCYTES 2 0 - 2 % NEUTROPHIL ABSOLUTE 7.29 2.00 - 8.00 K/uL LYMPHOCYTE ABSOLUTE 0.95 (L) 1.20 - 4.00 K/uL MONOCYTE ABSOLUTE 1.29 (H) 0.10 - 0.60 K/uL EOSINOPHIL ABSOLUTE 0.16 0.00 - 0.70 K/uL BASOPHILS ABSOLUTE 0.03 0.00 - 0.20 K/uL IMMATURE GRANULOCYTES ABSOLUTE 0.17 (H) 0.00 - 0.10 K/uL SMEAR REVIEWED: NA - Not Applicable PHOSPHORUS Result Value Ref Range PHOSPHORUS 3.7 2.5 - 4.5 mg/dL Assessment/Plan ROSANNE on CKD 4- with high likelihood to be ESRD. HD started 11/04 and getting HD today UF 2-3L. Tunneled HD cath 11/08. MWF. Will need to work on placement either at [facility] or [place]. 2. Hypoxia- better with UF. Came in with significant volume overloaded. 3. CHF- UF as noted above. 4. HTN- BP came down with UF. Diastolic HF. 5. Anemia will get SPEP, iron def. Will dose IV Iron again. , Dosed CHARISSA ER OPERATOR * Paty Monroe RN - 11/08/2025 4:00 PM CST Imaging Nurse Post Procedure Note (left blank = NA) Dialysis catheter placement Dressing (x by appropriate choice): tegaderm: x Bandaid: Percustay: Gauze/tape: Dermabond: Steristrips: Sureseal: Other: Dressing location: R chest Cumulative Dose : plane A: 5 Plane B: (units in mGy) Dose Area Product (DAP) : plane A: 147.55 Plane B: (units in mGy-cm2) All interventional radiology devices/equipment that were utilized during this case were removed intact as reported per medical technologist prn Sedation time: 20 (min) (may also be documented via sedation tracking in sedation navigator) Report: Called to Imaging RN: Called to nurse on floor/unit: x Written SBAR on chart: Tolerated well: x Other: Medications given: 2mg versed, 100mcg fentanyl ER OPERATOR * John Carmen MD - 11/08/2025 1:32 PM CST Images from the original note were not included. Your life is our life's work [facility] Hospitalist/Hospital Medicine Progress Note LOS: 4 days Room/Bed: 4206/01 Patient name: Lupe Galo Date of : 1960 HOSPITAL COURSE SUMMARY: Lupe Galo is a 65-year-old female with a history of chronic kidney disease, congestive heart failure, atrial fibrillation, and hypothyroidism who was admitted on 11/04/2025 for acute hypoxic respiratory failure, renal failure, and heart failure exacerbation following transfer from an outside hospital. She initially presented with significant weight gain, dyspnea, orthopnea, and hypoxia unresponsive to diuresis, prompting initiation of hemodialysis for volume overload. The principal problemduring this admission was acute kidney injury superimposed on stage 4 chronic kidney disease, confirmed by elevated creatinine, reduced GFR, and persistent volume overload despite diuretic therapy. Nephrology was consulted and serial laboratory assessments demonstrated worsening renal function, with creatinine peaking at 4.4 mg/dL and GFR as low as 13 mL/min/1.73m??. She underwent intermittent hemodialysis and sustained low- efficiency dialysis (SLED), with net fluid removal of up to 4L, resulting in gradual improvement in respiratory status and volume overload. A tunneled dialysis catheter was planned once her supratherapeutic INR improved, as she was initially managed with a temporary dialysis line placed at the outside facility. Her acute on chronic diastolic heart failure was managed with volume removal via dialysis, and guideline-directed medical therapy was held to avoid hypotension during ultrafiltration. Echocardiography revealed preserved ejection fraction (LVEF 60%), grade 2 diastolic dysfunction, moderate left atrial enlargement, and valvular abnormalities including moderate mitral regurgitation and mild aortic stenosis. 11/06 Patient is currently hemodynamically stable. Is on 5LNC. Underwent HD this morning. For dialysis access she has right IJ catheter. She reports a persistent slurring of speech that has been there for several days, MRI of brain was requested by critical care service, this is pending at this time. Will request CT brain and request BEAN PICKER MACHINE OPERATOR evaluation INR at 2.5, continue holding AC. Plan for tunneled catheter once INR is acceptable 11/07 Assigned/assumed care of this 65-year-old female with known CKD 4 A-fib hypertension CAR-T-PE hypothyroid bilateral pleural effusions admitted 11/04 with acute hypoxic respiratory failure and secondary to volume overload secondary to diastolic CHF exacerbation. -Patient initially required ICU BiPAP and is now down to 5 L -She has undergone hemodialysis with ultrafiltration on 11/06 with plan on placement of hemodialysis catheter tomorrow if her INR is sufficiently decreased is down to 1.9 and dropping daily. - Plan is for more ultrafiltration tomorrow. -Per nephrology hold on GDMT as I do not want to drop the blood pressure if she needs further ultrafiltration tomorrow await echocardiogram thought to have diastolic heart failure -regarding her anemia SPEP iron levels are pending will plan to dose iron tomorrow per nephrology 11/08 arterial studies are negative and venous studies are positive for left upper extremity cephalic vein superficial vein thrombosis will elevate and may use warm compresses. Plan was to proceed with tunneled dialysis catheter per IR today with Dr. Carmichael then to proceed to dialysis this afternoon blood cultures are negative at 48 hours INR is 1.7 CT of the head without changes compared with recent CT head. Patient complains of burning pain in the right posterior calf and lateral calf but arterial and venous studies are negative. Initiated on Lyrica 25 mg p.o. twice daily and will escalate until symptoms resolved/improved Consultants: IP CONSULT TO WOUND/SKIN CARE TEAM IP CONSULT TO NEPHROLOGY IP CONSULT TO CARDIAC REHAB IP CONSULT TO INTERVENTIONAL RADIOLOGY SUBJECTIVE: And denied new concerns ROS remains negative except as above 11/08 OBJECTIVE: Temp (24hrs), Av.7 ??F (36.5 ??C), Min:97.5 ??F (36.4 ??C), Max:97.8 ??F (36.6 ??C) BP 119/80 (BP Location: Right arm, Patient Position (BP): Supine) Pulse 63 Temp 97.8 ??F (36.6 ??C) (Oral) Resp 20 Ht 5' 4 (1.626 m) Wt 126.7 kg (279 lb 5.2 oz) SpO2 91% BMI 47.95 kg/m?? Intake/Output Summary (Last 24 hours) at 11/08/2025 1332 Last data filed at 11/08/2025 0200 Gross per 24 hour Intake -- Output 2 ml Net -2 ml Last documented weight: Weight: 126.7 kg (279 lb 5.2 oz) (11/06/25 2250) EXAM: reExamined at bedside 11/08, unchanged GENERAL APPEARANCE: alert, oriented, affect appropriate,following commands HEENT: PERRL, conjunctiva/ lids clear, neck supple, NEURO:CN2-12 wnl, PERRL moving all extremities spontaneously and symmetrically, CARDIOVASCULAR: regular rate and rhythm, S1, S2 normal, no murmur, click, rub or gallop, LUNGS: Minimally diminished bibasilarly but clear to auscultation bilaterally anteriorly and posteriorly.No wheezing noted. No increased work of breathing noted at rest CHEST WALL EXAM: no crepitance,nontender BACK: symmetric excursion, ABDOMEN: benign, normoactive bowel sounds, no organomegaly or masses, no rebound , no guarding, Non distended, soft, nontender to mod diffuse palpation EXTREMITIES: extremities without edema, no cyanosis, warm and well perfused,No calf or thigh erythema,tenderness or edema, SKIN: intact, no jaundice, IV sites clean, dry LABORATORY: Recent Labs 11/06/25 0548 11/07/25 0551 11/08/25 0517 WBC 9.2 8.7 9.9 HGB 7.8* 8.3* 8.3* HCT 27.9* 29.8* 29.3* PLT 185 192 200 Recent Labs 11/06/25 0548 11/07/25 0551 11/08/25 0517 NA 138 137 135* K 4.1 3.6 4.1 CL 102 99 97* CO2 23 27 22 CA 8.9 9.0 9.1 BUN 44* 36* 49* CREAT 3.63* 3.47* 4.19* GLUCOSE 116* 119* 111* Recent Labs 11/06/25 0548 11/07/25 0551 11/08/25 0517 TOTALPROTEIN 6.2* 6.4 6.4 ALBUMIN 3.4* 3.8 3.5 BILITOTAL 1.2* 1.1* 1.0 ALKPHOS 252* 259* 267* AST 158* 97* 79* ALT 186* 140* 110* Recent Labs 11/06/25 0548 11/07/25 0552 11/08/25 0517 INR 2.5* 1.9* 1.7* PT 27.9* 22.3* 21.1* No results for input(s): BASETROP , 2HRTROP , DELTA , 6HRTROP in the last 72 hours. Diagnostic testing reviewed. Medications were reviewed by id. Current Facility-Administered Medications: LORazepam (ATIVAN) 2 mg/mL injection 0.5 mg, 0.5 mg, IV, ONE time only, John Carmen MD sodium chloride 0.9 % bolus solution 1,000 mL, 1,000 mL, See Admin Instructions, see admin instructions, Ruby Suero, SHEET ROCK LAYER, Stopped at 11/06/25 0751 acetaminophen (TYLENOL) tablet 500 mg, 500 mg, Oral, every 6 hours PRN, Leon Echols MD, 500 mg at 11/07/25 2343 levothyroxine (SYNTHROID) tablet 175 mcg, 175 mcg, Oral, daily EARLY, Leon Echols MD, 175 mcg at 11/08/25 0523 pantoprazole (PROTONIX) tablet 40 mg, 40 mg, Oral, daily BEFORE breakfast, Leon Echols MD, 40 mg at 11/08/25 0659 ondansetron (ZOFRAN) 4 mg/2 mL injection 4 mg, 4 mg, IV, every 6 hours PRN, Leon Echols MD, 4 mg at 11/08/25 1139 fluticasone furoate-vilanteroL (BREO ELLIPTA) 100-25 mcg/dose inhaler 1 Puff, 1 Puff, Inhalation, resp, daily, 1 Puff at 11/08/25 0718 AND umeclidinium (INCRUSE ELLIPTA) 62.5 mcg/actuation inhaler 1 Puff, 1 Puff, Inhalation, resp, daily, Leon Echols MD, 1 Puff at 11/08/25 0718 miconazole (JYOTI,MICOTIN,REMEDY AF) 2 % topical cream, , Topical, BID, Leon Echols MD, Given at 11/08/25 0944 miconazole nitrate (REMEDY-AF,ZEASORB-AF) 2 % topical powder, , Topical, BID, Leon Echols MD, Given at 11/08/25 0944 metoprolol tartrate (LOPRESSOR) tablet 12.5 mg, 12.5 mg, Oral, BID, Leon Echols MD, 12.5 mg at 11/08/25 0943 naloxone (NARCAN) 0.4 mg/mL injection 0.1-0.4 mg, 0.1-0.4 mg, IV, see admin instructions, Adeola Kaur [facility] Primary discharge diagnosis: Acute kidney injury superimposed on stage 4 chronic kidney disease (CMS/HCC) Other active medical issues also addressed during this admission: Active Hospital Problems Diagnosis Slurred speech Longstanding persistent atrial fibrillation (CMS/HCC) Acute respiratory failure with hypoxia (CMS/HCC) Transaminitis Volume overload Supratherapeutic INR Acute on chronic diastolic (congestive) heart failure (CMS/HCC) Acute kidney injury superimposed on stage 4 chronic kidney disease (CMS/HCC) Paroxysmal atrial fibrillation (CMS/HCC) Chronic anticoagulation Hypothyroidism Resolved Hospital Problems No resolved problems to display. ASSESSMENT AND PLAN: Acute on Chronic Diastolic (Congestive) Heart Failure related to volume overload related to renal dysfunction TTE 10/30/2025: Echo at outside hospital with LVEF 60% with G2DD with moderately elevated filling pressures with moderately increased left atrial size, moderate aortic calcification with mild aortic valve stenosis, moderate mitral valve regurg. S/P SLED. On HD now for volume management Nephrology following for HD and volume management 11/07 2 L UF, plan further UF 11/08 11/08 plan tunneled hemodialysis catheter per IR GDMT: Not currently a candidate for ACEI/ARNi, SGTL-2 inhibitor, MRA. Continue metoprolol tartaratewith a plan to switch to XL Acute Hypoxic Respiratory Failure : secondary to CHF and fluid overload. -Currently on 3L NC. Saturating 91-94% wean as tolerated -Plan as above Acute Kidney Injury on Chronic Kidney Disease Stage 4 Dialysis dependent currently As per nephrology , high likelihood to be ESRD Nephrology following, appreciate recommendations Access site- right IJ catheter. Tunneled dialysis catheter line scheduled with IR 11/08 as patient blood cultures are negative at 48 hours Slurred Speech, now subtle Reports this is a new finding however this has been there for several days. MRI brain is pending BEAN PICKER MACHINE OPERATOR evaluation requested - 11/07 patient thinks her speech has gotten back to normal and her daughter at bedside does not feel this is correct that pt still does have slightly slurred speech - Per BEAN PICKER MACHINE OPERATOR 11/07:Pt with a 24/30 on the MoCA cognitive-linguistic/memory screening tool indicating mild cognitive-linguistic/memory impairment. Pt stated results reflected baseline level. Encouraged to discuss with PCP should deficits remain and impact daily function. Pt educated regarding the results and recommendations of MoCA. Patient would benefit from further speech therapy to address the above deficits in order to improvefunctional independence and quality of life. Atrial Fibrillation and Chronic Anticoagulation Holding xarelto due to supratherapeutic INR. Now down to 1.9,-> 1.7 continue to hold Xarelto as planned tunneled hemodialysis catheter 11/08 per IRDr Juanito Carmichael contacted IR staff and submitted order as required Metoprolol for rate control Supratherapeutic INR INR was markedly elevated at 5.6 on arrival and is showing improvement-> 1.9-> 1.7 currently Hold AC in this setting Monitor with daily INR, consider resuming heparin trying to get dialysis catheter placed today 11/08 Transaminitis , improving daily She had significant transaminitis on admission (AST 696, ALT 367, ALP 319), likely secondary to congestive hepatopathy in the setting of volume overload. Hepatitis panel neg. US abdomen at OSH with cholelithiasis and no acute findings. Clinically with no RUQ pain or tenderness Improving, monitor with CMP CHRONIC ACTIVE PROBLEMS Anemia She was noted to have anemia of chronic disease, with hemoglobin ranging from 8.9 to 7.8 g/dL. W Monitor with CBC Hypothyroidism Levothyroxine GLYCEMIC CONTROL reviewed Lab Results Component Value Date/Time GLUCOSE 111 (H) 11/08/2025 05:17 AM DVT prophylaxis: SCDs; not on chemoppx due to supratherapeutic INR Diet: DIET NPO Strict Code status: NO CPR (In Event of Cardiopulmonary Arrest) Anticipated Disposition Location: [facility] Timeframe: 11/11/2025 Criteria: Clinical workup and improvement Outpatient follow up: nephrolgoy Patient's understanding of illness: fair MDM complexity: [] Mild [] Moderate [x] High coordination of care and procedure with IR Care included, Preparing to see the patient, Obtaining and/or reviewing separately obtained history, Performing a medically appropriate examination and/or evaluation, Counseling and educating the patient/family/caregiver, Ordering medications, tests or procedures, Documenting clinical information in the medical record, Referring and communication with other health transitions rn care coordinator (not separately reported), and Independently interpreting results and communicating results to the patient/family/caregiver (not separately reported). POCV John Carmen MD 11/08/2025, 1:32 PM ER OPERATOR * John Carmen MD - 11/07/2025 2:44 PM CST Images from the original note were not included. Your life is our life's work [facility] Hospitalist/[facility] Progress Note LOS: 3 days Room/Bed: 4206/01 Patient name: Lupe Galo Date of : 1960 HOSPITAL COURSE SUMMARY: Lupe Galo is a 65-year-old female with a history of chronic kidney disease, congestive heart failure, atrial fibrillation, and hypothyroidism who was admitted on 11/04/2025 for acute hypoxic respiratory failure, renal failure, and heart failure exacerbation following transfer from an outside hospital. She initially presented with significant weight gain, dyspnea, orthopnea, and hypoxia unresponsive to diuresis, prompting initiation of hemodialysis for volume overload. The principal problemduring this admission was acute kidney injury superimposed on stage 4 chronic kidney disease, confirmed by elevated creatinine, reduced GFR, and persistent volume overload despite diuretic therapy. Nephrology was consulted and serial laboratory assessments demonstrated worsening renal function, with creatinine peaking at 4.4 mg/dL and GFR as low as 13 mL/min/1.73m??. She underwent intermittent hemodialysis and sustained low- efficiency dialysis (SLED), with net fluid removal of up to 4L, resulting in gradual improvement in respiratory status and volume overload. A tunneled dialysis catheter was planned once her supratherapeutic INR improved, as she was initially managed with a temporary dialysis line placed at the outside facility. Her acute on chronic diastolic heart failure was managed with volume removal via dialysis, and guideline-directed medical therapy was held to avoid hypotension during ultrafiltration. Echocardiography revealed preserved ejection fraction (LVEF 60%), grade 2 diastolic dysfunction, moderate left atrial enlargement, and valvular abnormalities including moderate mitral regurgitation and mild aortic stenosis. 11/06 Patient is currently hemodynamically stable. Is on 5LNC. Underwent HD this morning. For dialysis access she has right IJ catheter. She reports a persistent slurring of speech that has been there for several days, MRI of brain was requested by critical care service, this is pending at this time. Will request CT brain and request BEAN PICKER MACHINE OPERATOR evaluation INR at 2.5, continue holding AC. Plan for tunneled catheter once INR is acceptable 11/07 Assigned/assumed care of this 65-year-old female with known CKD 4 A-fib hypertension CAR-T-PE hypothyroid bilateral pleural effusions admitted 11/04 with acute hypoxic respiratory failure and secondary to volume overload secondary to diastolic CHF exacerbation. -Patient initially required ICU BiPAP and is now down to 5 L -She has undergone hemodialysis with ultrafiltration on 11/06 with plan on placement of hemodialysis catheter tomorrow if her INR is sufficiently decreased is down to 1.9 and dropping daily. - Plan is for more ultrafiltration tomorrow. -Per nephrology hold on GDMT as I do not want to drop the blood pressure if she needs further ultrafiltration tomorrow await echocardiogram thought to have diastolic heart failure -regarding her anemia SPEP iron levels are pending will plan to dose iron tomorrow per nephrology Consultants: IP CONSULT TO WOUND/SKIN CARE TEAM IP CONSULT TO NEPHROLOGY IP CONSULT TO CARDIAC REHAB IP CONSULT TO INTERVENTIONAL RADIOLOGY SUBJECTIVE: Denied new concerns ROS negative except as above 11/07 OBJECTIVE: Temp (24hrs), Av.5 ??F (36.4 ??C), Min:97.4 ??F (36.3 ??C), Max:97.6 ??F (36.4 ??C) BP 124/72 (BP Location: Left leg, Patient Position (BP): Supine) Pulse 68 Temp 97.4 ??F (36.3 ??C) (Temporal) Resp 14 Ht 5' 4 (1.626 m) Wt 126.7 kg (279 lb 5.2 oz) SpO2 98% BMI 47.95 kg/m?? Intake/Output Summary (Last 24 hours) at 11/07/2025 1444 Last data filed at 11/07/2025 0800 Gross per 24 hour Intake 650 ml Output 1 ml Net 649 ml Last documented weight: Weight: 126.7 kg (279 lb 5.2 oz) (11/06/25 2250) EXAM: Exam at bedside 11/07 GENERAL APPEARANCE: alert, oriented, affect appropriate,following commands HEENT: PERRL, conjunctiva/ lids clear, neck supple, NEURO:CN2-12 wnl, PERRL moving all extremities spontaneously and symmetrically, CARDIOVASCULAR: regular rate and rhythm, S1, S2 normal, no murmur, click, rub or gallop, LUNGS: Minimally diminished bibasilarly but clear to auscultation bilaterally anteriorly and posteriorly.No wheezing noted. No increased work of breathing noted at rest CHEST WALL EXAM: no crepitance,nontender BACK: symmetric excursion, ABDOMEN: benign, normoactive bowel sounds, no organomegaly or masses, no rebound , no guarding, Non distended, soft, nontender to mod diffuse palpation EXTREMITIES: extremities without edema, no cyanosis, warm and well perfused,No calf or thigh erythema,tenderness or edema, SKIN: intact, no jaundice, IV sites clean, dry LABORATORY: Recent Labs 11/06/25 0548 11/07/25 0551 WBC 9.2 8.7 HGB 7.8* 8.3* HCT 27.9* 29.8* PLT 185 192 Recent Labs 11/05/25 0303 11/06/25 0548 11/07/25 0551 NA 140 138 137 K 4.1 4.1 3.6 CL 102 102 99 CO2 CA 8.8 8.9 9.0 BUN 33* 44* 36* CREAT 2.59* 3.63* 3.47* GLUCOSE 97 116* 119* Recent Labs 11/04/25 1756 11/05/25 0303 11/06/25 0548 11/07/25 0551 TOTALPROTEIN 6.8 6.7 6.2* 6.4 ALBUMIN -- 4.0 4.1 3.4* 3.8 BILITOTAL -- 1.3* 1.2* 1.1* ALKPHOS -- 281* 252* 259* AST -- 269* 158* 97* ALT -- 249* 186* 140* Recent Labs 11/05/25 0904 11/06/25 0548 11/07/25 0552 INR 3.6* 2.5* 1.9* PT 37.6* 27.9* 22.3* No results for input(s): BASETROP , 2HRTROP , DELTA , 6HRTROP in the last 72 hours. Diagnostic testing reviewed. Medications were reviewed by me. Current Facility-Administered Medications: LORazepam (ATIVAN) 2 mg/mL injection 0.5 mg, 0.5 mg, IV, ONE time only, John Carmen MD [DISCONTINUED] potassium CHLORIDE 20 mEq/100 mL IVPB 20 mEq, 20 mEq, IV, every 4 hours, John Carmen MD sodium chloride 0.9 % bolus solution 1,000 mL, 1,000 mL, See Admin Instructions, see admin instructions, Ruby Suero, SHEET ROCK LAYER, Stopped at 11/06/25 0751 acetaminophen (TYLENOL) tablet 500 mg, 500 mg, Oral, every 6 hours PRN, Leon Echols MD, 500 mg at 11/07/25 0332 levothyroxine (SYNTHROID) tablet 175 mcg, 175 mcg, Oral, daily EARLY, Leon Echols MD, 175 mcg at 11/07/25 0513 pantoprazole (PROTONIX) tablet 40 mg, 40 mg, Oral, daily BEFORE breakfast, Leon Echols MD, 40 mg at 11/07/25 0741 ondansetron (ZOFRAN) 4 mg/2 mL injection 4 mg, 4 mg, IV, every 6 hours PRN, Leon Echols MD fluticasone furoate-vilanteroL (BREO ELLIPTA) 100-25 mcg/dose inhaler 1 Puff, 1 Puff, Inhalation, resp, daily, 1 Puff at 11/07/25 0742 AND umeclidinium (INCRUSE ELLIPTA) 62.5 mcg/actuation inhaler 1 Puff, 1 Puff, Inhalation, resp, daily, Leon Echols MD, 1 Puff at 11/07/25 0741 miconazole (JYOTI,MICOTIN,REMEDY AF) 2 % topical cream, , Topical, BID, Leon Echols MD, Given at 11/07/25 0959 miconazole nitrate (REMEDY-AF,ZEASORB-AF) 2 % topical powder, , Topical, BID, Leon Echols MD, Given at 11/07/25 0959 metoprolol tartrate (LOPRESSOR) tablet 12.5 mg, 12.5 mg, Oral, BID, Leon Echols MD, 12.5 mg at 11/07/25 0956 naloxone (NARCAN) 0.4 mg/mL injection 0.1-0.4 mg, 0.1-0.4 mg, IV, see admin instructions, Adeola Kaur, ELECTRICIAN ASSISTANT- Primary discharge diagnosis: Acute kidney injury superimposed on stage 4 chronic kidney disease (CMS/HCC) Other active medical issues also addressed during this admission: Active Hospital Problems Diagnosis Slurred speech Longstanding persistent atrial fibrillation (CMS/HCC) Acute respiratory failure with hypoxia (CMS/HCC) Transaminitis Volume overload Supratherapeutic INR Acute on chronic diastolic (congestive) heart failure (CMS/HCC) Acute kidney injury superimposed on stage 4 chronic kidney disease (CMS/HCC) Paroxysmal atrial fibrillation (CMS/HCC) Chronic anticoagulation Hypothyroidism Resolved Hospital Problems No resolved problems to display. ASSESSMENT AND PLAN: Acute on Chronic Diastolic (Congestive) Heart Failure TTE 10/30/2025: Echo at outside hospital with LVEF 60% with G2DD with moderately elevated filling pressures with moderately increased left atrial size, moderate aortic calcification with mild aortic valve stenosis, moderate mitral valve regurg. S/P SLED. On HD now for volume management Nephrology following for HD and volume management 11/07 2 L UF, plan further UF 11/08 11/08 plan tunneled hemodialysis catheter per IR GDMT: Not currently a candidate for ACEI/ARNi, SGTL-2 inhibitor, MRA. Continue metoprolol tartaratewith a plan to switch to XL Acute Hypoxic Respiratory Failure : secondary to CHF and fluid overload. -Currently on 5L NC. Wean as tolerated -Plan as above Acute Kidney Injury on Chronic Kidney Disease Stage 4 Dialysis dependent currently As per nephrology , high likelihood to be ESRD Nephrology following, appreciate recommendations Access site- right IJ catheter. Will need tunneled dialysis catheter line once Slurred Speech Reports this is a new finding however this has been there for several days. MRI brain is pending BEAN PICKER MACHINE OPERATOR evaluation requested - 11/07 patient thinks her speech has gotten back to normal and her daughter at bedside does not feel this is correct she still does have slightly slurred speech - Per BEAN PICKER MACHINE OPERATOR 11/07:Pt with a on the MoCA cognitive-linguistic/memory screening tool indicating mild cognitive-linguistic/memory impairment. Pt stated results reflected baseline level. Encouraged to discuss with PCP should deficits remain and impact daily function. Pt educated regarding the results and recommendations of MoCA. Patient would benefit from further speech therapy to address the above deficits in order to improvefunctional independence and quality of life. Atrial Fibrillation and Chronic Anticoagulation Holding xarelto due to supratherapeutic INR. Now down to 1.9, continue to hold Xarelto as planned tunneled hemodialysis catheter tomorrow per IR Metoprolol for rate control Supratherapeutic INR INR was markedly elevated at 5.6 on arrival and is showing improvement-> 1.9 currently Hold AC in this setting Monitor with daily INR Transaminitis , improving daily She had significant transaminitis on admission (AST 696, ALT 367, ALP 319), likely secondary to congestive hepatopathy in the setting of volume overload. Hepatitis panel neg. US abdomen at OSH with cholelithiasis and no acute findings. Clinically with no RUQ pain or tenderness Improving, monitor with CMP CHRONIC ACTIVE PROBLEMS Anemia She was noted to have anemia of chronic disease, with hemoglobin ranging from 8.9 to 7.8 g/dL. W Monitor with CBC Hypothyroidism Levothyroxine GLYCEMIC CONTROL reviewed Lab Results Component Value Date/Time GLUCOSE 119 (H) 11/07/2025 05:51 AM DVT prophylaxis: SCDs; not on chemoppx due to supratherapeutic INR Diet: DIET RENAL DIET NPO Strict Code status: NO CPR (In Event of Cardiopulmonary Arrest) Anticipated Disposition Location: [facility] Timeframe: 11/08/2025 Criteria: Clinical workup and improvement Outpatient follow up: nephrolgoy Patient's understanding of illness: fair MDM complexity: [] Mild [x] Moderate [] High Care included, Preparing to see the patient, Obtaining and/or reviewing separately obtained history, Performing a medically appropriate examination and/or evaluation, Counseling and educating the patient/family/caregiver, Ordering medications, tests or procedures, Documenting clinical information in the medical record, Referring and communication with other health transitions rn care coordinator (not separately reported), and Independently interpreting results and communicating results to the patient/family/caregiver (not separately reported). POCV John Carmen MD 11/07/2025, 2:44 PM ER OPERATOR * Rory Medrano SLP - 11/07/2025 9:13 AM CST [facility] 3K Ph. ; Fax. Acute Speech-Language Pathology Cognitive-Linguistic/Memory Evaluation 11/07/2025 Room: [address] [place] [address] Name: Lupe Galo Age: 65 y.o. Date of : 1960 Insurance: Payor: [employer] MEDICARE ADVANTAGE / [facility] / Product Type: HMO / Patient class: Inpatient Confirmed patient's identification of name and date of : by patient report Consent to treatment given by patient and nurse with results as follows: Onset of illness/injury or date of surgery: 11/04/2025 HPI Lupe Galo is a 65 y.o. female admitted for acute hypoxic respiratory failure, renal failure, and heart failure exacerbation following transfer from an outside hospital. She initially presented with significant weight gain, dyspnea, orthopnea, and hypoxia unresponsive to diuresis, prompting initiation of hemodialysis for volume overload. Subjective Information and Clinical Observations Patient/Family Goals Statement: None stated Pain: Refer to Doc Flowsheet for documented pain levels. Level of Alertness: Alert/Responsive Mood/Affect: Patient calm and cooperative Position: Upright in bed Oriented x Person, Place, Situation , and Date (Month, Day of week, Date, and Year) Circumstances negatively impacting performance this date: none Objective Information Diagnostic Intervention Provided: Speech Language Pathology Predisposing cognitive-linguistic risk factors: None known Acute cognitive-linguistic risk factors: None known Social History/Home Environment: Currently lives alone Occupational background: retired Highest level of education: some college History of special education requirements: No Able to read/write at baseline: yes Independently managed medications: Yes Independently managed finances: Yes Able to drive motor vehicle prior to admission: No Sensory Input/Output: Visual deficits: wears glasses/contacts - not present for evaluation Hearing deficits: none per patient Dominant hand: right handed per patient Patient demonstrated functional utilization of dominant hand during evaluation:Yes Informal Assessment: Temporal orientation: WFL - 5/5 appropriate responses to basic orientation questions (e.g., day of the week, month, and year) Spatial orientation: WFL - 5/5 appropriate responses to basic orientation questions (e.g., city, state, and county) Biographical orientation: WFL - 5/5 appropriate responses to basic orientation questions (e.g., name, birthday, and age) Situational orientation: WFL - Patient able to provide appropriate reason for hospital visit Verbal problem solving regarding safety: WFL - 6/6 appropriate responses to basic problem solving questions (e.g., What would you do if you noticed a fire in your home? ) Tests Administered and Qualitative Observations Speech-Language Pathology: Administered Greg Cognitive Assessment (MoCA) version 8.1 to assess cognitive-linguistic skills. MoCA assesses attention, concentration, executive functioning, memory, language, visuoconstructional skills, conceptual thinking, calculation, and orientation. The resultswere as follows: MoCA Subtests Visuospatial/executive: 0/5 (Pt unable to see d/t baseline visual deficits without glasses present) Namin/3 Attention Digit Span: 0/2 Vigilance: 0/1 Serial 7's: 3/3 Language Repetition: 2/2 Fluency: 0/1 Abstraction: 2/2 Delayed Recall: 5 Orientation: 6 (The following formula, found on the MoCA website, was completed to account for pt's limited use ofdominant hand, which resulted in pt being unable to complete written portions of evaluation: 20x30/25=24/30) Total: 24/30, suggesting mild impairment for age and education level. Normal range: Score greater than or equal to 26 Memory index score: 13/15 Qualitative Observations Speech Production: Speech intelligibility subjectively judged to be 100% at the conversation level with an unfamiliar listener. Expressive Language: functional Receptive Language: functional Assessment Per standardized assessment and qualitative observations, patient presents with: Cognitive-linguistic/memory: deficits in the areas of working memory, organization skills, attention, calculation, abstraction, mental flexibility, and generative/divergent naming Pt with the above deficits and strengths in confrontational naming, calculation, and abstraction. Pt with a 24/30 on the MoCA cognitive-linguistic/memory screening tool indicating mild cognitive-linguistic/memory impairment. Pt stated results reflected baseline level. Encouraged to discuss with PCPshould deficits remain and impact daily function. Pt educated regarding the results and recommendations of MoCA. Patient would benefit from further speech therapy to address the above deficits in order to improvefunctional independence and quality of life. Recommendations DISCHARGE RECOMMENDATIONS: Defer to interdisciplinary team, no speech needs identified * The final discharge location is determined through physician, case management, and patient/caregiver input along with insurance authorization of skilled services when appropriate Recommendations for referral to another service: None at this time Precautions Plan of Care Patient precautions: No precautions impacting BEAN PICKER MACHINE OPERATOR services at this time Will complete BEAN PICKER MACHINE OPERATOR Order. Nofurther speech therapy services warranted in the acute setting. Please notify speech therapy department should the patient's condition change and/or patient requires BEAN PICKER MACHINE OPERATOR services prior to the next anticipated BEAN PICKER MACHINE OPERATOR visit. Education Disposition Regarding: results and recommendations of cognitive-linguistic/memory evaluation, implementation ofmemory strategies, and speech therapy plan of care Learner, method of education, and response to learning listed in Education tab in Epic Before session: Patient lying in bed After session: Patient lying in bed, call light in reach, bed alarm in place, and daughter present in room Current Diagnoses/Past Medical History Pertinent diagnoses and past medical history related to this hospital stay are present in physicianH&P and physician daily notes. Prior to session, completed thorough chart review. Reviewed prior therapy treatment notes as applicable. Further treatment notes and therapeutic goals can be found in Care Plan Notes. If the patient discharges from facility prior to another therapy visit, this shall serve as the therapy discharge summary Thank you for this referral, Rory Medrano M.S. [facility]-BEAN PICKER MACHINE OPERATOR Acute Speech Therapy Charge Zone Phone #[phone] Acute Speech Therapy Charge Pager #[phone] ER OPERATOR * Magdi Carroll MD - 11/06/2025 1:58 PM CST Images from the original note were not included. Your life is our life's work [facility] Hospitalist/[facility] [place] Progress Note LOS: 2 days Room/Bed: 4206/01 Patient name: Lupe Galo Date of : 1960 HOSPITAL COURSE SUMMARY: Lupe Galo is a 65-year-old female with a history of chronic kidney disease, congestive heart failure, atrial fibrillation, and hypothyroidism who was admitted on 11/04/2025 for acute hypoxic respiratory failure, renal failure, and heart failure exacerbation following transfer from an outside hospital. She initially presented with significant weight gain, dyspnea, orthopnea, and hypoxia unresponsive to diuresis, prompting initiation of hemodialysis for volume overload. The principal problemduring this admission was acute kidney injury superimposed on stage 4 chronic kidney disease, confirmed by elevated creatinine, reduced GFR, and persistent volume overload despite diuretic therapy. Nephrology was consulted and serial laboratory assessments demonstrated worsening renal function, with creatinine peaking at 4.4 mg/dL and GFR as low as 13 mL/min/1.73m??. She underwent intermittent hemodialysis and sustained low- efficiency dialysis (SLED), with net fluid removal of up to 4L, resulting in gradual improvement in respiratory status and volume overload. A tunneled dialysis catheter was planned once her supratherapeutic INR improved, as she was initially managed with a temporary dialysis line placed at the outside facility. Her acute on chronic diastolic heart failure was managed with volume removal via dialysis, and guideline-directed medical therapy was held to avoid hypotension during ultrafiltration. Echocardiography revealed preserved ejection fraction (LVEF 60%), grade 2 diastolic dysfunction, moderate left atrial enlargement, and valvular abnormalities including moderate mitral regurgitation and mild aortic stenosis. 11/06 Patient is currently hemodynamically stable. Is on 5LNC. Underwent HD this morning. For dialysis access she has right IJ catheter. She reports a persistent slurring of speech that has been there for several days, MRI of brain was requested by critical care service, this is pending at this time. Will request CT brain and request BEAN PICKER MACHINE OPERATOR evaluation INR at 2.5, continue holding AC. Plan for tunneled catheter once INR is acceptable Consultants: IP CONSULT TO WOUND/SKIN CARE TEAM IP CONSULT TO NEPHROLOGY IP CONSULT TO CARDIAC REHAB SUBJECTIVE: Denies any new complaints at this time ROS negative except for those mentioned in HPI and subjective findings. OBJECTIVE: Temp (24hrs), Av ??F (36.7 ??C), Min:97.5 ??F (36.4 ??C), Max:98.4 ??F (36.9 ??C) BP 116/57 (BP Location: Left arm, Patient Position (BP): Supine) Pulse 72 Temp 98.2 ??F (36.8 ??C) (Oral) Resp 20 Wt 126.7 kg (279 lb 5.2 oz) SpO2 96% BMI 47.95 kg/m?? Intake/Output Summary (Last 24 hours) at 11/06/2025 1358 Last data filed at 11/06/2025 1235 Gross per 24 hour Intake 500 ml Output 2000 ml Net -1500 ml Last documented weight: Weight: 126.7 kg (279 lb 5.2 oz) (11/06/25 1005) EXAM: GENERAL: female laying on bed in no acute distress. EYES: Pupils symmetric, conjunctiva not congested. E/N/M/T: Normal appearing pinna, Oral mucosa moist. CARDIOVASCULAR: Normal rate, rhythm, S1 S2 heard. + peripheral edema noted. RESPIRATORY: Decreased breath sounds bilaterally. GASTROINTESTINAL: Non-distended, soft, non-tender . Bowel sounds normoactive . GENITOURINARY: no suprapubic tenderness. no CVA tenderness MUSCULOSKELETAL: moves all extremities PSYCHIATRIC: no agitation or delirium HEMATOLOGIC/LYMPHATIC/IMMUNOLOGIC: no cervical lymphadenopathy NEUROLOGIC: Awake, alert and oriented . No new gross focal motor deficits noted. LABORATORY: Recent Labs 11/04/25 1349 11/06/25 0548 WBC 9.6 9.2 HGB 8.2* 7.8* HCT 28.2* 27.9* PLT 194 185 Recent Labs 11/04/25 1349 11/05/25 0303 11/06/25 0548 NA 140 140 138 K 4.3 4.1 4.1 CL 101 102 102 CO2 CA 9.0 8.8 8.9 BUN 46* 33* 44* CREAT 3.66* 2.59* 3.63* GLUCOSE 111* 97 116* Recent Labs 11/04/25 1349 11/04/25 1756 11/05/25 0303 11/06/25 0548 TOTALPROTEIN 6.9 6.8 6.7 6.2* ALBUMIN 4.0 -- 4.0 4.1 3.4* BILITOTAL 1.1* -- 1.3* 1.2* ALKPHOS 300* -- 281* 252* AST 366* -- 269* 158* ALT 285* -- 249* 186* Recent Labs 11/04/25 1349 11/05/25 0904 11/06/25 0548 INR 5.8* 3.6* 2.5* PT 54.2* 37.6* 27.9* No results for input(s): BASETROP , 2HRTROP , DELTA , 6HRTROP in the last 72 hours. Diagnostic testing reviewed. Medications were reviewed by me. Current Facility-Administered Medications: sodium chloride 0.9 % bolus solution 1,000 mL, 1,000 mL, See Admin Instructions, see admin instructions, Ruby Suero FNP, Stopped at 11/06/25 0751 [COMPLETED] darbepoetin yuridia (ARANESP) 60 mcg/mL injection 60 mcg, 60 mcg, subCUT, ONE time only, Lewis Rdz MD, 60 mcg at 11/05/25 2357 acetaminophen (TYLENOL) tablet 500 mg, 500 mg, Oral, every 6 hours PRN, Leon Echols MD, 500 mg at 11/06/25 0349 levothyroxine (SYNTHROID) tablet 175 mcg, 175 mcg, Oral, daily EARLY, Leon Echols MD, 175 mcg at 11/06/25 0518 pantoprazole (PROTONIX) tablet 40 mg, 40 mg, Oral, daily BEFORE breakfast, Leon Echols MD, 40 mg at 11/06/25 1023 ondansetron (ZOFRAN) 4 mg/2 mL injection 4 mg, 4 mg, IV, every 6 hours PRN, Leon Echols MD fluticasone furoate-vilanteroL (BREO ELLIPTA) 100-25 mcg/dose inhaler 1 Puff, 1 Puff, Inhalation, resp, daily, 1 Puff at 11/06/25 1023 AND umeclidinium (INCRUSE ELLIPTA) 62.5 mcg/actuation inhaler 1 Puff, 1 Puff, Inhalation, resp, daily, Leon Echols MD, 1 Puff at 11/06/25 1023 miconazole (JYOTI,MICOTIN,REMEDY AF) 2 % topical cream, , Topical, BID, Leon Echols MD, Given at 11/06/25 1027 miconazole nitrate (REMEDY-AF,ZEASORB-AF) 2 % topical powder, , Topical, BID, Leon Echols MD, Given at 11/06/25 1027 metoprolol tartrate (LOPRESSOR) tablet 12.5 mg, 12.5 mg, Oral, BID, Leon Echols MD, 12.5 mg at 11/06/25 1023 [COMPLETED] ALBUTEROL SULFATE 2.5 MG/3 ML (0.083 %) SOLUTION FOR NEBULIZATION (CABINET OVERRIDE), ,, , , 2.5 mg at 11/05/252036 naloxone (NARCAN) 0.4 mg/mL injection 0.1-0.4 mg, 0.1-0.4 mg, IV, see admin instructions, [facility] Primary discharge diagnosis: Acute kidney injury superimposed on stage 4 chronic kidney disease (CMS/HCC) Other active medical issues also addressed during this admission: Active Hospital Problems Diagnosis Slurred speech Longstanding persistent atrial fibrillation (CMS/HCC) Acute respiratory failure with hypoxia (CMS/HCC) Transaminitis Volume overload Supratherapeutic INR Acute on chronic diastolic (congestive) heart failure (CMS/HCC) Acute kidney injury superimposed on stage 4 chronic kidney disease (CMS/HCC) Paroxysmal atrial fibrillation (CMS/HCC) Chronic anticoagulation Hypothyroidism Resolved Hospital Problems No resolved problems to display. ASSESSMENT AND PLAN: Acute on Chronic Diastolic (Congestive) Heart Failure TTE 10/30/2025: Echo at outside hospital with LVEF 60% with G2DD with moderately elevated filling pressures with moderately increased left atrial size, moderate aortic calcification with mild aortic valve stenosis, moderate mitral valve regurg. S/P SLED. On HD now for volume management Nephrology following for HD and volume management GDMT: Not currently a candidate for ACEI/ARNi, SGTL-2 inhibitor, MRA. Continue metoprolol tartaratewith a plan to switch to XL Acute Hypoxic Respiratory Failure : secondary to CHF and fluid overload. -Currently on 5L NC. Wean as tolerated -Plan as above Acute Kidney Injury on Chronic Kidney Disease Stage 4 Dialysis dependent currently As per nephrology , high likelihood to be ESRD Nephrology following, appreciate recommendations Access site- right IJ catheter. Will need tunneled dialysis catheter line once Slurred Speech Reports this is a new finding however this has been there for several days. 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 Metoprolol for rate control Supratherapeutic INR INR was markedly elevated at 5.6 on arrival and is showing improvement Hold AC in this setting Monitor with daily INR Transaminitis She had significant transaminitis on admission (AST 696, ALT 367, ALP 319), likely secondary to congestive hepatopathy in the setting of volume overload. Hepatitis panel neg. US abdomen at OSH with cholelithiasis and no acute findings. Clinically with no RUQ pain or tenderness Improving, monitor with CMP CHRONIC ACTIVE PROBLEMS Anemia She was noted to have anemia of chronic disease, with hemoglobin ranging from 8.9 to 7.8 g/dL. W Monitor with CBC Hypothyroidism Levothyroxine GLYCEMIC CONTROL reviewed Lab Results Component Value Date/Time GLUCOSE 116 (H) 11/06/2025 05:48 AM DVT prophylaxis: SCDs; not on chemoppx due to supratherapeutic INR Diet: DIET RENAL Code status: NO CPR (In Event of Cardiopulmonary Arrest) Anticipated Disposition Location: [facility] Timeframe: 11/08/2025 Criteria: Clinical workup and improvement Outpatient follow up: nephrolgoy Patient's understanding of illness: fair MDM complexity: [] Mild [x] Moderate [] High Magdi Carroll MD 11/06/2025, 1:58 PM ER OPERATOR * Ai Haas, [facility] - 11/06/2025 10:42 AM CST Cardiopulmonary Rehab completed HF Education with patient . The patient was receptive to the education and verbalized understanding. . No referral was sent to Cardiopulmonary Rehab Phase 2 due to: Patient does not have a qualifying diagnosis for the program. Total Time Spent with the Patient: 10 minutes. Units Charged: 1 Learners: Patient Readiness: Acceptance Teaching Points Response Understanding Heart Failure Verbalizes Understanding Heart Failure Medication Management Importance of Taking as Prescribed Side Effects Preferred Pharmacy: [phone] Verbalizes Understanding Diet and Nutrition Prescribed Diet Incorporating Healthy Eating Habits Reading and Understanding Nutrition Labels Managing Sodium Intake Managing Fluid Intake Verbalizes Understanding Symptom Management Self-Monitoring & Symptom Tracking Shortness of Breath Fatigue/Tiredness Swelling/Edema Weight Gain Blood Pressure Rapid or Irregular Heartbeat Mental Fatigue/Depression Verbalizes Understanding Physical Activity Exercise Rest Daily Goal(s) Verbalizes Understanding Smoking Cessation (if applicable) Tobacco Marijuana Vaping Quitting Resources Verbalizes Understanding Alcohol and Caffeine Consumption and Moderation Effects on Heart and Health Verbalizes Understanding Stress Management Awareness Reduction Strategies Verbalizes Understanding Sleep Sleep Schedule and Routine Verbalizes Understanding Physician/Provider Follow Up Appointment Importance of Keeping All Appointments Ongoing Monitoring and Early Identification of Issues Verbalizes Understanding Primary Care Provider Name: Manager Statistical Programming Name: Ina Altamirano MD No care steam shovel runner to display Post Hospitalization Follow Up Appointment With: Date/Time: Health Related Social Needs Impacting Care None Identified Consults and Referrals Identified: None Identified Comments: Utilized Teach Back to assess patient and/or family understanding when discussing and/or providing written material containing the following information: *Heart basic anatomy/physiology *Heart Failure definition, causes, signs/symptoms (includes when to report to physician), and treatment *Ways to reduce the demands on the heart *Daily weight and reporting changes to physician *Potential problems: signs/symptoms, prevention, follow up strategy *Lifestyle alterations, present and future *Medications prescribed to treat Heart Failure, importance of medication compliance, and side effects of medications discussed during education *Exercise guidelines (as outlined in provided written material) CHF signs and symptoms (to report to physician): *Increased shortness of breath, *decline in activity, *increased swelling of feet /waist, *dry hacky cough / pink sputum, *decreased appetite, *unable to lie flat, *weight gain of 3 pounds or more in a day or 5 pounds or more in 2 or more days. Heart Failure Management includes the following information: *Rationale for daily weights and BP *Rationale for 1500 mg low sodium diet or as directed by physician *Activity guidelines (emphasizing low level progressive return to exercise, pacing activities, alternating activity with rest, and plan activities at least 2 hours after meals or before eating,) *Recommendations for no more than 2 quarts; 64 ounces daily of fluid intake or as directed by physician Tobacco cessation, harmful effects of tobacco, benefits of quitting tobacco use, health risks of ongoing tobacco use, positive alternatives to nicotine, tips on coping with withdrawal symptoms, managing relapse, methods of quitting tobacco use, resource programs for tobacco cessation ???Heart Healthy diet to include instructions for increasing fiber by choosing more vegetables, whole fruits, beans, whole grains and cereals. Patient was encouraged to reduce daily intake of added sugars and unhealthy fats. Patient was encouraged to reduce use of high sodium and processed foods and added salts. Patient was informed of outpatient resources for additional nutrition education as appropriate to diagnosis (cardiopulmonary outpatient referral, outpatient diabetes education, Nutrition Center dietitian). Instructions for self-monitoring, including: *Monitoring BP weight daily reporting abnormal values (as outlined in provided written material) tophysician Pt reports having the following at home: BP Machine Scale Written material provided includes: Heart Failure Action Plan Exercise Guideline with 6-week progression ???Building A Healthy Plate?? and ???The Newest Nutrition Recommendations to Prevent Heart Disease?? source: National Lipid Association The following Healthwise Patient Education information discussed and attached to the AVS to be printed and provided, to patient, per Nursing Staff: Tobacco Use: Quitting Smoking Cessation: Health Benefits Smokeless Tobacco: Quitting Low Sodium: Reading a Food Label Heart Failure: Limiting Sodium Heart Failure: Restricting Fluids ER OPERATOR * Lewis Rdz MD - 11/06/2025 7:49 AM CST Nephrology Progress Note Attending Physician: Magdi Carroll MD Reason for consultation: Chronic kidney disease stage 4, volume overload. Patient is a 65 y.o. female with a past medical history significant for advancing CKD 4, CHF, HTN, and afib Patient presented to OSH with increased shortness of breath. + wt. Gain. CHF exacerbation. Creatinine of 4 on arrival there. She had HD x 1 for acute hypoxia and fluid overload. She is now inICU here. + dyspnea, + edema, + hypoxia. Per OSH did not respond well to diuretics. Subjective- tolerating HD. No past medical history on file. No past surgical history on file. Medications Prior to Admission Medication Sig Dispense Refill Last Dose/Taking acetaminophen (TYLENOL) 500 mg tablet Take 500 mg by mouth. atorvastatin (LIPITOR) 80 mg tablet Take 80 mg by mouth daily. Cholecalciferol, Vitamin D3, 50 mcg (2,000 unit) Capsule Take 2,000 Units by mouth daily. gsqtixezhhp-lwbamruyvjzo-xniuemdrhs (TRELEGY ELLIPTA) 200-62.5-25 mcg Disk with Device .COMPLEX hydroCHLOROthiazide 12.5 mg tablet Take 25 mg by mouth daily. levothyroxine 200 mcg tablet Take 200 mcg by mouth. metoprolol tartrate (LOPRESSOR) 50 mg tablet Take 50 mg by mouth daily. omeprazole magnesium (PriLOSEC) 20 mg Tablet, Delayed Release (E.C.) Take 1 Tablet by mouth daily. rivaroxaban (XARELTO) 20 mg Tablet Take 20 mg by mouth daily. torsemide 40 mg Tablet Take 20 mg by mouth. albuterol sulfate HFA 90 mcg/actuation aerosol inhaler Take 2 Puffs by inhalation every 6 hours as needed for Shortness of Breath. No Known Allergies Social History Tobacco Use Smoking status: Former Current packs/day: 0.00 Types: Cigarettes Quit date: 06/2020 Years since quittin.4 Smokeless tobacco: Not on file Substance Use Topics Alcohol use: Not on file No family history on file. Review of Systems History obtained from the patient, a little more awake this AM General ROS: no fever Respiratory ROS: + dyspnea Cardiovascular ROS: + orthopnea, + edema Gastrointestinal ROS: no nausea or vomiting Objective: BP 103/68 Pulse 73 Temp 97.7 ??F (36.5 ??C) Resp 20 Wt 128.7 kg (283 lb 11.7 oz) SpO2 100% BMI 48.70 kg/m?? General appearance: alert, + respiratory distress, obese Head: purple lips Lungs: coarse bilateral Heart: normal rate, regular rhythm, normal S1, S2, no murmurs, rubs, clicks or gallops Abdomen:obese Extremities:2+ edema Skin: + pallor Neurologic: Grossly normal Data Review: Results for orders placed or performed during the hospital encounter of 11/04/25 (from the past 24 hours) PROTIME-INR Result Value Ref Range PROTIME 37.6 (H) 12.7 - 14.9 Seconds INR 3.6 (H) 0.8 - 1.2 PROTIME-INR Result Value Ref Range PROTIME 27.9 (H) 12.7 - 14.9 Seconds INR 2.5 (H) 0.8 - 1.2 CBC WITHOUT DIFFERENTIAL Result Value Ref Range WBC 9.2 4.8 - 10.8 K/uL RBC 3.32 (L) 4.20 - 5.40 M/uL HEMOGLOBIN 7.8 (L) 12.0 - 16.0 g/dL HEMATOCRIT 27.9 (L) 36.0 - 46.0 % MCV 84.0 84.0 - 103.0 fL MCH 23.5 (L) 27.0 - 34.0 pg MCHC 28.0 (L) 30.0 - 35.0 g/dL PLATELETS 185 140 - 440 K/uL MPV 11.7 8.9 - 12.8 fL RDW 18.0 (H) 11.0 - 14.5 % RDW-STDEV 54.6 (H) 37.0 - 54.0 fL HEPATIC FUNCTION PANEL Result Value Ref Range TOTAL PROTEIN 6.2 (L) 6.4 - 8.3 g/dL ALBUMIN 3.4 (L) 3.5 - 5.2 g/dL BILIRUBIN TOTAL 1.2 (H) 0.0 - 1.0 mg/dL BILIRUBIN DIRECT 0.6 (H) 0.0 - 0.3 mg/dL ALKALINE PHOSPHATASE 252 (H) 35 - 104 U/L AST 158 (H) 10 - 35 U/L ALT 186 (H) <=35 U/L BASIC METABOLIC PANEL Result Value Ref Range SODIUM 138 136 - 145 mmol/L POTASSIUM 4.1 3.5 - 5.1 mmol/L CHLORIDE 102 98 - 107 mmol/L CO2 23 22 - 29 mmol/L CALCIUM 8.9 8.8 - 10.2 mg/dL BUN 44 (H) 8 - 23 mg/dL CREATININE 3.63 (H) 0.51 - 0.95 mg/dL GLUCOSE 116 (H) 74 - 99 mg/dL GFR 13 (L) >=60 mL/min/1.73 sq meter ANION GAP 13 9 - 20 mmol/L PHOSPHORUS Result Value Ref Range PHOSPHORUS 3.7 2.5 - 4.5 mg/dL Assessment/Plan ROSANNE on CKD 4- with high likelihood to be ESRD. HD today UF 2L. Plan on Tunneled HD cath likely later this week or early next week. INR is still up. 2. Hypoxia- UF with SLED finished this AM. and more UF tomorrow. Significantly volume overloaded. 3. CHF- UF as noted above. Hold on aggressive GDMT as do not want to drop BP with needed UF. ECHO per primary team. 4. HTN- BP coming down with UF. Diastolic HF. 5. Anemia will get SPEP, iron def. Will dose IV Iron, Dose CHARISSA tomorrow ER OPERATOR ER OPERATOR * Berny Madsen, RT - 11/05/2025 6:58 PM CST Patient failed MRI exam due to claustrophobia. NADEGE Pelaez notified. ER OPERATOR * Leon Echols MD - 11/05/2025 3:39 PM CST [facility] Patient Handoff Notification: Patient handoff given to Dr. Carroll ER OPERATOR * Leon Echols MD - 11/05/2025 3:25 PM CST CRITICAL CARE MEDICINE DAILY PROGRESS NOTE PCP: Ina Altamirano MD Hx: Lupe Galo is a 65 y.o. female admitted 11/04/2025 from [facility] with hypoxia, renal failure and CHF exacerbation. Patient initially presented to the outside facility on 10/29/2025 for shortness of breath. She lives alone in [facility]. Reported 20lb weight gain this week with shortness of breath with orthopnea, cough and wheezing. She had mechanical fall at home and called 911. Initial o2 saturation 84%. CXR with vascular congestion. PMH anemia, hypothyroidism, HLD, a fib, CHF, COPD, CKD3. Home medications include: Amio 200mg Bupropion 150 BID Gabapentin 300mg BID Albumin 25G Q8hrs Levothyroxine 175mcg Metoprolol Succinate 50mg Daily Rivaroxaban 20mg CTA Chest 10/31/2025: negative PE, shows pulmonary edema, cardiomegalyc, small right and trace leftpleural effusions, cirrhosis Renal U/S 11/01/2025: negative Liver U/S 11/02/2025: cholelithiasis and borderline measurements of the common bile duct TTE 10/30/2025: LVEF 60% with G2DD with moderately elevated filling pressures with moderately increased left atrial size, moderate aortic calcification with mild aortic valve stenosis, moderate mitral valve regurg. Labwork 11/03/2025: hgb 8.9, potassium 5.5, anion gap 23.5, creatinine 4.4, osmolality 298, AST 696, ALT 367, alk phosphatase 319. Flu, RSV and COVID negative. Patient developed worsening hypoxia and was unresponsive to diureses so she was started on HD. She received 1 run of HD with 2L fluid removed. She was transferred to [facility] for higher level of care. Pertinent PMHx: No past medical history on file. Current Care Plan Summary: This is a 65-year-old female with a past medical history of atrial fibrillation on Xarelto, COPD, CKD 4 who was transferred from outside hospital. Currently being managed for chronic A-fib, diastolicCHF, hypoxia in the setting of fluid overload, transaminitis, ROSANNE on CKD 4 requiring dialysis, amongst other issues. Patient alert and interactive however noted to have slurred speech. She states this is new for her.No other focal deficits. Alert and interactive otherwise. Will proceed with MRI brain to evaluate further. Chronic atrial fibrillation on Xarelto. Xarelto on hold in the setting of supratherapeutic INR. INRhas improved from 5.8 on admission to 3.6 today. Continue to trend. She will need tunneled dialysiscatheter by IR once INR improved. Respiratory status improving with volume overload, no longer requiring BiPAP, on 6 L O2 nasal cannula, wean as tolerated. Transaminitis on admission, in the setting of congestive hepatopathy/fluid overload. LFTs are improving. Abdominal exam is benign. Right upper quadrant ultrasound at outside hospital did have cholelithiasis. ROSANNE on CKD 4 requiring hemodialysis. Nephrology consulted and following. Underwent SLED overnight [net -3.8 L yesterday]. Plan for tunneled dialysis catheter once INR improves. Trialysis from outsidehospital in place, will need to continue to use until INR improves, will check blood cultures. Remove outside hospital line as soon as possible. Clarified patient's CODE STATUS directly with her, she requests DNR/DNI. ICU timeline: 11/03: Admitted Major active problem list: Principal Problem: Acute kidney injury superimposed on stage 4 chronic kidney disease (CMS/HCC) Active Problems: Acute on chronic diastolic (congestive) heart failure (CMS/HCC) Paroxysmal atrial fibrillation (CMS/HCC) Chronic anticoagulation Hypothyroidism Slurred speech Longstanding persistent atrial fibrillation (CMS/HCC) Acute respiratory failure with hypoxia (CMS/HCC) Transaminitis Volume overload Supratherapeutic INR Subjective: 24 hour events -as above Objective: Current vital signs Blood pressure 134/80, pulse 63, temperature 99.2 ??F (37.3 ??C), temperature source Axillary, resp. rate 18, weight 130.9 kg (288 lb 9.3 oz), SpO2 97%. 24 hour BP and temperature range BP: (96-155)/(54-112) Temp (24hrs), Av.3 ??F (36.8 ??C), Min:97.8 ??F (36.6 ??C), Max:99.2 ??F (37.3 ??C) Input/Output 11/030 - 11/05 0659 In: - Out: 3798.5 [Urine:50] PHYSICAL EXAM: Gen: older female, lying in bed Neuro: alert, conversational, following commands in all extremities, full strength in all extremities, slurred speech HEENT: Atraumatic Cardiac: Irregular, normal rate Pulm: Nasal cannula, no distress Abdomen: soft, nondistended Skin: warm, dry Extremities: BLE improving Data Review: BMP: Recent Labs 11/04/25 1349 11/05/25 0303 GLUCOSE 111* 97 BUN 46* 33* CREAT 3.66* 2.59* NA 140 140 K 4.3 4.1 CL 101 102 CO2 23 25 ANIONGAP 16 13 PO4 -- 2.9 CrCl cannot be calculated (Unknown ideal weight.). LFTs: Recent Labs 11/04/25 1349 11/05/25 0303 ALKPHOS 300* 281* ALT 285* 249* AST 366* 269* BILITOTAL 1.1* 1.3* ALBUMIN 4.0 4.0 4.1 CBC: Recent Labs 11/04/25 1349 WBC 9.6 HGB 8.2* HCT 28.2* PLT 194 MCV 83.2* Coagulation: Recent Labs 11/04/25 1349 11/05/25 0904 PT 54.2* 37.6* INR 5.8* 3.6* ABG: Lab Results Component Value Date/Time SPECIMENSOU Venous 11/04/2025 02:20 PM PHBLOODPOC 7.35 11/04/2025 02:20 PM [id number] 46 11/04/2025 02:20 PM PO2POC 45 (H) 11/04/2025 02:20 PM TGV3FFV 25 11/04/2025 02:20 PM M0RTNOVS 75 (H) 11/04/2025 02:20 PM [id number] 27 (H) 11/04/2025 02:20 PM BEPOC 0 11/04/2025 02:20 PM PATIENTTEMP 37.0 11/04/2025 02:20 PM PHTEMPCORR 7.35 11/04/2025 02:20 PM [id number] 46 11/04/2025 02:20 PM [id number] 45 (H) 11/04/2025 02:20 PM Lactic acid: No results found for: LACTATE Radiology: Pertinent radiology reviewed Assessment and Plan Neuro/Psych: Neuro intact Slurred speech. Unclear etiology. MRI brain pending Cardiovascular/Fluids: CHF, acute on chronic: TTE 10/30/2025: Echo at outside hospital with LVEF 60% with G2DD with moderately elevated filling pressures with moderately increased left atrial size, moderate aortic calcification with mild aortic valve stenosis, moderate mitral valve regurg. A-fib: rate controlled. SHELL TRIM TOOL SETTER beta-aimee resumed (at low dose to allow volume removal via HD). HoldPTA xarelto due to supratherapeutic INR Pulmonary: Acute hypoxic respiratory failure: secondary to volume overload Volume removal via sled No longer requiring BiPAP Wean O2 nasal cannula as tolerated GI/NUT: Renal diet Transaminitis on admission, suspect secondary to congestive hepatopathy. LFTs improving. Right upper quadrant ultrasound at outside hospital with cholelithiasis. No abdominal pain SUP, n/a Renal/LYTES/Acid-Base: ROSANNE on CKD4: now on HD. Nephrology consulted and following Temp HD line in place from outside facility. Will need tunneled dialysis catheter once INR improves Infectious Disease: No concerns for infectious process Hem/Onc/Coag: Anemia of chronic disease Monitor for bleeding Supratherapeutic INR, present on admission. Improving. Resume SHELL TRIM TOOL SETTER Xarelto when appropriate DVTp, SCDs only in the setting of supratherapeutic INR Endocrine: Nondiabetic Musculoskeletal/Skin: Routine ICU Skin Care Family communication: None available during my rounds, updated patient directly EM3 ER OPERATOR * Lewis Rdz MD - 11/05/2025 7:44 AM CST Nephrology Progress Note Attending Physician: Leon Echols MD Reason for consultation: Chronic kidney disease stage 4, volume overload. Patient is a 65 y.o. female with a past medical history significant for advancing CKD 4, CHF, HTN, and afib Patient presented to OSH with increased shortness of breath. + wt. Gain. CHF exacerbation. Creatinine of 4 on arrival there. She had HD x 1 for acute hypoxia and fluid overload. She is now inICU here. + dyspnea, + edema, + hypoxia. Per OSH did not respond well to diuretics. Subjective- tolerated SLED, near 4L fluid removal. Dyspnea a little better. More awake this AM. No past medical history on file. No past surgical history on file. Medications Prior to Admission Medication Sig Dispense Refill Last Dose/Taking acetaminophen (TYLENOL) 500 mg tablet Take 500 mg by mouth. atorvastatin (LIPITOR) 80 mg tablet Take 80 mg by mouth daily. Cholecalciferol, Vitamin D3, 50 mcg (2,000 unit) Capsule Take 2,000 Units by mouth daily. iwzytbpksvc-elffrbkrlogg-xgmetglhtj (TRELEGY ELLIPTA) 200-62.5-25 mcg Disk with Device .COMPLEX hydroCHLOROthiazide 12.5 mg tablet Take 25 mg by mouth daily. levothyroxine 200 mcg tablet Take 200 mcg by mouth. metoprolol tartrate (LOPRESSOR) 50 mg tablet Take 50 mg by mouth daily. omeprazole magnesium (PriLOSEC) 20 mg Tablet, Delayed Release (E.C.) Take 1 Tablet by mouth daily. rivaroxaban (XARELTO) 20 mg Tablet Take 20 mg by mouth daily. torsemide 40 mg Tablet Take 20 mg by mouth. albuterol sulfate HFA 90 mcg/actuation aerosol inhaler Take 2 Puffs by inhalation every 6 hours as needed for Shortness of Breath. No Known Allergies Social History Tobacco Use Smoking status: Former Current packs/day: 0.00 Types: Cigarettes Quit date: 06/2020 Years since quittin.3 Smokeless tobacco: Not on file Substance Use Topics Alcohol use: Not on file No family history on file. Review of Systems History obtained from the patient, a little more awake this AM General ROS: no fever Respiratory ROS: + dyspnea Cardiovascular ROS: + orthopnea, + edema Gastrointestinal ROS: no nausea or vomiting Objective: BP 115/83 Pulse 68 Temp 97.9 ??F (36.6 ??C) (Axillary) Resp 16 Wt 130.9 kg (288 lb 9.3 oz) SpO2 96% BMI 49.53 kg/m?? General appearance: alert, + respiratory distress, obese Head: purple lips Lungs: coarse bilateral Heart: normal rate, regular rhythm, normal S1, S2, no murmurs, rubs, clicks or gallops Abdomen:obese Extremities:2+ edema Skin: + pallor Neurologic: Grossly normal Data Review: Results for orders placed or performed during the hospital encounter of 11/04/25 (from the past 24 hours) POC GLUCOSE Result Value Ref Range GLUCOSE POC 110 (H) 74 - 99 mg/dL SPECIMEN SOURCE, GLUCOSE POC Capillary CBC WITHOUT DIFFERENTIAL Result Value Ref Range WBC 9.6 4.8 - 10.8 K/uL RBC 3.39 (L) 4.20 - 5.40 M/uL HEMOGLOBIN 8.2 (L) 12.0 - 16.0 g/dL HEMATOCRIT 28.2 (L) 36.0 - 46.0 % MCV 83.2 (L) 84.0 - 103.0 fL MCH 24.2 (L) 27.0 - 34.0 pg MCHC 29.1 (L) 30.0 - 35.0 g/dL PLATELETS 194 140 - 440 K/uL MPV 11.1 8.9 - 12.8 fL RDW 17.5 (H) 11.0 - 14.5 % RDW-STDEV 53.1 37.0 - 54.0 fL PROTIME-INR Result Value Ref Range PROTIME 54.2 (H) 12.7 - 14.9 Seconds INR 5.8 (HH) 0.8 - 1.2 COMPREHENSIVE METABOLIC PANEL Result Value Ref Range SODIUM 140 136 - 145 mmol/L POTASSIUM 4.3 3.5 - 5.1 mmol/L CHLORIDE 101 98 - 107 mmol/L CO2 23 22 - 29 mmol/L CALCIUM 9.0 8.8 - 10.2 mg/dL BUN 46 (H) 8 - 23 mg/dL CREATININE 3.66 (H) 0.51 - 0.95 mg/dL GLUCOSE 111 (H) 74 - 99 mg/dL TOTAL PROTEIN 6.9 6.4 - 8.3 g/dL ALBUMIN 4.0 3.5 - 5.2 g/dL BILIRUBIN TOTAL 1.1 (H) 0.0 - 1.0 mg/dL ALKALINE PHOSPHATASE 300 (H) 35 - 104 U/L AST 366 (H) 10 - 35 U/L ALT 285 (H) <=35 U/L GFR 13 (L) >=60 mL/min/1.73 sq meter ANION GAP 16 9 - 20 mmol/L AMMONIA LEVEL Result Value Ref Range AMMONIA 19.0 11.0 - 51.0 umol/L TSH Result Value Ref Range TSH 0.39 0.27 - 4.20 uIU/mL IRON, TIBC, AND PERCENT SATURATION Result Value Ref Range IRON 17 (L) 37 - 145 ug/dL TIBC 236 (L) 250 - 450 ug/dL IRON % SATURATION 7 (L) 15 - 60 % BLOOD GAS VENOUS Result Value Ref Range PH BLOOD POC 7.35 7.32 - 7.43 PCO2 POC 46 38 - 50 mm Hg PO2 POC 45 (H) 25 - 40 mm Hg HCO3 (CALC) POC 25 22 - 29 mmol/L HEMOGLOBIN POC 8.8 (L) 12.0 - 18.0 g/dL BASE EXCESS POC 0 -2 - 3 mmol/L O2 SATURATION POC 75 (H) 40 - 70 % SODIUM POC 137 135 - 145 mmol/L POTASSIUM POC 4.3 3.5 - 4.9 mmol/L HEMATOCRIT POC 26 (L) 38 - 51 % PH TEMP CORRECT 7.35 7.32 - 7.43 PCO2 TEMP CORRECT 46 38 - 50 mm Hg PO2 TEMP CORRECT 45 (H) 25 - 40 mm Hg SPECIMEN SOURCE, GASES POC Venous CALCIUM IONIZED POC 4.5 (L) 4.8 - 5.2 mg/dL TCO2 (CALC) POC 27 (H) 22 - 26 mmol/L LITER FLOW 6.0 L/min [facility] SITE POC No Charge PATIENT'S TEMPERATURE POC 37.0 degrees POC GLUCOSE Result Value Ref Range GLUCOSE POC 109 (H) 74 - 99 mg/dL SPECIMEN SOURCE, GLUCOSE POC Capillary ACUTE HEPATITIS PANEL Result Value Ref Range HEPATITIS B SURFACE AG Non-reactive Non-reactive HEPATITIS B CORE IGM Non-reactive Non-reactive HEPATITIS A IGM Non-reactive Non-reactive HEPATITIS C AB Non-reactive Non-reactive POC GLUCOSE Result Value Ref Range GLUCOSE POC 94 74 - 99 mg/dL SPECIMEN SOURCE, GLUCOSE POC Capillary RENAL FUNCTION PANEL Result Value Ref Range SODIUM 140 136 - 145 mmol/L POTASSIUM 4.1 3.5 - 5.1 mmol/L CHLORIDE 102 98 - 107 mmol/L CO2 25 22 - 29 mmol/L CALCIUM 8.8 8.8 - 10.2 mg/dL BUN 33 (H) 8 - 23 mg/dL CREATININE 2.59 (H) 0.51 - 0.95 mg/dL GLUCOSE 97 74 - 99 mg/dL ALBUMIN 4.1 3.5 - 5.2 g/dL PHOSPHORUS 2.9 2.5 - 4.5 mg/dL GFR 20 (L) >=60 mL/min/1.73 sq meter ANION GAP 13 9 - 20 mmol/L Assessment/Plan ROSANNE on CKD 4- with high likelihood to be ESRD. S/P SLED with 4L of UF yesterday. Planned on HD tomorrow, finished SLED this AM. Plan on Tunneled HD cath likely later this week or early next. 2. Hypoxia- UF with SLED finished this AM. and more UF tomorrow. Significantly volume overloaded. 3. CHF- UF as noted above. Hold on aggressive GDMT as do not want to drop BP with needed UF. ECHO per primary team. 4. HTN- will hopefully see drop in BP with needed UF 5. Anemia will get SPEP, iron def. Will dose IV Iron, Dose CHARISSA tomorrow ER OPERATOR documented in this encounter H&P Notes * Adeola Kaur, ROHIT-BC - 11/04/2025 1:05 PM CST CRITICAL CARE MEDICINE HISTORY & PHYSICAL PCP: Ina Altamirano MD Subjective: CC: weight gain / shortness of breath HPI: Lupe Galo is a 65 y.o. female admitted 11/04/2025 from [facility] with hypoxia, renal failure and CHF exacerbation. Patient initially presented to the outside facility on 10/29/2025 for shortness of breath. She lives alone in [facility]. Reported 20lb weight gain this week with shortness of breath with orthopnea, cough and wheezing. She had mechanical fall at home and called 911. Initial o2 saturation 84%. CXR with vascular congestion. PMH anemia, hypothyroidism, HLD, a fib, CHF, COPD, CKD3. Home medications include: Amio 200mg Bupropion 150 BID Gabapentin 300mg BID Albumin 25G Q8hrs Levothyroxine 175mcg Metoprolol Succinate 50mg Daily Rivaroxaban 20mg CTA Chest 10/31/2025: negative PE, shows pulmonary edema, cardiomegalyc, small right and trace leftpleural effusions, cirrhosis Renal U/S 11/01/2025: negative Liver U/S 11/02/2025: cholelithiasis and borderline measurements of the common bile duct TTE 10/30/2025: LVEF 60% with G2DD with moderately elevated filling pressures with moderately increased left atrial size, moderate aortic calcification with mild aortic valve stenosis, moderate mitral valve regurg. Labwork 11/03/2025: hgb 8.9, potassium 5.5, anion gap 23.5, creatinine 4.4, osmolality 298, AST 696, ALT 367, alk phosphatase 319. Flu, RSV and COVID negative. Patient developed worsening hypoxia and was unresponsive to diureses so she was started on HD. She received 1 run of HD with 2L fluid removed. She was transferred to [facility] for higher level of care. Database: No past medical history on file. No past surgical history on file. Medication List CONTINUE taking these medications acetaminophen 500 mg tablet Commonly known as: TYLENOL Take 500 mg by mouth. Refills: 0 albuterol sulfate 90 mcg/Actuation inhaler Take 2 Puffs by inhalation every 6 hours as needed for Shortness of Breath. Refills: 0 atorvastatin 80 mg tablet Commonly known as: LIPITOR Take 80 mg by mouth daily. Refills: 0 Cholecalciferol (Vitamin D3) 50 mcg (2,000 unit) Capsule Take 2,000 Units by mouth daily. Refills: 0 lmuidrfvkem-hpoogjtjxhsd-zruumspurc 200-62.5-25 mcg Disk with Device Commonly known as: TRELEGY ELLIPTA .COMPLEX Refills: 0 hydroCHLOROthiazide 12.5 mg tablet Take 25 mg by mouth daily. Refills: 0 levothyroxine 200 mcg tablet Commonly known as: SYNTHROID Take 200 mcg by mouth. Refills: 0 metoprolol tartrate 50 mg tablet Commonly known as: LOPRESSOR Take 50 mg by mouth daily. Refills: 0 omeprazole magnesium 20 mg Tablet, Delayed Release (E.C.) Commonly known as: PriLOSEC Take 1 Tablet by mouth daily. Refills: 0 rivaroxaban 20 mg Tablet Commonly known as: XARELTO Take 20 mg by mouth daily. Refills: 0 torsemide 40 mg Tablet Take 20 mg by mouth. Refills: 0 Allergies: Not on File Social History Tobacco Use Smoking status: Former Current packs/day: 0.00 Types: Cigarettes Quit date: 06/2020 Years since quittin.3 Smokeless tobacco: Not on file Substance Use Topics Alcohol use: Not on file No family history on file. REVIEW OF SYSTEMS: Review of Systems Constitutional: Negative for chills, fever, malaise/fatigue and weight loss. Respiratory: Positive for shortness of breath. Negative for cough, hemoptysis, sputum production and wheezing. Cardiovascular: Positive for leg swelling. Negative for chest pain and palpitations. Gastrointestinal: Negative for heartburn, nausea and vomiting. Genitourinary: Negative for dysuria. Neurological: Negative for dizziness and loss of consciousness. Psychiatric/Behavioral: Negative for depression and suicidal ideas. Objective: Initial Vitals BP Pulse Resp Temp Temp src SpO2 No data found. PHYSICAL EXAMINATION: Gen: older female, lying in bed Neuro: alert, oriented HEENT: TM, NC, PERRL Cardiac: S1S2, no murmurs or rubs Pulm: diminished, nonlabored Abdomen: soft, nondistended Skin: warm, dry Extremities: pulses present, pitting edema to BLE Data Review: BMP:No results for input(s): GLUCOSE , BUN , CREAT , NA , K , CL , CO2 , ANIONGAP , CAIONIZED , MG , PO4 in the last 72 hours. CrCl cannot be calculated (No successful lab value found.). LFTs:No results for input(s): ALKPHOS , ALT , AST , BILITOTAL , ALBUMIN , AMYLASE , LIPASE in the last 72 hours. CBC: No results for input(s): WBC , HGB , HCT , PLT , MCV in the last 72 hours. Coagulation: No results for input(s): PT , INR , APTT in the last 72 hours. ABGs:No results found for: SPECIMENSOU , PHBLOODPOC , DZE6XAB , PO2POC , LYK1JHD , Z0AHDBOV , OVF9PYK , BEPOC , LACTATE , PATIENTTEMP , PHTEMPCORR , [id number] , [id number] Radiology: Pertinent radiology reviewed Assessment and Plan: Neuro/Psych: Neurologically acceptable Cardiovascular/Fluids: Hemodynamics acceptable CHF, acute on chronic: TTE 10/30/2025: LVEF 60% with G2DD with moderately elevated filling pressures with moderately increased left atrial size, moderate aortic calcification with mild aortic valve stenosis, moderate mitral valve regurg. A-fib: rate controlled. Hold amiodarone. Hold SHELL TRIM TOOL SETTER xarelto Pulmonary: Acute hypoxic respiratory failure: secondary to volume overload GI/NUT: Renal diet SUP, n/a Renal/LYTES/Acid-Base: ROSANNE on CKD3: now on HD. Consulted nephrology. Temp HD line in place from outside facility. Infectious Disease: No concerns for infectious process Hem/Onc/Coag: Anemia of chronic disease DVTp, SCDs Endocrine: Nondiabetic Musculoskeletal/Skin: Routine ICU Skin Care Additional comments: Acutely ill 65 year old female admitted from outside facility for CHF exacerbation, hypoxia, and ROSANNE on CKD now on HD. Hypoxia secondary to volume overload. Currently on 6L NC. Failed diuretics and now on HD. Nephrology consulted. Had first HD run 11/03 at outside facility. HD line from outside facility. Hemodynamicsacceptable No ICU needs, will transfer out of ICU. Family Communication: Updated patient at bedside. Cosigned by Leon Echols MD at 11/04/2025 5:04 PM TESTER OPERATOR ER OPERATOR ER OPERATOR Associated attestation - Leon Echols MD - 11/04/2025 5:04 PM TESTER OPERATOR I reviewed the medical record including the applicable Critical Care Medicine APC note from today. I independently examined the patient I discussed the history, physical findings, laboratory findings, assessment and plan with the applicable APC on rounds.? I have reviewed the physical exam findings in the applicable resident/Fellow/TARGET DEVELOPER/PA's note; my notable physical exam findings include: Body mass index is 49.42 kg/m??. Neuro: Alert, conversational, following commands, nonfocal CV: Normal rate, regular rhythm Resp: O2 nasal cannula, no distress GI: Soft, nontender Ext: No deformity, edema noted I have reviewed the assessment and plan in the applicable APC note. Notable amendments to the assessment and plan include: [1] acute on chronic CHF, diastolic dysfunction. EF with echo 60%, grade 2 diastolic dysfunction. Volume removal via diuresis/hemodialysis. [2] acute hypoxic respiratory failure, in the setting of volume overload. Required BiPAP at outsidehospital. We have weaned down to O2 nasal cannula. Monitor closely [3] ROSANNE on CKD 3, started on hemodialysis at outside hospital. Temporary dialysis catheter in place. Will consult nephrology for assistance. ? Family Communication: Updated patient directly IM3 Active problem list: Principal Problem: Acute kidney injury superimposed on stage 3a chronic kidney disease (CMS/HCC) Active Problems: CHF exacerbation (CMS/HCC) Paroxysmal atrial fibrillation (CMS/HCC) Chronic anticoagulation Hypothyroidism documented in this encounter Procedure Notes * Radha Hernandez RN - 11/12/2025 11:50 AM CST Renal Replacement Therapy Summary Procedure: Hemodialysis in chair Dialyzer: RVC Access: Right internal jugular tunneled catheter Blood Flow: 400 ml/min Procedure Time: 3 hours 10 minutes Blood Volume Processed: 75.7 liters Ultrafiltration Volume: 500 ml Anticoagulation: none (ordered) Dry Weight: TBD kg PreWeight: ENTERPRISE kg PostWeight: ENTERPRISE kg Post VS: BP:130/77 Pulse: 72 Temp:97.3 SpO2: 97% Dialyzer Cleared(%): 97% without clotting Complications: none Patient was prescribed 4 hours of treatment but was terminated with 50 minutes left. Was experiencing nausea and cramping with fluid removal. Stopped ultrafiltration and administered zofran with minimal relief. Patient had been up in the chair since 0500 am and treatment was completed at 1111 am. Report sent to: bedside nurse on 4A via secure chat ER OPERATOR * Vahid Pelletier PCT - 11/11/2025 1:08 PM CST VASCULAR ACCESS TEAM Peripheral IV insertion PATIENT NAME: Lupe Galo DATE OF : 1960 CSN: [id number] DATE: 11/11/2025 Room: [address] [place] [address] Admit Date: 11/04/2025 Hospital day: LOS: 7 days Allergies:No Known Allergies PERIPHERAL IV INSERTION Ultrasound assessment was performed to assess adequacy of vascular anatomy Adequate vessel was located Insertion site cleansed for 30 seconds with Chlora-prep. Allowed to dry before initial needle stick. A 20 Gauge 2 Inch peripheral IV was successfully placed using ultrasound guidance in the right, lower Arm Secure port adhesive used Yes 1 attempts 15 minutes required to complete procedure Positive blood return noted Neutral pressure cap applied Catheter Flushed with 10ml of Normal Saline Transparent dressing applied with date, time and initials of cowoker inserting. LDA documentation is contained in EMR flowsheet Patient tolerated well. PREMA Carpio ER OPERATOR * Sarah Owusu RN - 11/11/2025 10:59 AM CST Renal Replacement Therapy Summary Procedure: Hemodialysis in bed Dialyzer: RVC Access: RIJ Blood Flow: 400 ml/min Procedure Time: 4 hours Blood Volume Processed: 96.2 liters Ultrafiltration Volume: 3500 ml with 500 ml rinse back Anticoagulation: None (ordered) Dry Weight: TBD kg PreWeight: 128.5 kg PostWeight: 124.5 kg Post VS: BP:140/76 Pulse: 69 Temp:97.8 SpO2: 96 Dialyzer Cleared(%): 96% with mild clotting in the venous chamber Complications: None Report sent to: bedside nurse on 4C ER OPERATOR * Quintin Estrada RN - 11/08/2025 8:53 PM CST Renal Replacement Therapy Summary Procedure: Hemodialysis in bed Dialyzer: RVC Access: right IJ tunneled Blood Flow: 400 ml/min Procedure Time: 4 hours Blood Volume Processed: 93.2 liters Ultrafiltration Volume: 2200 ml with 300 ml rinse back Anticoagulation: none (ordered) Dry Weight: TBD kg PreWeight: 129.5 kg PostWeight: 127.2 kg Post VS: BP:127/65 Pulse: 71 Temp:97.7 SpO2: 100 Dialyzer Cleared(%): 95% with mild clotting Complications: none Report sent to: Unit Nurse on 4C ER OPERATOR * Alvarado Rosales RVT - 11/08/2025 10:23 AM CST CARDIOVASCULAR SERVICES NONINVASIVE VASCULAR LAB - EXT [id number] TECHNOLOGIST PRELIMINARY WORKSHEET PHYSICIAN INTERPRETATION TO FOLLOW Patient Name: Lupe Galo #: [id number] Date:11/08/2025 Tech Initials: MJM Exam End Time: 0800 Critical Result Notification [] [x] NADEGE Ford Notification Time: 0800 NONINVASIVE VENOUS STUDY ARMS Noninvasive venous study performed on: [] Right [x] Left A. [] There are no echo images consistent with acute venous obstruction throughout the venous system scanned. B. [x] Imaging is consistent with an obstruction in the [x] Superfical venous [] Deep venous sytem [] Right [x] Left [] Jugular [] Jugular [] Subclavian [] Subclavian [] Upper Arm [] Upper Arm [] Forearm [x] Forearm (cephalic v) [] Softer echoes are considered consistent with acute venous obstruction [] Brighter echoes are considered consistent with chronic venous obstruction [] Soft echoes not well adhered to vein wall are considered consistent with freefloating obstruction [] Venous reflux is considered to be consistent with venous insufficiency Technologist Comments: ER OPERATOR * Alvarado Rosales RVT - 11/08/2025 10:19 AM CST CARDIOVASCULAR SERVICES NONINVASIVE VASCULAR LAB - EXT [id number] TECHNOLOGIST PRELIMINARY WORKSHEET PHYSICIAN INTERPRETATION TO FOLLOW Patient Name: Lupe Galo #: [id number] Date:11/08/2025 Tech Initials: MJ ExamEndTime: 0800 Critical Result Notification [] [] RN (name) Notification Time: NONINVASIVE ARTERIAL STUDY OF THE: [] Legs [x] Arm (L) A.[]Pressure index [x]Duplex measurements are consistent with no arterial obstruction on the [] Right [x] Left B.[] Pressure index measurements or [] Duplex measurements are consistent with: [] Right [] Left [] Mild arterial obstruction [] Mild arterial obstruction [] Moderate arterial obstruction [] Moderate arterial obstruction [] Severe arterial obstruction [] Severe arterial obstruction Technologist Comments: ER OPERATOR * Quintin Estrada RN - 11/06/2025 10:19 AM CST Renal Replacement Therapy Summary Procedure: Hemodialysis in bed Dialyzer: RVC Access: right IJ central line Blood Flow: 250 ml/min Procedure Time: 4 hours Blood Volume Processed: 53.6 liters Ultrafiltration Volume: 2000 ml with 300 ml rinse back Anticoagulation: none (ordered) Dry Weight: TBD kg PreWeight: 128.7 kg PostWeight: 126.7 kg Post VS: BP:106/83 Pulse: 70 Temp:97.5 SpO2: 95 Dialyzer Cleared(%): 99% with mild clotting Complications: none Report sent to: Unit Nurse on 4C Patient requested to end treatment with 30 minutes left. ER OPERATOR documented in this encounter Consult Notes * Victorina Lopez RN - 11/05/2025 12:30 PM CSTAssociated Order(s): IP CONSULT TO WOUND/SKIN CARE TEAM Images from the original note were not included. Skin/Wound/Ulcer/Pressure Injury Consult [facility] Patient Information Today's Date: 11/05/2025 Name: Lupe Galo Age: 65 y.o. Date of : 1960 CSN: [id number] Date/time of admission: 11/04/2025 1:01 PM Hospital day: LOS: 1 day Room: [address] [place] [address] Physical Assessment Wound Details: Wound 11/05/25 1045 abdomen Irritant Contact Dermatitis (Active) Wound (WDL) WDL except 11/05/25 1045 Pictures Taken (Date) 11/05/25 11/05/25 1045 Wound Image 11/05/25 1045 Wound Shape irregular 11/05/25 1045 Wound Base moist;reddened 11/05/25 1045 Periwound Area moist 11/05/25 1045 Wound Edges attached 11/05/25 1045 Wound 11/05/25 1045 coccyx Irritant Contact Dermatitis (Active) Wound (WDL) WDL except 11/05/25 1045 Pictures Taken (Date) 11/05/25 11/05/25 1045 Wound Image 11/05/25 1045 Wound Shape irregular 11/05/25 1045 Wound Base moist;reddened 11/05/25 1045 Periwound Area moist 11/05/25 1045 Wound Edges attached 11/05/25 1045 Irritant contact dermatitis due to friction or contact with body fluids, unspecified Mattress/surface type: [place] with air NOTES: Focused skin assessment per consult order. Nutrition BMI: Body mass index is 49.53 kg/m??. Current diet order: DIET RENAL Pressure Injury Prevention Recommendations Turn / reposition at minimum of every 2 hours When in chair reposition at minimum every 1 hour Keep skin clean and free of excess moisture Frequent perineal care for excess moisture and with any soiling Protect and float heels when in bed --as condition allows HOB at lowest level tolerated by patient and medical condition Do not massage bony prominences Prevent shearing by utilizing lift sheets and appropriate lift equipment Skin assessment every shift at a minimum ? Wound/Dressing Recommendations Recommendations: Abdomen- clean area, apply antifungal powder BID and PRN Coccyx- clean area, apply JYOTI BID and PRN notified of findings and recommendations. Skin team will not follow general wounds. Pressure injuries to be followed weekly unless otherwise specified. Will need to be re-consulted for new skin concerns. Total time spent: 16 min. Victorina Lopez RN Skin/Wound/Ostomy Please call hospital switch house operator to have skin team paged with questions or needs. 82 Cosigned by Leon Echols MD at 11/07/2025 9:50 PM TESTER OPERATOR ER OPERATOR ER OPERATOR * Lewis Rdz MD - 11/04/2025 4:59 PM CSTAssociated Order(s): IP CONSULT TO NEPHROLOGY Nephrology Consult Attending Physician: Leon Echols MD Reason for consultation: Chronic kidney disease stage 4, volume overload. Patient is a 65 y.o. female with a past medical history significant for advancing CKD 4, CHF, HTN, and afib Patient presented to OSH with increased shortness of breath. + wt. Gain. CHF exacerbation. Creatinine of 4 on arrival there. She had HD x 1 for acute hypoxia and fluid overload. She is now inICU here. + dyspnea, + edema, + hypoxia. Per OSH did not respond well to diuretics. No past medical history on file. No past surgical history on file. Medications Prior to Admission Medication Sig Dispense Refill Last Dose/Taking acetaminophen (TYLENOL) 500 mg tablet Take 500 mg by mouth. atorvastatin (LIPITOR) 80 mg tablet Take 80 mg by mouth daily. Cholecalciferol, Vitamin D3, 50 mcg (2,000 unit) Capsule Take 2,000 Units by mouth daily. leuiwzaibbp-gtvqhfcedwun-qvvjmdxufd (TRELEGY ELLIPTA) 200-62.5-25 mcg Disk with Device .COMPLEX hydroCHLOROthiazide 12.5 mg tablet Take 25 mg by mouth daily. levothyroxine 200 mcg tablet Take 200 mcg by mouth. metoprolol tartrate (LOPRESSOR) 50 mg tablet Take 50 mg by mouth daily. omeprazole magnesium (PriLOSEC) 20 mg Tablet, Delayed Release (E.C.) Take 1 Tablet by mouth daily. rivaroxaban (XARELTO) 20 mg Tablet Take 20 mg by mouth daily. torsemide 40 mg Tablet Take 20 mg by mouth. albuterol sulfate HFA 90 mcg/actuation aerosol inhaler Take 2 Puffs by inhalation every 6 hours as needed for Shortness of Breath. Not on File Social History Tobacco Use Smoking status: Former Current packs/day: 0.00 Types: Cigarettes Quit date: 06/2020 Years since quittin.3 Smokeless tobacco: Not on file Substance Use Topics Alcohol use: Not on file No family history on file. Review of Systems History obtained from the patient, limited, poor historian. General ROS: no fever Respiratory ROS: + dyspnea Cardiovascular ROS: + orthopnea, + edema Gastrointestinal ROS: no nausea or vomiting Objective: BP (!) 155/91 Pulse 67 Temp 97.8 ??F (36.6 ??C) (Oral) Resp 15 Wt 130.6 kg (287 lb 14.7 oz) SpO2 94% BMI 49.42 kg/m?? General appearance: alert, + respiratory distress, obese Head: purple lips Neck: +JVD Lungs: coarse bilateral Heart: normal rate, regular rhythm, normal S1, S2, no murmurs, rubs, clicks or gallops Abdomen:obese Extremities:3+ edema Skin: + pallor Neurologic: Grossly normal Data Review: Results for orders placed or performed during the hospital encounter of 11/04/25 (from the past 24 hours) POC GLUCOSE Result Value Ref Range GLUCOSE POC 110 (H) 74 - 99 mg/dL SPECIMEN SOURCE, GLUCOSE POC Capillary CBC WITHOUT DIFFERENTIAL Result Value Ref Range WBC 9.6 4.8 - 10.8 K/uL RBC 3.39 (L) 4.20 - 5.40 M/uL HEMOGLOBIN 8.2 (L) 12.0 - 16.0 g/dL HEMATOCRIT 28.2 (L) 36.0 - 46.0 % MCV 83.2 (L) 84.0 - 103.0 fL MCH 24.2 (L) 27.0 - 34.0 pg MCHC 29.1 (L) 30.0 - 35.0 g/dL PLATELETS 194 140 - 440 K/uL MPV 11.1 8.9 - 12.8 fL RDW 17.5 (H) 11.0 - 14.5 % RDW-STDEV 53.1 37.0 - 54.0 fL PROTIME-INR Result Value Ref Range PROTIME 54.2 (H) 12.7 - 14.9 Seconds INR 5.8 (HH) 0.8 - 1.2 COMPREHENSIVE METABOLIC PANEL Result Value Ref Range SODIUM 140 136 - 145 mmol/L POTASSIUM 4.3 3.5 - 5.1 mmol/L CHLORIDE 101 98 - 107 mmol/L CO2 23 22 - 29 mmol/L CALCIUM 9.0 8.8 - 10.2 mg/dL BUN 46 (H) 8 - 23 mg/dL CREATININE 3.66 (H) 0.51 - 0.95 mg/dL GLUCOSE 111 (H) 74 - 99 mg/dL TOTAL PROTEIN 6.9 6.4 - 8.3 g/dL ALBUMIN 4.0 3.5 - 5.2 g/dL BILIRUBIN TOTAL 1.1 (H) 0.0 - 1.0 mg/dL ALKALINE PHOSPHATASE 300 (H) 35 - 104 U/L AST 366 (H) 10 - 35 U/L ALT 285 (H) <=35 U/L GFR 13 (L) >=60 mL/min/1.73 sq meter ANION GAP 16 9 - 20 mmol/L AMMONIA LEVEL Result Value Ref Range AMMONIA 19.0 11.0 - 51.0 umol/L TSH Result Value Ref Range TSH 0.39 0.27 - 4.20 uIU/mL BLOOD GAS VENOUS Result Value Ref Range PH BLOOD POC 7.35 7.32 - 7.43 PCO2 POC 46 38 - 50 mm Hg PO2 POC 45 (H) 25 - 40 mm Hg HCO3 (CALC) POC 25 22 - 29 mmol/L HEMOGLOBIN POC 8.8 (L) 12.0 - 18.0 g/dL BASE EXCESS POC 0 -2 - 3 mmol/L O2 SATURATION POC 75 (H) 40 - 70 % SODIUM POC 137 135 - 145 mmol/L POTASSIUM POC 4.3 3.5 - 4.9 mmol/L HEMATOCRIT POC 26 (L) 38 - 51 % PH TEMP CORRECT 7.35 7.32 - 7.43 PCO2 TEMP CORRECT 46 38 - 50 mm Hg PO2 TEMP CORRECT 45 (H) 25 - 40 mm Hg SPECIMEN SOURCE, GASES POC Venous CALCIUM IONIZED POC 4.5 (L) 4.8 - 5.2 mg/dL TCO2 (CALC) POC 27 (H) 22 - 26 mmol/L LITER FLOW 6.0 L/min [facility] SITE POC No Charge PATIENT'S TEMPERATURE POC 37.0 degrees POC GLUCOSE Result Value Ref Range GLUCOSE POC 109 (H) 74 - 99 mg/dL SPECIMEN SOURCE, GLUCOSE POC Capillary Assessment/Plan ROSANNE on CKD 4- with high likelihood to be ESRD. Started HD x 1 at OSH for volume overload. Will do UF with SLED tonight, 350ml/hr x 12 UF. Plan on HD tomorrow as well for volume removal. Likelihood ofESRD was discussed with patient. She has had many cancellations, no shows, at our office in the past, non compliance. 2. Hypoxia due to pulm congestion. UF with SLED tonight, and more UF tomorrow. Significantly volumeoverloaded. 3. CHF- UF as noted above. Hold on aggressive GDMT as do not want to drop BP with needed UF. ECHO per primary team. 4. HTN- will hopefully see drop in BP with needed UF 5. Anemia will get SPEP, iron panel. Dose CHARISSA for CKD/ESRD soon. ER OPERATOR documented in this encounter OR Notes * Operative Report - Remy Carmichael MD - 11/08/2025 4:00 PM CST Post Procedure Vascular/Interventional Radiology Note Pre-Radiology Procedure Diagnosis: ROSANNE on CKD4 Technical Procedure: Tunneled HD catheter placement. Specimens removed: N/A Estimated Blood Loss: Minimal Findings: patent RIJ. 19 cm tip to cuff HD catheter placed with tip in RA. Medications: Conscious sedation was performed. Please see separate nursing documentation for dosages. Post-Radiology Procedure Diagnosis: Same Remy Carmichael MD 11/08/25 4:00 PM ER OPERATOR * Kacie-OP - Remy Carmichael MD - 11/08/2025 3:27 PM CST Pre-Sedation Conscious(Moderate) Record Procedure scheduled: Tunneled HD catheter placement. Procedure appropriate history and physical on chart: Y Risks, benefits and options of conscious/moderate sedation discussed with patient (and family when appropriate), previous anesthesia experiences reviewed, informed consent obtained: Y NPO status per policy: Y Airway assessment: Short/fat neck: Y Short chin: N Protruding upper teeth: N Neck full ROM: Y Mouth opens>2 fingers: Y History of any airway problems (sleep apnea, appliance/equipment used, airway obstruction, other iedrugs, tobacco: N Allergies No Known Allergies ASA Classification: ASA 3 - Patient with moderate systemic disease with functional limitations Physical Exam: Lungs: clear to auscultation bilaterally Heart: normal rate and regular rhythm Abdomen: soft, non-tender Mental status: alert and oriented X 3. Pre-Induction Reassessment: No change since pre-sedation assessment. Changes are as follows: Not Applicable The procedure including the purpose and benefits, were discussed in detail with the patient and/or healthcare decision maker. The risks were all discussed in detail to include, but not limited to, bleeding , infection, injury to adjacent structures, inability to complete the procedure, and need forfurther intervention. All Questions were answered, and the decision was made to proceed with the procedure. Remy Carmichael MD 11/08/25 3:27 PM ER OPERATOR documented in this encounter Miscellaneous Notes * Care Plan - Isai Morenoora MEDICAL RECORDS TECH - 11/13/2025 9:05 AM CST Problem: Discharge Planning Goal: Identify discharge needs upon admission and through discharge Description: Dispensing Optician Apprentice Discharge Planning Expected Discharge Date Nov 12, 2025 Plan Discharge To: [facility] (11/12/25 1200) Plan Discharge To - Alternate: Medicaid certified nursing facility (11/12/25 1200) ADD 1057: SW received a message from [facility] informing me that patient will need to dialyize on Tuesday @ 1300 due to the holiday. Patient will need to bring her insurance card and photo ID for her first appointment. Facility notified. This patient was scheduled to discharge yesterday, however, EMS delayed. SW called EMS and spoke with Patience and she informed me that EMS is currently bringing a patient from [place] and will be picking this patient up to go to [place] after. Charge nurse and facility notified. Referrals Status: Facility Referrals - Accepted and Selected Destination - Admitted Since 11/04/2025 Service Provider Services Address Phone Fax Patient Preferred [facility] [address] [place] [address] [phone] -- Follow-up on Referrals Sent: Yes (11/12/251199) Preferred Pharmacy: [facility] - [facility] [address] Patient / Family Communications: Patient/Family Communications: Confirmed Discharge Plan (11/12/25 1200) Discharge Plan Agreed Upon: Patient (11/12/251199) Resources Provided: Resource List Given: Care facilities (11/12/251199) Resource List Given To: Patient (11/12/251199) Information Given Concerning: Criteria for (skilled) nursing facility (11/12/25 1200) Transportation Plan: Has discharge transport been arranged?: Yes (11/12/25 1200) Transportation Provider: [facility] (11/12/25 1200) Transportation Provider Phone: [phone] (11/12/25 1200) Date Of Pick-Up: 11/12/25 (11/12/25 1200) Time Of Pick-Up: (CARLOS) (11/12/25 1200) Follow Up Appointments Scheduled AUTUMN Sethi Outcome: Progressing ER OPERATOR ER OPERATOR ER OPERATOR * Care Plan - Jose Antonio Boston RN - 11/13/2025 6:17 AM CST Shift Summary Lidocaine was stopped during dialysis at 11:55 PM. Dialysis access site management and monitoring of fluid-electrolyte balance were performed. Safety checks and fall risk review were completed with no reported falls or injuries. Patient was repositioned and encouraged to turn, with some refusals noted. Overall, vital signs and skin integrity remained stable, and no acute complications were documentedduring the shift. Infection Risk/Actual: Infection prevention, control, or resolution by discharge: No fever or abnormal temperature trends were observed, and IV sites remained patent without difficulty; no inappropriate behavior or delirium was documented during the shift. Safety/Fall: Absence of fall, injury, harm during hospitalization: Safety checks were completed andfall risk was reviewed; no falls or injuries occurred during the shift. Maintain skin integrity and/or promote wound healing by discharge: Skin was occasionally moist and ecchymosis was noted, but no new skin breakdown or wounds were documented; turning and repositioningwere encouraged, though some refusals occurred. Achieve optimal cardiovascular function by discharge or maintain baseline function: Blood pressure and heart rate remained within a similar range throughout the shift, and cardiac status was documented as within defined limits except for extremity edema. Achieve optimal genitourinary and renal function by discharge or maintain baseline function: Dialysis was ongoing with access site management and monitoring of fluid-electrolyte balance; patient remained on dialysis and no acute complications were documented. ER OPERATOR * Care Plan - Monique Franklin RN - 11/12/2025 6:05 PM CST Shift Summary Severe pain at rest was managed with positioning and acetaminophen, resulting in improved comfort. Hemodialysis was completed with maintained access and post-dialysis assessment. Ondansetron was given for nausea during the shift. Mobility interventions included assisted transfers and repositioning, with some limitation noted. No falls or injuries occurred, and safety checks were performed throughout the shift. Theron Meeks would like to be be notified when patient transfers to [facility] in [place]. Verbalizes/displays acceptable comfort level or baseline comfort level: Pain at rest was initially severe but improved after positioning and acetaminophen administration, with pain later denied during the shift. Safety/Fall: Absence of fall, injury, harm during hospitalization: No falls or injuries occurred during the shift, and safety checks and fall risk reviews were completed. Maintain skin integrity and/or promote wound healing by discharge: Skin and wound assessments remained within defined limits, and linens and bed pads were changed to support comfort and skin integrity. Achieve optimal genitourinary and renal function by discharge or maintain baseline function: Dialysis was completed with access site maintained, urine output was monitored, and interventions focused on fluid-electrolyte balance and hygiene. Motor skills goal: Improve motor skills by discharge: Mobility was slightly limited but patient wasable to transfer with assistance, dangle at bedside, and ambulate to chair at times. ER OPERATOR * Care Plan - Jaron Moreno MSW - 11/12/2025 1:02 PM CST Problem: Discharge Planning Goal: Identify discharge needs upon admission and through discharge Description: Dispensing Optician Apprentice Discharge Planning Expected Discharge Date Nov 12, 2025 Plan Discharge To: [facility] (11/12/25 1200) Plan Discharge To - Alternate: Medicaid certified nursing facility (11/12/25 1200) PATIENT WILL NEED AN OUT OF HOSPITAL DNR SIGNED PRIOR TO DC EMS set up for [facility]. Please call report and fax DC orders to numbers below CARLOS. Patient will start HD on Tuesday11/16/2024 at [facility] @ [address] [place] [address] (Center #: [phone]). PCS form provided to charge nurse. Level I Code: [id number] 11/12/251199 Discharge Planning Plan Discharge To [facility] Plan Discharge To - Alternate Medicaid cer Patient/Family Communications Confirmed Discharge Plan Discharge Plan Agreed Upon Patient Resource List Given Care facilities Resource List Given To Patient Information Given Concerning Criteria for (skilled) nursing facility Follow-up on Referrals Sent Yes Has discharge transport been arranged? Yes Transportation Provider [facility] Transportation Provider Phone [phone] Final Discharge Arrangements Final Discharge Disposition SNF Care Facility Name [facility] Contact Name Charge nurse [facility] (FAX) [phone] Services Arranged For Discharge Transportation assistance Agency Name [facility] Contact Name Nichol Lyons Agency Phone Number [phone] Date Of Pick-Up 11/12/25 Time Of Pick-Up (CARLOS) Copy of this transfer form will be sent with patient along with: Pertinent Medical Records Referrals Status: Facility Referrals - Accepted and Selected Destination - Admitted Since 11/04/2025 Service Provider Services Address Phone Fax Patient Preferred [facility] [address] [place] [address] [phone] -- Follow-up on Referrals Sent: Yes (11/12/25 1200) Preferred Pharmacy: [facility] - [address] Patient / Family Communications: Patient/Family Communications: Confirmed Discharge Plan (11/12/25 1200) Discharge Plan Agreed Upon: Patient (11/12/25 1200) Resources Provided: Resource List Given: Care facilities (11/12/25 1200) Resource List Given To: Patient (11/12/25 1200) Information Given Concerning: Criteria for (skilled) nursing facility (11/12/25 1200) Transportation Plan: Has discharge transport been arranged?: Yes (11/12/25 1200) Transportation Provider: [facility] (11/12/25 1200) Transportation Provider Phone: [phone] (11/12/25 1200) Date Of Pick-Up: 11/12/25 (11/12/25 1200) Time Of Pick-Up: (CARLOS) (11/12/25 1200) Follow Up Appointments Scheduled AUTUMN Sethi 11/12/2025 1302 by Jaron Moreno MSW Outcome: Progressing 11/12/2025 0925 by Jaron Moreno MSW Outcome: Progressing ER OPERATOR ER OPERATOR ER OPERATOR * Care Plan - Jaron Moreno MSW - 11/12/2025 9:25 AM CST Problem: Discharge Planning Goal: Identify discharge needs upon admission and through discharge Description: Authorization Request for completion: Accepting Facility: [facility] Accepting Physician: Dr. Pierre Physician Admit Coord:Mable Is pt returning to facility? no Is pt on SNF bed? yes Is pt on LTC bed? no Does patient have an intellectual disability that could delay learning? no Anticipated DC date: 11/12/2025 Ready for DC now? yes Skilled need: PT, OT, and ST If IV what antibiotic, frequency and stop date: ICD 10 Codes: N17.9, N18.4 Living Setting SHELL TRIM TOOL SETTER: Living arrangements - the patient lives alone. Mobility SHELL TRIM TOOL SETTER: Modified Independent PT/OT Recommend: SNF Community Amb? yes Current Ambulation: 0 ft. Did not perform Device/Assist: Assistive Device: Other NA Sit to Stand: NA, did not perform Outcome: Progressing ER OPERATOR * Therapy Treatment - Ángel Rivera Electrical Integrator - 11/12/2025 9:12 AM CST 09:13 - Pt out of room for HD treatment. Will re-attempt as appropriate. David Rivera, SHELL TRIM TOOL SETTER ER OPERATOR * Care Plan - Kylah Payan RN - 11/12/2025 5:30 AM CST Shift Summary Lidocaine was discontinued during the shift, and pain remained well controlled. Supplemental oxygen was provided, and SpO2 improved from 91% to 95%. No falls, injuries, or changes in skin integrity occurred, and safety checks were completed as scheduled. Laboratory tests were performed to monitor kidney function and other parameters, with results available for review. Overall, comfort was maintained and no significant adverse events occurred during the shift. Verbalizes/displays acceptable comfort level or baseline comfort level: No pain was reported throughout the shift, and lidocaine was discontinued without any noted discomfort. Infection Risk/Actual: Infection prevention, control, or resolution by discharge: No new symptoms or changes in temperature were observed, and lab results did not show significant changes during the shift. Safety/Fall: Absence of fall, injury, harm during hospitalization: Safety checks were completed andfall risk was acknowledged; no falls or injuries occurred during the shift. Maintain skin integrity and/or promote wound healing by discharge: Skin and wounds on the abdomen and coccyx remained within defined limits, with no deterioration noted during the shift. ER OPERATOR * Care Plan - Jaron Moreno MSW - 11/11/2025 8:57 AM CST Problem: Discharge Planning Goal: Identify discharge needs upon admission and through discharge Description: Dispensing Optician Apprentice Discharge Planning Expected Discharge Date Nov 11, 2025 Plan Discharge To: [facility] (11/08/25 1431) Plan Discharge To - Alternate: Home Health Services (11/08/25 1006) PATIENT NEEDS TO SIT IN A CHAIR FOR HD ADD 1118: Patient was accepted at [facility] in [place]. [facility] is still waiting on HD run sheets andthe fact that she is going in the chair. Her schedule will be while at the facility. Nursingis checking to see if patient can dialyze tomorrow (Tuesday) in the chair prior to DC. PT/OT scheduled to see today for insurance auth. MOON will continue to follow. This patient's needs have been reviewed. MOON called [facility] to check on referral sent. MOON spoke with medicaid service coordinator Alla who stated that she has received the referral and said it will be a bit before they review it. MOON also received a tentative HD treatment schedule, which will be with a start date of 11/13/2025. The date will have to be pushed back as patient has nothad 3 runs yet and has NOT dialyzed in a chair. SW will continue following up on referral sent.. Referrals Status: Facility Referrals - Pending Preferred Pharmacy: [facility] - [address] Patient / Family Communications: Patient/Family Communications: Plan Discharge To Update (11/05/25 0285) Resources Provided Transportation Plan Follow Up Appointments Scheduled AUTUMN Sethi Outcome: Progressing ER OPERATOR ER OPERATOR ER OPERATOR ER OPERATOR ER OPERATOR * Care Plan - Kylah Payan RN - 11/11/2025 6:26 AM CST Shift Summary Acetaminophen was administered twice for mild pain, supporting comfort maintenance during the shift. Hygiene care was performed and wounds on the abdomen and coccyx remained within defined limits. Safety checks were completed and no falls or injuries occurred. CBC with differential was drawn and reviewed, with no major changes in infection-related parameters. Overall, comfort, safety, and skin integrity were maintained throughout the shift. Verbalizes/displays acceptable comfort level or baseline comfort level: Pain was denied during assessment and acetaminophen was administered twice for mild pain; comfort was maintained throughout theshift. Infection Risk/Actual: Infection prevention, control, or resolution by discharge: Temperature remained stable and within normal limits, and CBC results were reviewed; no significant changes in infection-related parameters were noted during the shift. Safety/Fall: Absence of fall, injury, harm during hospitalization: Safety checks were completed andfall risk was acknowledged; no falls or injuries occurred during the shift. Maintain skin integrity and/or promote wound healing by discharge: Both abdominal and coccyx woundswere documented as within defined limits, and hygiene care was provided during the shift. ER OPERATOR * Care Plan - Anais Gant RN - 11/09/2025 6:08 PM CST Shift Summary Abnormal blood pressure and mean arterial pressure were noted in the afternoon and the RN was notified. Blood cultures were obtained and are in progress. Ondansetron was administered for nausea. Wound care was maintained for abdominal and coccyx areas with no change in wound status. Overall, comfort was maintained, no falls or injuries occurred, and discharge planning was addressed. Infection Risk/Actual: Infection prevention, control, or resolution by discharge: Blood cultures are in progress and temperature remained within a low- grade range. Safety/Fall: Absence of fall, injury, harm during hospitalization: Fall risk was acknowledged and no falls or injuries were documented during the shift. ER OPERATOR * Care Plan - Brittany Fields LPN - 11/09/2025 6:08 AM CST Shift Summary Hemodialysis was completed with stable blood flow rates and progressive ultrafiltration removal throughout the session. Acetaminophen was administered twice for mild pain, with no escalation or new pain complaints documented. Iron sucrose was administered during the shift. Safety checks and fall risk assessments were performed regularly, with no falls or injuries documented. Overall, vital signs stabilized after initial hypertension, and comfort and safety were maintained throughout the shift. Infection Risk/Actual: Infection prevention, control, or resolution by discharge: Temperature remained within normal range and skin and gastrointestinal assessments were unchanged, with no new findings documented during the shift. Safety/Fall: Absence of fall, injury, harm during hospitalization: Safety checks were completed regularly, fall risk was acknowledged, and no falls or injuries were documented during the shift. ER OPERATOR * Care Plan - Fabian Catalan RN - 11/08/2025 6:06 PM CST Shift Summary Right internal jugular tunneled hemodialysis catheter was placed using sterile technique and antimicrobial dressing, with no documented complications. Blood cultures were collected and preliminary results are highly likely to remain negative. Comfort was maintained with no pain reported or observed during the shift. Safety checks and fall risk assessments were completed, with no incidents or additional interventions required. Skin integrity was supported through hygiene care and appropriate dressing management, with no wound complications noted. Overall, the shift was uneventful with all goals supported and no adverse events documented. Verbalizes/displays acceptable comfort level or baseline comfort level: Comfort was maintained throughout the shift, with repeated FLACC assessments showing no pain and the patient remaining content and relaxed; no pain interventions were required. Infection Risk/Actual: Infection prevention, control, or resolution by discharge: Sterile techniquewas maintained during the tunneled hemodialysis catheter placement, antimicrobial dressing was applied, and blood cultures are in progress with preliminary results highly likely to remain negative; ceFAZolin was administered kacie-procedurally. Safety/Fall: Absence of fall, injury, harm during hospitalization: Safety checks were completed at the start and end of the shift, and no agitation or impulsivity was noted; fall risk was reviewed and no additional interventions were needed. Maintain skin integrity and/or promote wound healing by discharge: Skin was bathed with CHG and perineal area cleansed, John score was 19, and dressing at the CVC site remained clean, dry, and intact; ecchymosis and erythema were observed but no wound complications were documented. ER OPERATOR * Care Plan - Jaron Moreno MSW - 11/08/2025 3:30 PM CST Problem: Discharge Planning Goal: Identify discharge needs upon admission and through discharge Description: Dispensing Optician Apprentice Discharge Planning Expected Discharge Date Nov 11, 2025 Plan Discharge To: [facility] (11/08/25 1431) Plan Discharge To - Alternate: Home Health Services (11/08/25 1006) This patient's needs have been reviewed and there are currently no DC plan changes. Patient and family wanting a referral sent to [facility]. Referral sent. Family states they have family that works there. SW also completed all necessary documentation for dialysis, with the exception of vas cular access (patient getting tunneled cath as we speak) and 3 run sheets. SW received a call from Janet with [facility] and she stated that [place] has NO openings at this time, but will call and see if they are able to accommodate. Janet stated that she will call to follow up with this SW on Tuesday. Level I Code: [id number] - sent to attending Dr. for signature. Referrals Status: Facility Referrals - Pending Preferred Pharmacy: [facility] - [place], [place] - [address] Patient / Family Communications: Patient/Family Communications: Plan Discharge To Update (11/05/25 8428) Resources Provided Transportation Plan Follow Up Appointments Scheduled AUTUMN Sethi Outcome: Progressing ER OPERATOR ER OPERATOR * Care Plan - Fabian Catalan RN - 11/07/2025 5:57 PM CST Shift Summary Hygiene care with CHG and linen change was performed to support comfort and skin integrity. Blood cultures were collected and remain in progress, with preliminary results currently negative. Fall risk was reviewed and safety checks were completed, with no injuries or falls documented during the shift. Speech therapy was discontinued per plan of care and family participated in care discussions. Overall, comfort was maintained, infection prevention measures were implemented, and discharge planning progressed with family involvement. Verbalizes/displays acceptable comfort level or baseline comfort level: No pain was reported duringthe shift and linen was changed to support comfort. Infection Risk/Actual: Infection prevention, control, or resolution by discharge: Blood cultures are in progress and currently negative; skin was bathed with CHG and no fever was present throughout the shift. Safety/Fall: Absence of fall, injury, harm during hospitalization: Fall risk was reviewed and agreed upon, safety checks were completed, and family was present during the shift. Identify discharge needs upon admission and through discharge: Speech therapy was discontinued per plan of care, and family was involved in care discussions during the shift. Maintain skin integrity and/or promote wound healing by discharge: Skin was bathed with CHG, [place] was 21, and no significant moisture or mobility limitations were noted; ecchymosis was present but no open wounds were documented. ER OPERATOR * Care Plan - Se Pelaez RN - 11/07/2025 5:25 AM CST Shift Summary Acetaminophen was administered once for mild pain, with no pain reported before or after. Fall risk interventions were completed and no falls or injuries occurred. Wound care for abdomen and coccyx was maintained open to air, with no changes in wound status. Discharge needs were reviewed, and no barriers to discharge were identified. Overall, comfort was maintained, safety interventions were effective, and skin integrity was stablethroughout the shift. Verbalizes/displays acceptable comfort level or baseline comfort level: No pain was reported throughout the shift, and acetaminophen was administered once for mild pain relief. Infection Risk/Actual: Infection prevention, control, or resolution by discharge: No new symptoms or changes in temperature were noted, and skin and wound observations remained consistent. Safety/Fall: Absence of fall, injury, harm during hospitalization: Fall risk was reviewed and interventions were completed, with no falls or injuries documented during the shift. Identify discharge needs upon admission and through discharge: Discharge needs were assessed, and no concerns regarding transportation, living arrangements, or caregiver support were identified. Maintain skin integrity and/or promote wound healing by discharge: Abdominal and coccyx wounds remained unchanged with open-to-air care, and skin integrity was stable with ecchymosis noted. ER OPERATOR * Care Plan - Laxmi Rosas RN - 11/06/2025 4:34 PM CST Shift Summary Hemodialysis was performed with progressive ultrafiltration removal during the morning hours. Blood cultures were collected to assess for possible infection, and temperature remained stable throughout the shift. Hygiene care was provided, including bathing with CHG and perineal cleansing, and wounds were managed with topical agents. Acetaminophen was administered for mild pain, though pain was not reported at other times during the shift. Overall, patient remained alert, oriented, and participated in care planning, with no falls or injuries documented. Verbalizes/displays acceptable comfort level or baseline comfort level: No pain was reported throughout the shift, and acetaminophen was administered for mild pain in the afternoon. Infection Risk/Actual: Infection prevention, control, or resolution by discharge: Blood cultures were collected and are in progress; temperature remained within normal range and hygiene care was performed with CHG. Safety/Fall: Absence of fall, injury, harm during hospitalization: Safety checks were completed andaspiration precautions were maintained; no falls or injuries were documented during the shift. Identify discharge needs upon admission and through discharge: Plan of care was reviewed with the patient and healthcare team, and individualized goals were discussed during the shift. Maintain skin integrity and/or promote wound healing by discharge: Skin was bathed and perineal area cleansed; wounds on abdomen and coccyx were managed with topical agents and kept open to air or protected with dressing. ER OPERATOR * Care Plan - Se Pelaez RN - 11/06/2025 5:09 AM CST Shift Summary Acetaminophen was administered for mild pain, and no further pain was reported. Albuterol was given once during the shift. Miconazole and miconazole nitrate were both refused by the patient. Darbepoetin yuridia was administered late in the evening. The patient remained stable with no falls or injuries, and wounds were managed as ordered. Verbalizes/displays acceptable comfort level or baseline comfort level: No pain was reported throughout the shift, and acetaminophen was administered once for mild pain with no further complaints noted. Infection Risk/Actual: Infection prevention, control, or resolution by discharge: Temperature remained stable and within normal range, and wounds on the abdomen and coccyx were moist but unchanged, with no new findings documented. Safety/Fall: Absence of fall, injury, harm during hospitalization: High fall risk interventions were completed and safety checks were performed regularly, with no falls or injuries documented. Identify discharge needs upon admission and through discharge: Plan of care was reviewed with the patient twice during the shift, and individualized discharge needs were not updated. Maintain skin integrity and/or promote wound healing by discharge: Skin integrity remained unchanged with ecchymosis noted, and wounds on the abdomen and coccyx were kept open to air and moist throughout the shift. ER OPERATOR * Care Plan - Laxmi Rosas RN - 11/05/2025 5:10 PM CST Shift Summary Oxygen saturation dropped to 81% at 1:00 PM and improved after continued oxygen therapy and medication administration. Urine output remained low and concentrated, with ongoing urinary retention and no new complaints orsigns of infection. Blood pressure, pulse, and mean arterial pressure fluctuated, with periods of abnormal readings andpersistent atrial fibrillation documented on EKG. Fecal incontinence and hyperactive bowel sounds persisted, and bowel regimen was promoted to support gastrointestinal function. Overall, multiple interventions were performed to support cardiovascular, respiratory, renal, and gastrointestinal function throughout the shift. Achieve optimal cardiovascular function by discharge or maintain baseline function: Blood pressure and mean arterial pressure fluctuated throughout the shift, with some abnormal readings, and apical pulse remained irregular with documented atrial fibrillation; INR was elevated and EKG showed multiple abnormalities, but no acute complaints were noted. Cardiac monitoring and activity minimization interventions were performed as per care plan. Achieve optimal respiratory function by discharge and/or maintain baseline function: Oxygen saturation dropped significantly in the early afternoon but improved after oxygen therapy adjustments; respiratory rate varied, and supplemental oxygen was maintained via nasal cannula throughout the shift. No pain or acute respiratory complaints were documented, and respiratory interventions were continued as planned. Achieve optimal nutrition and fluid status to meet metabolic needs throughout hospitalization: Oralintake was noted as inadequate, and blood glucose monitoring and oral hygiene were provided; no acute gastrointestinal complaints were documented. Fluid-electrolyte balance and stool output were monitored, with hyperactive bowel sounds and seedy stool observed. Achieve optimal genitourinary and renal function by discharge or maintain baseline function: Urine output was low and urine remained concentrated and dark, with ongoing urinary retention; no complaints or signs of UTI were documented, and urogenital hygiene measures were maintained. Renal function r emained impaired, and relaxation techniques and monitoring continued as per care plan. Achieve optimal gastrointestinal function by discharge or maintain baseline function: Fecal incontinence persisted throughout the shift, with hyperactive bowel sounds and seedy stool consistency; bowel regimen was promoted and positioning for ease of elimination was performed. No new gastrointestinal symptoms were noted. ER OPERATOR * Care Plan - Mary Cruz RN - 11/05/2025 9:15 AM CST Care Management Initial Assessment Initial Discharge Planning Assessment completed. Discussed Care Management's role and Discharge planning. Does the patient have family and/or a caregiver that is willing, able and available to assist if needed? unknown Comments: Patient is currently confused and CM unable to reach family listed on patient's contact list. Patient Discharge Planning Goal: SNF vs LTAC? Patient will potentially discharge to a SNF/NH? Yes Receives hemodialysis? Yes Maintenance hemodialysis occurs on days unknown with unknow company.-patient is noncompliant according to Nephrology's note Emergency contact(s): Extended Emergency Contact Information Primary Emergency Contact: Paige Flower Mobile Relation: Daughter Secondary Emergency Contact: PerfectoFlor Mobile Relation: Daughter Prescription coverage: yes Preferred Pharmacy verified: [facility] - [address] Insurance coverage verified: Payor: MEDICAID / Plan: [place] / Product Type: Medicaid / Secondary Insurance:N/A Medicaid Status: no spend down Has VA Benefits: no Employment Status: not employed PCP verified as: Ina Altamirano MD Patient has not had a stay at an acute care hospital in the last 30 days. Recent Falls?: Plan for transportation at discharge: TBD Care Management contact information provided. Care Management will continue to follow and assist asneeded. ER OPERATOR documented in this encounter Plan of Treatment Pending Results Name Type Priority Associated Diagnoses Date /Time PROTEIN ELECTROPHORESIS W/REFLEX,SERUM Lab Routine 11/04/2025 5:56 PM TESTER OPERATOR documented as of this encounter Procedures Procedure Name Priority Date/Time Associated Diagnosis Comments CBC WITH DIFFERENTIAL Routine 11/13/2025 5:45 AM TESTER OPERATOR PHOSPHORUS Routine 11/13/2025 5:45 AM TESTER OPERATOR COMPREHENSIVE METABOLIC PANEL Routine 11/13/2025 5:45 AM TESTER OPERATOR CBC WITH DIFFERENTIAL Routine 11/12/2025 1:38 AM TESTER OPERATOR PHOSPHORUS Routine 11/12/2025 1:38 AM TESTER OPERATOR COMPREHENSIVE METABOLIC PANEL Routine 11/12/2025 1:38 AM TESTER OPERATOR CBC WITH DIFFERENTIAL Routine 11/11/2025 4:37 AM TESTER OPERATOR PHOSPHORUS Routine 11/11/2025 4:37 AM TESTER OPERATOR COMPREHENSIVE METABOLIC PANEL Routine 11/11/2025 4:37 AM TESTER OPERATOR CBC WITH DIFFERENTIAL Routine 11/10/2025 6:05 AM TESTER OPERATOR PHOSPHORUS Routine 11/10/2025 6:05 AM TESTER OPERATOR COMPREHENSIVE METABOLIC PANEL Routine 11/10/2025 6:05 AM TESTER OPERATOR CBC WITH DIFFERENTIAL Routine 11/09/2025 5:23 AM TESTER OPERATOR PHOSPHORUS Routine 11/09/2025 5:23 AM TESTER OPERATOR COMPREHENSIVE METABOLIC PANEL Routine 11/09/2025 5:23 AM TESTER OPERATOR MRI BRAIN WO CONTRAST Stat 11/09/2025 12:23 AM TESTER OPERATOR IR VENOUS ACCESS Pending Discharge 11/08/2025 4:04 PM TESTER OPERATOR US DOPPLER VENOUS ARM LEFT Routine 11/08/2025 10:26 AM TESTER OPERATOR US DUPLEX ARTERIAL ARM LEFT Routine 11/08/2025 10:20 AM TESTER OPERATOR CBC WITH DIFFERENTIAL Routine 11/08/2025 5:17 AM TESTER OPERATOR PROTIME-INR Routine 11/08/2025 5:17 AM TESTER OPERATOR PHOSPHORUS Routine 11/08/2025 5:17 AM TESTER OPERATOR COMPREHENSIVE METABOLIC PANEL Routine 11/08/2025 5:17 AM TESTER OPERATOR PROTIME-INR Routine 11/07/2025 5:52 AM TESTER OPERATOR CBC WITH DIFFERENTIAL Routine 11/07/2025 5:51 AM TESTER OPERATOR PHOSPHORUS Routine 11/07/2025 5:51 AM TESTER OPERATOR COMPREHENSIVE METABOLIC PANEL Routine 11/07/2025 5:[address] HEAD WO CONTRAST Stat 11/06/2025 4 :28 PM TESTER OPERATOR EKG 12-LEAD Routine 11/06/2025 3:25 PM TESTER OPERATOR BEAN PICKER MACHINE OPERATOR EVALUATE AND TREAT Routine 2:20 PM TESTER OPERATOR PROTIME-INR Routine 11/06/2025 5:48 AM TESTER OPERATOR CBC WITHOUT DIFFERENTIAL Routine 11/06/2025 5:48 AM TESTER OPERATOR PHOSPHORUS Routine 11/06/2025 5:48 AM TESTER OPERATOR HEPATIC FUNCTION PANEL Routine 5:48 AM TESTER OPERATOR BASIC METABOLIC PANEL Routine 11/06/2025 5:48 AM TESTER OPERATOR EKG 12-LEAD Routine 11/05/2025 9:52 AM TESTER OPERATOR BLOOD CULTURE Routine 11/05/2025 9:04 AM TESTER OPERATOR BLOOD CULTURE Routine 11/05/2025 9:04 AM TESTER OPERATOR PROTIME-INR Stat 11/05/2025 9:04 AM TESTER OPERATOR BLOOD CULTURE Routine 11/05/2025 8:59 AM TESTER OPERATOR BLOOD CULTURE Routine 11/05/2025 8:59 AM TESTER OPERATOR HEPATIC FUNCTION PANEL Routine 3:03 AM TESTER OPERATOR RENAL FUNCTION PANEL Routine 11/05/2025 3:03 AM TESTER OPERATOR POC GLUCOSE Routine 11/04/2025 8:53 PM TESTER OPERATOR PROTEIN ELECTROPHORESIS W/REFLEX,SERUM Routine 11/04/2025 5:56 PM TESTER OPERATOR ACUTE HEPATITIS PANEL Routine 11/04/2025 5:08 PM TESTER OPERATOR POC GLUCOSE Routine 11/04/2025 4:07 PM TESTER OPERATOR BLOOD GAS VENOUS Routine 11/04/2025 2:20 PM TESTER OPERATOR IRON, TIBC, AND PERCENT SATURATION Routine 11/04/2025 1:49 PM TESTER OPERATOR PROTIME-INR Stat 11/04/2025 1:49 PM TESTER OPERATOR CBC WITHOUT DIFFERENTIAL Stat 11/04/2025 1:49 PM TESTER OPERATOR TSH Routine 11/04/2025 1:49 PM TESTER OPERATOR AMMONIA LEVEL Stat 11/04/2025 1:49 PM TESTER OPERATOR COMPREHENSIVE METABOLIC PANEL Stat 11/04/2025 1:49 PM TESTER OPERATOR POC GLUCOSE Routine 11/04/2025 1:19 PM TESTER OPERATOR documented in this encounter Results * PHOSPHORUS (11/13/2025 5:45 AM TESTER OPERATOR) PHOSPHORUS 2.8 2.5 - 4.5 mg/dL 11/13/2025 6:31 AM TESTER OPERATOR [facility] DutyCalculator [facility] Blood Venipuncture / Unknown 11/13/2025 5:45 AM TESTER OPERATOR 11/13/2025 5:59 AM TESTER OPERATOR us Lewis Rdz MD CHEMISTRY ORDERABLES Final R esult [facility] CLIA # [id number] [id number] [place] [address] * (ABNORMAL) CBC WITH DIFFERENTIAL (11/13/2025 5:45 AM [facility]) [facility] WBC 8.5 4.8 - 10.8 K/uL 11/13/2025 6:06 AM [facility] RBC 3.46(L) 4.20 - 5.40 M/uL 11/13/2025 6:06 AM [facility] HEMOGLOBIN 8.4(L) 12.0 - 16.0 g/dL 11/13/2025 6:06 AM [facility] HEMATOCRIT 29.7(L) 36.0 - 46.0 % 11/13/2025 6:06 AM [facility] MCV 85.8 84.0 - 103.0 fL 11/13/2025 6:06 AM [facility] MCH 24.3(L) 27.0 - 34.0 pg 11/13/2025 6:06 AM [facility] MCHC 28.3(L) 30.0 - 35.0 g/dL 11/13/2025 6:06 AM [facility] PLATELETS 247 140 - 440 K/uL 11/13/2025 6:06 AM [facility] MPV 10.6 8.9 - 12.8 fL 11/13/2025 6:06 AM [facility] RDW 19.1(H) 11.0 - 14.5 % 11/13/2025 6:06 AM [facility] RDW-STDEV 58.7(H) 37.0 - 54.0 fL 11/13/2025 6:06 AM [facility] NEUTROPHILS 70 42 - 75 % 11/13/2025 6:06 AM [facility] LYMPHOCYTES 11(L) 24 - 44 % 11/13/2025 6:06 AM [facility] MONOCYTES 15(H) 2 - 10 % 11/13/2025 6:06 AM [facility] EOSINOPHILS 3 0 - 7 % 11/13/2025 6:06 AM [facility] BASOPHILS 0 0 - 1 % 11/13/2025 6:06 AM [facility] IMMATURE GRANULOCYTES 2 0 - 2 % 11/13/2025 6:06 AM [facility] NEUTROPHIL ABSOLUTE 5.91 2.00 - 8.00 K/uL 11/13/2025 6:06 AM [facility] LYMPHOCYTE ABSOLUTE 0.92(L) 1.20 - 4.00 K/uL 11/13/2025 6:06 AM [facility] MONOCYTE ABSOLUTE 1.23(H) 0.10 - 0.60 K/uL 11/13/2025 6:06 AM [facility] EOSINOPHIL ABSOLUTE 0.21 0.00 - 0.70 K/uL 11/13/2025 6:06 AM [facility] BASOPHILS ABSOLUTE 0.03 0.00 - 0.20 K/uL 11/13/2025 6:06 AM [facility] IMMATURE GRANULOCYTES ABSOLUTE 0.16(H) 0.00 - 0.10 K/uL 11/13/2025 6:06 AM [facility] SMEAR REVIEWED: NN - No Action Needed 11/13/2025 6:06 AM [facility] Blood Venipuncture / Unknown 11/13/2025 5:45 AM TESTER OPERATOR 11/13/2025 5:57 AM [facility] us Magdi Carroll MD HEMATOLOGY ORDERABLES Final Res ult [facility] CLIA # [id number] [address] [place] [address] [place] [address] * (ABNORMAL) COMPREHENSIVE METABOLIC PANEL (11/13/2025 5:45 AM TESTER OPERATOR) [facility] SODIUM 136 136 - 145 mmol/L 11/13/2025 6:31 AM [facility] POTASSIUM 3.6 3.5 - 5.1 mmol/L 11/13/2025 6:31 AM [facility] CHLORIDE 98 98 - 107 mmol/L 11/13/2025 6:31 AM [facility] CO2 29 22 - 29 mmol/L 11/13/2025 6:31 AM [facility] CALCIUM 8.6(L) 8.8 - 10.2 mg/dL 11/13/2025 6:31 AM [facility] BUN 22 8 - 23 mg/dL 11/13/2025 6:31 AM [facility] CREATININE 1.59(H) 0.51 - 0.95 mg/dL 11/13/2025 6:31 AM [facility] GLUCOSE 100(H) 74 - 99 mg/dL 11/13/2025 6:31 AM [facility] TOTAL PROTEIN 6.1(L) 6.4 - 8.3 g/dL 11/13/2025 6:31 AM [facility] ALBUMIN 3.1(L) 3.5 - 5.2 g/dL 11/13/2025 6:31 AM [facility] BILIRUBIN TOTAL 0.9 0.0 - 1.0 mg/dL 11/13/2025 6:31 AM [facility] ALKALINE PHOSPHATASE 170(H) 35 - 104 U/L 11/13/2025 6:31 AM [facility] AST 31 10 - 35 U/L 11/13/2025 6:31 AM [facility] ALT 22 <=35 U/L 11/13/2025 6:31 AM [facility] GFR 35(L) >=60 mL/min/1. 73 sq meter 11/13/2025 6:31 AM [facility] Comment:eGFR calculated with 2020 CKD-EPI equation. Vegetarian diet, extremely high or low muscle mass, and may affect results. Cystatin C with Glomerular Filtration Rate is a suitable alternative for these patients. ANION GAP 9 9 - 20 mmol/L 11/13/2025 6:31 AM TESTER OPERATOR [facility] Blood Venipuncture / Unknown 11/13/2025 5:45 AM TESTER OPERATOR 11/13/2025 5:59 AM TESTER OPERATOR Magdi Carroll MD CHEMISTRY ORDERABLES Final Resu lt Performing Organization Address [facility] [place] Co de Phone Number [facility] CLIA # [id number] [address] [address] [place] [address] * PHOSPHORUS (11/12/2025 1:38 AM TESTER OPERATOR) Pathologist [facility] PHOSPHORUS 2.6 2.5 - 4.5 mg/dL 11/12/2025 2:23 AM TESTER OPERATOR [facility] Blood Venipuncture / Unknown 11/12/2025 1:38 AM TESTER OPERATOR 11/12/2025 1:45 AM TESTER OPERATOR Lewis Rdz MD CHEMISTRY ORDERABLES Final R esult Performing Organization Address [facility] [place] Co de Phone Number [facility] CLIA # [id number] [address] [place] [phone] * (ABNORMAL) CBC WITH DIFFERENTIAL (11/12/2025 1:38 AM TESTER OPERATOR) Pathologist [facility] WBC 9.2 4.8 - 10.8 K/uL 11/12/2025 1:54 AM TESTER OPERATOR [facility] RBC 3.58(L) 4.20 - 5.40 M/uL 11/12/2025 1:54 AM [facility] HEMOGLOBIN 8.4(L) 12.0 - 16.0 g/dL 11/12/2025 1:54 AM [facility] HEMATOCRIT 29.7(L) 36.0 - 46.0 % 11/12/2025 1:54 AM [facility] MCV 83.0(L) 84.0 - 103.0 fL 11/12/2025 1:54 AM [facility] DutyCalculator [facility] MCH 23.5(L) 27.0 - 34.0 pg 11/12/2025 1:54 AM [facility] MCHC 28.3(L) 30.0 - 35.0 g/dL 11/12/2025 1:54 AM [facility] PLATELETS 232 140 - 440 K/uL 11/12/2025 1:54 AM [facility] DutyCalculator [facility] MPV 10.4 8.9 - 12.8 fL 11/12/2025 1:54 AM [facility] DutyCalculator [facility] RDW 18.9(H) 11.0 - 14.5 % 11/12/2025 1:54 AM [facility] RDW-STDEV 56.8(H) 37.0 - 54.0 fL 11/12/2025 1:54 AM [facility] NEUTROPHILS 73 42 - 75 % 11/12/2025 1:54 AM [facility] LYMPHOCYTES 11(L) 24 - 44 % 11/12/2025 1:54 AM [facility] MONOCYTES 13(H) 2 - 10 % 11/12/2025 1:54 AM [facility] DutyCalculator [facility] EOSINOPHILS 1 0 - 7 % 11/12/2025 1:54 AM [facility] DutyCalculator [facility] BASOPHILS 0 0 - 1 % 11/12/2025 1:54 AM [facility] IMMATURE GRANULOCYTES 2 0 - 2 % 11/12/2025 1:54 AM [facility] DutyCalculator [facility] NEUTROPHIL ABSOLUTE 6.71 2.00 - 8.00 K/uL 11/12/2025 1:54 AM [facility] DutyCalculator [facility] LYMPHOCYTE ABSOLUTE 0.96(L) 1.20 - 4.00 K/uL 11/12/2025 1:54 AM [facility] DutyCalculator [facility] MONOCYTE ABSOLUTE 1.19(H) 0.10 - 0.60 K/uL 11/12/2025 1:54 AM [facility] EOSINOPHIL ABSOLUTE 0.13 0.00 - 0.70 K/uL 11/12/2025 1:54 AM [facility] BASOPHILS ABSOLUTE 0.03 0.00 - 0.20 K/uL 11/12/2025 1:54 AM [facility] IMMATURE GRANULOCYTES ABSOLUTE 0.16(H) 0.00 - 0.10 K/uL 11/12/2025 1:54 AM [facility] SMEAR REVIEWED: NA - Not Applicable 11/12/2025 1:54 AM [facility] Blood Venipuncture / Unknown 11/12/2025 1:38 AM TESTER OPERATOR 11/12/2025 1:46 AM TESTER OPERATOR us Magdi Carroll MD HEMATOLOGY ORDERABLES Final Res ult [facility] CLIA # [id number] [address] [place] [id number] * (ABNORMAL) COMPREHENSIVE METABOLIC PANEL (11/12/2025 1:38 AM [facility]) SODIUM 135(L) 136 - 145 mmol/L 11/12/2025 2:23 AM [facility] POTASSIUM 3.7 3.5 - 5.1 mmol/L 11/12/2025 2:23 AM [facility] CHLORIDE 98 98 - 107 mmol/L 11/12/2025 2:23 AM [facility] CO2 28 22 - 29 mmol/L 11/12/2025 2:23 AM [facility] CALCIUM 8.7(L) 8.8 - 10.2 mg/dL 11/12/2025 2:23 AM [facility] BUN 23 8 - 23 mg/dL 11/12/2025 2:23 AM [facility] CREATININE 1.58(H) 0.51 - 0.95 mg/dL 11/12/2025 2:23 AM [facility] GLUCOSE 117(H) 74 - 99 mg/dL 11/12/2025 2:23 AM [facility] TOTAL PROTEIN 6.2(L) 6.4 - 8.3 g/dL 11/12/2025 2:23 AM [facility] ALBUMIN 3.1(L) 3.5 - 5.2 g/dL 11/12/2025 2:23 AM [facility] BILIRUBIN TOTAL 0.9 0.0 - 1.0 mg/dL 11/12/2025 2:23 AM [facility] ALKALINE PHOSPHATASE 183(H) 35 - 104 U/L 11/12/2025 2:23 AM [facility] AST 38(H) 10 - 35 U/L 11/12/2025 2:23 AM [facility] ALT 29 <=35 U/L 11/12/2025 2:23 AM [facility] GFR 36(L) >=60 mL/min/1. 73 sq meter 11/12/2025 2:23 AM [facility] Comment:eGFR calculated with 2020 CKD-EPI equation. Vegetarian diet, extremely high or low muscle mass, and may affect results. Cystatin C with Glomerular Filtration Rate is a suitable alternative for these patients. ANION GAP 9 9 - 20 mmol/L 11/12/2025 2:23 AM [facility] Blood Venipuncture / Unknown 11/12/2025 1:38 AM TESTER OPERATOR 11/12/2025 1:45 AM TESTER OPERATOR us Magdi Carroll MD CHEMISTRY ORDERABLES Final Resu lt [facility] CLIA # [id number] [address] [place] [phone] * PHOSPHORUS (11/11/2025 4:37 AM TESTER OPERATOR) Pathologist [facility] PHOSPHORUS 3.4 2.5 - 4.5 mg/dL 11/11/2025 5:39 AM [facility] Blood Venipuncture / Unknown 11/11/2025 4:37 AM TESTER OPERATOR 11/11/2025 5:03 AM TESTER OPERATOR us Lewis Rdz MD CHEMISTRY ORDERABLES Final R esult [facility] CLIA # [id number] [address] [address] [place] [address] * (ABNORMAL) CBC WITH DIFFERENTIAL (11/11/2025 4:37 AM TESTER OPERATOR) [facility] WBC 8.0 4.8 - 10.8 K/uL 11/11/2025 5:05 AM [facility] RBC 3.50(L) 4.20 - 5.40 M/uL 11/11/2025 5:05 AM [facility] HEMOGLOBIN 8.3(L) 12.0 - 16.0 g/dL 11/11/2025 5:05 AM [facility] HEMATOCRIT 29.4(L) 36.0 - 46.0 % 11/11/2025 5:05 AM [facility] MCV 84.0 84.0 - 103.0 fL 11/11/2025 5:05 AM [facility] MCH 23.7(L) 27.0 - 34.0 pg 11/11/2025 5:05 AM [facility] MCHC 28.2(L) 30.0 - 35.0 g/dL 11/11/2025 5:05 AM [facility] PLATELETS 222 140 - 440 K/uL 11/11/2025 5:05 AM [facility] MPV 10.8 8.9 - 12.8 fL 11/11/2025 5:05 AM [facility] RDW 19.0(H) 11.0 - 14.5 % 11/11/2025 5:05 AM [facility] RDW-STDEV 55.2(H) 37.0 - 54.0 fL 11/11/2025 5:05 AM [facility] NEUTROPHILS 71 42 - 75 % 11/11/2025 5:05 AM [facility] LYMPHOCYTES 11(L) 24 - 44 % 11/11/2025 5:05 AM [facility] MONOCYTES 13(H) 2 - 10 % 11/11/2025 5:05 AM [facility] EOSINOPHILS 3 0 - 7 % 11/11/2025 5:05 AM [facility] BASOPHILS 0 0 - 1 % 11/11/2025 5:05 AM [facility] IMMATURE GRANULOCYTES 2 0 - 2 % 11/11/2025 5:05 AM [facility] NEUTROPHIL ABSOLUTE 5.67 2.00 - 8.00 K/uL 11/11/2025 5:05 AM [facility] LYMPHOCYTE ABSOLUTE 0.91(L) 1.20 - 4.00 K/uL 11/11/2025 5:05 AM [facility] MONOCYTE ABSOLUTE 1.02(H) 0.10 - 0.60 K/uL 11/11/2025 5:05 AM [facility] EOSINOPHIL ABSOLUTE 0.21 0.00 - 0.70 K/uL 11/11/2025 5:05 AM [facility] BASOPHILS ABSOLUTE 0.02 0.00 - 0.20 K/uL 11/11/2025 5:05 AM [facility] IMMATURE GRANULOCYTES ABSOLUTE 0.13(H) 0.00 - 0.10 K/uL 11/11/2025 5:05 AM [facility] SMEAR REVIEWED: NA - Not Applicable 11/11/2025 5:05 AM [facility] Blood Venipuncture / Unknown 11/11/2025 4:37 AM TESTER OPERATOR 11/11/2025 5:01 AM TESTER OPERATOR us Magdi Carroll MD HEMATOLOGY ORDERABLES Final Res ult [facility] CLIA # [id number] [address] [address] [place] [address] * (ABNORMAL) COMPREHENSIVE METABOLIC PANEL (11/11/2025 4:37 AM [facility]) [facility] SODIUM 137 136 - 145 mmol/L 11/11/2025 5:39 AM [facility] POTASSIUM 3.7 3.5 - 5.1 mmol/L 11/11/2025 5:39 AM [facility] CHLORIDE 97(L) 98 - 107 mmol/L 11/11/2025 5:39 AM [facility] CO2 26 22 - 29 mmol/L 11/11/2025 5:39 AM [facility] CALCIUM 8.7(L) 8.8 - 10.2 mg/dL 11/11/2025 5:39 AM [facility] BUN 43(H) 8 - 23 mg/dL 11/11/2025 5:39 AM [facility] CREATININE 2.55(H) 0.51 - 0.95 mg/dL 11/11/2025 5:39 AM [facility] GLUCOSE 123(H) 74 - 99 mg/dL 11/11/2025 5:39 AM [facility] TOTAL PROTEIN 6.2(L) 6.4 - 8.3 g/dL 11/11/2025 5:39 AM [facility] ALBUMIN 3.2(L) 3.5 - 5.2 g/dL 11/11/2025 5:39 AM [facility] BILIRUBIN TOTAL 0.8 0.0 - 1.0 mg/dL 11/11/2025 5:39 AM [facility] ALKALINE PHOSPHATASE 206(H) 35 - 104 U/L 11/11/2025 5:39 AM [facility] AST 40(H) 10 - 35 U/L 11/11/2025 5:39 AM [facility] ALT 29 <=35 U/L 11/11/2025 5:39 AM [facility] GFR 20(L) >=60 mL/min/1. 73 sq meter 11/11/2025 5:39 AM [facility] Comment:eGFR calculated with 2020 CKD-EPI equation. Vegetarian diet, extremely high or low muscle mass, and may affect results. Cystatin C with Glomerular Filtration Rate is a suitable alternative for these patients. ANION GAP 14 9 - 20 mmol/L 11/11/2025 5:39 AM [facility] Blood Venipuncture / Unknown 11/11/2025 4:37 AM TESTER OPERATOR 11/11/2025 5:03 AM TESTER OPERATOR Magdi Carroll MD CHEMISTRY ORDERABLES Final Resu lt Performing Organization Address [facility] Co de Phone Number [facility] CLIA # [id number] [address] [place] [phone] * PHOSPHORUS (11/10/2025 6:05 AM TESTER OPERATOR) PHOSPHORUS 3.5 2.5 - 4.5 mg/dL 11/10/2025 7:01 AM [facility] Blood Venipuncture / Unknown 11/10/2025 6:05 AM TESTER OPERATOR 11/10/2025 6:29 AM TESTER OPERATOR Lewis Rdz MD CHEMISTRY ORDERABLES Final R esult Performing Organization Address [facility] Co de Phone Number [facility] CLIA # [id number] [address] [place] [phone] * (ABNORMAL) CBC WITH DIFFERENTIAL (11/10/2025 6:05 AM TESTER OPERATOR) WBC 9.6 4.8 - 10.8 K/uL 11/10/2025 6:38 AM [facility] RBC 3.68(L) 4.20 - 5.40 M/uL 11/10/2025 6:38 AM [facility] HEMOGLOBIN 8.7(L) 12.0 - 16.0 g/dL 11/10/2025 6:38 AM [facility] HEMATOCRIT 30.7(L) 36.0 - 46.0 % 11/10/2025 6:38 AM [facility] MCV 83.4(L) 84.0 - 103.0 fL 11/10/2025 6:38 AM [facility] MCH 23.6(L) 27.0 - 34.0 pg 11/10/2025 6:38 AM [facility] MCHC 28.3(L) 30.0 - 35.0 g/dL 11/10/2025 6:38 AM [facility] PLATELETS 228 140 - 440 K/uL 11/10/2025 6:38 AM [facility] MPV 11.1 8.9 - 12.8 fL 11/10/2025 6:38 AM [facility] RDW 19.3(H) 11.0 - 14.5 % 11/10/2025 6:38 AM [facility] RDW-STDEV 56.0(H) 37.0 - 54.0 fL 11/10/2025 6:38 AM [facility] NEUTROPHILS 72 42 - 75 % 11/10/2025 6:38 AM [facility] LYMPHOCYTES 11(L) 24 - 44 % 11/10/2025 6:38 AM [facility] MONOCYTES 13(H) 2 - 10 % 11/10/2025 6:38 AM [facility] EOSINOPHILS 2 0 - 7 % 11/10/2025 6:38 AM [facility] BASOPHILS 0 0 - 1 % 11/10/2025 6:38 AM [facility] IMMATURE GRANULOCYTES 2 0 - 2 % 11/10/2025 6:38 AM [facility] NEUTROPHIL ABSOLUTE 6.96 2.00 - 8.00 K/uL 11/10/2025 6:38 AM [facility] LYMPHOCYTE ABSOLUTE 1.01(L) 1.20 - 4.00 K/uL 11/10/2025 6:38 AM [facility] MONOCYTE ABSOLUTE 1.25(H) 0.10 - 0.60 K/uL 11/10/2025 6:38 AM [facility] EOSINOPHIL ABSOLUTE 0.21 0.00 - 0.70 K/uL 11/10/2025 6:38 AM [facility] BASOPHILS ABSOLUTE 0.04 0.00 - 0.20 K/uL 11/10/2025 6:38 AM [facility] IMMATURE GRANULOCYTES ABSOLUTE 0.16(H) 0.00 - 0.10 K/uL 11/10/2025 6:38 AM [facility] SMEAR REVIEWED: NN - No Action Needed 11/10/2025 6:38 AM [facility] Blood Venipuncture / Unknown 11/10/2025 6:05 AM TESTER OPERATOR 11/10/2025 6:29 AM [facility] us Magdi Carroll MD HEMATOLOGY ORDERABLES Final Res ult [facility] CLIA # [id number] [address] [place] [phone] * (ABNORMAL) COMPREHENSIVE METABOLIC PANEL (11/10/2025 6:05 AM [facility]) SODIUM 138 136 - 145 mmol/L 11/10/2025 7:01 AM [facility] POTASSIUM 3.9 3.5 - 5.1 mmol/L 11/10/2025 7:01 AM [facility] CHLORIDE 98 98 - 107 mmol/L 11/10/2025 7:01 AM [facility] CO2 27 22 - 29 mmol/L 11/10/2025 7:01 AM [facility] CALCIUM 8.8 8.8 - 10.2 mg/dL 11/10/2025 7:01 AM [facility] BUN 38(H) 8 - 23 mg/dL 11/10/2025 7:01 AM [facility] CREATININE 2.79(H) 0.51 - 0.95 mg/dL 11/10/2025 7:01 AM [facility] GLUCOSE 100(H) 74 - 99 mg/dL 11/10/2025 7:01 AM [facility] TOTAL PROTEIN 6.6 6.4 - 8.3 g/dL 11/10/2025 7:01 AM [facility] ALBUMIN 3.5 3.5 - 5.2 g/dL 11/10/2025 7:01 AM [facility] BILIRUBIN TOTAL 0.9 0.0 - 1.0 mg/dL 11/10/2025 7:01 AM [facility] ALKALINE PHOSPHATASE 217(H) 35 - 104 U/L 11/10/2025 7:01 AM [facility] AST 48(H) 10 - 35 U/L 11/10/2025 7:01 AM [facility] ALT 47(H) <=35 U/L 11/10/2025 7:01 AM [facility] GFR 18(L) >=60 mL/min/1. 73 sq meter 11/10/2025 7:01 AM [facility] Comment:eGFR calculated with 2020 CKD-EPI equation. Vegetarian diet, extremely high or low muscle mass, and may affect results. Cystatin C with Glomerular Filtration Rate is a suitable alternative for these patients. ANION GAP 13 9 - 20 mmol/L 11/10/2025 7:01 AM [facility] Blood Venipuncture / Unknown 11/10/2025 6:05 AM TESTER OPERATOR 11/10/2025 6:29 AM [facility] us Magdi Carroll MD CHEMISTRY ORDERABLES Final Resu lt [facility] CLIA # [id number] [address] [address] * PHOSPHORUS (11/09/2025 5:23 AM TESTER OPERATOR) PHOSPHORUS 2.8 2.5 - 4.5 mg/dL 11/09/2025 6:55 AM [facility] Blood Venipuncture / Unknown 11/09/2025 5:23 AM TESTER OPERATOR 11/09/2025 6:14 AM TESTER OPERATOR Lewis Rdz MD CHEMISTRY ORDERABLES Final R esult [facility] CLIA # [id number] [address] [address] [place] [address] * (ABNORMAL) CBC WITH DIFFERENTIAL (11/09/2025 5:23 AM [facility]) [facility] WBC 10.0 4.8 - 10.8 K/uL 11/09/2025 6:15 AM [facility] RBC 3.39(L) 4.20 - 5.40 M/uL 11/09/2025 6:15 AM [facility] HEMOGLOBIN 8.1(L) 12.0 - 16.0 g/dL 11/09/2025 6:15 AM [facility] HEMATOCRIT 28.3(L) 36.0 - 46.0 % 11/09/2025 6:15 AM [facility] MCV 83.5(L) 84.0 - 103.0 fL 11/09/2025 6:15 AM [facility] MCH 23.9(L) 27.0 - 34.0 pg 11/09/2025 6:15 AM [facility] MCHC 28.6(L) 30.0 - 35.0 g/dL 11/09/2025 6:15 AM [facility] PLATELETS 180 140 - 440 K/uL 11/09/2025 6:15 AM [facility] MPV 11.1 8.9 - 12.8 fL 11/09/2025 6:15 AM [facility] RDW 18.9(H) 11.0 - 14.5 % 11/09/2025 6:15 AM [facility] RDW-STDEV 54.6(H) 37.0 - 54.0 fL 11/09/2025 6:15 AM [facility] NEUTROPHILS 76(H) 42 - 75 % 11/09/2025 6:15 AM [facility] LYMPHOCYTES 8(L) 24 - 44 % 11/09/2025 6:15 AM [facility] MONOCYTES 12(H) 2 - 10 % 11/09/2025 6:15 AM [facility] EOSINOPHILS 1 0 - 7 % 11/09/2025 6:15 AM [facility] BASOPHILS 0 0 - 1 % 11/09/2025 6:15 AM [facility] IMMATURE GRANULOCYTES 2 0 - 2 % 11/09/2025 6:15 AM [facility] NEUTROPHIL ABSOLUTE 7.59 2.00 - 8.00 K/uL 11/09/2025 6:15 AM [facility] LYMPHOCYTE ABSOLUTE 0.79(L) 1.20 - 4.00 K/uL 11/09/2025 6:15 AM [facility] MONOCYTE ABSOLUTE 1.23(H) 0.10 - 0.60 K/uL 11/09/2025 6:15 AM [facility] EOSINOPHIL ABSOLUTE 0.13 0.00 - 0.70 K/uL 11/09/2025 6:15 AM [facility] BASOPHILS ABSOLUTE 0.03 0.00 - 0.20 K/uL 11/09/2025 6:15 AM [facility] IMMATURE GRANULOCYTES ABSOLUTE 0.19(H) 0.00 - 0.10 K/uL 11/09/2025 6:15 AM [facility] SMEAR REVIEWED: NA - Not Applicable 11/09/2025 6:15 AM [facility] Blood Venipuncture / Unknown 11/09/2025 5:23 AM TESTER OPERATOR 11/09/2025 6:11 AM [facility] us Magdi Carroll MD HEMATOLOGY ORDERABLES Final Res ult [facility] CLIA # [id number] [address] [address] [place] [address] * (ABNORMAL) COMPREHENSIVE METABOLIC PANEL (11/09/2025 5:23 AM TESTER OPERATOR) SODIUM 136 136 - 145 mmol/L 11/09/2025 6:55 AM [facility] POTASSIUM 3.5 3.5 - 5.1 mmol/L 11/09/2025 6:55 AM [facility] CHLORIDE 98 98 - 107 mmol/L 11/09/2025 6:55 AM [facility] CO2 27 22 - 29 mmol/L 11/09/2025 6:55 AM [facility] CALCIUM 8.6(L) 8.8 - 10.2 mg/dL 11/09/2025 6:55 AM [facility] BUN 26(H) 8 - 23 mg/dL 11/09/2025 6:55 AM [facility] CREATININE 2.21(H) 0.51 - 0.95 mg/dL 11/09/2025 6:55 AM [facility] GLUCOSE 93 74 - 99 mg/dL 11/09/2025 6:55 AM [facility] TOTAL PROTEIN 5.9(L) 6.4 - 8.3 g/dL 11/09/2025 6:55 AM [facility] ALBUMIN 3.2(L) 3.5 - 5.2 g/dL 11/09/2025 6:55 AM [facility] BILIRUBIN TOTAL 1.0 0.0 - 1.0 mg/dL 11/09/2025 6:55 AM [facility] ALKALINE PHOSPHATASE 207(H) 35 - 104 U/L 11/09/2025 6:55 AM [facility] AST 41(H) 10 - 35 U/L 11/09/2025 6:55 AM [facility] ALT 66(H) <=35 U/L 11/09/2025 6:55 AM [facility] GFR 24(L) >=60 mL/min/1. 73 sq meter 11/09/2025 6:55 AM [facility] Comment:eGFR calculated with 2020 CKD-EPI equation. Vegetarian diet, extremely high or low muscle mass, and may affect results. Cystatin C with Glomerular Filtration Rate is a suitable alternative for these patients. ANION GAP 11 9 - 20 mmol/L 11/09/2025 6:55 AM [facility] Blood Venipuncture / Unknown 11/09/2025 5:23 AM TESTER OPERATOR 11/09/2025 6:14 AM TESTER OPERATOR us Magdi Carroll MD CHEMISTRY ORDERABLES Final Resu lt [facility] CLIA # [id number] [address] [place] [address] * MRI BRAIN WO CONTRAST (11/09/2025 12:23 AM TESTER OPERATOR) Anatomical Region Laterality Modality Head Magnetic Resonan ce 11/09/2025 12:2 3 AM TESTER OPERATOR Impressions 11/09/2025 1:52 AM TESTER OPERATOR IMPRESSION: Please see below. Exam: MRI BRAIN WO CONTRAST Date/Time of Exam: 11/09/2025 12:23 AM Reason For Exam: Neuro deficit, acute, stroke suspected. Diagnosis: See Reason for Exam. Comparison: Same day CT head Technique: MRI of the brain without intravenous contrast. Findings: No acute/recent infarct. No acute hemorrhage or extra-axial fluid collection. No mass effect, midline shift or other herniation. Prominence of ventricles and sulci compatible with mild generalized parenchymal volume loss. No hydrocephalus.. Sellar structures are grossly unremarkable for age. Subtle subcortical and periventricular supratentorial white matter T2 hyperintensities are nonspecific, however are compatible with mild chronic microvascular ischemic changes. No expansile edema. No evidence of intracranial mass. No abnormal susceptibility artifact. Unremarkable vascular flow voids within the large intracranial arteries. Normal bony marrow signal intact. Trace mastoid effusions larger on the left. IMPRESSION: Motion mildly degrades exam. No acute infarct. Mild nonspecific white matter disease and generalized senescent changes. Narrative Procedure Note Leonard Maya MD - 11/09/2025 IMPRESSION: Please see below. Exam: MRI BRAIN WO CONTRAST Date/Time of Exam: 11/09/2025 12:23 AM Reason For Exam: Neuro deficit, acute, stroke suspected. Diagnosis: See Reason for Exam. Comparison: Same day CT head Technique: MRI of the brain without intravenous contrast. Findings: No acute/recent infarct. No acute hemorrhage or extra-axial fluid collection. No mass effect, midline shift or other herniation. Prominence of ventricles and sulci compatible with mild generalized parenchymal volume loss. No hydrocephalus.. Sellar structures are grossly unremarkable for age. Subtle subcortical and periventricular supratentorial white matter T2 hyperintensities are nonspecific, however are compatible with mild chronic microvascular ischemic changes. No expansile edema. No evidence of intracranial mass. No abnormal susceptibility artifact. Unremarkable vascular flow voids within the large intracranial arteries. Normal bony marrow signal intact. Trace mastoid effusions larger on the left. IMPRESSION: Motion mildly degrades exam. No acute infarct. Mild nonspecific white matter disease and generalized senescent changes. us John Carmen MD MR ORDERABLES Final Result * IR VENOUS ACCESS (11/08/2025 4:04 PM TESTER OPERATOR) Anatomical Region Laterality Modality X-Ray Angiograph y 11/08/2025 4:04 PM TESTER OPERATOR Impressions 11/08/2025 4:10 PM TESTER OPERATOR IMPRESSION: Please see below. EXAM: Ultrasound and fluoroscopy guided tunneled hemodialysis catheter placement OPERATORS: Remy Camrichael MD ACCESS SITE: Right internal jugular vein with ultrasound MEDICATIONS: Versed and Fentanyl were titrated to effect. Ancef 2 gram IV. Moderate (conscious) sedation for this procedure was performed with continuous physician supervision. Medical history, physical exam, drug dosages, routes of drug administration, monitoring data, and precise times of service are documented in the medical record on the [facility]-approved form, 'Sedative/Analgesic Administration for Diagnostic and Therapeutic Procedures'. Please see nursing flow sheets for dosage and time. Sedation was administered by a trained independent observer. I personally supervised 20 minutes of sedation. CONTRAST: None FLUOROSCOPY TIME: 1.3 minutes CATHETER: 14.5 Moldovan, 19 cm tip to cuff catheter ESTIMATED BLOOD LOSS: Minimal COMPLICATIONS: None TECHNIQUE: The risks, benefits, and alternatives to the procedure and sedation were explained. Written informed consent was obtained. The right neck and upper chest were prepped and draped in sterile fashion. Using local anesthetic and ultrasound guidance, the right internal jugular vein was punctured with a 21 gauge needle. An image was saved and stored to PACS. A 0.018-inch wire was passed centrally and the needle exchanged for a 5 Moldovan transitional dilator. A 0.035-inch wire was advanced through the dilator and negotiated into the IVC. The microwire was used to measure the intravascular length. The soft tissues caudal and lateral to the sheath entry site were anesthetized with lidocaine with epinephrine. A dermatotomy was made and a tunneling tool brought from the dermatotomy to the venotomy. The catheter was brought through the tunnel. The skin tract was dilated and a 15 Moldovan dilator peel-away combination placed over the wire. During suspended respiration, the catheter was advanced through the peel-away and positioned centrally using fluoroscopy. The peel-away was removed and hemostasis achieved with manual compression. The venotomy was closed with Dermabond applied. The catheter was secured with 2-0 suture. An antimicrobial disc and sterile dressing were applied. The catheter was aspirated, flushed, and heparinized per protocol. The procedure was well tolerated, and the patient was discharged in satisfactory condition. FINDINGS: 1. The right internal jugular vein is ultrasonographically patent. Needle entry was documented. 2. The newly placed catheter has a smooth course with the tips terminating in the right atrium. 3. There is excellent function with 20 ml syringes. 4. The right internal jugular temporary dialysis catheter was removed without incident. IMPRESSION: Uneventful image guided placement of a right internal jugular tunneled hemodialysis catheter as described. Narrative Procedure Note Remy Carmichael MD - 11/08/2025 IMPRESSION: Please see below. EXAM: Ultrasound and fluoroscopy guided tunneled hemodialysis catheter placement OPERATORS: Remy Carmichael MD ACCESS SITE: Right internal jugular vein with ultrasound MEDICATIONS: Versed and Fentanyl were titrated to effect. Ancef 2 gram IV. Moderate (conscious) sedation for this procedure was performed with continuous physician supervision. Medical history, physical exam, drug dosages, routes of drug administration, monitoring data, and precise times of service are documented in the medical record on the [facility]-approved form, 'Sedative/Analgesic Administration for Diagnostic and Therapeutic Procedures'. Please see nursing flow sheets for dosage and time. Sedation was administered by a trained independent observer. I personally supervised 20 minutes of sedation. CONTRAST: None FLUOROSCOPY TIME: 1.3 minutes CATHETER: 14.5 Moldovan, 19 cm tip to cuff catheter ESTIMATED BLOOD LOSS: Minimal COMPLICATIONS: None TECHNIQUE: The risks, benefits, and alternatives to the procedure and sedation were explained. Written informed consent was obtained. The right neck and upper chest were prepped and draped in sterile fashion. Using local anesthetic and ultrasound guidance, the right internal jugular vein was punctured with a 21 gauge needle. An image was saved and stored to PACS. A 0.018-inch wire was passed centrally and the needle exchanged for a 5 Moldovan transitional dilator. A 0.035-inch wire was advanced through the dilator and negotiated into the IVC. The microwire was used to measure the intravascular length. The soft tissues caudal and lateral to the sheath entry site were anesthetized with lidocaine with epinephrine. A dermatotomy was made and a tunneling tool brought from the dermatotomy to the venotomy. The catheter was brought through the tunnel. The skin tract was dilated and a 15 Moldovan dilator peel-away combination placed over the wire. During suspended respiration, the catheter was advanced through the peel-away and positioned centrally using fluoroscopy. The peel-away was removed and hemostasis achieved with manual compression. The venotomy was closed with Dermabond applied. The catheter was secured with 2-0 suture. An antimicrobial disc and sterile dressing were applied. The catheter was aspirated, flushed, and heparinized per protocol. The procedure was well tolerated, and the patient was discharged in satisfactory condition. FINDINGS: 1. The right internal jugular vein is ultrasonographically patent. Needle entry was documented. 2. The newly placed catheter has a smooth course with the tips terminating in the right atrium. 3. There is excellent function with 20 ml syringes. 4. The right internal jugular temporary dialysis catheter was removed without incident. IMPRESSION: Uneventful image guided placement of a right internal jugular tunneled hemodialysis catheter as described. us John Carmen MD IR ORDERABLES Final Result * US DOPPLER VENOUS ARM LEFT (11/08/2025 10:26 AM TESTER OPERATOR) Anatomical Region Laterality Modality Upper Extremity Ultrasound 11/08/2025 7:42 AM TESTER OPERATOR Narrative 11/08/2025 11:40 AM TESTER OPERATOR [facility] Cardiovascular Services Noninvasive Vascular Laboratory [facility] [address] [address] Noninvasive Vascular Lab Venous Exam Limited Upper Extremity Duplex Patient: Lupe Galo Study ID: US DOPPLER VENOU Gender: F : 1960 Age: 65 Room: Height: Weight: BSA: Pt status: Outpatient Study Date: 11/08/2025 Study Time: 07:42:43 AM BSA: Ordering: John Carmen Interpreting:Irina Smith Brine Tank Tender: JOSHUA Indications: Cyst vs venous enlargement left radial. Summary Impression: 1. Study demonstrates superficial vein thrombosis involving the left distal cephalic vein. 2. No evidence of deep vein thrombosis in the left upper extremity and right subclavian vein. Study data: Left upper extremity venous duplex. Doppler flow study including spectral analysis, color and balderrama scale imaging. Location: Vascular laboratory. Patient status: Outpatient. Study status: Routine. Procedure: A vascular evaluation was performed. Image quality was good. Venous flow and imaging: - Left internal jugular Normal phasicity; spontaneous; compressible - Left subclavian Normal phasicity; spontaneous; compressible; normal augmentation - Left axillary Normal phasicity; spontaneous; compressible; normal augmentation - Left brachial Normal phasicity; spontaneous; compressible; normal augmentation - Left cephalic Partially thrombosed; Partially compressible - Left basilic Normal phasicity; spontaneous; compressible; normal augmentation - Left radial Compressible - Left ulnar Compressible - Right subclavian Normal phasicity; spontaneous; normal augmentation CRITICAL FINDINGS - Reported to: Logan LIGHT - Read back and verified. - 11/08/25799 - +SVT [facility] Vascular Lab is accredited with the Intersocietal Commission for the Accreditation of Vascular Laboratories (ICAVL) Prepared and Electronically Authenticated Irina Smith Confirmed 11/08/2025 11:40 Procedure Note Irina Smith DO - 11/08/2025 [facility] Cardiovascular Services Noninvasive Vascular Laboratory [address] [place] [id number] Noninvasive Vascular Lab Venous Exam Limited Upper Extremity Duplex Patient: Lupe Galo Study ID: US DOPPLER VENOU Gender: F : 1960 Age: 65 Room: Height: Weight: BSA: Pt status: Outpatient Study Date: 11/08/2025 Study Time: 07:42:43 AM BSA: Ordering: John Carmen Interpreting:Irina Smith Brine Tank Tender: JOSHUA Indications: Cyst vs venous enlargement left radial. Summary Impression: 1. Study demonstrates superficial vein thrombosis involving the leftdistal cephalic vein. 2. No evidence of deep vein thrombosis in the left upper extremity andright subclavian vein. Study data: Left upper extremity venous duplex. Doppler flow study including spectral analysis, color and balderrama scale imaging. Location: Vascular laboratory. Patient status: Outpatient. Study status:Routine. Procedure: A vascular evaluation was performed. Image quality wasgood. Venous flow and imaging: - Left internal jugular Normal phasicity; spontaneous; compressible - Left subclavian Normal phasicity; spontaneous; compressible; normal augmentation - Left axillary Normal phasicity; spontaneous; compressible; normal augmentation - Left brachial Normal phasicity; spontaneous; compressible; normal augmentation - Left cephalic Partially thrombosed; Partially compressible - Left basilic Normal phasicity; spontaneous; compressible; normal augmentation - Left radial Compressible - Left ulnar Compressible - Right subclavian Normal phasicity; spontaneous; normal augmentation CRITICAL FINDINGS - Reported to: Logan LIGHT - Read back and verified. - 11/08/25 - 799 - +SVT [facility] is accredited with theIntersocietal Commission for the Accreditation of Vascular Laboratories (ICAVL) Prepared and Electronically Authenticated Irina Smith Confirmed 11/08/2025 11:40 us John Carmen MD US ORDERABLES Final Result * US DUPLEX ARTERIAL ARM LEFT (11/08/2025 10:20 AM TESTER OPERATOR) Anatomical Region Laterality Modality Upper Extremity Ultrasound 11/08/2025 7:53 AM TESTER OPERATOR Narrative 11/08/2025 8:33 PM TESTER OPERATOR [facility] Cardiovascular Services Noninvasive Vascular Laboratory [address] [place] [id number] Noninvasive Vascular Lab Arterial Exam Complete Upper Extremity Duplex Patient: Lupe Galo Study ID: US DUPLEX ARTERI Gender: F : 1960 Age: 65 Room: Height: 162.6cm Weight: 126.7kg BSA: 2.47m^2 Pt status: Inpatient Study Date: 11/08/2025 Study Time: 07:53:03 AM BSA: 2.47m^2 Ordering: John Carmen Interpreting:Irina Smith Brine Tank Tender: JOSHUA Indications: Left radial art site, r/u aneurysm, cyst like area. Summary Impression: No significant peripheral arterial disease is identified involving the right upper extremity. Study data: Bilateral upper extremity arterial duplex. Left lateral evaluation. Height: 162.6cm. Height: 64in. Weight: 126.7kg. Weight: 279.3lb. BMI: 47.9kg/m^2. BSA: 2.47m^2. Location: Bedside. Patient status: Inpatient. Study status: Routine. Procedure: A vascular evaluation was performed with the patient in the supine position and sitting upright. Image quality was adequate. Arterial flow: - Right subclavian mid: Left subclavian mid 0.92m/sec Triphasic - Left axillary mid: Left axillary mid 0.86m/sec Triphasic - Left brachial proximal: Left brachial proximal 0.96m/sec Triphasic - Left brachial distal: Left brachial distal 1.05m/sec Triphasic - Left radial mid: Left radial mid 0.96m/sec Triphasic - Left radial distal: Left radial distal 0.84m/sec Triphasic - Left ulnar distal: Left ulnar distal 0.87m/sec Triphasic [facility] is accredited with the [facility] Commission for the Accreditation of Vascular Laboratories (ICAVL) Prepared and Electronically Authenticated Irina Smith Confirmed 11/08/2025 20:33 Procedure Note Irina Smith DO - 11/08/2025 [facility] Cardiovascular Services Noninvasive Vascular Laboratory [address] [place] [id number] Noninvasive Vascular Lab Arterial Exam Complete Upper Extremity Duplex Patient: Lupe Galo Study ID: US DUPLEX ARTERI Gender: F : 1960 Age: 65 Room: Height: 162.6cm Weight: 126.7kg BSA: 2.47m^2 Pt status: Inpatient Study Date: 11/08/2025 Study Time: 07:53:03 AM BSA: 2.47m^2 Ordering: John Carmen Interpreting:Irina Smith Brine Tank Tender: JOSHUA Indications: Left radial art site, r/u aneurysm, cyst like area. Summary Impression: No significant peripheral arterial disease is identified involving theright upper extremity. Study data: Bilateral upper extremity arterial duplex. Left lateral evaluation. Height: 162.6cm. Height: 64in. Weight: 126.7kg.Weight: 279.3lb. BMI: 47.9kg/m^2. BSA: 2.47m^2. Location: Bedside.Patient status: Inpatient. Study status: Routine. Procedure: A vascular evaluation was performed with the patient in the supine position andsitting upright. Image quality was adequate. Arterial flow: - Right subclavian mid: Left subclavian mid 0.92m/sec Triphasic - Left axillary mid: Left axillary mid 0.86m/sec Triphasic - Left brachial proximal: Left brachial proximal 0.96m/sec Triphasic - Left brachial distal: Left brachial distal 1.05m/sec Triphasic - Left radial mid: Left radial mid 0.96m/sec Triphasic - Left radial distal: Left radial distal 0.84m/sec Triphasic - Left ulnar distal: Left ulnar distal 0.87m/sec Triphasic [facility] is accredited with theIntersocietal Commission for the Accreditation of Vascular Laboratories (ICAVL) Prepared and Electronically Authenticated Irina Smith Confirmed 11/08/2025 20:33 us John Carmen MD US ORDERABLES Final Result * PHOSPHORUS (11/08/2025 5:17 AM TESTER OPERATOR) Pathologist [facility] [place] PHOSPHORUS 3.7 2.5 - 4.5 mg/dL 11/08/2025 6:17 AM [facility] DutyCalculator [facility] Blood Venipuncture / Unknown 11/08/2025 5:17 AM TESTER OPERATOR 11/08/2025 5:35 AM TESTER OPERATOR Lewis Rdz MD CHEMISTRY ORDERABLES Final R esult [facility] # [id number] [address] [place] [address] * (ABNORMAL) CBC WITH DIFFERENTIAL (11/08/2025 5:17 AM TESTER OPERATOR) [facility] WBC 9.9 4.8 - 10.8 K/uL 11/08/2025 5:42 AM [facility] RBC 3.47(L) 4.20 - 5.40 M/uL 11/08/2025 5:42 AM [facility] HEMOGLOBIN 8.3(L) 12.0 - 16.0 g/dL 11/08/2025 5:42 AM [facility] HEMATOCRIT 29.3(L) 36.0 - 46.0 % 11/08/2025 5:42 AM [facility] MCV 84.4 84.0 - 103.0 fL 11/08/2025 5:42 AM [facility] MCH 23.9(L) 27.0 - 34.0 pg 11/08/2025 5:42 AM [facility] MCHC 28.3(L) 30.0 - 35.0 g/dL 11/08/2025 5:42 AM [facility] PLATELETS 200 140 - 440 K/uL 11/08/2025 5:42 AM [facility] MPV 11.5 8.9 - 12.8 fL 11/08/2025 5:42 AM [facility] RDW 18.6(H) 11.0 - 14.5 % 11/08/2025 5:42 AM [facility] RDW-STDEV 54.6(H) 37.0 - 54.0 fL 11/08/2025 5:42 AM [facility] NEUTROPHILS 74 42 - 75 % 11/08/2025 5:42 AM [facility] LYMPHOCYTES 10(L) 24 - 44 % 11/08/2025 5:42 AM [facility] MONOCYTES 13(H) 2 - 10 % 11/08/2025 5:42 AM [facility] EOSINOPHILS 2 0 - 7 % 11/08/2025 5:42 AM [facility] BASOPHILS 0 0 - 1 % 11/08/2025 5:42 AM [facility] IMMATURE GRANULOCYTES 2 0 - 2 % 11/08/2025 5:42 AM [facility] NEUTROPHIL ABSOLUTE 7.29 2.00 - 8.00 K/uL 11/08/2025 5:42 AM [facility] LYMPHOCYTE ABSOLUTE 0.95(L) 1.20 - 4.00 K/uL 11/08/2025 5:42 AM [facility] MONOCYTE ABSOLUTE 1.29(H) 0.10 - 0.60 K/uL 11/08/2025 5:42 AM [facility] EOSINOPHIL ABSOLUTE 0.16 0.00 - 0.70 K/uL 11/08/2025 5:42 AM [facility] BASOPHILS ABSOLUTE 0.03 0.00 - 0.20 K/uL 11/08/2025 5:42 AM [facility] IMMATURE GRANULOCYTES ABSOLUTE 0.17(H) 0.00 - 0.10 K/uL 11/08/2025 5:42 AM [facility] SMEAR REVIEWED: NA - Not Applicable 11/08/2025 5:42 AM [facility] Blood Venipuncture / Unknown 11/08/2025 5:17 AM TESTER OPERATOR 11/08/2025 5:35 AM TESTER OPERATOR us Magdi Carroll MD HEMATOLOGY ORDERABLES Final Res ult [facility] CLIA # [id number] [facility] [address] [place] [address] * (ABNORMAL) COMPREHENSIVE METABOLIC PANEL (11/08/2025 5:17 AM TESTER OPERATOR) SODIUM 135(L) 136 - 145 mmol/L 11/08/2025 6:17 AM [facility] POTASSIUM 4.1 3.5 - 5.1 mmol/L 11/08/2025 6:17 AM [facility] CHLORIDE 97(L) 98 - 107 mmol/L 11/08/2025 6:17 AM [facility] CO2 22 22 - 29 mmol/L 11/08/2025 6:17 AM [facility] CALCIUM 9.1 8.8 - 10.2 mg/dL 11/08/2025 6:17 AM [facility] BUN 49(H) 8 - 23 mg/dL 11/08/2025 6:17 AM [facility] CREATININE 4.19(H) 0.51 - 0.95 mg/dL 11/08/2025 6:17 AM [facility] GLUCOSE 111(H) 74 - 99 mg/dL 11/08/2025 6:17 AM [facility] TOTAL PROTEIN 6.4 6.4 - 8.3 g/dL 11/08/2025 6:17 AM [facility] ALBUMIN 3.5 3.5 - 5.2 g/dL 11/08/2025 6:17 AM [facility] BILIRUBIN TOTAL 1.0 0.0 - 1.0 mg/dL 11/08/2025 6:17 AM [facility] ALKALINE PHOSPHATASE 267(H) 35 - 104 U/L 11/08/2025 6:17 AM [facility] AST 79(H) 10 - 35 U/L 11/08/2025 6:17 AM [facility] ALT 110(H) <=35 U/L 11/08/2025 6:17 AM [facility] GFR 11(L) >=60 mL/min/1. 73 sq meter 11/08/2025 6:17 AM [facility] Comment:eGFR calculated with 2020 CKD-EPI equation. Vegetarian diet, extremely high or low muscle mass, and may affect results. Cystatin C with Glomerular Filtration Rate is a suitable alternative for these patients. ANION GAP 16 9 - 20 mmol/L 11/08/2025 6:17 AM TESTER OPERATOR [facility] Blood Venipuncture / Unknown 11/08/2025 5:17 AM TESTER OPERATOR 11/08/2025 5:35 AM TESTER OPERATOR us Magdi Carroll MD CHEMISTRY ORDERABLES Final Resu lt [facility] CLIA # [id number] [address] [place] [address] * (ABNORMAL) PROTIME-INR (11/08/2025 5:17 AM TESTER OPERATOR) PROTIME 21.1(H) 12.7 - 14.9 Seconds 11/08/2025 5:50 AM TESTER OPERATOR [facility] INR 1.7(H) 0.8 - 1.2 11/08/2025 5:50 AM TESTER OPERATOR [facility] Blood Venipuncture / Unknown 11/08/2025 5:17 AM TESTER OPERATOR 11/08/2025 5:35 AM TESTER OPERATOR Narrative [facility] - 11/08/2025 5:50 AM TESTER OPERATOR Expected Values for INR: DVT/PE Goal INR 2.5; range 2.0 - 3.0 Valve Replacement Tissue Goal INR 2.5; range 2.0 - 3.0 Valve Replacement Mechanical Goal INR 3.0; range 2.5 - 3.5 POST-PA Goal INR 2.5; range 2.0 - 3.0 or Goal INR 3.0; range 2.5 - 3.5 Atrial Fibrillation Goal INR 2.5; range 2.0 - 3.0 Ischemic Stroke Goal INR 2.5; range 2.0 - 3.0 Leon Echols MD HEMATOLOGY ORDERABLES Final Resu lt Performing Organization Address City/State/[facility] Co de Phone Number [facility] CLIA # [id number] [address] [place] [address] * (ABNORMAL) PROTIME-INR (11/07/2025 5:52 AM TESTER OPERATOR) PROTIME 22.3(H) 12.7 - 14.9 Seconds 11/07/2025 6:42 AM TESTER OPERATOR [facility] INR 1.9(H) 0.8 - 1.2 11/07/2025 6:42 AM [facility] Blood Venipuncture / Unknown 11/07/2025 5:52 AM TESTER OPERATOR 11/07/2025 6:17 AM TESTER OPERATOR [facility] DutyCalculator [facility] - 11/07/2025 6:42 AM TESTER OPERATOR Expected Values for INR: DVT/PE Goal INR 2.5; range 2.0 - 3.0 Valve Replacement Tissue Goal INR 2.5; range 2.0 - 3.0 Valve Replacement Mechanical Goal INR 3.0; range 2.5 - 3.5 POST-PA Goal INR 2.5; range 2.0 - 3.0 or Goal INR 3.0; range 2.5 - 3.5 Atrial Fibrillation Goal INR 2.5; range 2.0 - 3.0 Ischemic Stroke Goal INR 2.5; range 2.0 - 3.0 Leon Echols MD HEMATOLOGY ORDERABLES Final Resu lt Performing Organization Address City/[facility] Co de Phone Number [facility] CLIA # [id number] [address] [place] [address] [place] [address] * PHOSPHORUS (11/07/2025 5:51 AM TESTER OPERATOR) Pathologist [facility] [place] PHOSPHORUS 3.1 2.5 - 4.5 mg/dL 11/07/2025 7:01 AM [facility] Blood Venipuncture / Unknown 11/07/2025 5:51 AM TESTER OPERATOR 11/07/2025 6:17 AM TESTER OPERATOR us Lewis Rdz MD CHEMISTRY ORDERABLES Final R esult Performing Organization Address [facility] Co de Phone Number [facility] CLIA # [id number] [address] [place] [phone] * (ABNORMAL) CBC WITH DIFFERENTIAL (11/07/2025 5:51 AM TESTER OPERATOR) WBC 8.7 4.8 - 10.8 K/uL 11/07/2025 6:32 AM [facility] RBC 3.56(L) 4.20 - 5.40 M/uL 11/07/2025 6:32 AM [facility] HEMOGLOBIN 8.3(L) 12.0 - 16.0 g/dL 11/07/2025 6:32 AM [facility] HEMATOCRIT 29.8(L) 36.0 - 46.0 % 11/07/2025 6:32 AM [facility] MCV 83.7(L) 84.0 - 103.0 fL 11/07/2025 6:32 AM [facility] MCH 23.3(L) 27.0 - 34.0 pg 11/07/2025 6:32 AM [facility] MCHC 27.9(L) 30.0 - 35.0 g/dL 11/07/2025 6:32 AM [facility] DutyCalculator [facility] PLATELETS 192 140 - 440 K/uL 11/07/2025 6:32 AM [facility] MPV 11.1 8.9 - 12.8 fL 11/07/2025 6:32 AM [facility] RDW 18.1(H) 11.0 - 14.5 % 11/07/2025 6:32 AM [facility] RDW-STDEV 54.2(H) 37.0 - 54.0 fL 11/07/2025 6:32 AM [facility] NEUTROPHILS 77(H) 42 - 75 % 11/07/2025 6:32 AM [facility] LYMPHOCYTES 8(L) 24 - 44 % 11/07/2025 6:32 AM [facility] MONOCYTES 13(H) 2 - 10 % 11/07/2025 6:32 AM [facility] EOSINOPHILS 2 0 - 7 % 11/07/2025 6:32 AM [facility] BASOPHILS 0 0 - 1 % 11/07/2025 6:32 AM [facility] IMMATURE GRANULOCYTES 1 0 - 2 % 11/07/2025 6:32 AM [facility] NEUTROPHIL ABSOLUTE 6.68 2.00 - 8.00 K/uL 11/07/2025 6:32 AM [facility] LYMPHOCYTE ABSOLUTE 0.70(L) 1.20 - 4.00 K/uL 11/07/2025 6:32 AM [facility] MONOCYTE ABSOLUTE 1.09(H) 0.10 - 0.60 K/uL 11/07/2025 6:32 AM [facility] EOSINOPHIL ABSOLUTE 0.13 0.00 - 0.70 K/uL 11/07/2025 6:32 AM [facility] BASOPHILS ABSOLUTE 0.02 0.00 - 0.20 K/uL 11/07/2025 6:32 AM [facility] IMMATURE GRANULOCYTES ABSOLUTE 0.10 0.00 - 0.10 K/uL 11/07/2025 6:32 AM [facility] SMEAR REVIEWED: NA - Not Applicable 11/07/2025 6:32 AM [facility] Blood Venipuncture / Unknown 11/07/2025 5:51 AM TESTER OPERATOR 11/07/2025 6:17 AM TESTER OPERATOR us Magdi Carroll MD HEMATOLOGY ORDERABLES Final Res ult [facility] CLIA # [id number] [address] [address] [place] [address] * (ABNORMAL) COMPREHENSIVE METABOLIC PANEL (11/07/2025 5:51 AM TESTER OPERATOR) SODIUM 137 136 - 145 mmol/L 11/07/2025 7:01 AM [facility] POTASSIUM 3.6 3.5 - 5.1 mmol/L 11/07/2025 7:01 AM [facility] CHLORIDE 99 98 - 107 mmol/L 11/07/2025 7:01 AM [facility] CO2 27 22 - 29 mmol/L 11/07/2025 7:01 AM [facility] CALCIUM 9.0 8.8 - 10.2 mg/dL 11/07/2025 7:01 AM [facility] BUN 36(H) 8 - 23 mg/dL 11/07/2025 7:01 AM [facility] CREATININE 3.47(H) 0.51 - 0.95 mg/dL 11/07/2025 7:01 AM [facility] GLUCOSE 119(H) 74 - 99 mg/dL 11/07/2025 7:01 AM [facility] TOTAL PROTEIN 6.4 6.4 - 8.3 g/dL 11/07/2025 7:01 AM [facility] ALBUMIN 3.8 3.5 - 5.2 g/dL 11/07/2025 7:01 AM [facility] BILIRUBIN TOTAL 1.1(H) 0.0 - 1.0 mg/dL 11/07/2025 7:01 AM [facility] ALKALINE PHOSPHATASE 259(H) 35 - 104 U/L 11/07/2025 7:01 AM [facility] AST 97(H) 10 - 35 U/L 11/07/2025 7:01 AM [facility] ALT 140(H) <=35 U/L 11/07/2025 7:01 AM [facility] GFR 14(L) >=60 mL/min/1. 73 sq meter 11/07/2025 7:01 AM [facility] Comment:eGFR calculated with 2020 CKD-EPI equation. Vegetarian diet, extremely high or low muscle mass, and may affect results. Cystatin C with Glomerular Filtration Rate is a suitable alternative for these patients. ANION GAP 11 9 - 20 mmol/L 11/07/2025 7:01 AM [facility] Blood Venipuncture / Unknown 11/07/2025 5:51 AM TESTER OPERATOR 11/07/2025 6:17 AM TESTER OPERATOR us Magdi Carroll MD CHEMISTRY ORDERABLES Final Resu lt [facility] CLIA # [id number] [address] [place] [address] * CT HEAD WO CONTRAST (11/06/2025 4:28 PM TESTER OPERATOR) Anatomical Region Laterality Modality Head Computed Tomogra phy 11/06/2025 4:12 PM TESTER OPERATOR Impressions 11/06/2025 4:47 PM TESTER OPERATOR IMPRESSION: Mild generalized parenchymal atrophy and chronic small vessel disease are present. Narrative 11/06/2025 4:47 PM TESTER OPERATOR Exam: CT HEAD WO CONTRAST Date/Time of Exam: 11/06/2025 4:28 PM Reason For Exam: Neuro deficit, acute, stroke suspected, Slurred speech, elevated INR. Technique: Contiguous axial images were obtained through the head without IV contrast. Findings: Mild generalized atrophy is present. Diffuse hypodensity is seen in the periventricular white matter, consistent with changes of chronic small vessel disease. There is no evidence of any intracranial hemorrhage or abnormal extra axial fluid collections. There is no midline shift or mass effect and the basilar cisterns are patent. No fractures are seen at the levels that were scanned. Procedure Note Moise Pearce MD - 11/06/2025 Exam: CT HEAD WO CONTRAST Date/Time of Exam: 11/06/2025 4:28 PM Reason For Exam: Neuro deficit, acute, stroke suspected, Slurred speech, elevated INR. Technique: Contiguous axial images were obtained through the head without IV contrast. Findings: Mild generalized atrophy is present. Diffuse hypodensity is seen in the periventricular white matter, consistent with changes of chronic small vessel disease. There is no evidence of any intracranial hemorrhage or abnormal extra axial fluid collections. There is no midline shift or mass effect and the basilar cisterns are patent. No fractures are seen at the levels that were scanned. IMPRESSION: Mild generalized parenchymal atrophy and chronic small vessel disease are present. Magdi Carroll MD CT ORDERABLES Final Result * EKG 12-LEAD (11/06/2025 3:25 PM TESTER OPERATOR) 11/06/2025 3:25 PM TESTER OPERATOR Narrative INTERFACE SYSTEM - 11/07/2025 8:18 AM TESTER OPERATOR [address] [address] Test Date: 2025-11-06 Pat Name: LUPE GALO Department: 12 Room: [address] [place] [address] Gender: Female Vp & General Counsel: [id number] : 1960 Requested By: Order Number: [id number] Reading MD: Mario Oates Measurements Intervals [place] Rate: 67 P: 0 AL: 0 QRS: 17 QRSD: 106 T: 133 QT: 394 QTc: 416 Interpretive Statements Atrial fibrillation Minimal voltage criteria for LVH, may be normal variant ( Bedford product ) T wave abnormality, consider lateral ischemia Abnormal ECG Electronically Signed On 11-07-2025 8:18:52 TESTER OPERATOR by Mario Oates Procedure Note Mario Oates MD - 11/07/[address] [address] Test Date: 2025-11-06 Pat Name: LUPE GALO Department: 12 Room: 4206 01 Gender: Female Vp & General Counsel: [id number] : 1960 Requested By: Order Number: [id number] Reading MD: Mario Otaes Measurements Intervals [place] Rate: 67 P: 0 AL: 0 QRS: 17 QRSD: 106 T: 133 QT: 394 QTc: 416 Interpretive Statements Atrial fibrillation Minimal voltage criteria for LVH, may be normal variant ( Fausto product) T wave abnormality, consider lateral ischemia Abnormal ECG Electronically Signed On 11-07-2025 8:18:52 TESTER OPERATOR by Mario Oates us Magdi Carroll MD ECG ORDERABLES Final Result Performing Organization Address City/[facility]/ZIP Co de Phone Number INTERFACE SYSTEM Refer to clinic/hospital department * PHOSPHORUS (11/06/2025 5:48 AM TESTER OPERATOR) Pathologist [facility] [place] PHOSPHORUS 3.7 2.5 - 4.5 mg/dL 11/06/2025 6:33 AM TESTER OPERATOR [facility] Blood Venipuncture / Unknown 11/06/2025 5:48 AM TESTER OPERATOR 11/06/2025 6:00 AM TESTER OPERATOR us Lewis Rdz MD CHEMISTRY ORDERABLES Final R esult [facility] CLIA # [id number] [address] [place] [address] * (ABNORMAL) BASIC METABOLIC PANEL (11/06/2025 5:48 AM TESTER OPERATOR) Pathologist [facility] SODIUM 138 136 - 145 mmol/L 11/06/2025 6:33 AM TESTER OPERATOR [facility] POTASSIUM 4.1 3.5 - 5.1 mmol/L 11/06/2025 6:33 AM TESTER OPERATOR [facility] CHLORIDE 102 98 - 107 mmol/L 11/06/2025 6:33 AM [facility] CO2 23 22 - 29 mmol/L 11/06/2025 6:33 AM [facility] CALCIUM 8.9 8.8 - 10.2 mg/dL 11/06/2025 6:33 AM [facility] BUN 44(H) 8 - 23 mg/dL 11/06/2025 6:33 AM [facility] CREATININE 3.63(H) 0.51 - 0.95 mg/dL 11/06/2025 6:33 AM [facility] GLUCOSE 116(H) 74 - 99 mg/dL 11/06/2025 6:33 AM [facility] GFR 13(L) >=60 mL/min/1. 73 sq meter 11/06/2025 6:33 AM [facility] Comment:eGFR calculated with 2020 CKD-EPI equation. Vegetarian diet, extremely high or low muscle mass, and may affect results. Cystatin C with Glomerular Filtration Rate is a suitable alternative for these patients. ANION GAP 13 9 - 20 mmol/L 11/06/2025 6:33 AM [facility] Blood Venipuncture / Unknown 11/06/2025 5:48 AM TESTER OPERATOR 11/06/2025 6:00 AM TESTER OPERATOR us Lewis Rdz MD CHEMISTRY ORDERABLES Final R esult [facility] CLIA # [id number] [address] [place] [phone] * (ABNORMAL) HEPATIC FUNCTION PANEL (11/06/2025 5:48 AM TESTER OPERATOR) TOTAL PROTEIN 6.2(L) 6.4 - 8.3 g/dL 11/06/2025 6:29 AM [facility] ALBUMIN 3.4(L) 3.5 - 5.2 g/dL 11/06/2025 6:29 AM [facility] BILIRUBIN TOTAL 1.2(H) 0.0 - 1.0 mg/dL 11/06/2025 6:29 AM [facility] BILIRUBIN DIRECT 0.6(H) 0.0 - 0.3 mg/dL 11/06/2025 6:29 AM [facility] ALKALINE PHOSPHATASE 252(H) 35 - 104 U/L 11/06/2025 6:29 AM [facility] AST 158(H) 10 - 35 U/L 11/06/2025 6:29 AM [facility] ALT 186(H) <=35 U/L 11/06/2025 6:29 AM [facility] Blood Venipuncture / Unknown 11/06/2025 5:48 AM TESTER OPERATOR 11/06/2025 6:00 AM [facility] Leon Echols MD CHEMISTRY ORDERABLES Final Resul t [facility] CLIA # [id number] [address] [place] [address] * (ABNORMAL) CBC WITHOUT DIFFERENTIAL (11/06/2025 5:48 AM TESTER OPERATOR) WBC 9.2 4.8 - 10.8 K/uL 11/06/2025 6:12 AM [facility] RBC 3.32(L) 4.20 - 5.40 M/uL 11/06/2025 6:12 AM [facility] HEMOGLOBIN 7.8(L) 12.0 - 16.0 g/dL 11/06/2025 6:12 AM [facility] HEMATOCRIT 27.9(L) 36.0 - 46.0 % 11/06/2025 6:12 AM [facility] MCV 84.0 84.0 - 103.0 fL 11/06/2025 6:12 AM [facility] MCH 23.5(L) 27.0 - 34.0 pg 11/06/2025 6:12 AM [facility] MCHC 28.0(L) 30.0 - 35.0 g/dL 11/06/2025 6:12 AM [facility] PLATELETS 185 140 - 440 K/uL 11/06/2025 6:12 AM [facility] MPV 11.7 8.9 - 12.8 fL 11/06/2025 6:12 AM [facility] RDW 18.0(H) 11.0 - 14.5 % 11/06/2025 6:12 AM [facility] RDW-STDEV 54.6(H) 37.0 - 54.0 fL 11/06/2025 6:12 AM [facility] Blood Venipuncture / Unknown 11/06/2025 5:48 AM TESTER OPERATOR 11/06/2025 6:03 AM TESTER OPERATOR Leon Echols MD HEMATOLOGY ORDERABLES Final Resu lt [facility] CLIA # [id number] [address] [place] [id number] * (ABNORMAL) PROTIME-INR (11/06/2025 5:48 AM TESTER OPERATOR) PROTIME 27.9(H) 12.7 - 14.9 Seconds 11/06/2025 6:20 AM TESTER OPERATOR [facility] INR 2.5(H) 0.8 - 1.2 11/06/2025 6:20 AM [facility] Blood Venipuncture / Unknown 11/06/2025 5:48 AM TESTER OPERATOR 11/06/2025 6:02 AM TESTER OPERATOR Narrative [facility] - 11/06/2025 6:20 AM TESTER OPERATOR Expected Values for INR: DVT/PE Goal INR 2.5; range 2.0 - 3.0 Valve Replacement Tissue Goal INR 2.5; range 2.0 - 3.0 Valve Replacement Mechanical Goal INR 3.0; range 2.5 - 3.5 POST-PA Goal INR 2.5; range 2.0 - 3.0 or Goal INR 3.0; range 2.5 - 3.5 Atrial Fibrillation Goal INR 2.5; range 2.0 - 3.0 Ischemic Stroke Goal INR 2.5; range 2.0 - 3.0 Leon Echols MD HEMATOLOGY ORDERABLES Final Resu lt [facility] LABORATORY SERVICES [facility] CLIA # [id number] [address] [place] [address] * EKG 12-LEAD (11/05/2025 9:52 AM TESTER OPERATOR) 11/05/2025 9:52 AM TESTER OPERATOR Narrative INTERFACE SYSTEM - 11/07/2025 7:54 [place] [address] Test Date: 2025-11-05 Pat Name: LUPE GALO Department: 12 Room: [address] [place] [address] Gender: Female Vp & General Counsel: [id number] : 1960 Requested By: Order Number: [id number] Reading MD: Mario Oates Measurements Intervals [place] Rate: 69 P: 0 AL: 0 QRS: 16 QRSD: 92 T: 72 QT: 568 QTc: 608 Interpretive Statements Atrial fibrillation Low voltage QRS Nonspecific T wave abnormality Prolonged QT Abnormal ECG Electronically Signed On 11-07-2025 7:54:25 TESTER OPERATOR by Mario Oates Procedure Note Mario Oates MD - 11/07/2025 [place] [address] Test Date: 2025-11-05 Pat Name: LUPE GALO Department: 12 Room: [address] [place] [address] Gender: Female Vp & General Counsel: [id number] : 1960 Requested By: Order Number: [id number] Reading MD: Mario Oates Measurements Intervals [place] Rate: 69 P: 0 AL: 0 QRS: 16 QRSD: 92 T: 72 QT: 568 QTc: 608 Interpretive Statements Atrial fibrillation Low voltage QRS Nonspecific T wave abnormality Prolonged QT Abnormal ECG Electronically Signed On 11-07-2025 7:54:25 TESTER OPERATOR by Mario Oates Leon Echols MD ECG ORDERABLES Final Result Performing Organization Address City/[facility]/ZIP Co de Phone Number INTERFACE SYSTEM Refer to clinic/hospital department * BLOOD CULTURE (11/05/2025 9:04 AM TESTER OPERATOR) BLOOD CULTURE No growth 11/10/2025 11:54 AM TESTER OPERATOR [facility] DutyCalculator [facility] Blood (Peripheral) Venipuncture / Unknown 11/05/2025 9:04 AM TESTER OPERATOR 11/05/2025 9:09 AM TESTER OPERATOR Leon Echols MD MICROBIOLOGY - GENERAL ORDERABLE S Final Result Performing Organization Address [facility] de Phone Number [facility] # [id number] [address] [place] [address] * (ABNORMAL) PROTIME-INR (11/05/2025 9:04 AM TESTER OPERATOR) PROTIME 37.6(H) 12.7 - 14.9 Seconds 11/05/2025 9:32 AM TESTER OPERATOR [facility] DutyCalculator [facility] INR 3.6(H) 0.8 - 1.2 11/05/2025 9:32 AM TESTER OPERATOR [facility] Blood Venipuncture / Unknown 11/05/2025 9:04 AM TESTER OPERATOR 11/05/2025 9:10 AM TESTER OPERATOR Narrative [facility] DutyCalculator [facility] - 11/05/2025 9:32 AM TESTER OPERATOR Expected Values for INR: DVT/PE Goal INR 2.5; range 2.0 - 3.0 Valve Replacement Tissue Goal INR 2.5; range 2.0 - 3.0 Valve Replacement Mechanical Goal INR 3.0; range 2.5 - 3.5 POST-PA Goal INR 2.5; range 2.0 - 3.0 or Goal INR 3.0; range 2.5 - 3.5 Atrial Fibrillation Goal INR 2.5; range 2.0 - 3.0 Ischemic Stroke Goal INR 2.5; range 2.0 - 3.0 Leon Echols MD HEMATOLOGY ORDERABLES Final Resu lt Performing Organization Address [facility] Co de Phone Number [facility] CLIA # [id number] [address] [address] [place], [place] [id number] * BLOOD CULTURE (11/05/2025 8:59 AM TESTER OPERATOR) [facility] BLOOD CULTURE No growth 11/10/2025 11:54 AM TESTER OPERATOR [facility] DutyCalculator [facility] Blood (Peripheral) Venipuncture / Unknown 11/05/2025 8:59 AM TESTER OPERATOR 11/05/2025 9:09 AM TESTER OPERATOR Leon Echols MD MICROBIOLOGY - GENERAL ORDERABLE S Final Result Performing Organization Address [facility] de Phone Number [facility] DutyCalculator [facility] CLIA # [id number] [address] [id number] * (ABNORMAL) HEPATIC FUNCTION PANEL (11/05/2025 3:03 AM TESTER OPERATOR) [facility] TOTAL PROTEIN 6.7 6.4 - 8.3 g/dL 11/05/2025 8:11 AM TESTER OPERATOR [facility] DutyCalculator [facility] ALBUMIN 4.0 3.5 - 5.2 g/dL 11/05/2025 8:11 AM TESTER OPERATOR [facility] DutyCalculator [facility] BILIRUBIN TOTAL 1.3(H) 0.0 - 1.0 mg/dL 11/05/2025 8:11 AM TESTER OPERATOR [facility] DutyCalculator [facility] BILIRUBIN DIRECT 0.7(H) 0.0 - 0.3 mg/dL 11/05/2025 8:11 AM [facility] ALKALINE PHOSPHATASE 281(H) 35 - 104 U/L 11/05/2025 8:11 AM [facility] AST 269(H) 10 - 35 U/L 11/05/2025 8:11 AM [facility] ALT 249(H) <=35 U/L 11/05/2025 8:11 AM [facility] Blood Venipuncture / Unknown 11/05/2025 3:03 AM TESTER OPERATOR 11/05/2025 3:13 AM TESTER OPERATOR us Lewis Rdz MD CHEMISTRY ORDERABLES Final R esult [facility] CLIA # [id number] [address] [place] [address] * (ABNORMAL) RENAL FUNCTION PANEL (11/05/2025 3:03 AM [facility]) Pathologist [facility] [place] SODIUM 140 136 - 145 mmol/L 11/05/2025 3:49 AM [facility] POTASSIUM 4.1 3.5 - 5.1 mmol/L 11/05/2025 3:49 AM [facility] CHLORIDE 102 98 - 107 mmol/L 11/05/2025 3:49 AM [facility] CO2 25 22 - 29 mmol/L 11/05/2025 3:49 AM [facility] CALCIUM 8.8 8.8 - 10.2 mg/dL 11/05/2025 3:49 AM [facility] BUN 33(H) 8 - 23 mg/dL 11/05/2025 3:49 AM [facility] CREATININE 2.59(H) 0.51 - 0.95 mg/dL 11/05/2025 3:49 AM [facility] GLUCOSE 97 74 - 99 mg/dL 11/05/2025 3:49 AM [facility] ALBUMIN 4.1 3.5 - 5.2 g/dL 11/05/2025 3:49 AM [facility] PHOSPHORUS 2.9 2.5 - 4.5 mg/dL 11/05/2025 3:49 AM [facility] GFR 20(L) >=60 mL/min/1. 73 sq meter 11/05/2025 3:49 AM [facility] Comment:eGFR calculated with 2020 CKD-EPI equation. Vegetarian diet, extremely high or low muscle mass, and may affect results. Cystatin C with Glomerular Filtration Rate is a suitable alternative for these patients. ANION GAP 13 9 - 20 mmol/L 11/05/2025 3:49 AM [facility] Blood Venipuncture / Unknown 11/05/2025 3:03 AM TESTER OPERATOR 11/05/2025 3:13 AM TESTER OPERATOR us Lewis Rdz MD CHEMISTRY ORDERABLES Final R esult Performing Organization Address City/[facility]/ZIP Co de Phone Number [facility] CLIA # [id number] [address] [id number] * POC GLUCOSE (11/04/2025 8:53 PM TESTER OPERATOR) GLUCOSE POC 94 74 - 99 mg/dL 11/04/2025 8:53 PM TESTER OPERATOR [facility] SPECIMEN SOURCE, GLUCOSE POC Capillary 11/04/2025 8:53 PM TESTER OPERATOR [facility] Blood, whole 11/04/2025 8:53 PM TESTER OPERATOR 11/04/2025 9:20 PM TESTER OPERATOR us Leon Echols MD POINT OF CARE TESTING Final Resu lt Performing Organization Address [facility]/ZIP Co de Phone Number [facility] CLIA # [id number] [address] [address] * ACUTE HEPATITIS PANEL (11/04/2025 5:08 PM TESTER OPERATOR) HEPATITIS B SURFACE AG NON-REACT NEVAEH Non-react nevaeh 11/04/2025 6:16 PM TESTER OPERATOR [facility] Comment:A non-reactive test result does not exclude the possibility of exposure to or infection with hepatitis B. HEPATITIS B CORE IGM NON-REACT NEVAEH Non-react nevaeh 11/04/2025 6:16 PM TESTER OPERATOR [facility] Comment:IgM antibodies to HB c were not detected; does not exclude the possibility of exposure to HBV. HEPATITIS A IGM Non-react nevaeh Non-react nevaeh 11/04/2025 6:16 PM TESTER OPERATOR [facility] Comment:A negative test resu lt does not exclude the possibility of exposure to Hepatitis A virus. HEPATITIS C AB NON-REACT NEVAEH Non-react nevaeh 11/04/2025 6:16 PM TESTER OPERATOR [facility] Comment:Antibodies to HCV we re not detected, does not exclude the possibility of exposure to HCV. Blood Collection / Unknown 11/04/2025 5:08 PM TESTER OPERATOR 11/04/2025 5:18 PM TESTER OPERATOR us Lewis Rdz MD CHEMISTRY ORDERABLES Final R esult Performing Organization Address City/[facility] Co de Phone Number [facility] CLIA # [id number] [address] [place] [address] [place] [address] * (ABNORMAL) POC GLUCOSE (11/04/2025 4:07 PM TESTER OPERATOR) Pathologist [facility] [place] GLUCOSE POC 109(H) 74 - 99 mg/dL 11/04/2025 4:07 PM TESTER OPERATOR [facility] SPECIMEN SOURCE, GLUCOSE POC Capillary 11/04/2025 4:07 PM TESTER OPERATOR [facility] Blood, whole 11/04/2025 4:07 PM TESTER OPERATOR 11/04/2025 4:15 PM TESTER OPERATOR us Leon Echols MD POINT OF CARE TESTING Final Resu lt [facility] CLIA # [id number] [address] [address] [place] [address] * (ABNORMAL) BLOOD GAS VENOUS (11/04/2025 2:20 PM TESTER OPERATOR) PH BLOOD POC 7.35 7.32 - 7.43 11/04/2025 2:20 PM [facility] PCO2 POC 46 38 - 50 mm Hg 11/04/2025 2:20 PM [facility] PO2 POC 45(H) 25 - 40 mm Hg 11/04/2025 2:20 PM [facility] HCO3 (CALC) POC 25 22 - 29 mmol/L 11/04/2025 2:20 PM [facility] HEMOGLOBIN POC 8.8(L) 12.0 - 18.0 g/dL 11/04/2025 2:20 PM [facility] BASE EXCESS POC 0 -2 - 3 mmol/L 11/04/2025 2:20 PM [facility] O2 SATURATION POC 75(H) 40 - 70 % 11/04/2025 2:20 PM [facility] SODIUM POC 137 135 - 145 mmol/L 11/04/2025 2:20 PM [facility] POTASSIUM POC 4.3 3.5 - 4.9 mmol/L 11/04/2025 2:20 PM [facility] HEMATOCRIT POC 26(L) 38 - 51 % 11/04/2025 2:20 PM [facility] PH TEMP CORRECT 7.35 7.32 - 7.43 11/04/20 2:20 PM [facility] PCO2 TEMP CORRECT 46 38 - 50 mm Hg 11/04/2025 2:20 PM [facility] PO2 TEMP CORRECT 45(H) 25 - 40 mm Hg 11/04/2025 2:20 PM [facility] SPECIMEN SOURCE, GASES POC Venous 11/04/2025 2:20 PM [facility] CALCIUM IONIZED POC 4.5(L) 4.8 - 5.2 mg/dL 11/04/2025 2:20 PM [facility] TCO2 (CALC) POC 27(H) 22 - 26 mmol/L 11/04/2025 2:20 PM [facility] LITER FLOW 6.0 L/min 11/04/2025 2:20 PM [facility] PUNC SITE POC No Charge 11/04/2025 2:20 PM [facility] PATIENT'S TEMPERATURE POC 37.0 degrees 11/04/2025 2:20 PM [facility] Blood, venous 11/04/2025 2:2 0 PM TESTER OPERATOR 11/04/2025 2:23 PM TESTER OPERATOR us Adeola Kaur ELECTRICIAN ASSISTANT-BC ABG ORDERABLES Tiffany l Result Performing Organization Address [facility]/ZIP Co de Phone Number [facility] CLIA # [id number] [address] [address] [place] [address] * (ABNORMAL) IRON, TIBC, AND PERCENT SATURATION (11/04/2025 1:49 PM TESTER OPERATOR) Pathologist [facility] [place] IRON 17(L) 37 - 145 ug/dL 11/04/2025 5:33 PM [facility] TIBC 236(L) 250 - 450 ug/dL 11/04/2025 5:33 PM [facility] IRON % SATURATION 7(L) 15 - 60 % 11/04/2025 5:33 PM [facility] Blood Venipuncture / Unknown 11/04/2025 1:49 PM TESTER OPERATOR 11/04/2025 1:56 PM TESTER OPERATOR Lewis Rdz MD CHEMISTRY ORDERABLES Final R esult Performing Organization Address City/[facility]/ZIP Co de Phone Number [facility] CLIA # [id number] [address] [facility] [place] [address] * TSH (11/04/2025 1:49 PM TESTER OPERATOR) [facility] TSH 0.39 0.27 - 4.20 uIU/mL 11/04/2025 4:27 PM TESTER OPERATOR [facility] Blood Venipuncture / Unknown 11/04/2025 1:49 PM TESTER OPERATOR 11/04/2025 1:56 PM TESTER OPERATOR [facility] CHEMISTRY ORDERABLES Final Result Performing Organization Address [facility] Co de Phone Number [facility] CLIA # [id number] [address] [address] * AMMONIA LEVEL (11/04/2025 1:49 PM TESTER OPERATOR) [facility] AMMONIA 19.0 11.0 - 51.0 umol/L 11/04/2025 2:20 PM TESTER OPERATOR [facility] Blood, venous Venipuncture / Unknown 11/04/2025 1:49 PM TESTER OPERATOR 11/04/2025 1:52 PM TESTER OPERATOR [facility] CHEMISTRY ORDERABLES Final Result [facility] CLIA # [id number] [address] [facility] [place] [address] * (ABNORMAL) COMPREHENSIVE METABOLIC PANEL (11/04/2025 1:49 PM TESTER OPERATOR) [facility] SODIUM 140 136 - 145 mmol/L 11/04/2025 2:30 PM TESTER OPERATOR [facility] POTASSIUM 4.3 3.5 - 5.1 mmol/L 11/04/2025 2:30 PM TESTER OPERATOR [facility] CHLORIDE 101 98 - 107 mmol/L 11/04/2025 2:30 PM [facility] CO2 23 22 - 29 mmol/L 11/04/2025 2:30 PM [facility] CALCIUM 9.0 8.8 - 10.2 mg/dL 11/04/2025 2:30 PM [facility] BUN 46(H) 8 - 23 mg/dL 11/04/2025 2:30 PM [facility] CREATININE 3.66(H) 0.51 - 0.95 mg/dL 11/04/2025 2:30 PM [facility] GLUCOSE 111(H) 74 - 99 mg/dL 11/04/2025 2:30 PM [facility] TOTAL PROTEIN 6.9 6.4 - 8.3 g/dL 11/04/2025 2:30 PM [facility] ALBUMIN 4.0 3.5 - 5.2 g/dL 11/04/2025 2:30 PM [facility] BILIRUBIN TOTAL 1.1(H) 0.0 - 1.0 mg/dL 11/04/2025 2:30 PM [facility] ALKALINE PHOSPHATASE 300(H) 35 - 104 U/L 11/04/2025 2:30 PM [facility] AST 366(H) 10 - 35 U/L 11/04/2025 2:30 PM [facility] ALT 285(H) <=35 U/L 11/04/2025 2:30 PM [facility] GFR 13(L) >=60 mL/min/1. 73 sq meter 11/04/2025 2:30 PM [facility] Comment:eGFR calculated with 2020 CKD-EPI equation. Vegetarian diet, extremely high or low muscle mass, and may affect results. Cystatin C with Glomerular Filtration Rate is a suitable alternative for these patients. ANION GAP 16 9 - 20 mmol/L 11/04/2025 2:30 PM [facility] Blood Venipuncture / Unknown 11/04/2025 1:49 PM TESTER OPERATOR 11/04/2025 1:56 PM TESTER OPERATOR dAeola Kaur ELECTRICIAN ASSISTANT- CHEMISTRY ORDERABLES Final Result Performing Organization Address [facility]/ZIP Co de Phone Number [facility] DutyCalculator [facility] CLIA # [id number] [address] [place] [address] * (ABNORMAL) PROTIME-INR (11/04/2025 1:49 PM TESTER OPERATOR) Pathologist [facility] PROTIME 54.2(H) 12.7 - 14.9 Seconds 11/04/2025 2:51 PM TESTER OPERATOR [facility] DutyCalculator [facility] INR 5.8(HH) 0.8 - 1.2 11/04/2025 2:51 PM TESTER OPERATOR [facility] Blood Venipuncture / Unknown 11/04/2025 1:49 PM TESTER OPERATOR 11/04/2025 1:56 PM TESTER OPERATOR Narrative [facility] DutyCalculator [facility] - 11/04/2025 2:51 PM TESTER OPERATOR Expected Values for INR: DVT/PE Goal INR 2.5; range 2.0 - 3.0 Valve Replacement Tissue Goal INR 2.5; range 2.0 - 3.0 Valve Replacement Mechanical Goal INR 3.0; range 2.5 - 3.5 POST-PA Goal INR 2.5; range 2.0 - 3.0 or Goal INR 3.0; range 2.5 - 3.5 Atrial Fibrillation Goal INR 2.5; range 2.0 - 3.0 Ischemic Stroke Goal INR 2.5; range 2.0 - 3.0 Adeola Kaur ELECTRICIAN ASSISTANT- HEMATOLOGY ORDERABLE S Final Result [facility] CLIA # [id number] [address] [place] [address] * (ABNORMAL) CBC WITHOUT DIFFERENTIAL (11/04/2025 1:49 PM TESTER OPERATOR) WBC 9.6 4.8 - 10.8 K/uL 11/04/2025 2:02 PM [facility] RBC 3.39(L) 4.20 - 5.40 M/uL 11/04/2025 2:02 PM [facility] HEMOGLOBIN 8.2(L) 12.0 - 16.0 g/dL 11/04/2025 2:02 PM [facility] HEMATOCRIT 28.2(L) 36.0 - 46.0 % 11/04/2025 2:02 PM [facility] MCV 83.2(L) 84.0 - 103.0 fL 11/04/2025 2:02 PM [facility] MCH 24.2(L) 27.0 - 34.0 pg 11/04/2025 2:02 PM [facility] MCHC 29.1(L) 30.0 - 35.0 g/dL 11/04/2025 2:02 PM [facility] PLATELETS 194 140 - 440 K/uL 11/04/2025 2:02 PM [facility] MPV 11.1 8.9 - 12.8 fL 11/04/2025 2:02 PM [facility] RDW 17.5(H) 11.0 - 14.5 % 11/04/2025 2:02 PM [facility] RDW-STDEV 53.1 37.0 - 54.0 fL 11/04/2025 2:02 PM [facility] Blood Venipuncture / Unknown 11/04/2025 1:49 PM TESTER OPERATOR 11/04/2025 1:56 PM TESTER OPERATOR Adeola Kaur APRN- HEMATOLOGY ORDERABLE S Final Result [facility] CLIA # [id number] [address] [address] [place] [address] * (ABNORMAL) POC GLUCOSE (11/04/2025 1:19 PM TESTER OPERATOR) GLUCOSE POC 110(H) 74 - 99 mg/dL 11/04/2025 1:19 PM TESTER OPERATOR [facility] LABORATORY [facility] SPECIMEN SOURCE, GLUCOSE POC Capillary 11/04/2025 1:19 PM TESTER OPERATOR [facility] Blood, whole 11/04/2025 1:19 PM TESTER OPERATOR 11/04/2025 1:31 PM TESTER OPERATOR Leon Echols MD POINT OF CARE TESTING Final Resu lt [facility] CLIA # [id number] [address] [place] [address] documented in this encounter Visit Diagnoses Diagnosis Acute kidney injury superimposed on stage 4 chronic kidney disease (CMS/HCC)- Primary Transaminitis Nonspecific elevation of levels of transaminase or lactic acid dehydrogenase (LDH) Hypervolemia, unspecified hypervolemia type Acute on chronic diastolic (congestive) heart failure (CMS/HCC) Acute respiratory failure with hypoxia (CMS/HCC) Acute respiratory failure Hypothyroidism, unspecified type Longstanding persistent atrial fibrillation (CMS/HCC) Slurred speech Other speech disturbance Acute on chronic diastolic (congestive) heart failure (CMS/HCC) Paroxysmal atrial fibrillation (CMS/HCC) Atrial fibrillation Chronic anticoagulation Encounter for long-term (current) use of anticoagulants Hypothyroidism Unspecified hypothyroidism Slurred speech Other speech disturbance Longstanding persistent atrial fibrillation (CMS/HCC) Acute respiratory failure with hypoxia (CMS/HCC) Acute respiratory failure Transaminitis Nonspecific elevation of levels of transaminase or lactic acid dehydrogenase (LDH) Volume overload Other fluid overload Supratherapeutic INR Abnormal coagulation profile documented in this encounter Administered Medications Inactive Administered Medications - up to 3 most recent administrations Medication Order MAR Action Action Date Dose Rate Site acetaminophen (TYLENOL) tablet 500 mg 500 mg, Oral, EVERY 6 HOURS PRN, Starting on Tue11/05/25 at 0818, Until Tue11/13/25 at 1316, Pain, Mild, Routine, Previous Med: acetaminophen (TYLENOL) 500 mg tablet - Orig Sig - Take 500 mg by mouth. Given 11/13/2025 8:27 AM TESTER OPERATOR 500 mg Given 11/12/2025 6:12 PM TESTER OPERATOR 500 mg Given 11/12/2025 12:04 PM TESTER OPERATOR 500 mg ALBUTEROL SULFATE 2.5 MG/3 ML (0.083 %) SOLUTION FOR NEBULIZATION (CABINET OVERRIDE) 1 dose, Starting on Tue11/05/25 at 2025, Until Tue11/05/25 at 2036, SebastiantwanMatias hubbardsim: cabinet override Given 11/05/2025 8:37 PM TESTER OPERATOR 2.5 mg apixaban (ELIQUIS) tablet 5 mg 5 mg, Oral, TWO TIMES DAILY, First dose on 11/09/25 at 2100, Until Discontinued, Routine, Indication: Non-valvular A Fib Given 11/13/2025 8:29 AM TESTER OPERATOR 5 mg Given 11/12/2025 9:46 PM TESTER OPERATOR 5 mg Given 11/12/2025 11:53 AM TESTER OPERATOR 5 mg atorvastatin (LIPITOR) tablet 80 mg 80 mg, Oral, DAILY, First dose on 11/10/25 at 0900, Until Discontinued, Routine, Previous Med: atorvastatin (LIPITOR) 80 mg tablet - Orig Sig - Take 80 mg by mouth daily. Given 11/13/2025 8:28 AM TESTER OPERATOR 80 mg Given 11/12/2025 11:53 AM TESTER OPERATOR 80 mg Given 11/11/2025 3:32 PM TESTER OPERATOR 80 mg ceFAZolin (ANCEF,KEFZOL) 2,000 mg in sodium chloride 0.9% 50 mL IVPB (MBP) 2,000 mg, IV, ONE TIME ONLY, 1 dose, On Tue11/08/25 at 1530, Stat, IntraProcedure (IR), Antibiotic Indication: Surgical prophylaxis New Bag 11/08/2025 3:30 PM TESTER OPERATOR 2,000 mg 118 mL/hr cholecalciferol (VITAMIN D3) tablet 2,000 Units 2,000 Units, Oral, DAILY, First dose on 11/10/25 at 0900, Until Discontinued, Routine, Previous Med: Cholecalciferol, Vitamin D3, 50 mcg (2,000 unit) Capsule - Orig Sig - Take 2,000 Units by mouth daily. Given 11/13/2025 8:28 AM TESTER OPERATOR 2,000 Units Given 11/12/2025 11:53 AM TESTER OPERATOR 2,000 Units Given 11/11/2025 11:59 AM TESTER OPERATOR 2,000 Units darbepoetin yuridia (ARANESP) 60 mcg/mL injection 60 mcg 60 mcg, subCUT, ONE TIME ONLY, 1 dose, On Tue11/06/25 at 0000, Routine, Reason for treatment with Epoetin/Darbepoetin: Anemia of Chronic Kidney Disease (on dialysis) Given 11/05/2025 11:57 PM TESTER OPERATOR 60 mcg Abdomen, Left Lower Quadrant dextrose 5% - sodium chloride 0.45% infusion IV, at 100 mL/hr, INTRA-PROCEDURE CONTINUOUS, Starting on Tue11/08/25 at 1530, Until Tue11/13/25 at 1316, Routine, IntraProcedure (IR) New Bag 11/08/2025 3:30 PM TESTER OPERATOR 100 mL/hr fentaNYL (PF) (SUBLIMAZE) 50 mcg/mL injection 100 mcg 100 mcg, IV, INTRA-PROCEDURE ONCE, 1 dose, Starting on Tue11/08/25 at 1550, Until Tue11/08/25 at 1540, Routine, IntraProcedure (IR) Given 11/08/2025 3:40 PM TESTER OPERATOR 100 mcg fluticasone furoate-vilanteroL (BREO ELLIPTA) 100-25 mcg/dose inhaler 1 Puff 1 Puff, Inhalation, DAILY RESPIRATORY, First dose on Tue11/05/25 at 0830, Until Discontinued, Routine Given 11/13/2025 7:44 AM TESTER OPERATOR 1 Puff Given 11/12/2025 7:39 AM TESTER OPERATOR 1 Puff Given 11/11/2025 12:00 PM TESTER OPERATOR 1 Puff gabapentin (NEURONTIN) capsule 100 mg 100 mg, Oral, THREE TIMES DAILY, First dose on Tue11/11/25 at 1800, Until Discontinued, Routine Given 11/13/2025 8:35 AM TESTER OPERATOR 100 mg Given 11/12/2025 6:12 PM TESTER OPERATOR 100 mg Given 11/12/2025 12:04 PM TESTER OPERATOR 100 mg iron sucrose (VENOFER) 100 mg iron/5 mL injection 200 mg 200 mg, IV, ONE TIME ONLY, 1 dose, On Tue11/05/25 at 0745, Routine Given 11/05/2025 10:06 AM TESTER OPERATOR 200 mg iron sucrose (VENOFER) 100 mg iron/5 mL injection 200 mg 200 mg, IV, ONE TIME ONLY, 1 dose, On Tue11/08/25 at 1700, Routine Given 11/08/2025 10:01 PM TESTER OPERATOR 200 mg iron sucrose (VENOFER) 100 mg iron/5 mL injection 200 mg 200 mg, IV, ONE TIME ONLY, 1 dose, On 11/11/25 at 1130, Routine Given 11/11/2025 3:32 PM TESTER OPERATOR 200 mg levothyroxine (SYNTHROID) tablet 175 mcg 175 mcg, Oral, DAILY EARLY, First dose on Tue11/05/25 at 0945, Until Discontinued, Routine, Previous Med: levothyroxine 200 mcg tablet - Orig Sig - Take 200 mcg by mouth. Given 11/13/2025 6:08 AM TESTER OPERATOR 175 mcg Given 11/12/2025 6:07 AM TESTER OPERATOR 175 mcg Feeding Started 11/11/2025 6:13 AM TESTER OPERATOR 175 mcg Lidocaine 4 % topical patch 1 Patch 1 Patch, Topical, DAILY, First dose on Tue11/10/25 at 0900, Until Discontinued, Routine Applied 11/13/2025 8:29 AM TESTER OPERATOR 1 Patch Sh[place] justin, Left Applied 11/12/2025 11:55 AM TESTER OPERATOR 1 Patch B ack, Left Applied 11/11/2025 11:59 AM TESTER OPERATOR 1 Patch S [place], Left lidocaine PF 1% (XYLOCAINE MPF) injection 30 mL 30 mL (300 mg), Infiltration, INTRA-PROCEDURE ONCE, 1 dose, Starting on Tue11/08/25 at 1517, Until Tue11/08/25 at 1552, Routine Admin by Another Clinician (Comment) 11/08/2025 3:52 PM TESTER OPERATOR 3 mL lidocaine-EPINEPHrine (XYLOCAINE-EPI) 1 %-1:100,000 injection 30 mL 30 mL, Infiltration, INTRA-PROCEDURE ONCE, 1 dose, Starting on Tue11/08/25 at 1517, Until Tue11/08/25 at 1557, Routine, IntraProcedure (IR) Admin by Another Clinician (Comment) 11/08/2025 3:57 PM TESTER OPERATOR 5 mL LORazepam (ATIVAN) 2 mg/mL injection 0.5 mg 0.5 mg, IV, ONE TIME ONLY, 1 dose, On [place] 11/07/25 at 1030, RoutineIndications:extrusion line operator to MRI, may repeat x1 Given 11/08/2025 11:44 PM TESTER OPERATOR 0.5 mg metoprolol tartrate (LOPRESSOR) tablet 12.5 mg 12.5 mg, Oral, TWO TIMES DAILY, First dose on Tue11/05/25 at 1600, Until Discontinued, Routine, Previous Med: metoprolol tartrate (LOPRESSOR) 50 mg tablet - Orig Sig - Take 50 mg by mouth daily. Given 11/13/2025 8:29 AM TESTER OPERATOR 12.5 mg Given 11/12/2025 9:46 PM TESTER OPERATOR 12.5 mg Given 11/12/2025 11:55 AM TESTER OPERATOR 12.5 mg miconazole (JYOTI,MICOTIN,REMEDY AF) 2 % topical cream Topical, TWO TIMES DAILY, First dose on Tue11/05/25 at 1245, Until Discontinued, Routine Given 11/13/2025 8:36 AM CS T Coccyx Given 11/12/2025 9:48 PM TESTER OPERATOR Gr oin, Right Given 11/12/2025 11:58 AM TESTER OPERATOR C occyx miconazole nitrate (REMEDY-AF,ZEASORB-AF) 2 % topical powder Topical, TWO TIMES DAILY, First dose on Tue11/05/25 at 1245, Until Discontinued, Routine Given 11/13/2025 8:36 AM TESTER OPERATOR Groin, Left Given 11/12/2025 9:48 PM TESTER OPERATOR Ab dominal Tissue Given 11/12/2025 11:58 AM TESTER OPERATOR A bdominal Tissue midazolam (VERSED) injection 2 mg 2 mg, IV, INTRA-PROCEDURE ONCE, 1 dose, Starting on Tue11/08/25 at 1550, Until Tue11/08/25 at 1540, Routine, IntraProcedure (IR) Given 11/08/2025 3: 40 PM TESTER OPERATOR 2 mg naloxone (NARCAN) 0.4 mg/mL injection 0.1-0.4 mg 0.1-0.4 mg, IV, SEE ADMIN INSTRUCTIONS, Starting on Tue11/04/25 at 1320, Until Tue11/13/25 at 1316, Routine ondansetron (ZOFRAN) 4 mg/2 mL injection 4 mg 4 mg, IV, EVERY 6 HOURS PRN, Starting on Tue11/05/25 at 0819, Until Tue11/13/25 at 1316, Nausea/Emesis, Routine Given 11/12/2025 9:30 AM TESTER OPERATOR 4 mg Given 11/11/2025 2:17 PM TESTER OPERATOR 4 mg Given 11/09/2025 10:27 AM TESTER OPERATOR 4 mg pantoprazole (PROTONIX) tablet 40 mg 40 mg, Oral, DAILY BEFORE BREAKFAST, First dose on Tue11/05/25 at 0830, Until Discontinued, Previous Med: omeprazole magnesium (PriLOSEC) 20 mg Tablet, Delayed Release (E.C.) - Orig Sig - Take 1 Tablet by mouth daily. , Indication: Gastroesophageal reflux disease (GERD) Given 11/13/2025 7:07 AM TESTER OPERATOR 40 mg Given 11/12/2025 7:38 AM TESTER OPERATOR 40 mg Given 11/11/2025 11:59 AM TESTER OPERATOR 40 mg prismaSATE BGK 4/2.5 dialysis solution IV, at 1,000 mL/hr, CONTINUOUS, Starting on Tue11/04/25 at 1700, Until Tue11/05/25 at 0911, Routine, purple New Bag 11/05/2025 4:03 AM TESTER OPERATOR 1000 mL/hr New Bag 11/04/2025 10:53 PM TESTER OPERATOR 1000 mL/hr New Bag 11/04/2025 5:00 PM TESTER OPERATOR 1000 mL/hr prismaSATE BGK 4/2.5 dialysis solution IV, at 1,000 mL/hr, CONTINUOUS, Starting on Tue11/04/25 at 1700, Until Tue11/05/25 at 0911, Routine, white New Bag 11/05/2025 4:03 AM TESTER OPERATOR 1000 mL/hr New Bag 11/04/2025 10:53 PM TESTER OPERATOR 1000 mL/hr New Bag 11/04/2025 5:00 PM TESTER OPERATOR 1000 mL/hr prismaSATE BGK 4/2.5 dialysis solution IV, at 1,000 mL/hr, CONTINUOUS, Starting on Tue11/04/25 at 1700, Until Tue11/05/25 at 0911, Routine, green New Bag 11/05/2025 4:03 AM TESTER OPERATOR 1000 mL/hr New Bag 11/04/2025 10:53 PM TESTER OPERATOR 1000 mL/hr New Bag 11/04/2025 5:00 PM TESTER OPERATOR 1000 mL/hr sodium chloride 0.9 % bolus solution 1,000 mL 1,000 mL, See Admin Instructions, SEE ADMIN INSTRUCTIONS, Starting on Tue11/06/25 at 0720, Until Tue11/13/25 at 1316, at 2,000 mL/hr, Administer over 30 Minutes, Routine New Bag 11/12/2025 9:32 AM TESTER OPERATOR 1,000 mL 2000 mL/hr Other (Comment) New Bag 11/11/2025 8:21 AM TESTER OPERATOR 1,000 mL 2000 mL/hr Ot her (Comment) New Bag 11/08/2025 4:40 PM TESTER OPERATOR 1,000 mL 2000 mL/hr Ot her (Comment) umeclidinium (INCRUSE ELLIPTA) 62.5 mcg/actuation inhaler 1 Puff 1 Puff, Inhalation, DAILY RESPIRATORY, First dose on Tue11/05/25 at 0830, Until Discontinued, Routine Given 11/13/2025 7:46 AM TESTER OPERATOR 1 Puff Given 11/12/2025 7:42 AM TESTER OPERATOR 1 Puff Given 11/11/2025 12:00 PM TESTER OPERATOR 1 Puff documented in this encounter Active and Recently Administered Medications Times are shown in TESTER OPERATOR. Scheduled Medication Order 11/11/2025 11/12/2025 11/13/2025 apixaban (ELIQUIS) tablet 5 mg 5 mg, Oral, TWO TIMES DAILY, First dose on 11/09/25 at 2100, Until Discontinued, Routine, Indication: Non-valvular A Fib 1159 (Given - Provider: Afshan Montenegro LPN)2113 (Given - Provider: Kylah Payan RN) 1153 (Given - Provider: Monique Franklin RN)2146 (Given - Provider: Jose Antonio Boston RN) 0829 (Given - Provider: Fabian Catalan, NADEGE) atorvastatin (LIPITOR) tablet 80 mg 80 mg, Oral, DAILY, First dose on 11/10/25 at 0900, Until Discontinued, Routine, Previous Med: atorvastatin (LIPITOR) 80 mg tablet - Orig Sig - Take 80 mg by mouth daily. 1532 (Given - Provider: Afshan Montenegro LPN) 1153 (Given - Provider: Monique Franklin RN) 0828 (Given - Provider: Fabian Catalan RN) cholecalciferol (VITAMIN D3) tablet 2,000 Units 2,000 Units, Oral, DAILY, First dose on 11/10/25 at 0900, Until Discontinued, Routine, Previous Med: Cholecalciferol, Vitamin D3, 50 mcg (2,000 unit) Capsule - Orig Sig - Take 2,000 Units by mouth daily. 1159 (Given - Provider: Afshan Montenegro LPN) 1153 (Given - Provider: Monique Franklin RN) 0828 (Given - Provider: Fabian Catalan, NADEGE) fluticasone furoate-vilanteroL (BREO ELLIPTA) 100-25 mcg/dose inhaler 1 Puff(Linked Group 1) 1 Puff, Inhalation, DAILY RESPIRATORY, First dose on Tue11/05/25 at 0830, Until Discontinued, Routine 1200 (Given - Provider: Afshan Montenegro LPN) 0739 (Given - Provider: Monique Franklin, NADEGE) 0744 (Given - Provider: Fabian Catalan, NADEGE) gabapentin (NEURONTIN) capsule 100 mg 100 mg, Oral, THREE TIMES DAILY, First dose on Tue11/11/25 at 1800, Until Discontinued, Routine 1819 (Given - Provider: Afshan Montenegro LPN) 0900 (Not Given - Provider: Monique Franklin RN - Reason: Patient off unit)1204 (Given - Provider: Monique Franklin RN)1812 (Given - Provider: Monique Franklin RN) 0835 (Given - Provider: Fabian Catalan, NADEGE) iron sucrose (VENOFER) 100 mg iron/5 mL injection 200 mg (COMPLETED) 200 mg, IV, ONE TIME ONLY, 1 dose, On Tue11/11/25 at 1130, Routine 1532 (Given - Provider: Asfhan Montenegro LPN) levothyroxine (SYNTHROID) tablet 175 mcg 175 mcg, Oral, DAILY EARLY, First dose on Tue11/05/25 at 0945, Until Discontinued, Routine, Previous Med: levothyroxine 200 mcg tablet - Orig Sig - Take 200 mcg by mouth. 0613 (Feeding Started - Provider: Kylah Payan RN) 0607 (Given - Provider: Kylah Payan RN) 0608 (Given - Provider: Jose Antonio Boston RN) Lidocaine 4 % topical patch 1 Patch 1 Patch, Topical, DAILY, First dose on Tue11/10/25 at 0900, Until Discontinued, Routine 1159 (Applied - Provider: Afshan Montenegro LPN)2359 (Removed - Provider: Kylah Payan RN) 115 (Applied - Provider: Monique Franklin RN)235 (Removed - Provider: Jose Antonio Boston RN) 0829 (Applied - Provider: Fabian Catalan RN)1111 (Due: Removed - Provider: PROVIDER, DISCHARGE PATIENT - Comment: Time automatically adjusted from order being discontinued) metoprolol tartrate (LOPRESSOR) tablet 12.5 mg 12.5 mg, Oral, TWO TIMES DAILY, First dose on Tue11/05/25 at 1600, Until Discontinued, Routine, Previous Med: metoprolol tartrate (LOPRESSOR) 50 mg tablet - Orig Sig - Take 50 mg by mouth daily. 1159 (Given - Provider: Afshan Montenegro LPN)2112 (Given - Provider: Kylah Payan RN) 115 (Given - Provider: Monique Franklin RN)214 (Given - Provider: Jose Antonio Boston RN) 0829 (Given - Provider: Fabian Catalan RN) miconazole (JYOTI,MICOTIN,REMEDY AF) 2 % topical cream Topical, TWO TIMES DAILY, First dose on Tue11/05/25 at 1245, Until Discontinued, Routine 1210 (Given - Provider: Afshan Montenegro LPN)2100 (Not Given - Provider: Kylah Payan RN - Reason: Other - See Comment - Comment: not needed at this time) 115 (Given - Provider: Monique Franklin RN)214 (Given - Provider: Jose Antonio Boston RN) 0836 (Given - Provider: Fabian Catalan RN) miconazole nitrate (REMEDY-AF,ZEASORB-AF) 2 % topical powder Topical, TWO TIMES DAILY, First dose on Tue11/05/25 at 1245, Until Discontinued, Routine 1210 (Given - Provider: Afshan Montenegro LPN)2100 (Not Given - Provider: Kylah Payan RN - Reason: Other - See Comment - Comment: not needed at this time) 115 (Given - Provider: Monique Franklin RN)214 (Given - Provider: Jose Antonio Boston RN) 0836 (Given - Provider: Fabian Catalan RN) naloxone (NARCAN) 0.4 mg/mL injection 0.1-0.4 mg 0.1-0.4 mg, IV, SEE ADMIN INSTRUCTIONS, Starting on Tue11/04/25 at 1320, Until Tue11/13/25 at 1316, Routine pantoprazole (PROTONIX) tablet 40 mg 40 mg, Oral, DAILY BEFORE BREAKFAST, First dose on Tue11/05/25 at 0830, Until Discontinued, Previous Med: omeprazole magnesium (PriLOSEC) 20 mg Tablet, Delayed Release (E.C.) - Orig Sig - Take 1 Tablet by mouth daily. , Indication: Gastroesophageal reflux disease (GERD) 1159 (Given - Provider: Afshan Montenegro LPN) 0738 (Given - Provider: Monique Franklin RN) 0707 (Given - Provider: Fabian Catalan RN) sodium chloride 0.9 % bolus solution 1,000 mL 1,000 mL, See Admin Instructions, SEE ADMIN INSTRUCTIONS, Starting on Tue11/06/25 at 0720, Until Tue11/13/25 at 1316, at 2,000 mL/hr, Administer over 30 Minutes, Routine 0821 (New Bag - Provider: Sarah Owusu RN)0851 (Stopped - Provider: Sarah Owusu RN) 0932 (New Bag - Provider: Radha Hernandez RN)1002 (Stopped - Provider: Radha Hernandez RN) umeclidinium (INCRUSE ELLIPTA) 62.5 mcg/actuation inhaler 1 Puff(Linked Group 1) 1 Puff, Inhalation, DAILY RESPIRATORY, First dose on Tue11/05/25 at 0830, Until Discontinued, Routine 1200 (Given - Provider: Afshan Montenegro LPN) 0742 (Given - Provider: Monique Franklin RN) 0746 (Given - Provider: Fabian Catalan RN) Continuous Medication Order 11/11/2025 11/12/2025 11/13/2025 dextrose 5% - sodium chloride 0.45% infusion IV, at 100 mL/hr, INTRA-PROCEDURE CONTINUOUS, Starting on Tue11/08/25 at 1530, Until Tue11/13/25 at 1316, Routine, IntraProcedure (IR) PRN Medication Order 11/11/2025 11/12/2025 11/13/2025 acetaminophen (TYLENOL) tablet 500 mg 500 mg, Oral, EVERY 6 HOURS PRN, Starting on Tue11/05/25 at 0818, Until Tue11/13/25 at 1316, Pain, Mild, Routine, Previous Med: acetaminophen (TYLENOL) 500 mg tablet - Orig Sig - Take 500 mg by mouth. 0402 (Given - Provider: Kylah Payan, NADEGE)1159 (Given - Provider: Afshan Montenegro LPN) 0606 (Given - Provider: Kylah Payan RN)1204 (Given - Provider: Monique Franklin, NADEGE)1812 (Given - Provider: Monique Franklin, NADEGE) 0827 (Given - Provider: Fabian Catalan RN) albuterol sulfate 90 mcg/Actuation inhaler 2 Puff 2 Puff, Inhalation, EVERY 6 HOURS PRN RESPIRATORY, Starting on Tue11/09/25 at 1738, Until Tue11/13/25 at 1316, Shortness of Breath, Routine, Previous Med: albuterol sulfate HFA 90 mcg/actuation aerosol inhaler - Orig Sig - Take 2 Puffs by inhalation every 6 hours as needed for Shortness of Breath. ondansetron (ZOFRAN) 4 mg/2 mL injection 4 mg 4 mg, IV, EVERY 6 HOURS PRN, Starting on Tue11/05/25 at 0819, Until Tue11/13/25 at 1316, Nausea/Emesis, Routine 1417 (Given - Provider: Lisset Valentine, NADEGE) 0930 (Given - Provider: Radha Hernandez RN) Linked Groups Order Group 1: fluticasone furoate-vilanteroL (BREO ELLIPTA) 100-25 mcg/dose inhaler 1 PuffJump to med 1 Puff, Inhalation, DAILY RESPIRATORY, First dose on Tue11/05/25 at 0830, Until Discontinued, Routine And umeclidinium (INCRUSE ELLIPTA) 62.5 mcg/actuation inhaler 1 PuffJump to med 1 Puff, Inhalation, DAILY RESPIRATORY, First dose on Tue11/05/25 at 0830, Until Discontinued, Routine documented in this encounter Care Teams Brush Filler Hand Relationship Specialty Start Date End Date Ina Altamirano MD [id number] N [address] [id number] PCP - General Family Practice 04/27/17 documented as of this encounter
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
[2025-11-13 13:16] VITALS: BP 126/67; PULSE 72; RESP 18; TEMP 36.7; O2SAT 97; BMI 45.8
--- OUTSIDE RECORDS SUMMARY | 2025-11-13 13:29 | XMS_ITS | Encounter Summary ---
Author Organization [facility] Address [address] [place] [address] Care Team Providers Care Sergeant Of Officers Name Role Phone Ina Altamirano MD Primary Care Provider [phone] Encounter Details Date Type Department Care Team (Late st Contact Info) Description 11/05/2025 External Device Data [place] ABSTRACTION Provider, Abstract NO ADDRESS ON FILE Social History Tobacco Use Types Packs/Day Years [...] worry about transportation for future doctor visits, pickling solution maker medication, etc.? No 2024 Housing Stability Answer [...] on file documented as of this encounter Plan of Treatment Not on file documented as of this encounter Visit Diagnoses Not on filedocumented in this encounter Care Teams Sergeant Of Officers Relationship Specialty Start Date End Date Ina Altamirano [place] [id number] [address] [address] PCP - General Family Practice 04/27/17 documented as of this encounter
--- OUTSIDE RECORDS SUMMARY | 2025-11-13 13:29 | XMS_ITS | Continuity of Care Document ---
Author Organization [facility] ([facility]) Address [address] [place] [id number] Problems Condition ICD9 code ICD10 code SNOMED code Start Date End Date S tatus Results No Results Allergies, adverse reactions, alerts No known allergies and adverse reactions Medications Medication Instructions Route Dosage Frequency Start Date Stop Date Indications Status albuterol sulfate 90 mcg/actuation HFA aerosol inhaler (albuterol sulfate) 2 puff, inhalation, Every 6 Hours - PRN, for sob or wheezing inhalation 1.0 6.0 h 2024 Active atorvastatin 80 mg tablet (atorvastatin) 1 tab, oral, Once A Day oral 1.0 1.0 d 2024 Active Eliquis (apixaban) 5 mg tablet (Eliquis (apixaban)) 1 tab, oral, Twice A Day oral 1.0 12.0 h 2024 Active cholecalciferol (vitamin D3) 50 mcg (2,000 unit) tablet (cholecalcifero l (vitamin D3)) 1 tab, oral, Once A Day oral 1.0 1.0 d 2024 Active gabapentin 100 mg capsule (gabapentin) 1 cap, oral, Three Times A Day oral 1.0 8.0 h 2024 Active levothyroxine 175 mcg tablet (levothyroxine) 1 tab, oral, Once A Day oral 1.0 1.0 d 2024 Active lidocaine 4 % adhesive patch,medicated (lidocaine) 1 patch, topical, Twice A Day, ON in the AM, OFF in the PM topical 1.0 12.0 h 2024 Active metoprolol tartrate 25 mg tablet (metoprolol tartrate) 0.5 tab (12.5mg), oral, Twice A Day oral 1.0 12.0 h 2024 Active miconazole nitrate 2 % powder (miconazole nitrate) 1 claudette, topical, Twice A Day topical 1.0 12.0 h 2024 Active miconazole nitrate 2 % cream (miconazole nitrate) 1 claudette, topical, Twice A Day topical 1.0 12.0 h 2024 Active omeprazole 40 mg capsule,delayed release(DR/EC) (omeprazole) 1 cap, oral, Once A Day, TI for pantoprazole oral 1.0 1.0 d 2024 Active Trelegy Ellipta (fluticasone-um eclidin-vilante r) 200-62.5-25 mcg blister with device (Trelegy Ellipta (fluticasone-um eclidin-vilante r)) 1 inh, inhalation, Once A Day, rinse mouth out after use with water and spit inhalation 1.0 1.0 d 2024 Active Tylenol (acetaminophen) 325 mg tablet (Tylenol (acetaminophen) ) 2 tabs/650mg, oral, Every 6 Hours - PRN, as needed for PRN pain/increase d tempMay give rectally if necessary oral 1.0 6.0 h 2024 Active Vital Signs No vital signs reported Social History No smoking Hx information available
--- OUTSIDE RECORDS SUMMARY | 2025-11-13 13:29 | XMS_ITS | Encounter Summary ---
Author Organization [id number] Address [address] [place] [address] Care Team Providers Care Wind Turbine Mechanical Engineer Name Role Phone Ina Altamirano MD Primary Care Provider [phone] Encounter Details Date Type Department Care Team [...] worry about transportation for future doctor visits, berry picker medication, etc.? No 2024 Housing Stability [...] on filedocumented in this encounter Care Teams Wind Turbine Mechanical Engineer Relationship Specialty Start Date End Date Ina Altamirano [place] [id number] [address] [address] PCP - General Family Practice 04/27/17 documented as of this encounter
--- OUTSIDE RECORDS SUMMARY | 2025-11-13 13:29 | XMS_ITS | Encounter Summary ---
Author Organization [facility] Address [address] [place] [address] Care Team Providers Care Professor Of Radiology Name Role Phone Ina Altamirano MD Primary Care Provider [phone] Encounter Details Date Type Department Care Team [...] worry about transportation for future doctor visits, brain picker medication, etc.? No 2024 Housing Stability [...] on filedocumented in this encounter Care Teams Professor Of Radiology Relationship Specialty Start Date End Date Ina Altamirano [place] [id number] [address] [address] PCP - General Family Practice 04/27/17 documented as of this encounter
--- OUTSIDE RECORDS SUMMARY | 2025-11-13 13:29 | XMS_ITS | Encounter Summary ---
Author Organization [facility] Address [address] [place] [address] Care Team Providers Care Cake Stripper Name Role Phone Ina Altamirano MD Primary Care Provider [phone] Encounter Details Date Type Department Care Team (Late st Contact Info) Description 11/12/2025 External Device Data STL ABSTRACTION Provider, Abstract [...] worry about transportation for future doctor visits, parts picker medication, etc.? No 2024 Housing Stability [...] on filedocumented in this encounter Care Teams Cake Stripper Relationship Specialty Start Date End Date Ina Altamirano MD [id number] [address] [address] PCP - General Family Practice 04/27/17 documented as of this encounter
--- OUTSIDE RECORDS SUMMARY | 2025-11-13 13:29 | XMS_ITS | Continuity of Care Document ---
Author Organization [facility] Address [address] [place] [address] Care Team Providers Care Reagent Tender Name Role Phone Dr. Fabian Pierre DO Attending Physician Medications Medication Frequency Instructions Diagnosis Start Date End Date Status Last Administered albuterol sulfate 90 mcg/actuation HFA aerosol inhaler Every 6 Hours - PRN 2 puff, inhalation, Every 6 Hours - PRN, for sob or wheezing 025 Active atorvastatin 80 mg tablet Once A Day 1 tab, oral, Once A Day 025 Active cholecalciferol (vitamin D3) 50 mcg (2,000 unit) tablet Once A Day 1 tab, oral, Once A Day 025 Active Eliquis (apixaban) 5 mg tablet Twice A Day 1 tab, oral, Twice A Day 025 Active gabapentin 100 mg capsule Three Times A Day 1 cap, oral, Three Times A Day 025 Active levothyroxine 175 mcg tablet Once A Day 1 tab, oral, Once A Day 025 Active lidocaine 4 % adhesive patch,medicated Twice A Day 1 patch, topical, Twice A Day, ON in the AM, OFF in the PM Active metoprolol tartrate 25 mg tablet Twice A Day 0.5 tab (12.5mg), oral, Twice A Day Active miconazole nitrate 2 % powder Twice A Day 1 claudette, topical, Twice A Day Active miconazole nitrate 2 % cream Twice A Day 1 claudette, topical, Twice A Day Active omeprazole 40 mg capsule,delayed release(DR/EC) Once A Day 1 cap, oral, Once A Day, TI for pantoprazole Active Trelegy Ellipta (fluticasone-umec lidin-vilanter) 200-62.5-25 mcg blister with device Once A Day 1 inh, inhalation, Once A Day, rinse mouth out after use with water and spit Active Tylenol (acetaminophen) 325 mg tablet Every 6 Hours - PRN 2 tabs/650mg, oral, Every 6 Hours - PRN, as needed for PRN pain/increased temp May give rectally if necessary Active Problems No ICD problems have been recorded Current Allergies and Intolerances No known allergies Vital Signs No Vital Signs have been recorded Advance Directives No Advance Directives are on file for this resident Insurance Providers Payer Policy type Group Name Group number Policy ID Address Ph one [employer] [facility] [employer] [id number] Phone: Fax: Medicaid [place] Pending Medicaid ([facility]) [id number] Phone: Fax: Clinical Quick [employer]mit Private Phone: Fax: Private Private Phone: Fax: Private Copay - Ins/HMO Private Phone: Fax: Private Interest Private Phone: Fax: Immunizations No Immunizations are on file for this resident Procedures Not available for this record Results Not available for this record Goals Goal Date Will have a BM at least ever y 3 days for 120 days since update/last review AND/OR will not experience any complications r/t to colostomy for 120 days from update/ last review AND/OR Will not experience any GI complications for 120 days since update/last review AND/OR Will remain clean, dry between incontinent episodes thru 120days from update/last review 02/10/2026
--- OUTSIDE RECORDS SUMMARY | 2025-11-13 13:29 | XMS_ITS | Clinical Summary ---
Author Organization [facility] Address [address] [address] Care Team Providers Care Tool Smith Name Role Phone Ina Altamirano MD Primary Care Provider [phone] Allergies No known active allergies Medications acetaminophen (TYLENOL) 650 MG suppository Take 2 tablets by mouth 1 (one) time each day if needed Active albuterol HFA (PROVENTIL HFA;VENTOLIN HFA) 108 (90 Base) MCG/ACT inhaler inahle 1 to 2 puffs every 6 hrs prn 9 Active amLODIPine (NORVASC) 10 MG tablet Take 1 tablet by mouth 1 (one) time each day 0 Active citalopram (CeleXA) 40 MG tablet Take 1 tablet by mouth 1 (one) time each day 0 Active diclofenac (VOLTAREN) 1 % gel Apply as directed 7 Active gabapentin (NEURONTIN) 300 MG capsule Take 300 mg by mouth 2 (two) times a day 0 Active levothyroxine (SYNTHROID, LEVOTHROID) 200 MCG tablet TAKE 1 TABLET BY MOUTH EVERY OTHER DAY (ALTERNATE WITH 175MCG) 0 Active levothyroxine (SYNTHROID, LEVOTHROID) 175 MCG tablet levothyroxine 175 mcg tablet TAKE 1 TABLET BY MOUTH EVERY OTHER DAY 8 Active metoprolol succinate XL (TOPROL-XL) 50 MG 24 hr tablet Take 50 mg by mouth daily 0 Active mycophenolate (CELLCEPT) 500 MG tablet Take 500 mg by mouth daily 0 Active omeprazole OTC (PriLOSEC OTC) 20 MG EC tablet Take 1 tablet by mouth 1 (one) time each day Active Xarelto 20 MG tablet Take 20 mg by mouth daily 0 Active torsemide (DEMADEX) 20 MG tablet Take 1 tablet by mouth 1 (one) time each day 1 Active spironolactone (ALDACTONE) 25 MG tablet Take 1 tablet by mouth 1 (one) time each day 1 Active Bevespi Aerosphere 9-4.8 MCG/ACT aerosol Inhale 2 puffs 2 (two) times a day 1 Active atorvastatin (LIPITOR) 80 MG tablet Take 80 mg by mouth 1 (one) time each day 1 Active Aspirin Low Dose 81 MG EC tablet Take 81 mg by mouth 1 (one) time each day 1 Active amiodarone (PACERONE) 200 MG tablet Take 1 tablet by mouth 2 (two) times a day 1 Active furosemide (LASIX) 20 MG tablet Take 20-40 mg by mouth 1 (one) time each day if needed Active Cholecalciferol 50 MCG (2000 UT) capsule Take 2,000 Units by mouth 1 (one) time each day 7 Active Active Problems Problem Noted Date Diagnosed Date Secondary hyperparathyroidism of renal origin Hypertensive renal disease 06/13/2020 Long-term (current) use of other medications Non-amyloid fibrillary glomerulonephritis 2019 Proteinuria 06/13/2020 ECG: atrial fibrillation 05/04/2019 Overview (06/13/2020): Dx 04/2019 Persistent atrial fibrillation 05/04/2019 Stage 3b chronic kidney disease 12/23/2017 Overview (06/13/2020): bx c/w fibrillary GN Systemic lupus erythematosus 12/23/2017 Patient encounter status 10/11/2017 Vitamin D deficiency 04/22/2017 Chronic obstructive pulmonary disease 04/20/2017 Essential hypertension 04/20/2017 Hyperlipidemia 04/20/2017 Hypothyroidism 04/20/2017 Mixed anxiety and depressive disorder 04/20/2017 Immunizations Immunization Administration Dates Next Due Influenza, Quadrivalent, Preservative Free 08/02 Influenza, Recombinant, PF 10/15/2017 Pneumococcal Polysaccharide 04/19/2018 Family History Relation Status Comments Father Mother Social History Tobacco Use Types Packs/Day Years Used Date Smoking Tobacco: Former Cigarettes 0 Q uit: 01/12/2017 Smokeless Tobacco: Never Alcohol Use Standard Drinks/Week Comments Yes 0 (1 standard drink = 0.6 oz pure alcohol) Alcoholic Drinks/day: Occasional social drink Comments Unknown Sex and Gender Information Value Date Recorded Sex Assigned at Not on file Legal Sex Female 1:56 PM EDT Gender Identity Not on file Sexual Orientation Not on file Last Filed Vital Signs Vital Sign Reading Time Taken Comments Blood Pressure 135/80 02/16/2021 11:21 AM EDT Pulse 84 02/16/2021 11:21 AM EDT Temperature 36.6 C (97.8 F) 06/13/2020 11:22 AM EDT Respiratory Rate - - Oxygen Saturation 92% 04/25/2019 12:00 PM EDT Inhaled Oxygen Concentration - - Weight 121 kg (267 lb) 02/16/2021 11:21 AM EDT Height 160 cm (5' 3 ) 02/16/2021 11:21 AM EDT Body Mass Index 47.3 02/16/2021 11:21 AM EDT Plan of Treatment Health Maintenance Due Date Last Done Comments Breast Cancer Screening 1960 Colorectal Cancer Screening: Annual FOBT 2007 Colorectal Cancer Screening: Colonoscopy 2007 Colorectal Cancer Screening: Sigmoidoscopy 2007 Pneumococcal Vaccine: 50+ Years (3 of 3 - PCV20 or PCV21) 04/19/2023 02/09/2021, 04/19/2018 Influenza Vaccine (#1) 2025 , 08/02/2019, 10/15/2017 Pneumococcal Vaccine: Peds ( 0 to 5 Years) and At-Risk Patients (6 to 49 Years) Discontinued 02/09/2021, 04/19/2018 Hepatitis B Vaccine Aged Out No longe r eligible based on patient's age to complete this topic Insurance Medicaid [place] [employer] [id number] Medicaid [place] ([id number]) Care Teams Tool Smith Relationship Specialty Start Date End Date Ina Altamirano [place] [id number] [address] [address] PCP - General Family Medicine 11/05/25
--- OUTSIDE RECORDS SUMMARY | 2025-11-13 13:29 | XMS_ITS | Encounter Summary ---
Author Organization [facility] Address [address] [place] [address] Phone Care Team Providers Care Erection Shop Supervisor Name Role Phone Ina Altamirano MD Primary Care Provider [phone] Encounter Details Date Type Department Care Team (Late st Contact Info) Description 06/16/2021 Orders Only [facility] [address] [place] [address] Stage 3 chronic kidney disease, not otherwise specified (HCC) Social History Tobacco Use Types Packs/Day Years [...] documented as of this encounter Visit Diagnoses Diagnosis Stage 3 chronic kidney disease, not otherwise specified (HCC) documented in this encounter Care Teams Erection Shop Supervisor Relationship Specialty Start Date End Date Ina Altamirano [place] [id number] [facility] [address] [place], [place] [id number] PCP - General Family Medicine 11/05/25 documented as of this encounter
--- OUTSIDE RECORDS SUMMARY | 2025-11-13 13:29 | XMS_ITS | Clinical Summary ---
Author Organization [facility] Address [address] [place] [address] Care Team Providers Care Housing Officer Name Role Phone Ina Altamirano MD Primary Care Provider [phone] Allergies No known active allergies Medications acetaminophen (TYLENOL) 500 mg tablet Take 500 mg by mouth. Active atorvastatin (LIPITOR) 80 mg tablet Take 80 mg by mouth daily. 08/15/20 23 Active Cholecalcifero l, Vitamin D3, 50 mcg (2,000 unit) Capsule Take 2,000 Units by mouth daily. Active fluticasone-um eclidinium-maliha anterol (TRELEGY ELLIPTA) 200-62.5-25 mcg Disk with Device .COMPLEX 06/08/20 22 Active hydroCHLOROthi azide 12.5 mg tablet Take 25 mg by mouth daily. Active torsemide 40 mg Tablet Take 20 mg by mouth. 06/25/20 22 Active albuterol sulfate HFA 90 mcg/actuation aerosol inhaler Take 2 Puffs by inhalation every 6 hours as needed for Shortness of Breath. Active apixaban (ELIQUIS) 5 mg tablet Take 1 Tablet (5 mg) by mouth 2 times daily. 11/12/20 25 Active gabapentin (NEURONTIN) 100 mg capsule Take 1 Capsule (100 mg) by mouth 3 times daily. 11/12/20 25 Active levothyroxine 175 mcg tablet Take 1 Tablet (175 mcg) by mouth daily in the morning. 11/12/20 25 Active Lidocaine 4 % Adhesive Patch, Medicated Apply to site of pain in the a.m. and remove nightly or after 12 hours 12/30/20 25 Active metoprolol tartrate (LOPRESSOR) 25 mg tablet Take 0.5 Tablets (12.5 mg) by mouth 2 times daily. 11/12/20 Active miconazole (JYOTI,MICOTIN, REMEDY AF) 2 % Cream Apply to affected area 2 times daily. 11/12/20 Active miconazole nitrate (REMEDY-AF,DEBRA SORB-AF) 2 % Powder Apply to affected area 2 times daily. 11/12/20 Active pantoprazole (PROTONIX) 40 mg Tablet, Delayed Release (E.C.) Take 1 Tablet (40 mg) by mouth daily before breakfast. 11/12/20 Active levothyroxine 200 mcg tablet Take 200 mcg by mouth. Discontinued metoprolol tartrate (LOPRESSOR) 50 mg tablet Take 50 mg by mouth daily. 025 Discontinued omeprazole magnesium (PriLOSEC) 20 mg Tablet, Delayed Release (E.C.) Take 1 Tablet by mouth daily. 025 Discontinued rivaroxaban (XARELTO) 20 mg Tablet Take 20 mg by mouth daily. 025 Discontinued apixaban (ELIQUIS) 5 mg tablet Take 1 Tablet (5 mg) by mouth 2 times daily. 60 Tablet 11/10/20 Discontinued levothyroxine 175 mcg tablet Take 1 Tablet (175 mcg) by mouth daily in the morning. 30 Tablet 11/11/20 25 025 Discontinued Lidocaine 4 % Adhesive Patch, Medicated Apply to site of pain in the a.m. and remove nightly or after 12 hours 31 Patch 11/11/20 25 025 Discontinued metoprolol tartrate (LOPRESSOR) 25 mg tablet Take 0.5 Tablets (12.5 mg) by mouth 2 times daily. 60 Tablet 11/10/20 25 025 Discontinued miconazole (JYOTI,MICOTIN, REMEDY AF) 2 % Cream Apply to affected area 2 times daily. 15 Gram 11/10/20 25 025 Discontinued miconazole nitrate (REMEDY-AF,DEBRA SORB-AF) 2 % Powder Apply to affected area 2 times daily. 15 Gram 11/10/20 25 025 Discontinued pantoprazole (PROTONIX) 40 mg Tablet, Delayed Release (E.C.) Take 1 Tablet (40 mg) by mouth daily before breakfast. 30 Tablet 11/11/20 025 Discontinued gabapentin (NEURONTIN) 300 mg capsule Take 1 Capsule by mouth 3 times daily. 08/16/20 025 Discontinued gabapentin (NEURONTIN) 100 mg capsule Take 1 Capsule (100 mg) by mouth 3 times daily. 11/12/20 025 Discontinued Active Problems Problem Noted Date Diagnosed Date Slurred speech 11/05/2025 Longstanding persistent atrial fibrillation 10/15 Acute respiratory failure with hypoxia Transaminitis 11/05/2025 Volume overload 11/05/2025 Supratherapeutic INR 11/05/2025 Acute on chronic diastolic (congestive) heart fa ilure 11/04/2025 Acute kidney injury superimp osed on stage 4 chronic kidney disease 11/04/2025 Paroxysmal atrial fibrillation 11/04/2025 Chronic anticoagulation 11/04/2025 Hypothyroidism 11/04/2025 Encounters Date Type Department Care Team Description 11/12/2025 External Device Data [facility] ABSTRACTION Provider, Abstract 11/06/2025 Travel 11/05/2025 External Device Data [facility] ABSTRACTION Provider, Abstract 11/05/2025 External Device Data [facility] ABSTRACTION Provider, Abstract 11/05/2025 External Device Data [facility] ABSTRACTION Provider, Abstract 11/04/2025 1:01 PM REMARKETING REP - 11/13/2025 11:11 AM [facility] Hospital Encounter [address] [address] Leon Echols MD Neupane, Gagan, MD Almond, Toni L, MD Kandel, MD Gregg Acute kidney injury superimposed on stage 4 chronic kidney disease (CMS/HCC) Discharge Disposition: Residential Fac(SNF) with Medicare Certification in Anticipation of Skilled Care 10/01/2025 External Device Data [facility] ABSTRACTION Provider, Abstract 09/04/2025 External Device Data [facility] ABSTRACTION Provider, Abstract 09/03/2025 External Device Data [facility] ABSTRACTION Provider, Abstract from Last 3 Months Social History Tobacco Use Types Packs/Day Years Used Date Smoking Tobacco: Former Cigarettes 0 Q uit: 06/2020 Tobacco Cessation:Counseling Given: Not Answered Food Insecurity Answer Date Recorded Do you find you are eating l ess than you should because you can t pay for food? No 11/06/2025 Transportation Needs Answer Date Record ed Have you gone without health care because you didn t have a way to get there? Or worry about transportation for future doctor visits, poultry picker medication, etc.? No 2024 Housing Stability [...] Comments Blood Pressure 140/93 11/13/2025 7:20 AM REMARKETING REP Pulse 78 11/13/2025 7:20 AM REMARKETING REP Temperature 36.4 C (97.6 F) 11/13/2025 7:20 AM REMARKETING REP Respiratory Rate 16 11/13/2025 7:20 AM REMARKETING REP Oxygen Saturation 95% 11/13/2025 7:20 AM REMARKETING REP Inhaled Oxygen Concentration - - Weight 124.6 kg (274 lb 9.6 oz) 025 10:43 AM REMARKETING REP Height 162.6 cm (5' 4 ) 11/06/2025 10:5 0 PM REMARKETING REP Body Mass Index 47.13 11/06/2025 10:50 PM REMARKETING REP Plan of Treatment Health Maintenance Due Date Last Done Comments Pre-Diabetes and Diabetes Screening 1960 DTAP/TDAP/TD VACCINES (1 - Tdap) 1977 BREAST [...] - PCV20 or PCV21) 02/09/2026 02/09/2021, 04/19/2018 Medical Devices Implanted Type Area Senior Business Objects Developer Device Identifier Shelf Expiration Date Model / Serial / Lot Kit Cath 14fr Vena Trac 19cm Palindrome [id number] - [id number] Implanted:Qty: 1 on 11/08/2025 by Remy Carmichael MD at [facility] Catheter Right: Chest Wall [facility] [id number] 03/13/2030 [id number] / / [id number] Procedures Procedure Name Priority Date/Time Associated Diagnosis Comments PHOSPHORUS Routine 11/13/2025 5:45 AM REMARKETING REP CBC WITH DIFFERENTIAL Routine 11/13/2025 5:45 AM REMARKETING REP COMPREHENSIVE METABOLIC PANEL Routine 11/13/2025 5:45 AM REMARKETING REP PHOSPHORUS Routine 11/12/2025 1:38 AM REMARKETING REP CBC WITH DIFFERENTIAL Routine 11/12/2025 1:38 AM REMARKETING REP COMPREHENSIVE METABOLIC PANEL Routine 11/12/2025 1:38 AM REMARKETING REP PHOSPHORUS Routine 11/11/2025 4:37 AM REMARKETING REP CBC WITH DIFFERENTIAL Routine 11/11/2025 4:37 AM REMARKETING REP COMPREHENSIVE METABOLIC PANEL Routine 11/11/2025 4:37 AM REMARKETING REP PHOSPHORUS Routine 11/10/2025 6:05 AM REMARKETING REP CBC WITH DIFFERENTIAL Routine 11/10/2025 6:05 AM REMARKETING REP COMPREHENSIVE METABOLIC PANEL Routine 11/10/2025 6:05 AM REMARKETING REP PHOSPHORUS Routine 11/09/2025 5:23 AM REMARKETING REP CBC WITH DIFFERENTIAL Routine 11/09/2025 5:23 AM REMARKETING REP COMPREHENSIVE METABOLIC PANEL Routine 11/09/2025 5:23 AM REMARKETING REP MRI BRAIN WO CONTRAST Stat 11/09/2025 12:23 AM REMARKETING REP IR VENOUS ACCESS Pending Discharge 11/08/2025 4:04 PM REMARKETING REP US DOPPLER VENOUS ARM LEFT Routine 11/08/2025 10:26 AM REMARKETING REP US DUPLEX ARTERIAL ARM LEFT Routine 11/08/2025 10:20 AM REMARKETING REP PHOSPHORUS Routine 11/08/2025 5:17 AM REMARKETING REP CBC WITH DIFFERENTIAL Routine 11/08/2025 5:17 AM REMARKETING REP COMPREHENSIVE METABOLIC PANEL Routine 11/08/2025 5:17 AM REMARKETING REP PROTIME-INR Routine 11/08/2025 5:17 AM REMARKETING REP PROTIME-INR Routine 11/07/2025 5:52 AM REMARKETING REP PHOSPHORUS Routine 11/07/2025 5:51 AM REMARKETING REP CBC WITH DIFFERENTIAL Routine 11/07/2025 5:51 AM REMARKETING REP COMPREHENSIVE METABOLIC PANEL Routine 11/07/2025 5:[address] HEAD WO CONTRAST Stat 11/06/2025 4 :28 PM REMARKETING REP EKG 12-LEAD Routine 11/06/2025 3:25 PM REMARKETING REP SUTURE POLISHER EVALUATE AND TREAT Routine 2:20 PM REMARKETING REP PHOSPHORUS Routine 11/06/2025 5:48 AM REMARKETING REP BASIC METABOLIC PANEL Routine 11/06/2025 5:48 AM REMARKETING REP HEPATIC FUNCTION PANEL Routine 5:48 AM REMARKETING REP CBC WITHOUT DIFFERENTIAL Routine 11/06/2025 5:48 AM REMARKETING REP PROTIME-INR Routine 11/06/2025 5:48 AM REMARKETING REP EKG 12-LEAD Routine 11/05/2025 9:52 AM REMARKETING REP PROTIME-INR Stat 11/05/2025 9:04 AM REMARKETING REP BLOOD CULTURE Routine 11/05/2025 9:04 AM REMARKETING REP BLOOD CULTURE Routine 11/05/2025 9:04 AM REMARKETING REP BLOOD CULTURE Routine 11/05/2025 8:59 AM REMARKETING REP BLOOD CULTURE Routine 11/05/2025 8:59 AM REMARKETING REP HEPATIC FUNCTION PANEL Routine 3:03 AM REMARKETING REP RENAL FUNCTION PANEL Routine 11/05/2025 3:03 AM REMARKETING REP POC GLUCOSE Routine 11/04/2025 8:53 PM REMARKETING REP PROTEIN ELECTROPHORESIS W/REFLEX,SERUM Routine 11/04/2025 5:56 PM REMARKETING REP ACUTE HEPATITIS PANEL Routine 11/04/2025 5:08 PM REMARKETING REP POC GLUCOSE Routine 11/04/2025 4:07 PM REMARKETING REP BLOOD GAS VENOUS Routine 11/04/2025 2:20 PM REMARKETING REP IRON, TIBC, AND PERCENT SATURATION Routine 11/04/2025 1:49 PM REMARKETING REP TSH Routine 11/04/2025 1:49 PM REMARKETING REP AMMONIA LEVEL Stat 11/04/2025 1:49 PM REMARKETING REP COMPREHENSIVE METABOLIC PANEL Stat 11/04/2025 1:49 PM REMARKETING REP PROTIME-INR Stat 11/04/2025 1:49 PM REMARKETING REP CBC WITHOUT DIFFERENTIAL Stat 11/04/2025 1:49 PM REMARKETING REP POC GLUCOSE Routine 11/04/2025 1:19 PM REMARKETING REP from Last 3 Months Results * (ABNORMAL) CBC WITH DIFFERENTIAL (11/13/2025 5:45 AM REMARKETING REP) Only the most recent of7 resultswithin the time period is included. [facility] WBC 8.5 4.8 - 10.8 K/uL 11/13/2025 6:06 AM REMARKETING REP [facility] RBC 3.46(L) 4.20 - 5.40 M/uL 11/13/2025 6:06 AM REMARKETING REP [facility] HEMOGLOBIN 8.4(L) 12.0 - 16.0 g/dL 11/13/2025 6:06 AM [facility] HEMATOCRIT 29.7(L) 36.0 - 46.0 % 11/13/2025 6:06 AM REMARKETING REP [facility] MCV 85.8 84.0 - 103.0 fL 11/13/2025 6:06 AM [facility] MCH 24.3(L) 27.0 - 34.0 pg 11/13/2025 6:06 AM [facility] MCHC 28.3(L) 30.0 - 35.0 g/dL 11/13/2025 6:06 AM [facility] PLATELETS 247 140 - 440 K/uL 11/13/2025 6:06 AM [facility] MPV 10.6 8.9 - 12.8 fL 11/13/2025 6:06 AM [facility] RDW 19.1(H) 11.0 - 14.5 % 11/13/2025 6:06 AM [facility] RDW-STDEV 58.7(H) 37.0 - 54.0 fL 11/13/2025 6:06 AM [facility] NEUTROPHILS 70 42 - 75 % 11/13/2025 6:06 AM [facility] LYMPHOCYTES 11(L) 24 - 44 % 11/13/2025 6:06 AM [facility] MONOCYTES 15(H) 2 - 10 % 11/13/2025 6:06 AM [facility] EOSINOPHILS 3 0 - 7 % 11/13/2025 6:06 AM [facility] BASOPHILS 0 0 - 1 % 11/13/2025 6:06 AM [facility] IMMATURE GRANULOCYTES 2 0 - 2 % 11/13/2025 6:06 AM [facility] NEUTROPHIL ABSOLUTE 5.91 2.00 - 8.00 K/uL 11/13/2025 6:06 AM [facility] LYMPHOCYTE ABSOLUTE 0.92(L) 1.20 - 4.00 K/uL 11/13/2025 6:06 AM [facility] MONOCYTE ABSOLUTE 1.23(H) 0.10 - 0.60 K/uL 11/13/2025 6:06 AM [facility] EOSINOPHIL ABSOLUTE 0.21 0.00 - 0.70 K/uL 11/13/2025 6:06 AM [facility] BASOPHILS ABSOLUTE 0.03 0.00 - 0.20 K/uL 11/13/2025 6:06 AM [facility] IMMATURE GRANULOCYTES ABSOLUTE 0.16(H) 0.00 - 0.10 K/uL 11/13/2025 6:06 AM [facility] SMEAR REVIEWED: NN - No Action Needed 11/13/2025 6:06 AM [facility] Blood Venipuncture / Unknown 11/13/2025 5:45 AM REMARKETING REP 11/13/2025 5:57 AM REMARKETING REP Magdi Carroll MD HEMATOLOGY ORDERABLES Final Res ult Performing Organization Address [facility] Co de Phone Number [facility] CLIA # [id number] [address] [address] [place] [address] * PHOSPHORUS (11/13/2025 5:45 AM REMARKETING REP) Only the most recent of8 resultswithin the time period is included. Pathologist [facility] PHOSPHORUS 2.8 2.5 - 4.5 mg/dL 11/13/2025 6:31 AM [facility] Blood Venipuncture / Unknown 11/13/2025 5:45 AM REMARKETING REP 11/13/2025 5:59 AM REMARKETING REP Lewis Rdz MD CHEMISTRY ORDERABLES Final R esult Performing Organization Address City/[facility]/ZIP Co de Phone Number [facility] CLIA # [id number] [address] [address] * (ABNORMAL) COMPREHENSIVE METABOLIC PANEL (11/13/2025 5:45 AM REMARKETING REP) Only the most recent of8 resultswithin the time period is included. SODIUM 136 136 - 145 mmol/L 11/13/2025 6:31 AM [facility] POTASSIUM 3.6 3.5 - 5.1 mmol/L 11/13/2025 6:31 AM [facility] CHLORIDE 98 98 - 107 mmol/L 11/13/2025 6:31 AM [facility] CO2 29 22 - 29 mmol/L 11/13/2025 6:31 AM [facility] CALCIUM 8.6(L) 8.8 - 10.2 mg/dL 11/13/2025 6:31 AM [facility] BUN 22 8 - 23 mg/dL 11/13/2025 6:31 AM [facility] CREATININE 1.59(H) 0.51 - 0.95 mg/dL 11/13/2025 6:31 AM [facility] GLUCOSE 100(H) 74 - 99 mg/dL 11/13/2025 6:31 AM [facility] TOTAL PROTEIN 6.1(L) 6.4 - 8.3 g/dL 11/13/2025 6:31 AM [facility] ALBUMIN 3.1(L) 3.5 - 5.2 g/dL 11/13/2025 6:31 AM [facility] BILIRUBIN TOTAL 0.9 0.0 - 1.0 mg/dL 11/13/2025 6:31 AM [facility] ALKALINE PHOSPHATASE 170(H) 35 - 104 U/L 11/13/2025 6:31 AM [facility] AST 31 10 - 35 U/L 11/13/2025 6:31 AM [facility] ALT 22 <=35 U/L 11/13/2025 6:31 AM [facility] GFR 35(L) >=60 mL/min/1. 73 sq meter 11/13/2025 6:31 AM [facility] Comment:eGFR calculated with 2020 CKD-EPI equation. Vegetarian diet, extremely high or low muscle mass, and may affect results. Cystatin C with Glomerular Filtration Rate is a suitable alternative for these patients. ANION GAP 9 9 - 20 mmol/L 11/13/2025 6:31 AM [facility] Blood Venipuncture / Unknown 11/13/2025 5:45 AM REMARKETING REP 11/13/2025 5:59 AM REMARKETING REP us Magdi Carroll MD CHEMISTRY ORDERABLES Final Resu lt [facility] CARLA # [id number] [id number] [place] [address] * MRI BRAIN WO CONTRAST (11/09/2025 12:23 AM REMARKETING REP) Anatomical Region Laterality Modality Head Magnetic Resonan ce 11/09/2025 12:2 3 AM REMARKETING REP Impressions 11/09/2025 1:52 AM REMARKETING REP IMPRESSION: Please see below. Exam: MRI BRAIN [...] * IR VENOUS ACCESS (11/08/2025 4:04 PM REMARKETING REP) Anatomical Region Laterality Modality X-Ray Angiograph y 11/08/2025 4:04 PM REMARKETING REP Impressions 11/08/2025 4:10 PM REMARKETING REP IMPRESSION: Please see below. EXAM: Ultrasound and [...] documented [facility], 'Sedative/Analgesic Administration for Diagnostic and Therapeutic Procedures'. Please see nursing flow sheets for dosage and time. Sedation was administered by a trained independent observer. I personally supervised 20 minutes of sedation. CONTRAST: None FLUOROSCOPY TIME: 1.3 minutes CATHETER: 14.5 Stateless, 19 cm tip to cuff catheter ESTIMATED [...] and the needle exchanged for a 5 Stateless transitional dilator. A 0.035-inch wire was advanced [...] skin tract was dilated and a 15 Stateless dilator peel-away combination placed over the wire. [...] documented in the [facility], 'Sedative/Analgesic Administration for Diagnostic and Therapeutic Procedures'. Please see nursing flow sheets for dosage and time. Sedation was administered by a trained independent observer. I personally supervised 20 minutes of sedation. CONTRAST: None FLUOROSCOPY TIME: 1.3 minutes CATHETER: 14.5 Stateless, 19 cm tip to cuff catheter ESTIMATED [...] and the needle exchanged for a 5 Stateless transitional dilator. A 0.035-inch wire was advanced [...] skin tract was dilated and a 15 Stateless dilator peel-away combination placed over the wire. [...] DOPPLER VENOUS ARM LEFT (11/08/2025 10:26 AM REMARKETING REP) Anatomical Region Laterality Modality Upper Extremity Ultrasound 11/08/2025 7:42 AM REMARKETING REP Narrative 11/08/2025 11:40 AM REMARKETING REP [facility] Noninvasive Vascular Laboratory [address] [place] [address] Noninvasive Vascular Lab Venous Exam Limited Upper Extremity Duplex Patient: Lupe Monreal Study ID: US DOPPLER VENOU Gender: F : 1960 Age: 65 Room: Height: Weight: BSA: Pt status: Outpatient Study Date: 11/08/2025 Study Time: 07:42:43 AM BSA: Ordering: John Carmen Interpreting:Irina Smith Open Hearth Furnace Operator Helper: JOSHUA Indications: Cyst vs venous enlargement left [...] back and verified. - 11/08/25799 - +SVT [facility] is accredited with the Intersocietal Commission for the Accreditation of Vascular Laboratories (ICAVL) Prepared and Electronically Authenticated Irina Smith Confirmed 11/08/2025 11:40 Procedure Note Irina Smith DO - 11/08/2025 [facility] Noninvasive Vascular Laboratory [address] [place] [address] Noninvasive Vascular Lab Venous Exam Limited Upper Extremity Duplex Patient: Lupe Monreal Study ID: US DOPPLER VENOU Gender: F : 1960 Age: 65 Room: Height: Weight: BSA: Pt status: Outpatient Study Date: 11/08/2025 Study Time: 07:42:43 AM BSA: Ordering: John Carmen Interpreting:Irina Smith Open Hearth Furnace Operator Helper: JOSHUA Indications: Cyst vs venous enlargement left [...] verified. - 11/08/25 - 799 - +SVT [facility] is accredited with theIntersocietal Commission for the Accreditation of Vascular Laboratories (ICAVL) Prepared and Electronically Authenticated Irina Smith Confirmed 11/08/2025 11:40 us John Carmen MD US ORDERABLES Final Result * US DUPLEX ARTERIAL ARM LEFT (11/08/2025 10:20 AM REMARKETING REP) Anatomical Region Laterality Modality Upper Extremity Ultrasound 11/08/2025 7:53 AM REMARKETING REP Narrative 11/08/2025 8:33 PM REMARKETING REP [facility] Noninvasive Vascular Laboratory [address] [place] [address] Noninvasive Vascular Lab Arterial Exam Complete Upper Extremity Duplex Patient: Lupe Monreal Study ID: US DUPLEX ARTERI Gender: F : 1960 Age: 65 Room: Height: 162.6cm Weight: 126.7kg BSA: 2.47m^2 Pt status: Inpatient Study Date: 11/08/2025 Study Time: 07:53:03 AM BSA: 2.47m^2 Ordering: John Carmen Interpreting:Irina Smith Open Hearth Furnace Operator Helper: JOSHUA Indications: Left radial art site, r/u [...] ulnar distal: Left ulnar distal 0.87m/sec Triphasic [facility] is accredited with the Intersocietal Commission for the Accreditation of Vascular Laboratories (ICAVL) Prepared and Electronically Authenticated Irina Smith Confirmed 11/08/2025 20:33 Procedure Note Irina Smith DO - 11/08/2025 [facility] Noninvasive Vascular Laboratory [address] [place] [address] Noninvasive Vascular Lab Arterial Exam Complete Upper Extremity Duplex Patient: Lupe Monreal Study ID: US DUPLEX ARTERI Gender: F : 1960 Age: 65 Room: Height: 162.6cm Weight: 126.7kg BSA: 2.47m^2 Pt status: Inpatient Study Date: 11/08/2025 Study Time: 07:53:03 AM BSA: 2.47m^2 Ordering: John Carmen Interpreting:Irina Smith Open Hearth Furnace Operator Helper: JOSHUA Indications: Left radial art site, r/u [...] ulnar distal: Left ulnar distal 0.87m/sec Triphasic [facility] is accredited with theIntersocietal Commission for the Accreditation of Vascular Laboratories (ICAVL) Prepared and Electronically Authenticated Irina Smith Confirmed 11/08/2025 20:33 us John Carmen MD ORDERABLES Final Result * (ABNORMAL) PROTIME-INR (11/08/2025 5:17 AM REMARKETING REP) Only the most recent of5 resultswithin the time period is included. PROTIME 21.1(H) 12.7 - 14.9 Seconds 11/08/2025 5:50 AM REMARKETING REP [facility] INR 1.7(H) 0.8 - 1.2 11/08/2025 5:50 AM REMARKETING REP [facility] Blood Venipuncture / Unknown 11/08/2025 5:17 AM REMARKETING REP 11/08/2025 5:35 AM REMARKETING REP Narrative [facility] - 11/08/2025 5:50 AM REMARKETING REP Expected Values for INR: DVT/PE Goal INR 2.5; range 2.0 - 3.0 Valve Replacement Tissue Goal INR 2.5; range 2.0 - 3.0 Valve Replacement Mechanical Goal INR 3.0; range 2.5 - 3.5 POST-DE Goal INR 2.5; range 2.0 - 3.0 or Goal INR 3.0; range 2.5 - 3.5 Atrial Fibrillation Goal INR 2.5; range 2.0 - 3.0 Ischemic Stroke Goal INR 2.5; range 2.0 - 3.0 us Leon Echols MD HEMATOLOGY ORDERABLES Final Resu lt [facility] CLIA # [id number] [address] [place] [id number] * CT HEAD WO CONTRAST (11/06/2025 4:28 PM REMARKETING REP) Anatomical Region Laterality Modality Head Computed Tomogra phy 11/06/2025 4:12 PM REMARKETING REP Impressions 11/06/2025 4:47 PM REMARKETING REP IMPRESSION: Mild generalized parenchymal atrophy and chronic small vessel disease are present. Narrative 11/06/2025 4:47 PM REMARKETING REP Exam: CT HEAD WO CONTRAST Date/Time of [...] the levels that were scanned. Procedure Note Miose Pearce MD - 11/06/2025 Exam: CT HEAD [...] and chronic small vessel disease are present. us Magdi Carroll MD CT ORDERABLES Final Result * EKG 12-LEAD (11/06/2025 3:25 PM REMARKETING REP) Only the most recent of2 resultswithin the time period is included. 11/06/2025 3:25 PM REMARKETING REP Narrative INTERFACE SYSTEM - 11/07/2025 8:18 AM REMARKETING REP [address] [address] Test Date: 2025-11-06 Pat Name: LUPE MONREAL Department: 12 Room: [address] [place] [address] Gender: Female Kier Boiler: [id number] : 1960 Requested By: Order Number: [id number] Reading MD: Mario Oates Measurements Intervals [place] Rate: 67 P: 0 RI: 0 QRS: 17 QRSD: 106 T: 133 QT: 394 QTc: 416 Interpretive Statements Atrial fibrillation Minimal voltage criteria for LVH, may be normal variant ( Fausto product ) T wave abnormality, consider lateral ischemia Abnormal ECG Electronically Signed On 11-07-2025 8:18:52 REMARKETING REP by Mario Oates Procedure Note Mario Oates MD - 11/07/[address] [address] Test Date: 2025-11-06 Pat Name: LUPE MONREAL Department: 12 Room: [address] [place] [address] Gender: Female Kier Boiler: [id number] : 1960 Requested By: Order Number: [id number] Tamara MD: Mario Oates Measurements Intervals [place] Rate: 67 P: 0 RI: 0 QRS: 17 QRSD: 106 T: 133 QT: 394 QTc: 416 Interpretive Statements Atrial fibrillation Minimal voltage criteria for LVH, may be normal variant ( Fausto product) T wave abnormality, consider lateral ischemia Abnormal ECG Electronically Signed On 11-07-2025 8:18:52 REMARKETING REP by Mario Oates us Magdi Carroll MD ECG ORDERABLES Final Result INTERFACE SYSTEM Refer to clinic/hospital department * (ABNORMAL) CBC WITHOUT DIFFERENTIAL (11/06/2025 5:48 AM REMARKETING REP) Only the most recent of2 resultswithin the time period is included. WBC 9.2 4.8 - 10.8 K/uL 11/06/2025 6:12 AM [facility] [employer] [facility] RBC 3.32(L) 4.20 - 5.40 M/uL 11/06/2025 6:12 AM [facility] [employer] [facility] HEMOGLOBIN 7.8(L) 12.0 - 16.0 g/dL 11/06/2025 6:12 AM [facility] HEMATOCRIT 27.9(L) 36.0 - 46.0 % 11/06/2025 6:12 AM [facility] MCV 84.0 84.0 - 103.0 fL 11/06/2025 6:12 AM [facility] MCH 23.5(L) 27.0 - 34.0 pg 11/06/2025 6:12 AM [facility] MCHC 28.0(L) 30.0 - 35.0 g/dL 11/06/2025 6:12 AM [facility] PLATELETS 185 140 - 440 K/uL 11/06/2025 6:12 AM [facility] [employer] [facility] MPV 11.7 8.9 - 12.8 fL 11/06/2025 6:12 AM [facility] RDW 18.0(H) 11.0 - 14.5 % 11/06/2025 6:12 AM [facility] RDW-STDEV 54.6(H) 37.0 - 54.0 fL 11/06/2025 6:12 AM [facility] Blood Venipuncture / Unknown 11/06/2025 5:48 AM REMARKETING REP 11/06/2025 6:03 AM REMARKETING REP us Leon Echols MD HEMATOLOGY ORDERABLES Final Resu lt [facility] CLIA # [id number] [address] [place] [address] [place] [address] * (ABNORMAL) HEPATIC FUNCTION PANEL (11/06/2025 5:48 AM REMARKETING REP) Only the most recent of2 resultswithin the time period is included. TOTAL PROTEIN 6.2(L) 6.4 - 8.3 g/dL 11/06/2025 6:29 AM [facility] ALBUMIN 3.4(L) 3.5 - 5.2 g/dL 11/06/2025 6:29 AM [facility] BILIRUBIN TOTAL 1.2(H) 0.0 - 1.0 mg/dL 11/06/2025 6:29 AM [facility] BILIRUBIN DIRECT 0.6(H) 0.0 - 0.3 mg/dL 11/06/2025 6:29 AM [facility] ALKALINE PHOSPHATASE 252(H) 35 - 104 U/L 11/06/2025 6:29 AM [facility] AST 158(H) 10 - 35 U/L 11/06/2025 6:29 AM [facility] ALT 186(H) <=35 U/L 11/06/2025 6:29 AM [facility] Blood Venipuncture / Unknown 11/06/2025 5:48 AM REMARKETING REP 11/06/2025 6:00 AM REMARKETING REP Leon Echols MD CHEMISTRY ORDERABLES Final Resul t [facility] CLIA # [id number] [address] [place] [address] * (ABNORMAL) BASIC METABOLIC PANEL (11/06/2025 5:48 AM REMARKETING REP) Pathologist [facility] SODIUM 138 136 - 145 mmol/L 11/06/2025 6:33 AM [facility] POTASSIUM 4.1 3.5 - 5.1 mmol/L 11/06/2025 6:33 AM [facility] CHLORIDE 102 98 - 107 mmol/L 11/06/2025 6:33 AM [facility] CO2 23 22 - 29 mmol/L 11/06/2025 6:33 AM [facility] CALCIUM 8.9 8.8 - 10.2 mg/dL 11/06/2025 6:33 AM [facility] BUN 44(H) 8 - 23 mg/dL 11/06/2025 6:33 AM [facility] CREATININE 3.63(H) 0.51 - 0.95 mg/dL 11/06/2025 6:33 AM [facility] GLUCOSE 116(H) 74 - 99 mg/dL 11/06/2025 6:33 AM [facility] GFR 13(L) >=60 mL/min/1. 73 sq meter 11/06/2025 6:33 AM [facility] Comment:eGFR calculated with 2020 CKD-EPI equation. Vegetarian diet, extremely high or low muscle mass, and may affect results. Cystatin C with Glomerular Filtration Rate is a suitable alternative for these patients. ANION GAP 13 9 - 20 mmol/L 11/06/2025 6:33 AM [facility] Blood Venipuncture / Unknown 11/06/2025 5:48 AM REMARKETING REP 11/06/2025 6:00 AM REMARKETING REP us Lewis Rdz MD CHEMISTRY ORDERABLES Final R esult Performing Organization Address [facility] Co de Phone Number [facility] CLIA # [id number] [address] [id number] * BLOOD CULTURE (11/05/2025 9:04 AM REMARKETING REP) Only the most recent of2 resultswithin the time period is included. Pathologist [facility] BLOOD CULTURE No growth 11/10/2025 11:54 AM [facility] Blood (Peripheral) Venipuncture / Unknown 11/05/2025 9:04 AM REMARKETING REP 11/05/2025 9:09 AM REMARKETING REP Leon Echols MD MICROBIOLOGY - GENERAL ORDERABLE S Final Result Performing Organization Address [facility] [[email or web address]] de Phone Number [facility] CLIA # [id number] [address] [address] * (ABNORMAL) RENAL FUNCTION PANEL (11/05/2025 3:03 AM REMARKETING REP) SODIUM 140 136 - 145 mmol/L 11/05/2025 3:49 AM [facility] [employer] [facility] POTASSIUM 4.1 3.5 - 5.1 mmol/L 11/05/2025 3:49 AM [facility] [employer] [facility] CHLORIDE 102 98 - 107 mmol/L 11/05/2025 3:49 AM [facility] [employer] [facility] CO2 25 22 - 29 mmol/L 11/05/2025 3:49 AM [facility] CALCIUM 8.8 8.8 - 10.2 mg/dL 11/05/2025 3:49 AM [facility] BUN 33(H) 8 - 23 mg/dL 11/05/2025 3:49 AM [facility] CREATININE 2.59(H) 0.51 - 0.95 mg/dL 11/05/2025 3:49 AM [facility] GLUCOSE 97 74 - 99 mg/dL 11/05/2025 3:49 AM [facility] ALBUMIN 4.1 3.5 - 5.2 g/dL 11/05/2025 3:49 AM [facility] PHOSPHORUS 2.9 2.5 - 4.5 mg/dL 11/05/2025 3:49 AM [facility] GFR 20(L) >=60 mL/min/1. 73 sq meter 11/05/2025 3:49 AM [facility] Comment:eGFR calculated with 2020 CKD-EPI equation. Vegetarian diet, extremely high or low muscle mass, and may affect results. Cystatin C with Glomerular Filtration Rate is a suitable alternative for these patients. ANION GAP 13 9 - 20 mmol/L 11/05/2025 3:49 AM [facility] Blood Venipuncture / Unknown 11/05/2025 3:03 AM REMARKETING REP 11/05/2025 3:13 AM REMARKETING REP us Lewis Rdz MD CHEMISTRY ORDERABLES Final R esult [facility] CLIA # [id number] [address] [place] [address] * POC GLUCOSE (11/04/2025 8:53 PM REMARKETING REP) Only the most recent of3 resultswithin the time period is included. GLUCOSE POC 94 74 - 99 mg/dL 11/04/2025 8:53 PM [facility] SPECIMEN SOURCE, GLUCOSE POC Capillary 11/04/2025 8:53 PM [facility] Blood, whole 11/04/2025 8:53 PM REMARKETING REP 11/04/2025 9:20 PM REMARKETING REP us Leon Echols MD POINT OF CARE TESTING Final Resu lt Performing Organization Address [facility] Co de Phone Number [facility] CLIA # [id number] [address] [address] * ACUTE HEPATITIS PANEL (11/04/2025 5:08 PM REMARKETING REP) HEPATITIS B SURFACE AG NON-REACT NEVAEH Non-react nevaeh 11/04/2025 6:16 PM REMARKETING REP [facility] Comment:A non-reactive test result does not exclude the possibility of exposure to or infection with hepatitis B. HEPATITIS B CORE IGM NON-REACT NEVAEH Non-react nevaeh 11/04/2025 6:16 PM REMARKETING REP [facility] Comment:IgM antibodies to HB c were not detected; does not exclude the possibility of exposure to HBV. HEPATITIS A IGM Non-react nevaeh Non-react nevaeh 11/04/2025 6:16 PM REMARKETING REP [facility] Comment:A negative test resu lt does not exclude the possibility of exposure to Hepatitis A virus. HEPATITIS C AB NON-REACT NEVAEH Non-react nevaeh 11/04/2025 6:16 PM REMARKETING REP [facility] Comment:Antibodies to HCV we re not detected, does not exclude the possibility of exposure to HCV. Blood Collection / Unknown 11/04/2025 5:08 PM REMARKETING REP 11/04/2025 5:18 PM REMARKETING REP Lewis Rdz MD CHEMISTRY ORDERABLES Final R esult Performing Organization Address City/[facility]/ZIP Co de Phone Number [facility] CLIA # [id number] [address] [address] * (ABNORMAL) BLOOD GAS VENOUS (11/04/2025 2:20 PM REMARKETING REP) PH BLOOD POC 7.35 7.32 - 7.43 11/04/2025 2:20 PM REMARKETING REP [facility] PCO2 POC 46 38 - 50 mm Hg 11/04/2025 2:20 PM [facility] PO2 POC 45(H) 25 - 40 mm Hg 11/04/2025 2:20 PM [facility] HCO3 (CALC) POC 25 22 - 29 mmol/L 11/04/2025 2:20 PM [facility] HEMOGLOBIN POC 8.8(L) 12.0 - 18.0 g/dL 11/04/2025 2:20 PM [facility] BASE EXCESS POC 0 -2 - 3 mmol/L 11/04/2025 2:20 PM [facility] O2 SATURATION POC 75(H) 40 - 70 % 11/04/2025 2:20 PM [facility] SODIUM POC 137 135 - 145 mmol/L 11/04/2025 2:20 PM [facility] POTASSIUM POC 4.3 3.5 - 4.9 mmol/L 11/04/2025 2:20 PM [facility] HEMATOCRIT POC 26(L) 38 - 51 % 11/04/2025 2:20 PM [facility] PH TEMP CORRECT 7.35 7.32 - 7.43 11/04/20 2:20 PM [facility] PCO2 TEMP CORRECT 46 38 - 50 mm Hg 11/04/2025 2:20 PM [facility] PO2 TEMP CORRECT 45(H) 25 - 40 mm Hg 11/04/2025 2:20 PM [facility] SPECIMEN SOURCE, GASES POC Venous 11/04/2025 2:20 PM [facility] CALCIUM IONIZED POC 4.5(L) 4.8 - 5.2 mg/dL 11/04/2025 2:20 PM [facility] TCO2 (CALC) POC 27(H) 22 - 26 mmol/L 11/04/2025 2:20 PM [facility] LITER FLOW 6.0 L/min 11/04/2025 2:20 PM [facility] PUNC SITE POC No Charge 11/04/2025 2:20 PM [facility] PATIENT'S TEMPERATURE POC 37.0 degrees 11/04/2025 2:20 PM REMARKETING REP [facility] Blood, venous 11/04/2025 2:2 0 PM REMARKETING REP 11/04/2025 2:23 PM REMARKETING REP Adeola Kaur CEMET[employer]ARD[employer]-BC ABG ORDERABLES Tiffany l Result Performing Organization Address City/[facility]/ZIP Co de Phone Number [facility] CLIA # [id number] [address] [address] [place], [place] [address] * (ABNORMAL) IRON, TIBC, AND PERCENT SATURATION (11/04/2025 1:49 PM REMARKETING REP) IRON 17(L) 37 - 145 ug/dL 11/04/2025 5:33 PM REMARKETING REP [facility] TIBC 236(L) 250 - 450 ug/dL 11/04/2025 5:33 PM [facility] IRON % SATURATION 7(L) 15 - 60 % 11/04/2025 5:33 PM [facility] Blood Venipuncture / Unknown 11/04/2025 1:49 PM REMARKETING REP 11/04/2025 1:56 PM REMARKETING REP Lewis Rdz MD CHEMISTRY ORDERABLES Final R esult Performing Organization Address City/[facility]/ZIP Co de Phone Number [facility] CLIA # [id number] [address] [id number] * TSH (11/04/2025 1:49 PM REMARKETING REP) TSH 0.39 0.27 - 4.20 uIU/mL 11/04/2025 4:27 PM REMARKETING REP [facility] Blood Venipuncture / Unknown 11/04/2025 1:49 PM REMARKETING REP 11/04/2025 1:56 PM REMARKETING REP [facility]AB[facility] Final Result Performing Organization Address [facility]/ZIP Co de Phone Number [facility] CLIA # [id number] [address] [facility] [place], [place] [address] * AMMONIA LEVEL (11/04/2025 1:49 PM REMARKETING REP) Pathologist [facility] AMMONIA 19.0 11.0 - 51.0 umol/L 11/04/2025 2:20 PM REMARKETING REP [facility] Blood, venous Venipuncture / Unknown 11/04/2025 1:49 PM REMARKETING REP 11/04/2025 1:52 PM [facility]P [facility] CHEMISTRY ORDERABLES Final Result Performing Organization Address [facility] [[email or web address]] de Phone Number [facility] CLIA # [id number] [address] [address] from Last 3 Months Insurance [place] [facility] Advance Directives For more information, please contact: [phone] * NO CPR (In Event of Cardiopulmonary Arrest) (Latest Code Status on File) Date Activated Date Inactivated Comments 11/05/2025 8:15 AM 11/13/2025 1:11 PM Question Answer Comments Mechanical Ventilation (for respiratory distress) - Invasive (i.e. intubation): No Mechanical Ventilation (for respiratory distress) - Non-Invasive (i.e. BiPAP, CPAP): Yes * Default Full Code - Needs Discussion Date Activated Date Inactivated Comments 11/04/2025 1:21 PM 11/05/2025 8:15 AM Care Teams Housing Officer Relationship Specialty Start Date End Date Ina Altamirano [place] [id number] [address] [address] PCP - General Family Practice 04/27/17
--- OUTSIDE RECORDS SUMMARY | 2025-11-13 13:29 | XMS_ITS | Encounter Summary ---
Author Organization [facility] Address [address] Cha: Epic Prelude ADT [place] [address] Care Team Providers Care Cashier Payments Received Name Role Phone Ina Altamirano MD Primary Care Provider Encounter Details Date Type Department Care Team (Latest Contact Info) Description 11/06/2025 Travel Social History Tobacco Use Types Packs/Day Years [...] worry about transportation for future doctor visits, pick up man medication, etc.? No 2024 Housing Stability Answer [...] on filedocumented in this encounter Care Teams Cashier Payments Received Relationship Specialty Start Date End Date Ina Altamirano [place] [id number] [address] [address] PCP - General Family Practice 04/27/17 documented as of this encounter
[2025-11-13 13:42] LABS: Hematocrit 32.8 % (36-47); Hemoglobin 9.10 g/dL (11.27-16.99); Mean Corpuscular HGB Conc 27.7 g/dL (30-55); Mean Corpuscular Hemoglobin 23.5 pg (27-33); Mean Corpuscular Volume 84.8 fl (85-98); Nucleated Red Blood Cells % 0 %; Platelet Count 295 10^3/cmm (157-399); Red Blood Count 3.87 10^6/uL (3.85-5.65); White Blood Count 9.64 10^3/uL (3.29-11.43)
[2025-11-13 14:04] LABS: Alanine Aminotransferase 27 U/L (0-33); Albumin Level 3.3 g/dL (3.5-5.2); Alkaline Phosphatase 186 U/L (35-105); Anion Gap 14.9 (5-19); Aspartate Amino Transferase 43 U/L (0-32); Blood Urea Nitrogen 24 mg/dL (8-23); Calcium 9.1 mg/dL (8.5-10.5); Carbon Dioxide 28 mmol/L (22-29); Chloride 97 mmol/L (98-107); Globulin 3.8 g/dL (1.3-4.6); Glucose 111 mg/dL (65-115); Osmolality Calculated 287 mOsm/kg (285-295); Potassium 3.9 mmol/L (3.5-5.1); Sodium 136 mmol/L (136-145); Total Protein 7.1 g/dL (6.6-8.7)
[2025-11-13 14:50] VITALS: BP 100/51; PULSE 75; RESP 16; O2SAT 96
== END 2025-11-13 14:51 | disposition home or self-care (01) ==
PROVIDERS: Emergency Provider Family Medicine; PCP Nurse Practitioner Adult Health
DX: Z04.1 Encounter for examination and observation following transport accident (principal); Z79.01 Long term (current) use of anticoagulants; Z87.891 Personal history of nicotine dependence; E78.5 Hyperlipidemia, unspecified; I13.0 Hypertensive heart and chronic kidney disease with heart failure and stage 1 through stage 4 chronic kidney disease, or unspecified chronic kidney disease; N18.30 Chronic kidney disease, stage 3 unspecified; I50.9 Heart failure, unspecified
CPT/HCPCS: 36415; 80053; 85025; 99283